=== PATIENT | female | born 1940 | race Caucasian/White ===

== ENCOUNTER 2022-12-16 08:28 | Outpatient (CLI) | payer MEDICARE, SELFPAY ==
--- NOTE | 2022-12-18 15:37 | P.PCNPFT_ITS ---
PFT Procedure Performed PFT Procedure Performed Spirometry with Pre/Post Bronchodilator PFT Interpretation DOS: 12/16/2022 REQUESTING: Gabbie Sahni MD REASON FOR TESTING: shortness of breath PULMONARY FUNCTION TESTS Results are reliable and reproducible for spirometry however the patient could n ot perform lung volumes or diffusion. Spirometry: Pre-bronchodilator FEV1 is 1.02 L, 62% predicted, moderately decreased. Pre-bronchodilator FVC is 1.34 L, 64%, moderately decreased. FEV1/FVC is 76%, normal. There is a non statistically significant change after bronchodilator. The FEV1 increases 5% and the FVC increases 1%. IMPRESSION: There is a moderate ventilatory impairment with decrease in the FEV1 and FVC with preserved FEV1/ FVC ratio. This suggests possible restriction, however the patient was not able to complete lung volumes or diffusion. No response to bronchodilator. No old tests for comparison. Marti May MD
== END 2022-12-16 08:29 | disposition home or self-care (01) ==
LOC: CHSCARD 08:30
PROVIDERS: PCP Family Medicine; Visit Provider Family Medicine
DX: R06.02 Shortness of breath (principal); R94.2 Abnormal results of pulmonary function studies
CPT/HCPCS: 94060

== ENCOUNTER 2023-05-27 10:32 | Outpatient (CLI) | payer MEDICARE, SELFPAY ==
--- NOTE | ~2023-05-27 | XR_ITS ---
XR chest 2V 05/27/2023 10:59 Indication: Acute bronchitis. COPD. Procedure: 2 view chest Comparison: 11/25/2014 Findings: There are coarse peripheral interstitial infiltrates, consistent with progression of chroni c interstitial fibrosis. There is atherosclerosis and ectasia of the aorta. There is a hiatal hernia. No significant effusion or pneumothorax. Impression: 1: Chronic interstitial lung disease which has progressed since prior studies. Reviewed, dictated and finalized at location A. Impression: 1: Chronic interstitial lung disease which has progressed since prior studies.
[2023-05-31 03:32] LABS: Adenovirus DNA Not Detected (Not Detected); Chlamydophila pneumoniae Not Detected (Not Detected); Coronavirus 229E Not Detected (Not Detected); Coronavirus HKU1 Not Detected (Not Detected); Coronavirus NL63 Not Detected (Not Detected); Coronavirus OC43 Not Detected (Not Detected); Human Metapneumovirus Not Detected (Not Detected); Human Parainfluenza Virus 1 Not Detected (Not Detected); Human Parainfluenza Virus 2 Not Detected (Not Detected); Human Parainfluenza Virus 3 Not Detected (Not Detected); Human Parainfluenza Virus 4 Not Detected (Not Detected); Human RSV B Not Detected (Not Detected); Influenza A Not Detected (Not Detected); Influenza B Not Detected (Not Detected); Mycoplasma pneumoniae Not Detected (Not Detected); Rhinovirus/Enterovirus Not Detected (Not Detected)
== END 2023-05-27 10:33 | disposition home or self-care (01) ==
LOC: CHSLAB 10:35
PROVIDERS: PCP Family Medicine; Visit Provider Family Medicine
DX: J44.0 Chronic obstructive pulmonary disease with (acute) lower respiratory infection (principal); R05.9 Cough, unspecified; J84.89 Other specified interstitial pulmonary diseases
CPT/HCPCS: 36415; 71046; 87633

== ENCOUNTER 2023-08-21 09:48 | Outpatient (CLI) | payer MEDICARE, SELFPAY ==
--- NOTE | ~2023-08-21 | CT_ITS ---
EXAMINATION: CT chest high resolution wo co DATE: 08/21/2023 10:05 INDICATION: Chronic cough, interstitial lung disease TECHNIQUE: Computed tomography (CT) of the chest was performed without intravenous contrast. The dose -length product (DLP) was 123.47 mGy-cm. 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 COMPARISON: None FINDINGS: There are subpleural reticular and groundglass opacities with a mid and upper lung zone pre dominance. There are areas of associated honeycombing. No pleural effusion or pneumothorax. There is left atrial enlargement of the heart. Calcified coronary artery atherosclerosis is noted. There are n o pathologically enlarged thoracic lymph nodes. There is a moderate-sized sliding hiatal hernia. Ther e is severe atrophy of the left kidney. Changes of cholecystectomy are noted. There is severe thoraci c spondylosis. IMPRESSION: 1. Chronic interstitial lung disease in a pattern of usual interstitial pneumonia (UIP). Reviewed, dictated and finalized at location B. OMIC DEVELOPER IMPRESSION: 1. Chronic interstitial lung disease in a pattern of usual interstitial pneumon ia (UIP).
== END 2023-08-21 09:49 | disposition home or self-care (01) ==
LOC: CHSIMG 09:50
PROVIDERS: PCP Family Medicine; Visit Provider Internal Medicine Pulmonary Disease
DX: J84.9 Interstitial pulmonary disease, unspecified (principal)
CPT/HCPCS: 71250

== ENCOUNTER 2023-08-28 14:22 | Outpatient (CLI) | payer MEDICARE, SELFPAY ==
--- NOTE | ~2023-08-28 | XR_ITS ---
XR_CERV2-3V_CR DATE: 08/28/2023 15:07 INDICATION: Fall one year ago. Left shoulder pain. TECHNIQUE: AP, open-mouth, lateral views COMPARISON: None FINDINGS: There is diffuse osteopenia. There is approximately 1 mm anterolisthesis at C2-3, 1.5 mm anterolisthesis at C4-5 and 2 mm anteroli sthesis at C7-T1. There is severe degenerative disc disease at C5-6 and C6-7. There is virtual obliteration of disc spa ce at each of these levels, with prominent anterior and lesser posterior spurring. C1 and C2 appear normally aligned and the odontoid process appears intact. No fracture or dislocation or locked facet or prevertebral soft tissue swelling is noted. There is degenerative change at the apophyseal joints. There is uncovertebral joint spurring, particu larly prominent at C5-6 and C6-7. IMPRESSION: Prominent cervical spondylosis Osteopenia Reviewed, dictated and finalized at Location A. Reviewed, dictated and finalized at location A. H SERVICES LIBRARIAN
--- NOTE | ~2023-08-28 | XR_ITS ---
XR shoulder LT min 2V DATE: 08/28/2023 15:07 INDICATION: Left shoulder pain TECHNIQUE: 4 views COMPARISON: None FINDINGS: There is diffuse osteopenia. There is mild degenerative spurring of the humeral head. No fracture or dislocation, periosteal reac tion or bone destruction is detected. There is dextroscoliosis and degenerative spurring of the thoracic spine. There is aortic calcification and unfolding. There are multiple old healed left rib fractures. IMPRESSION: Mild osteoarthritis of glenohumeral joint Osteopenia Reviewed, dictated and finalized at location A. ITAL WELLNESS COORDINATOR
== END 2023-08-28 14:23 | disposition home or self-care (01) ==
LOC: CHSIMG 14:23
PROVIDERS: PCP Family Medicine; Visit Provider Family Medicine
DX: M25.512 Pain in left shoulder (principal); M43.02 Spondylolysis, cervical region; M85.88 Other specified disorders of bone density and structure, other site; M19.012 Primary osteoarthritis, left shoulder
CPT/HCPCS: 72040; 73030

== ENCOUNTER 2024-07-29 12:04 | Emergency (ER) | payer MEDICARE, SELFPAY ==
[2024-07-29] VITALS (29 sets, daily range): BP systolic 92–147; BP diastolic 44–130; PULSE 88–133; RESP 15–33; TEMP 36.4; O2SAT 91–100
--- NOTE | ~2024-07-29 | XR_ITS ---
EXAMINATION: XR chest 2V DATE: 07/29/2024 12:44 INDICATION: Atrial fibrillation TECHNIQUE: PA and lateral views of the chest were obtained. COMPARISON: Chest radiograph dated 05/27/[address] dated 08/21/2023 FINDINGS: Cardiomegaly. No significant interval change in chronic coarse peripheral and lower lung predominant reticular opacities consistent with chronic interstitial lung disease. No pleural effusion or pneumot horax. Small hiatal hernia. 30 degree lumbar levorotoscoliosis with moderate to severe thoracic and l umbar spondylosis. Right rotator cuff arthropathy. IMPRESSION: 1. Chronic diffuse bilateral peripheral and lower lung predominant coarse reticular opacities consist ent with chronic interstitial lung disease with with usual interstitial pneumonia (UIP) pattern on pr ior CT. Difficult to exclude superimposed mild pulmonary edema or pneumonia. 2. Cardiomegaly. 3. Small hiatal hernia. Reviewed, dictated and finalized at location B. R CHECKER PACKER PROCESSER IMPRESSION: 1. Chronic diffuse bilateral peripheral and lower lung predominant coarse retic ular opacities consistent with chronic interstitial lung disease with with usua l interstitial pneumonia (UIP) pattern on prior CT. Difficult to exclude superi mposed mild pulmonary edema or pneumonia. 2. Cardiomegaly. 3. Small hiatal hernia.
--- NOTE | 2024-07-29 12:07 | ECG_ITS ---
Test Date: 2024-07-29 12:11:04 Measurements Intervals [place] Rate: 119 P: 0 [place]: 0 QRS: -19 QRSD: 94 T: 208 QT: 272 QTc: 383 Interpretive Statements ATRIAL FIBRILLATION WITH RAPID VENTRICULAR RESPONSE BORDERLINE R WAVE PROGRESSION, ANTERIOR LEADS ST-T WAVE ABNORMALITY IN HIGH LATERAL LEADS- CONSIDER ISCHEMIA BASELINE ARTIFACT- I, II, III, AVR, AVL, AVF, V1-V6 ABNORMAL ECG No previous ECG available for comparison Electronically Signed On 07-29-2024 18:58:59 COMMERCIAL COLLECTIONS DRIVER by Meliton Ellison D.O.
[2024-07-29 12:34] LABS: Basophils Absolute Auto 0.1 K/mm3 (0.0-0.1); Basophils Percent Auto 1.5 % (0.2-1.2); Eosinophils Absolute Auto 0.5 K/mm3 (0-0.3); Hematocrit 38.9 % (37.0-47.0); Hemoglobin 12.5 g/dL (12.0-15.0); Immature Granulocyte Absolute 0.02 K/mm3 (0.00-0.031); Immature Granulocyte Percent A 0.3 % (0-0.5); Lymphocytes Absolute Auto 1.61 K/mm3 (0.9-3.2); Lymphocytes Percent Auto 21.7 % (18.3-44.2); Mean Corpuscular HGB Conc 32.1 g/dl (32-36); Mean Corpuscular Hemoglobin 32.1 pg (26-34); Mean Corpuscular Volume 99.7 fl (80-100); Mean Platelet Volume 9.4 fl (7.4-10.4); Monocytes Absolute Auto 0.8 K/mm3 (0.1-0.6); Monocytes Percent Auto 10.5 % (2.6-8.5); Neutrophils Absolute Auto 4.4 K/mm3 (1.3-6.7); Platelet Count Result 292 k/mm3 (150-375); Red Cell Distribution Width 14.8 % (11.5-14.5); White Blood Count 7.4 K/mm3 (4.5-10.0)
[2024-07-29 12:45] LABS: INR 1.2; Prothrombin Time 15.5 Seconds (11.1-14.7)
[2024-07-29 13:04] LABS: Alanine Aminotransferase 21 U/L (6-35); Albumin Level 4.6 g/dL (3.5-5.1); Alkaline Phosphatase 96 U/L (38-126); Anion Gap 13 mmol/L (4-12); Aspartate Amino Transferase 30 U/L (14-36); Bilirubin,Total 1.1 mg/dL (0.2-1.3); Blood Urea Nitrogen 24 mg/dL (7-17); Calcium 9.7 mg/dL (8.4-10.2); Carbon Dioxide 19 mmol/L (22-30); Chloride 105 mmol/L (98-107); Estimated CRCL calculation 34 ml/min; Estimated Glomerular Filt Rate > 60; Glucose 101 mg/dL (65-110); Potassium 4.5 mmol/L (3.4-5.0); Sodium 137 mmol/L (137-145)
[2024-07-29 13:16] LABS: NT Pro B Type Natriuretic Pept 5130 pg/mL (19.9-100); Troponin I < 0.012 ng/mL (0.000-0.034)
--- NOTE | 2024-07-29 14:21 | ED.ARRPALP ---
HPI - Arrhythmia/Palpitations General Chief Complaint: Arrhythmia/Palpitations Stated Complaint: FAST HEART RATE Time Seen by Provider: 07/29/24 13:18 History of Present Illness HPI narrative: 83-year-old female with a history of AFib on Eliquis, CHF presenting with fast heart rate. Patient saw her PCP earlier today for a skin complaint. She was found to be tachycardic in the 120s so they were advised to come to the ER. Patient denies any complaints. States that she would not be here if it had not been for her PCP telling her to come here. Related Data Allergies Allergy/AdvReac Type Severity Reaction Status Date / Time No Known Allergies Allergy Verified 07/29/24 14:38 Review of Systems Review of Systems: All systems reviewed & are unremarkable except as noted in HPI and below Exam Narrative: GENERAL: Well-appearing, well-nourished, and in no acute distress. HEAD: Normocephalic, atraumatic. EYES: PERRLA and EOMI. ENT: Mucous membranes moist. NECK: Supple. CHEST: Clear to auscultation. No respiratory distress. HEART: Tachycardic, irregular rhythm ABDOMEN: Soft, nontender, nondistended EXTREMITIES: Normal range of motion. trace bilateral lower extremity edema SKIN: Warm, dry, no rash. NEURO: Alert and oriented x3. PSYCH: Normal mood and affect. Course Vital Signs Vital signs: Vital Signs Pulse Rate 133 H 07/29/24 12:15 Respiratory Rate 22 H 07/29/24 12:15 Pulse Oximetry 93 07/29/24 12:15 Temperature 97.6 F 07/29/24 12:16 Pulse Rate 110 H 07/29/24 18:34 Respiratory Rate 22 H 07/29/24 18:34 Blood Pressure 108/97 H 07/29/24 18:34 Pulse Oximetry 99 07/29/24 18:34 MDM - Arrhythmia/Palpitations MDM Narrative Medical decision making narrative: 83-year-old female presenting with fast heart rate. Patient is tachycardic in the 110s to 130s on arrival. Remainder of vitals are within normal limits. EKG per my interpretation shows atrial fibrillation with a ventricular rate of 119, no ST elevations or depressions. Patient would really rather go home. States that she and her live an hour and a half away and they were not planning on being at the hospital today. Will try some IV Lopressor for rate control, will consider cardioversion so she can be discharged. Blood work with elevated proBNP. Chest x-ray without pulmonary edema and patient does not appear volume overloaded chronically. Patient's heart rate has come down to the low 100s. She has been holding steady at this rate for couple of hours. Discussed possible cardioversion but she continues to be asymptomatic the remainder of her vitals are okay. She would really like to go home which I think is okay. Very strict return precautions were given and recommend very close PCP follow-up. Discharged in stable condition. Differential Diagnosis Differential diagnosis: Likely palpitations, anxiety, sinus tachycardia, artial fibrillation and artial flutter Medical Records Attestation: I reviewed the patient's medical records. Lab Data Attestation: I reviewed the patient's lab results. 07/29/24 12:26 07/29/24 12:26 Labs: Lab Results 07/29/24 Range/Units 12:26 WBC 7.4 (4.5-10.0) K/mm3 RBC 3.90 L (4.2-5.4) M/mm3 Hgb 12.5 (12.0-15.0) g/dL Hct 38.9 (37.0-47.0) % MCV 99.7 (80-100) fl MCH 32.1 (26-34) pg MCHC 32.1 (32-36) g/dl RDW 14.8 H (11.5-14.5) % Plt Count 292 (150-375) k/mm3 MPV 9.4 (7.4-10.4) fl Immature Gran % (Auto) 0.3 (0-0.5) % Neut % (Auto) 59.0 (45.5-73.1) % Lymph % (Auto) 21.7 (18.3-44.2) % [place] % (Auto) 10.5 H (2.6-8.5) % Eos % (Auto) 7.0 H (0-4.4) % Baso % (Auto) 1.5 H (0.2-1.2) % Lymph # (Auto) 1.61 (0.9-3.2) K/mm3 [place] # (Auto) 0.8 H (0.1-0.6) K/mm3 Eos # (Auto) 0.5 H (0-0.3) K/mm3 Baso # (Auto) 0.1 (0.0-0.1) K/mm3 Abs Immat Gran (auto) 0.02 (0.00-0.031) K/mm3 Absolute Neuts (auto) 4.4 (1.3-6.7) K/mm3 Absolute Nucleated RBC 0.000 (0.0-0.012) K/mm3 Nucleated RBC % 0.0 (0.0-0.2) % PT 15.5 H (11.1-14.7) Seconds INR 1.2 APTT 34.0 (22.3-36.8) Seconds Sodium 137 (137-145) mmol/L Potassium 4.5 (3.4-5.0) mmol/L Chloride 105 (98-107) mmol/L Carbon Dioxide 19 L (22-30) mmol/L Anion Gap 13 H (4-12) mmol/L BUN 24 H (7-17) mg/dL Creatinine 0.80 (0.7-1.0) mg/dL Estim Creat Clear Calc 34 ml/min Estimated GFR > 60 (59 - ) Glucose 101 (65-110) mg/dL Calcium 9.7 (8.4-10.2) mg/dL Total Bilirubin 1.1 (0.2-1.3) mg/dL AST 30 (14-36) U/L ALT 21 (6-35) U/L Alkaline Phosphatase 96 (38-126) U/L Troponin I < 0.012 (0.000-0.034) ng/mL NT-Pro-B Natriuret Pep 5130 H (19.9-100) pg/mL Total Protein 8.0 (6.3-8.2) g/dL Albumin 4.6 (3.5-5.1) g/dL Imaging Data Radiologist's impression: ITS Impressions Chest X-Ray 07/29/24 13:09 IMPRESSION: 1. Chronic diffuse bilateral peripheral and lower lung predominant coarse reticular opacities consistent with chronic interstitial lung disease with with usual interstitial pneumonia (UIP) pattern on prior CT. Difficult to exclude superimposed mild pulmonary edema or pneumonia. 2. Cardiomegaly. 3. Small hiatal hernia. Critical Care Time Critical Care Time Critical Care Time: No Discharge Plan Discharge Clinical Impression: Atrial fibrillation with rapid ventricular response Patient Disposition: Home, Self-Care Condition: Stable Instructions: Antibiotic Form, A-fib (Atrial Fibrillation) (ED) Additional Instructions: You were treated today for atrial fibrillation. You prefer to go home so we did not keep you in the hospital but it is very important that you follow-up closely with your primary care doctor. If you develop any concerning symptoms such as chest pain, shortness of breath, lightheadedness, leg swelling, or other concerning symptoms, please immediately return to the ER. Follow-up/Referrals: Nnamdi,MD Christ [Primary Care Provider] -
[2024-07-29] MEDS: METOPROLOL TARTRATE INJ 5 MG/5 ML VIAL IV PUSH ×2 (14:36→15:52)
[2024-07-29] MEDS: METOPROLOL TARTRATE 50 MG TAB 25 MG PO (16:00)
== END 2024-07-29 18:49 | disposition home or self-care (01) ==
PROVIDERS: Emergency Provider Emergency Medicine; PCP Family Medicine
DX: I48.91 Unspecified atrial fibrillation (principal); Z79.01 Long term (current) use of anticoagulants; I50.9 Heart failure, unspecified; K44.9 Diaphragmatic hernia without obstruction or gangrene; I51.7 Cardiomegaly; R91.8 Other nonspecific abnormal finding of lung field
CPT/HCPCS: 36415; 71046; 80053; 83880; 84484; 85025; 85610; 85730; 93005; 96374; 96376; 99284; A9270

== ENCOUNTER 2025-01-31 17:05 | Emergency (ER) | payer MEDICARE, SELFPAY ==
[2025-01-31 17:05] VITALS: BP 159/103; PULSE 88; RESP 20; TEMP 36.7; O2SAT 94
--- NOTE | 2025-01-31 17:36 | ED_ITS ---
HPI - General Adult General Chief complaint: Extremity Injury, Lower Stated complaint: left leg pain Time Seen by Provider: 01/31/25 17:35 Source: patient Mode of arrival: ambulatory Limitations: no limitations History of Present Illness HPI narrative: 84 YEARS OLD WHITE FEMALE CAME TO THE ED BY PRIVATE CAR FROM HOME COMPLAINING OF NUMBNESS OF THE LEFT FOOT AND CONSTRICTION LIKE FEELING AT THE BACK OF THE LEFT CALF MUSCLE STARTED 2 DAYS AGO AND GETTING WORSE. HISTORY OF HYPERTENSION, HYPERLIPIDEMIA AND ATRIAL FIBRILLATION. PATIENT QUIT TAKING THE ANTICOAGULANT MEDICATION FOR DAYS, DOES NOT WANT TO BE DEPENDENT ON IT. PATIENT DENIES ANY INJURY, FEVER, CHILLS, NAUSEA, VOMITING, CHEST PAIN SHORTNESS OF BREATH. Related Data Allergies Allergy/AdvReac Type Severity Reaction Status Date / Time No Known Allergies Allergy Verified 01/31/25 17:18 Review of Systems Review of Systems: All systems reviewed & are unremarkable except as noted in HPI and below Exam Narrative: GENERAL APPEARANCE: WELL-DEVELOPED, WELL-NOURISHED SKIN: NORMAL COLOR HEAD: NORMOCEPHALIC, NONTRAUMATIC EYES: CLEAR CONJUNCTIVA ENT: OROPHARYNX NORMAL, EARS NORMAL, NOSE NORMAL NECK: SUPPLE, NONTENDER CHEST AND RESPIRATORY: AIRWAY PATENT, NO RESPIRATORY DISTRESS, NO ACCESSORY MUSCLE USE HEART: REGULAR RATE/RHYTHM ABDOMEN: SOFT, NONTENDER, NO ORGANOMEGALY, QUIET BOWEL SOUNDS VASCULAR: LEFT LOWER LEG EXAM REVEALS NO PEDAL PULSE, NO TIBIALIS POSTERIOR PULSE, COLD FOOT, SLIGHTLY DUSKY IN COLOR MUSCULOSKELETAL: LEFT LOWER LEG IS WEAKER COMPARED TO THE RIGHT 1, 3/5 MOTOR STRENGTH, SENSATION 1/5 NEUROLOGIC: ALERT AND ORIENTED ?3, PATIENT OBSERVER IS NORMAL TESTED, NO GROSS MOTOR DEFICIT Course Vital Signs Vital signs: Vital Signs Temperature 36.7 C 01/31/25 17:05 Pulse Rate 88 01/31/25 17:05 Respiratory Rate 20 01/31/25 17:05 Blood Pressure 159/103 H 01/31/25 17:05 Pulse Oximetry 94 01/31/25 17:05 Oxygen Delivery Room Air 01/31/25 17:05 Temperature 36.7 C 01/31/25 17:05 Pulse Rate 88 01/31/25 17:05 Respiratory Rate 20 01/31/25 17:05 Blood Pressure 159/103 H 01/31/25 17:05 Pulse Oximetry 94 01/31/25 17:05 Oxygen Delivery Room Air 01/31/25 17:05 Medical Decision Making MDM Narrative Medical decision making narrative: PATIENT CAME WITH PAIN LEFT FOOT AND LEFT LOWER LEG, PHYSICAL EXAMINATION REVEALED NO PEDAL PULSE, NO POSTERIOR TIBIALIS PULSE, THE FOOT IS COLD AND SLIGHTLY DUSKY IN COLORATION. AFTER EXPLAINING THE NEED FOR BLOOD WORKUP AND TO START HEPARIN, PATIENT DECLINED ANY BLOOD WORKUP OR FURTHER EVALUATION AND DOES NOT WANT TO BE HOSPITALIZED AND WOULD LIKE TO TAKE HER CHANCES IN SPITE OF MY LENGTHY EXPLANATION THAT IF SHE LEAVE , THIS WILL LEAD TO LOSING HER LIMP AND PROBABLY CAN LEAD TO HER . PATIENT'S FRIEND AT THE BEDSIDE, OUR NURSE CHEKO WAS AT THE BEDSIDE DURING THIS CONVERSATION. I DECLARE THAT I HAVE PERSONALLY EXPLAINED TO THE PATIENT THE RISKS AND CONSEQUENCES INVOLVED IN LEAVING THIS FACILITY AT THIS TIME. THE BENEFITS OF CONTINUED TREATMENT AND/OR HOSPITALIZATION. AND THE ALTERNATIVES. IF ANY. TO CONTINUED TREATMENT AND/OR HOSPITALIZATION. IF APPLICABLE.I HAVE NOT IDENTIFIED ANY PSYCHOSIS, DRUGS, MENTAL ILLNESS, OR MEDICAL ILLNESS THAT ALTERS DECISION-MAKING CAPACITY (REASONING ABILITIES ). Vital Signs Vital Signs: Vital Signs Temperature 36.7 C 01/31/25 17:05 Pulse Rate 88 01/31/25 17:05 Respiratory Rate 20 01/31/25 17:05 Blood Pressure 159/103 H 01/31/25 17:05 Pulse Oximetry 94 01/31/25 17:05 Oxygen Delivery Room Air 01/31/25 17:05 Temperature 36.7 C 01/31/25 17:05 Pulse Rate 88 01/31/25 17:05 Respiratory Rate 20 01/31/25 17:05 Blood Pressure 159/103 H 01/31/25 17:05 Pulse Oximetry 94 01/31/25 17:05 Oxygen Delivery Room Air 01/31/25 17:05 Critical Care Time Critical Care Time Critical Care Time: No Discharge Plan Discharge Clinical Impression: Acute occlusion of artery of lower extremity Patient Disposition: Left Against Medical Advice Condition: Critical Patient Language: Cameroonian Follow-up/Referrals: Nnamdi,MD Christ [Primary Care Provider] -
== END 2025-01-31 17:40 | disposition left against medical advice (07) ==
PROVIDERS: Emergency Provider Emergency Medicine; PCP Family Medicine
DX: I70.90 Unspecified atherosclerosis (principal); I10 Essential (primary) hypertension; E78.5 Hyperlipidemia, unspecified; I48.91 Unspecified atrial fibrillation
CPT/HCPCS: 99282

== ENCOUNTER 2025-01-31 19:26 | Emergency (ER) | payer MEDICARE, SELFPAY ==
--- NOTE | ~2025-01-31 | XR_ITS ---
XR chest 1V portable Ordering provider: Nahum Oliva MD History: 84 years Female with . Chronic - Evening cough, LT chest pain, SOB . Comparison: July 29, 2024 FINDINGS: MEDIASTINUM: The cardiac silhouette is grossly enlarged. Congestive vincent. LUNGS: No effusions or pneumothorax. Bilateral interstitial thickening suggestive of pulmonary edema versus pneumonitis. Underlying fibrot ic changes are also noted. OTHER: No free air under the diaphragm. IMPRESSION: Cardiomegaly with cardiac decompensation and pulmonary edema. Pneumonitis is possible. Underlying fib rotic changes. Reviewed, dictated and finalized at location A. IMPRESSION: Cardiomegaly with cardiac decompensation and pulmonary edema. Pneumonitis is po ssible. Underlying fibrotic changes.
--- NOTE | ~2025-01-31 | CT_ITS ---
Procedure: CTA abd aorta runoff Ordering provider: Nahum Oliva MD History: . LT LE pain/numb/tightness X 2 days, unable to palpate pulse . Comparison: None. Technique: CT angiogram abdomen and pelvis was performed following timed intravenous injection of con trast. Thin slice axial images and reformatted coronal images were obtained. Three dimensional reform atted images were also obtained using a [employer] workstation. Radiation reduction technique utilized.The dose-length product was 577.73 mGy-cm. 100 mL Omnipaque 35 0 was given IV. FINDINGS: Visualized lower chest: Cardiomegaly. Underlying fibrotic changes. UPPER ABDOMINAL ORGANS: Liver: Fat infiltration. Gallbladder: Status post cholecystectomy. Spleen: Normal. Stomach: Sliding hiatus hernia. Pancreas: Atrophic. Adrenals: Normal. Kidneys: Atrophic left kidney. Cysts seen in the left kidney. PELVIC ORGANS: The bladder is normal. Right ovarian cystic mass is seen measuring 5 cm. Further evaluation advised. Left ovarian cystic mas s also seen measuring 4.2 cm. BOWEL AND MESENTERY: Colon: No evidence of diverticulitis. Appendix is not demonstrated. Small Bowel: Normal. No obstruction. Peritoneum/mesentery: No free air or free fluid. No mesenteric lymphadenopathy. RETROPERITONEUM: No retroperitoneal lymphadenopathy. ABDOMINAL AORTA: Atherosclerotic changes. Upper aorta measures 2.7 cm. Otherwise, Normal in caliber. No dissection. ILIAC ARTERIES AND BRANCHING VESSELS: Atherosclerotic changes. Otherwise, Normal in caliber. RENAL ARTERIES: The left is not demonstrated. Atherosclerotic changes seen at the origin of the right. Otherwise, Normal caliber. OTHER BRANCHING VESSELS OF THE ABDOMINAL AORTA AND THE MESENTERIC ARTERIES: Atherosclerotic changes a t the origin. Mild narrowing is seen. The superficial soft tissues of the abdomen and pelvis are normal. Age appropriate degenerative montilla es of the spine. LOWER EXTREMITIES: COMMON FEMORAL ARTERIES: Atherosclerotic changes. FEMORAL ARTERIES: Occlusion of the left in the mid left thigh most likely by thrombus. Reconstitution is seen in the distal left thigh. filling defects seen in the distal left SFA extending to the left popliteal artery. Filling defect seen in the right popliteal artery BILATERAL PROFUNDA FEMORA: bilaterally normal POPLITEAL ARTERIES: Occlusion bilaterally. The possibility of improper contrast phase cannot be exclu ded. TRIFURCATION AND THE POSTERIOR/ANTERIOR TIBIAL AND PERONEAL ARTERIES: Not visualized. Atherosclerotic changes are seen bilaterally FLOW TO THE FOOT: Not demonstrated BONES AND SOFT TISSUES: Unremarkable. 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 Visualization of both popliteal arteries which may be due to thrombosis versus improper contrast phas e. Clinical correlation and further evaluation with Conventional angiography is advised. Other appearances are described above. Dr. Oliva was notified with the result of the patient at 10:40 PM on January 31, 2025. Reviewed, dictated and finalized at location A. 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 Visualization of both popliteal arteries which may be due to thrombosis versus improper contrast phase. Clinical correlation and further evaluation with Conve ntional angiography is advised. Other appearances are described above. Dr. Oliva was notified with the result of the patient at 10:40 PM on January 31.
[2025-01-31 19:26] VITALS: BP 139/89; PULSE 96; RESP 19; TEMP 36.7; O2SAT 92
--- NOTE | 2025-01-31 19:35 | ECG_ITS ---
Test Date: 2025-01-31 20:04:12 Measurements Intervals [place] Rate: 87 P: 0 [place]: 0 QRS: -7 QRSD: 111 T: -28 QT: 382 QTc: 462 Interpretive Statements ATRIAL FIBRILLATION INCOMPLETE RIGHT BUNDLE BRANCH BLOCK [90+ ms QRS DURATION, TERMINAL R IN V1/V2, 40+ ms S IN I/aVL/V4/V5/V6] MODERATE ST DEPRESSION [0.05+ mV ST DEPRESSION] Compared to ECG 07/29/2024 12:11:04 Incomplete right bundle-branch block now present ST (T wave) deviation now present T-wave abnormality no longer present Possible ischemia no longer present Electronically Signed On 02-02-2025 14:58:31 CDT by Steven Dowling M.D.
--- NOTE | 2025-01-31 19:35 | ED_ITS ---
HPI - Extremity Problem General Chief complaint: Extremity Problem,Nontraumatic Stated complaint: Pain in L Leg Time Seen by Provider: 01/31/25 19:33 Source: patient Mode of arrival: ambulatory Limitations: no limitations History of Present Illness HPI Narrative: 84 YEARS OLD WHITE FEMALE CAME TO THE ED BY PRIVATE CAR COMPLAINING OF NUMBNESS OF THE LEFT FOOT, WEAKNESS OF THE LEFT LOWER LEG, PAIN AND COLD OF THE FOOT AND ANKLE, CONSTRICTION LIKE FEELING, CRAMPS LIKE FEELING AT THE BACK OF THE CALF MUSCLE OF THE LEFT LEG STARTED 2 DAYS AGO AND GRADUALLY GETTING WORSE. HISTORY OF HYPERTENSION, AFIB, NOT ON ANTICOAGULANT MEDICATION Related Data Allergies Allergy/AdvReac Type Severity Reaction Status Date / Time No Known Allergies Allergy Verified 01/31/25 20:55 Review of Systems 2 Review of Systems: All systems reviewed & are unremarkable except as noted in HPI and below Exam 2 Narrative: General appearance: Well-developed, well-nourished Skin: Normal color Head: Normocephalic, nontraumatic Eyes: Clear conjunctiva ENT: Oropharynx normal, ears normal, nose normal Neck: Supple, nontender Chest and respiratory: Airway patent, no respiratory distress, no accessory muscle use Heart: Regular rate/rhythm Abdomen: Soft, nontender, no organomegaly, quiet bowel sounds Vascular: Unable to detect dorsalis pedis or posterior tibialis pulse on the left side Musculoskeletal: weakness left lower extremity 3/5 motor, decreased sensation 2/5 left foot is colder and slightly darker than the right 1 Neurologic: Alert and oriented ?3, PIPE ORGAN MECHANIC APPRENTICE is normal as tested, no gross motor deficit Course Consultations Consultation #1: DR SAHU VASCULAR SURGEON AT [facility] WHO ACCEPTED PATIENT TRANSFERRED TO THE ED Date: 01/31/25 Vital Signs Vital signs: Vital Signs Temperature 36.7 C 01/31/25 19:26 Pulse Rate 96 01/31/25 19:26 Respiratory Rate 01/31/25 19:26 Blood Pressure 139/89 01/31/25 19:26 Pulse Oximetry 92 01/31/25 19:26 Oxygen Delivery Room Air 01/31/25 19:26 Temperature 36.7 C 01/31/25 19:26 Pulse Rate 96 01/31/25 19:26 Respiratory Rate 19 01/31/25 19:26 Blood Pressure 139/89 01/31/25 19:26 Pulse Oximetry 92 01/31/25 19:26 Oxygen Delivery Room Air 01/31/25 19:26 MDM - Extremity (Nontraumatic) MDM Narrative Medical decision making narrative: PATIENT CAME WITH WEAKNESS, NUMBNESS AND PAIN LEFT LOWER LEG VITAL SIGNS ARE STABLE PHYSICAL EXAMINATION CONSISTENT WITH ACUTE ARTERIAL INSUFFICIENCY TO LEFT LOWER LEG DIFFERENTIAL DIAGNOSIS ABOVE BLOOD WORKUP INCLUDES CBC, CMP AND COAGS SHOWED NO ACUTE ABNORMALITIES CTA HIRED A RUN OF SHOWED THROMBOSIS PROXIMAL LEFT SUPERFICIAL FEMORAL ARTERY HEPARIN BOLUS AND IV STARTED PRIOR TO THE IMAGING RESULTS, PATIENT WAS ACCEPTED FOR TRANSFERRED TO [facility]. Differential Diagnosis Differential diagnosis: Likely other ( ABOVE) Lab Data 01/31/25 19:48 01/31/25 19:48 Labs: Lab Results 01/31/25 Range/Units 19:48 WBC 10.0 (4.8-10.8) K/mm3 RBC 3.84 L (4.20-5.40) M/mm3 Hgb 12.3 (11.7-13.8) g/dL Hct 37.0 (35.0-42.0) % MCV 96.4 (78.0-102.0) fL MCH 32.0 H (27.0-31.0) pg MCHC 33.2 (32-36) g/dL RDW 14.1 (11.6-14.4) % Plt Count 273 (150-420) K/mm3 MPV 8.9 L (9.2-11.8) fl Immature Gran % (Auto) 0.7 H (0.0-0.0) % Neut % (Auto) 84.5 H (50.0-70.0) % Lymph % (Auto) 8.0 L (18.0-42.0) % [place] % (Auto) 6.4 (2.0-11.0) % Eos % (Auto) 0.3 L (1.0-6.0) % Baso % (Auto) 0.1 (0.0-1.0) % Lymph # (Auto) 0.80 L (1.10-4.50) K/mm3 [place] # (Auto) 0.64 (0.10-0.90) K/mm3 Eos # (Auto) 0.03 (0.02-0.50) K/mm3 Baso # (Auto) 0.01 (0.00-0.10) K/mm3 Abs Immat Gran (auto) 0.07 H (0.00-0.00) K/mm3 Absolute Neuts (auto) 8.43 H (1.70-7.20) K/mm3 Absolute Nucleated RBC 0.00 (0.00-0.00) K/mm3 Nucleated RBC % 0.0 (0-0.0) % PT 11.8 (9.50-12.1) Seconds INR 1.1 APTT 23.1 L (23.9-30.70) Sec Sodium 138 (137-145) mmol/L Potassium 4.3 (3.4-5.0) mmol/L Chloride 110 H (98-107) mmol/L Carbon Dioxide 22 (22-30) mmol/L Anion Gap 6 (4-12) mmol/L BUN 24 H (7-17) mg/dL Creatinine 0.75 (0.7-1.0) mg/dL Estim Creat Clear Calc 35 ml/min Estimated GFR > 60 (59 - ) Glucose 128 H (65-110) mg/dL Calculated Osmolality 292 (285-295) mOsm/kg Calcium 8.7 (8.4-10.2) mg/dL Total Bilirubin 0.8 (0.2-1.3) mg/dL AST 43 H (14-36) U/L ALT 54 H (6-35) U/L Alkaline Phosphatase 101 (38-126) U/L Total Protein 7.6 (6.3-8.2) g/dL Albumin 3.9 (3.5-5.1) g/dL Imaging Data Radiologist's impression: Impressions Chest X-Ray 01/31/25 20:14 IMPRESSION: Cardiomegaly with cardiac decompensation and pulmonary edema. Pneumonitis is possible. Underlying fibrotic changes. Aorta w/Runoff CTA 01/31/25 22:20 IMPRESSION: Thrombosis in the proximal left SFA with reconstitution distally is most likely due to thrombosis. Visualization of both popliteal arteries which may be due to thrombosis versus improper contrast phase. Clinical correlation and further evaluation with Conventional angiography is advised. Other appearances are described above. Dr. Oliva was notified with the result of the patient at 10:40 PM on January 31, 2025. Critical Care Time Critical Care Time Critical Care Time: No Discharge Plan Discharge Clinical Impression: Acute occlusion of artery Patient Disposition: Acute Care Hospital Condition: Stable Additional Instructions: transferred to [facility] Patient Language: South African Follow-up/Referrals: Nnamdi,MD Chirst [Primary Care Provider] -
[2025-01-31 19:51] LABS: Basophils Absolute Auto 0.01 K/mm3 (0.00-0.10); Basophils Percent Auto 0.1 % (0.0-1.0); Eosinophils Absolute Auto 0.03 K/mm3 (0.02-0.50); Eosinophils Percent Auto 0.3 % (1.0-6.0); Hemoglobin 12.3 g/dL (11.7-13.8); Immature Granulocyte Absolute 0.07 K/mm3 (0.00-0.00); Immature Granulocyte Percent A 0.7 % (0.0-0.0); Mean Corpuscular HGB Conc 33.2 g/dL (32-36); Mean Corpuscular Volume 96.4 fL (78.0-102.0); Mean Platelet Volume 8.9 fl (9.2-11.8); Monocytes Absolute Auto 0.64 K/mm3 (0.10-0.90); Monocytes Percent Auto 6.4 % (2.0-11.0); Neutrophils Absolute Auto 8.43 K/mm3 (1.70-7.20); Neutrophils Percent Auto 84.5 % (50.0-70.0); Platelet Count Result 273 K/mm3 (150-420); Red Blood Count 3.84 M/mm3 (4.20-5.40); Red Cell Distribution Width 14.1 % (11.6-14.4)
[2025-01-31 20:03] LABS: Alanine Aminotransferase 54 U/L (6-35); Albumin Level 3.9 g/dL (3.5-5.1); Alkaline Phosphatase 101 U/L (38-126); Anion Gap 6 mmol/L (4-12); Aspartate Amino Transferase 43 U/L (14-36); Bilirubin,Total 0.8 mg/dL (0.2-1.3); Blood Urea Nitrogen 24 mg/dL (7-17); Calcium 8.7 mg/dL (8.4-10.2); Carbon Dioxide 22 mmol/L (22-30); Chloride 110 mmol/L (98-107); Estimated CRCL calculation 35 ml/min; Estimated Glomerular Filt Rate > 60; Glucose 128 mg/dL (65-110); Osmolality Calculated 292 mOsm/kg (285-295); Potassium 4.3 mmol/L (3.4-5.0); Sodium 138 mmol/L (137-145); Total Protein 7.6 g/dL (6.3-8.2)
[2025-01-31 20:05] LABS: INR 1.1; Partial Thromboplastin Time 23.1 Sec (23.9-30.70); Prothrombin Time 11.8 Seconds (9.50-12.1)
[2025-01-31] MEDS: HEPARIN SODIUM 5,000 UNITS/ML VIAL 3000 UNITS IV PUSH (20:20)
[2025-01-31] MEDS: HEPARIN SOD/D5W 100 UNITS/ML 25,000 UNITS/250 ML BAG 6 UNITS IV CONT (20:23)
[2025-01-31 22:15] VITALS: PULSE 89; RESP 18; O2SAT 94
[2025-01-31 22:45] VITALS: PULSE 79; RESP 17; O2SAT 93
[2025-01-31 23:00] VITALS: PULSE 112; RESP 19
[2025-01-31 23:30] VITALS: PULSE 79; RESP 18; O2SAT 90
== END 2025-02-01 00:21 | disposition short-term general hospital (02) ==
PROVIDERS: Emergency Provider Emergency Medicine; PCP Family Medicine
DX: I70.90 Unspecified atherosclerosis (principal); I48.91 Unspecified atrial fibrillation; I10 Essential (primary) hypertension
CPT/HCPCS: 36415; 71045; 75635; 80053; 85025; 85610; 85730; 93005; 96365; 96366; 99285; J1644; Q9967

== ENCOUNTER 2025-03-14 14:35 | Observation (INO) | payer MEDICARE, SELFPAY ==
[2025-03-14] VITALS (33 sets, daily range): BP systolic 102–129; BP diastolic 63–96; PULSE 56–98; RESP 14–174; TEMP 36.4–36.6; O2SAT 81–100; BMI 22.6
--- NOTE | ~2025-03-14 | CT_ITS ---
CTA chest PE protocol Ordering provider: Jim Dalal MD History: 84 years Female with . shortness of breath . Comparison: August 19, 2023 Technique: CT angiogram chest was performed following timed intravenous injection of contrast. Thin s lice axial images and reformatted coronal images were obtained. Three dimensional reformatted images of the chest were also obtained using a [employer] workstation. . Automated exposure control and iterati ve reconstruction technique were employed. The dose-length product was 206.92 mGy-cm. 100 mL Omnipaqu e 350 was given IV. Findings: PULMONARY ARTERIES: No pulmonary embolus. VISUALIZED THORACIC INLET: Normal. MEDIASTINUM: Aorta/coronary arteries: Mild atheromatous disease. Heart/other: The heart is slightly enlarged. Right sided failure is noted with reflux of contrast in the inferior vena cava and in one of the vessels seen posterior to the septum between the left atriu m and left ventricle. Lymph nodes: No mediastinal or hilar adenopathy. LUNGS: No pulmonary nodules or masses. No infiltrates or effusions. No pneumothorax. VISUALIZED UPPER ABDOMEN: Atrophic left kidney. Atrophic pancreas. Otherwise, the visualized upper ab domen is normal. MUSCULOSKELETAL: Soft tissues: The superficial soft tissues are normal. Bones: Age appropriate degenerative changes of the spine. IMPRESSION: 1. No pulmonary embolism. 2. Interstitial changes of the lungs with thickening of the septa which is suggestive of superimpose d pulmonary edema. Clinical correlation and follow-up advised. 3. Cardiomegaly with right sided failure. 4. Atrophic left kidney. Reviewed, dictated and finalized at location A. IMPRESSION: 1. No pulmonary embolism. 2. Interstitial changes of the lungs with thickening of the septa which is sug gestive of superimposed pulmonary edema. Clinical correlation and follow-up adv ised. 3. Cardiomegaly with right sided failure. 4. Atrophic left kidney.
--- OUTSIDE RECORDS SUMMARY | 2025-03-14 14:39 | XMS_ITS | Encounter Summary ---
Author Organization [facility] [place] Address [address] [place] [address] Care Team Providers Care Telephone Surveyor Name Role Phone Christ Coto MD Primary Care Provider Yesy Alonso MD Unavailable Sudhakar Lu Unavailable [phone] Anthony Rojas MD Unavailable [phone] Peggy Celeste PA-C Unavailable [phone] Encounter Details Date Type Department Care Team (Late st Contact Info) Description 02/12/2019 Abstract SFL CONVERSION [address] [place] [address] , Generic ConversionMD Social History Tobacco Use Types Packs/Day Years Used Date Smoking Tobacco: Never Comments Unknown Sex and Gender Information Value Date Recorded Sex Assigned at Female 02/01/2025 5:16 AM CDT Legal Sex Female 8:38 PM CDT Gender Identity Not on file Sexual Orientation Not on file documented as of this encounter Plan of Treatment Upcoming Encounters Date Type Department Care Team (Late st Contact Info) Description 04/19/2025 2:45 PM CDT Office Visit [facility] [address] [place] [phone] Peggy Celeste PA-C [address] [place], [place] [phone] documented as of this encounter Visit Diagnoses Not on filedocumented in this encounter Additional Health Concerns Infection Onset Date Last Indicated Resolved Time COVID-19 Rule Out 04/27/2024 04/27/2024 04/27/2024 9:42 PM CDT documented as of this encounter Care Teams Telephone Surveyor Relationship Specialty Start Date End Date Christ Coto MD [address] [place] [phone] PCP - General FAMILY PRACTICE 03/12/19 Yesy Alonso MD [address] [place] [address] Consulting Physician CARDIOVASCULAR DISEASE 05/19/24 Sudhakar Lu PA [address] [place] [phone] Physician Engagement Liaison PHYSICIAN LITHOGRAPHIC ARTIST 05/19/24 Anthony Rojas MD [address] [place] [address] Consulting Physician CLINICAL CARDIAC ELECTROPHYSIOLOGY 01/16/25 Peggy Celeste PA-C [address] [place] [phone] Referring Physician PHYSICIAN LITHOGRAPHIC ARTIST 01/30/25 documented as of this encounter
--- OUTSIDE RECORDS SUMMARY | 2025-03-14 14:39 | XMS_ITS | Encounter Summary ---
Author Organization [facility] Address [address] [place] [address] Care Team Providers Care Coffee Machine Technician Name Role Phone Christ Coto MD Primary Care Provider [phone] Yesy Alonso MD Unavailable Sudhakar Lu Unavailable [phone] Anthony Rojas MD Unavailable [phone] Peggy Celeste PA-C Unavailable [phone] Encounter Details Date Type Department Care Team (Late st Contact Info) Description 02/14/2025 Hospital Follow-up Call [facility] [address] [place] [address] Alicia Salazar, RN Social History Tobacco Use Types Packs/Day Years Used Date Smoking Tobacco: Never Smokeless Tobacco: Never Alcohol Use Standard Drinks/Week Comments Yes 0 (1 standard drink = 0.6 oz pur e alcohol) 2 spiked 4% drinks/week/wine [facility] Utilities Answer Date Recorded In the past 12 months has e electric, gas, oil, or water [employer] threatened to shut off services in your home? No 02/01/2025 Humiliation, Afraid, Rape, and Kick questionnair e Answer Date Recorded Within the last year, have y ou been afraid of your partner or ex-partner? No 02/01/2025 Within the last year, have y ou been humiliated or emotionally abused in other ways by your partner or ex-partner? No Within the last year, have y ou been kicked, hit, slapped, or otherwise physically hurt by your partner or ex-partner? No 02/01/2025 Within the last year, have y ou been raped or forced to have any kind of sexual activity by your partner or ex-partner? No 02/01/2025 AUDIT-C Answer Date Recorded Frequency of Alcohol Consumption Never 03/12/2019 Average Number of Drinks Not on file 019 Frequency of Binge Drinking Not on file 02/2019 Overall Financial Resource Strain (CARDIA) Answe r Date Recorded How hard is it for you to pa y for the very basics like food, housing, medical care, and heating? Not very hard 02/01/2025 Hunger Vital Sign Answer Date Recorded Within the past 12 months, y ou worried that your food would run out before you got the money to buy more. Never true 02/02/20 25 Within the past 12 months, t he food you bought just didn't last and you didn't have money to get more. Never true 02/01/2025 PRAPARE - Transportation Answer Date Re corded In the past 12 months, has l ack of transportation kept you from medical appointments or from getting medications? No 01/06 In the past 12 months, has l ack of transportation kept you from meetings, work, or from getting things needed for daily living? No 02/01/2025 Housing Stability Vital Sign Answer Pepe e Recorded In the last 12 months, was t here a time when you were not able to pay the mortgage or rent on time? No 02/01/2025 In the past 12 months, how m any times have you moved where you were living? 0 02/01/2025 At any time in the past 12 m [facility], were you homeless or living in a snf (including now)? No 02/01/2025 Comments No Sex and Gender Information Value Date Recorded Sex Assigned at Female 02/01/2025 5:16 AM CDT Legal Sex Female 8:38 PM CDT Gender Identity Not on file Sexual Orientation Not on file documented as of this encounter Functional Status * Are you deaf or do you have serious difficulty hearing Answer Date of Assessment Author Status No 02/01/2025 5:09 AM CDJeri Ly RN Active * Are you blind or do you have serious difficulty seeing, even when wearing glasses? Answer Date of Assessment Author Status No 02/01/2025 5:09 AM Jeri Sheikh RN Active * Do you have serious difficulty walking or climbing stairs? Answer Date of Assessment Author Status No 02/01/2025 5:09 AM Jeri Sheikh RN Active * Do you have difficulty dressing or bathing? Answer Date of Assessment Author Status No 02/01/2025 5:09 AM Jeri Sheikh RN Active * Because of a physical, mental, or emotional condition, do you have difficulty doing errands alone such as visiting a doctor's office or shopping? Answer Date of Assessment Author Status No 02/01/2025 5:09 AM Jeri Sheikh RN Active documented as of this encounter Mental Status * Because of a physical, mental, or emotional condition, do you have serious difficulty concentrating, remembering, or making decisions? Answer Entry Date Author Status No 02/01/2025 5:09 AM Jeri Sheikh RN Active documented in this encounter Plan of Treatment Upcoming Encounters Date Type Department Care Team (Late st Contact Info) Description 04/19/2025 2:45 PM CDT Office Visit [facility] [place] [address] [place] [phone] Peggy Celeste PA-C [address], [place] [phone] documented as of this encounter Visit Diagnoses Not on filedocumented in this encounter Care Teams Coffee Machine Technician Relationship Specialty Start Date End Date Christ Coto MD [address] [place] [phone] PCP - General FAMILY PRACTICE 03/12/19 Yesy Alonso MD [facility] [place] [address] Consulting Physician CARDIOVASCULAR DISEASE 05/19/24 Sudhakar Lu PA [address] [place] [phone] Physician Assembler [employer] Buildings PHYSICIAN LAYOUT TECHNICIAN 05/19/24 Anthony Rojas MD [address] [place] [address] Consulting Physician CLINICAL CARDIAC ELECTROPHYSIOLOGY 01/16/25 Peggy Celeste PA-C [address] [place] [address] Referring Physician PHYSICIAN LAYOUT TECHNICIAN 01/30/25 documented as of this encounter
--- OUTSIDE RECORDS SUMMARY | 2025-03-14 14:39 | XMS_ITS | Clinical Summary ---
Author Organization [facility] Address [address] [place] [address] Care Team Providers Care Contact Center Analyst Name Role Phone Christ Coto MD Primary Care Provider Yesy Alonso MD Unavailable Sudhakar Lu Unavailable [phone] Anthony Rojas MD Unavailable + [phone] Peggy Celeste PA-C Unavailable [phone] Allergies No known active allergies Medications gabapentin (NEURONTIN) 100 MG capsule Take 1 capsule (100 mg total) by mouth 3 (three) times daily. Active omeprazole (PRILOSEC) 40 MG capsule Take 1 capsule (40 mg total) by mouth daily. Active metoprolol succinate ER (TOPROL-XL) 200 MG 24 hr tabletIndication s:afib Take 1 tablet (200 mg total) by mouth daily. Indications: afib 30 tablet 1 02/15/20 25 Active apixaban (ELIQUIS) 2.5 MG tabletIndication s:Atrial Fibrillation Take 1 tablet (2.5 mg total) by mouth 2 (two) times daily. Indications: Atrial Fibrillation 60 tablet 1 02/14/20 25 Active aspirin EC (ECOTRIN) 81 MG tabletIndication s:PVD Take 1 tablet (81 mg total) by mouth daily. Indications: PVD 30 tablet 1 02/15/20 25 Active midodrine (PROAMATINE) 5 MG tabletIndication s:hypotension Take 1 tablet (5 mg total) by mouth 3 (three) times daily for 30 days. Indications: hypotension 90 tablet 02/14/20 25 025 Active dilTIAZem CD (CARDIZEM CD) 120 MG 24 hr capsule Take 1 capsule (120 mg total) by mouth daily. 025 Discontin ued(Stop Taking at Discharge ) metoprolol succinate ER (TOPROL-XL) 25 MG 24 hr tablet Take 1.5 tablets (37.5 mg total) by mouth daily. 025 Discontin ued(Stop Taking at Discharge ) Active Problems Problem Noted Date Diagnosed Date Atrial thrombus 04/29/2024 Heart failure with reduced e jection fraction ([facility]) 04/28/2024 Assessment & Plan (05/03/2024 4:41 PM CDT): LV dysfunction not recorded at the time of admission: MPI shows a normal LVEF. She has moderate area of mild intensity ischemia suggesting she probably has underlying coronary artery disease at this point, recommend medical therapy with aspirin. If she develops angina, could consider cardiac cath but is not needed. I suspect initially recorded low ejection fraction was likely related to rapid ventricular response at the time of admission. Emphysema of lung ([facility]) 04/28/2024 Pulmonary fibrosis ([facility]) 04/28/2024 Assessment & Plan (04/29/2024 1:19 PM CDT): Patient with known diagnosis has been on oxygen supplemental therapy. Follows up with pulmonary. Atrial fibrillation ([facility]) 04/27/2024 Assessment & Plan (05/02/2024 9:57 PM CDT): Atrial fibrillation with rapid ventricular response likely contributing to her heart failure symptoms and drop in LV ejection fraction. Initiation of sinus rhythm could benefit her. Consulted EP service for consideration of therapy with Tikosyn. CTA showed MICHAEL thrombus therefore we abandoned rhythm control strategy for now. Continue anticoagulation. Her blood pressure runs low, not tolerating beta-leah. 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) 02/01/2025 02/13/2025 Encounters Date Type Department Care Team Description 02/15/2025 10:00 AM CDT Home [facility] Visit [facility] Home Care [facility] [address] [place] [address] Bethanie Mccann RN SN NON ADMIT SOC 02/14/2025 Hospital Follow-up Call [facility] [address] [place] [address] Alicia Salazar RN 02/14/2025 Telephone [facility] [address] [place] [address] Anthony Rojas MD Appointment Request 02/13/2025 9:45 AM CDT Home Care Visit [facility] Home Care [facility] [address] [place] [address] Rosie Chatterjee LPN LIAISON TELEPHONE CALL 02/03/2025 3:35 PM CDT Anesthesia Event [facility] [address] [place] [address] Jaguar Bejarano MD Stanton, George, MD 02/03/2025 2:00 PM CDT - 02/03/2025 5:14 PM CDT Surgery [facility] [address] [place] [address] Taryn Ruiz MD LOWER EXTREMITY THROMBECTOMY 02/02/2025 11:59 PM CDT Anesthesia Event [facility] [address] [place] [address] Toi Mohr MD Bracco, Kendra A, RN 02/01/2025 1:24 AM CDT - 02/13/2025 12:43 PM CDT Hospital Encounter [facility] [address] [place] [address] Linda Duvall MD Shackour, Salim, MD Jabeen, Sayeeda A, MD Sohail, Atif, MD Leg Pain Discharge Disposition: Home or Self Care (Routine Discharge) 02/01/2025 Travel 01/31/2025 Telephone [facility] [place] [address] Anthony Rojas MD Appointment Reminder 12/21/2024 Telephone [facility] [address] [place] [address] Anthony Rojas MD Appointment Request from Last 3 Months Family History Medical History Relation Comments Arthritis Brother Heart Disease Father No Known Problems Maternal Grandfather No Known Problems Maternal Grandmother Heart Disease Mother No Known Problems Paternal Grandfather No Known Problems Paternal Grandmother Heart Disease Sister Relation Status Comments Brother Alive Father Maternal Grandfather Maternal Grandmother Mother Paternal Grandfather Paternal Grandmother Sister Alive Social History Tobacco Use Types Packs/Day Years Used Date Smoking Tobacco: Never Smokeless Tobacco: Never Alcohol Use Standard Drinks/Week Comments Yes 0 (1 standard drink = 0.6 oz pur e alcohol) 2 spiked 4% drinks/week/wine [facility] [employer] Answer Date Recorded In the past 12 months has [employer], gas, oil, or water [employer] threatened to shut off services in your [...] any time in the past 12 m [facility], were you homeless or living in a jail (including now)? No 02/01/2025 Comments No Sex and Gender Information Value Date Recorded Sex Assigned at Female 02/01/2025 5:16 AM CDT Legal Sex Female 8:38 PM CDT Gender Identity Not on file Sexual Orientation Not on file Last Filed Vital Signs Vital Sign Reading Time Taken Comments Blood Pressure 97/66 02/13/2025 8:52 AM CDT Pulse 58 02/13/2025 8:56 AM CDT Temperature 36.7 C (98 F) 02/13/2025 4:00 AM CDT Respiratory Rate 18 02/13/2025 4:00 AM CDT Oxygen Saturation 96% 02/13/2025 9:00 AM CDT Inhaled Oxygen Concentration - - Weight 52.4 kg (115 lb 8.3 oz) 02/13/2025 5:00 A M CDT Height 152 cm (4' 11.84) 02/03/2025 12:00 PM CD T Body Mass Index 22.68 02/03/2025 12:00 PM CDT Plan of Treatment Upcoming Encounters Date Type Department Care Team (Late st Contact Info) Description 04/19/2025 2:45 PM CDT Office Visit [facility] [place] [address] Peggy Celeste PA-C [address] [place], [place] [id number] Health Maintenance Due Date Last Done Comments ASCVD Statin 1940 DTaP, Tdap and Td Vaccines ( 1 - Tdap) 1960 Pneumococcal Vaccine: 50+ Ye ars (1 of 2 - PCV) 1960 Zoster Vaccines (1 of 2) 12/10/1991 Annual Medicare Wellness Visit 2006 Dexa Scan (General) 2006 RSV Immunization or 60+ Years (1 - 1-dose 75+ series) 2016 COVID-19 Vaccine (2023-2 5 season) 2024 Meningococcal B Vaccine Aged Out No l onger eligible based on patient's age to complete this topic Meningococcal Vaccine Aged Out No nata rhys eligible based on patient's age to complete this topic RSV Immunizations Under 20 Months Aged Out No longer eligible based on patient's age to complete this topic Medical Devices Implanted Type Area Atmospheric Sciences Professor Device Identifier Shelf Expiration Date Model / Serial / Lot Agent Hemostatic Surgiflo 8 Ml Kit - [id number] Implanted:Qty: 1 on 02/03/2025 by Taryn Ruiz MD at [facility] [employer] [id number] 06/06/2026 [id number] / / [id number] Agent Hemostatic Surgiflo 8 Ml Kit - [id number] Implanted:Qty: 1 on 02/03/2025 by Jonnathan Galindo MD at [facility] [employer] [id number] 06/06/2026 [id number] / / [id number] Procedures Procedure Name Priority Date/Time Associated Diagnosis Comments POCT GLUCOSE - DOCKED DEVICE Routine 02/11/2025 4:44 PM CDT POCT GLUCOSE - DOCKED DEVICE Routine 02/11/2025 11:40 AM CDT BMP WITHOUT GLUCOSE Routine 02/11/2025 5 :30 AM CDT CBC, AUTO, NO DIFF Routine 02/11/2025 5: 30 AM CDT TROPONIN, QUANT STAT 02/11/2025 12:29 AM CDT LACTIC ACID STAT 02/11/2025 12:29 AM CDT TYPE & SCREEN STAT 02/11/2025 12:14 AM CDT ECG 12-LEAD STAT 02/10/2025 8:59 PM CDT BMP WITHOUT GLUCOSE Routine 02/10/2025 4 :34 AM CDT CBC, AUTO, NO DIFF Routine 02/10/2025 4: 34 AM CDT CBC, AUTO, NO DIFF Routine 02/09/2025 5: 35 AM CDT BMP WITHOUT GLUCOSE Routine 02/09/2025 5 :35 AM CDT GI PANEL PCR - STOOL Nurse Collected Priority 02/08/2025 10:13 AM CDT CBC, AUTO, NO DIFF Routine 02/08/2025 5: 58 AM CDT ECG 12-LEAD Routine 02/07/2025 2:[address] CHEST+ABD+PEL W CON Today 02/07/2025 11:29 AM CDT CBC, AUTO, NO DIFF Routine 02/07/2025 6: 01 AM CDT POCT GLUCOSE - DOCKED DEVICE Routine 02/06/2025 4:22 PM CDT XR CHEST PORTABLE Today 02/06/2025 12: 15 PM CDT POCT GLUCOSE - DOCKED DEVICE Routine 02/06/2025 11:02 AM CDT POCT GLUCOSE - DOCKED DEVICE Routine 02/06/2025 6:05 AM CDT BMP WITHOUT GLUCOSE Routine 02/06/2025 4 :52 AM CDT CBC W/DIFF AUTOMATED Routine 02/06/2025 4:52 AM CDT POCT GLUCOSE - DOCKED DEVICE Routine 02/05/2025 8:18 PM CDT POCT GLUCOSE - DOCKED DEVICE Routine 02/05/2025 4:20 PM CDT BMP WITHOUT GLUCOSE Routine 02/05/2025 2 :00 AM CDT PROTHROMBIN TIME, VENOUS Routine 02/05/2025 2:00 AM CDT CBC W/DIFF AUTOMATED Routine 02/05/2025 2:00 AM CDT XR CHEST PORTABLE Today 02/04/2025 2:1 0 PM CDT HEPARIN, ANTI XA, UFH TIMED 02/04/2025 2:02 PM CDT TROPONIN, QUANT TIMED 02/04/2025 10:07 AM CDT HEPARIN, ANTI XA, UFH TIMED 02/04/2025 5:07 AM CDT TROPONIN, QUANT TIMED 02/04/2025 5:07 AM CDT PHOSPHORUS, INORGANIC PHOSPHATE Routine 02/04/2025 5:07 AM CDT MAGNESIUM Routine 02/04/2025 5:07 AM CDT PARTIAL THROMBOPLASTIN TIME,PTT Routine 02/04/2025 5:07 AM CDT PROTHROMBIN TIME, VENOUS Routine 02/04/2025 5:07 AM CDT CBC W/DIFF AUTOMATED Routine 02/04/2025 5:07 AM CDT BASIC METABOLIC PANEL Routine 02/04/2025 5:07 AM CDT BLOOD GAS, ARTERIAL LAB STAT 02/04/2025 2:42 AM CDT CULTURE, BACTERIA, BLOOD Routine 02/03/2025 11:45 PM CDT HEPARIN, ANTI XA, UFH STAT 02/03/2025 10:28 PM CDT TROPONIN, QUANT TIMED 02/03/2025 10:28 PM CDT LACTIC ACID STAT 02/03/2025 10:28 PM CDT BLOOD GAS, VENOUS STAT 02/03/2025 10: 28 PM CDT PRO-BRAIN NATRIURETIC PEPTIDE STAT 02/03/2025 10:28 PM CDT MAGNESIUM STAT 02/03/2025 10:28 PM CDT COMPREHENSIVE METABOLIC PANEL STAT 02/03/2025 10:28 PM CDT CBC W/DIFF AUTOMATED STAT 02/03/2025 10:28 PM CDT POCT GLUCOSE - DOCKED DEVICE Routine 02/03/2025 10:23 PM CDT ECG 12-LEAD STAT 02/03/2025 9:56 PM CDT CBC W/DIFF AUTOMATED STAT 02/03/2025 9:47 PM CDT POCT ACTIVATED CLOTTING TIME - ISTAT DOCKED DEVICE Routine 02/03/2025 5:47 PM CDT POCT ACTIVATED CLOTTING TIME - ISTAT DOCKED DEVICE Routine 02/03/2025 5:35 PM CDT POCT ACTIVATED CLOTTING TIME - ISTAT DOCKED DEVICE Routine 02/03/2025 4:18 PM CDT ART LINE PLACEMENT Routine 02/03/2025 3: 52 PM CDT THROMBOLYSIS VENOUS INFUSION W/IMAGING INIT TX 02/03/2025 3:20 PM CDT CRITICAL LIMB ISCHEMIA Case Notes REQUEST 1400PATIENT IN ROOM [id number] NOTIFIED THEY MAY BE NEEDED TROPONIN, QUANT TIMED 02/03/2025 10:25 AM CDT TROPONIN, QUANT TIMED 02/03/2025 3:33 AM CDT BASIC METABOLIC PANEL Routine 02/03/2025 3:33 AM CDT PROTHROMBIN TIME, VENOUS Routine 02/03/2025 3:33 AM CDT CBC W/DIFF AUTOMATED Routine 02/03/2025 3:33 AM CDT PATHOLOGY Routine 02/03/2025 12:00 AM CDT TROPONIN, QUANT TIMED 02/02/2025 9:13 PM CDT HEPARIN, ANTI XA, UFH TIMED 02/02/2025 9:13 PM CDT ECG 12-LEAD STAT 02/02/2025 8:51 PM CDT HEPARIN, ANTI XA, UFH TIMED 02/02/2025 3:58 PM CDT POCT GLUCOSE - DOCKED DEVICE Routine 02/02/2025 11:07 AM CDT TYPE & SCREEN STAT 02/02/2025 7:24 AM CDT HEPARIN, ANTI XA, UFH TIMED 02/02/2025 7:24 AM CDT MAGNESIUM Routine 02/02/2025 7:24 AM CDT COMPREHENSIVE METABOLIC PANEL Routine 02/02/2025 7:24 AM CDT PROTHROMBIN TIME, VENOUS Routine 02/02/2025 7:24 AM CDT CBC W/DIFF AUTOMATED Routine 02/02/2025 7:24 AM CDT HEPARIN, ANTI XA, UFH TIMED 02/01/2025 11:02 PM CDT HEPARIN, ANTI XA, UFH TIMED 02/01/2025 3:16 PM CDT HEPARIN, ANTI XA, UFH TIMED 02/01/2025 11:51 AM CDT USV ART REST W EILEEN LOW EXT Today 02/01/2025 11:25 AM CDT ECG 12-LEAD Routine 02/01/2025 10:02 AM CDT LIPID PANEL TIMED 02/01/2025 7:58 AM CDT HEPARIN, ANTI XA, UFH STAT 02/01/2025 3:29 AM CDT PARTIAL THROMBOPLASTIN TIME,PTT STAT 02/01/2025 3:29 AM CDT BASIC METABOLIC PANEL STAT 02/01/2025 1:48 AM CDT PROTHROMBIN TIME, VENOUS STAT 02/01/2025 1:48 AM CDT HEPARIN, ANTI XA, UFH STAT 02/01/2025 1:48 AM CDT CBC W/DIFF AUTOMATED STAT 02/01/2025 1:48 AM CDT from Last 3 Months Results * POCT glucose (02/11/2025 4:44 PM CDT) Only the most recent of9 resultswithin the time period is included. GLUCOSE POC 101 70 - 109 02/11/2025 4:47 PM CDT [facility] 02/11/2025 4:44 PM CDT us Joesph Spaulding MD POCT ORDERABLES - DEVICE Final R esult [facility] [address] [place] [address], [place] [phone] [id number] * (ABNORMAL) BMP WITHOUT GLUCOSE (02/11/2025 5:30 AM CDT) Only the most recent of5 resultswithin the time period is included. SODIUM S/P/B 137 136 - 145 MMOL/L 02/11/2025 6:21 AM CDT [facility] POTASSIUM S/P/B 4.1 3.5 - 5.1 MMOL/L 02/11/2025 6:21 AM CDT [facility] CHLORIDE S/P/B 105 97 - 115 MMOL/L 02/11/2025 6:21 AM CDT [facility] CO2 28.8 21.0 - 32.0 MMOL/L 02/11/2025 6:21 AM CDT [facility] BUN 19(H) 7 - 18 MG/DL 02/11/2025 6:21 AM CDT [facility] CREATININE S/P/B 0.77 0.55 - 1.02 MG/DL 02/11/2025 6:21 AM CDT [facility] CALCIUM S/P/B 9.0 8.5 - 10.1 MG/DL 02/11/2025 6:21 AM CDT [facility] ANION GAP 3.2 2.0 - 10.0 MMOL/L 02/11/2025 6:21 AM CDT [facility] GFR ESTIMATE 76(L) >90 ML/MIN/1. 73 M2 02/11/2025 6:21 AM CDT [facility] GFR NOTES GFR REFERENCE S: 02/11/2025 6:21 AM CDT [facility] Comment: THE ESTIMATED GFR IS CALCULATED USING THE 2020 CKD-EPI EQUATION. THE FOLLOWING CATEGORIES FOR GRADING RENAL FUNCTION ARE RECOMMENDED BY THE INTERNATIONAL SOCIETY OF NEPHROLOGY (KDIGO 2012 CLINICAL PRACTICE GUIDELINE). G1,NORMAL OR HIGH: >89 ml/min/1.73 m2 G2,MILDLY DECREASED: 60-89 ml/min/1.73 m2 G3A,MILDLY TO MODERATELY DECREASED: 45-59 ml/min/1.73 m2 G3B,MODERATELY TO SEVERELY DECREASED: 30-44 ml/min/1.73 m2 G4,SEVERELY DECREASED: 15-29 ml/min/1.73 m2 G5,KIDNEY FAILURE: <15 ml/min/1.73 m2 02/11/2025 5:30 AM CDT Joesph Spaulding MD LABORATORY Final Result [facility] [address] [place] [address], [id number] * (ABNORMAL) CBC, AUTO, NO DIFF (02/11/2025 5:30 AM CDT) Only the most recent of5 resultswithin the time period is included. WBC 10.15 4.00 - 10.80 x10'3/uL 02/11/2025 5:54 AM CDT [facility] RBC 2.81(L) 4.10 - 5.40 x10'6/uL 02/11/2025 5:54 AM CDT [facility] HGB 9.1(L) 12.0 - 16.0 G/DL 02/11/2025 5:54 AM CDT [facility] HCT 27.5(L) 36.0 - 47.0 % 02/11/2025 5:54 AM CDT [facility] MCV 97.9 78.0 - 100.0 FL 02/11/2025 5:54 AM CDT [facility] MCH 32.4(H) 27.0 - 31.0 PG 02/11/2025 5:54 AM CDT [facility] MCHC 33.1 33.0 - 36.0 G/DL 02/11/2025 5:54 AM CDT [facility] RDW 13.7 11.5 - 14.5 % 02/11/2025 5:54 AM CDT [facility] PLT 335 150 - 350 x10'3/uL 02/11/2025 5:54 AM CDT [facility] MPV 9.1 7.4 - 10.4 FL 02/11/2025 5:54 AM CDT [facility] 02/11/2025 5:30 AM CDT us Joesph Spaulding MD LABORATORY Final Result Performing Organization Address [facility] de Phone Number [facility] [address] [place] [address], [id number] * LACTIC ACID (02/11/2025 12:29 AM CDT) Only the most recent of2 resultswithin the time period is included. LACTIC ACID VENOUS 1.3 0.4 - 2.0 MMOL/L 02/11/2025 1:04 AM CDT [facility] 02/11/2025 12:2 9 AM CDT Abiola Alonzo MD LABORATORY Final Res ult [facility] [address] [place] [address], [place] [phone] [id number] * TROPONIN, QUANT (02/11/2025 12:29 AM CDT) Only the most recent of7 resultswithin the time period is included. TROPONIN I HIGH SENSITIVITY 22 0 - 53 ng/L 02/11/2025 1:08 AM CDT [facility] 02/11/2025 12:2 9 AM CDT us Abiola Alonzo MD LABORATORY Final Res ult Performing Organization Address [facility] Co de Phone Number [facility] [address] [place] [address], [place] [phone] * TYPE & SCREEN (02/11/2025 12:14 AM CDT) Only the most recent of2 resultswithin the time period is included. ABO/RH A POSITIVE 02/11/2025 1:28 AM CDT [facility] ANTIBODY SCREEN NEGATIVE 02/11/2025 1:28 AM CDT [facility] SAMPLE EXPIRATION 02/14/2025,2 359 02/11/2025 12:44 AM CDT [facility] 02/11/2025 12:1 4 AM CDT us Abiola Alonzo MD BLOOD BANK TEST ORDERABLE S Final Result Performing Organization Address [facility] Co de Phone Number [facility] [address] [place] [address], [place] [phone] [id number] * ECG 12 lead (02/10/2025 8:59 PM CDT) Only the most recent of5 resultswithin the time period is included. 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1940 Requested By: ABIOLA ALONZO Order Number: [id number] Reading MD: Ignacio Cain Measurements Intervals [place] Rate: 112 P: 0 MT: 0 QRS: 5 QRSD: 97 T: 138 QT: 324 QTc: 444 Interpretive Statements ATRIAL FIBRILLATION WITH RAPID VENTRICULAR RESPONSE INCOMPLETE RIGHT BUNDLE BRANCH BLOCK ST DEVIATION AND MODERATE T-WAVE ABNORMALITY, CONSIDER LATERAL ISCHEMIA Procedure Note Ignacio Cain MD - 02/11/2025 [address] [place] [address] Test Date: 2025-02-10 Pat Name: KENA VELAZQUEZ Department: 1 Room: 616 Gender: Female 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: : 1940 Requested By: ABIOLA ALONZO Order Number: [id number] Reading MD: Ignacio Cain Measurements Intervals [place] Rate: 112 P: 0 MT: 0 QRS: 5 QRSD: 97 T: 138 QT: 324 QTc: 444 Interpretive Statements ATRIAL FIBRILLATION WITH RAPID VENTRICULAR RESPONSE INCOMPLETE RIGHT BUNDLE BRANCH BLOCK ST DEVIATION AND MODERATE T-WAVE ABNORMALITY, CONSIDER LATERAL ISCHEMIA us Abiola Alonzo MD ECG ORDERABLES Final Res ult [facility] * GI PANEL PCR - STOOL (02/08/2025 10:13 AM CDT) CAMPYLOBACTER PCR (STOOL) NOT DETECTED NOT DETECTED 02/09/2025 6:04 PM CDT [facility] PLESIOMONAS SHIGELLOIDES PCR (STOOL) NOT DETECTED NOT DETECTED 02/09/2025 6:04 PM CDT [facility] SALMONELLA PCR (STOOL) NOT DETECTED NOT DETECTED 02/09/2025 6:04 PM T [facility] VIBRIO PCR (STOOL) NOT DETECTED NOT DETECTED 02/09/2025 6:04 PM T [facility] VIBRIO CHOLERAE PCR (STOOL) NOT DETECTED NOT DETECTED 02/09/2025 6:04 PM T [facility] YERSINIA ENTEROCOLITICA PCR (STOOL) NOT DETECTED NOT DETECTED 02/09/2025 6:04 PM T [facility] ENTEROAGGREGATIVE ECOLI PCR (STOOL) NOT DETECTED NOT DETECTED 02/09/2025 6:04 PM T [facility] ENTEROPATHOGENIC ECOLI PCR (STOOL) NOT DETECTED NOT DETECTED 02/09/2025 6:04 PM CDT [facility] ENTEROTOXIGENIC ECOLI PCR (STOOL) NOT DETECTED NOT DETECTED 02/09/2025 6:04 PM CDT [facility] SHIGA LIKE TOXIN ECOLI PCR (STOOL) NOT DETECTED NOT DETECTED 02/09/2025 6:04 PM T [facility] SHIG/ENTEROINVASIVE ECOLI PCR (STOOL) NOT DETECTED NOT DETECTED 02/09/2025 6:04 PM T [facility] CRYPTOSPORIDIUM PCR (STOOL) NOT DETECTED NOT DETECTED 02/09/2025 6:04 PM T [facility] CYCLOSPORA CAYETANENSIS PCR (STOOL) NOT DETECTED NOT DETECTED 02/09/2025 6:04 PM CDT [facility] ENTAMOEBA HISTOLYTICA PCR (STOOL) NOT DETECTED NOT DETECTED 02/09/2025 6:04 PM T [facility] GIARDIA LAMBLIA PCR (STOOL) NOT DETECTED NOT DETECTED 02/09/2025 6:04 PM CDT [facility] ADENOVIRUS F40/41 PCR (STOOL) NOT DETECTED NOT DETECTED 02/09/2025 6:04 PM CDT [facility] ASTROVIRUS PCR (STOOL) NOT DETECTED NOT DETECTED 02/09/2025 6:04 PM CDT [facility] NOROVIRUS GI/GII PCR (STOOL) NOT DETECTED NOT DETECTED 02/09/2025 6:04 PM CDT [facility] ROTAVIRUS A PCR (STOOL) NOT DETECTED NOT DETECTED 02/09/2025 6:04 PM CDT [facility] SAPOVIRUS PCR (STOOL) NOT DETECTED NOT DETECTED 02/09/2025 6:04 PM CDT [facility] STOOL SPECIMEN / Unknown 02/08/2025 10:13 AM CDT us Joesph Spaulding MD MICROBIOLOGY - GENERAL ORDERABLE S Final Result [facility] [address] [place] [address], * CT CHEST+ABD+PEL W CON (02/07/2025 11:29 AM CDT) Anatomical Region Laterality Modality Chest, Abdomen, Pelvis Computed Tomography 02/08/2025 12:4 0 AM CDT Impressions 02/08/2025 12:57 AM CDT IMPRESSION: 1. Sigmoid colonic wall thickening likely represents colitis of infectious or inflammatory etiology. 2. Peripheral predominant fibrotic changes in bilateral lungs likely representing interstitial lung disease. 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 3. Cardiomegaly and coronary artery calcification. 4. Distended urinary bladder, otherwise within normal limits. 5. Cysts in the lower abdomen bilaterally as measured above, increased compared to 11/26/2017. Differential considerations include adnexal or mesenteric cysts. 6. Additional findings as above. Referred By: DENTON LYNNE Interpreted By: Marcelino Starr MD, 02/08/2025 12:40 AM Narrative 02/08/2025 12:57 AM CDT [facility] [address] [place], [place] [address] EXAMINATION: CT CHEST ABDOMEN PELVIS WITH CONTRAST EXAM DATE/TIME: 02/07/2025 11:24 AM REASON FOR EXAM: worsening leukocytosis COMPARISON: Chest x-ray 02/06/2025, CTA abdominal aorta runoff 01/31/2025, CTA chest 04/27/2024, CT chest abdomen pelvis 11/26/2017 TECHNIQUE: Axial CT images of the chest abdomen and pelvis are obtained after uneventful intravenous administration of 100 cc Isovue-[id number]. Subsequent coronal and sagittal reformatted sequences are created for evaluation. Automated exposure control was utilized for dose reduction. FINDINGS: Chest: Heart: Cardiomegaly. Coronary artery calcification. No pericardial effusion. Mediastinal/Lymph nodes: No mass or lymphadenopathy. Lungs/Pleura: No pulmonary mass or airspace consolidation. Peripheral predominant fibrotic changes are seen in bilateral lungs. No pleural effusion. No pneumothorax. Musculoskeletal: No acute osseous findings. Abdomen/pelvis: Liver/biliary: The liver is normal in size and smooth in surface contour. No focal liver lesions are seen. Gallbladder is surgically absent. No biliary dilatation is seen. Pancreas/adrenals/spleen: Unremarkable. Genitourinary: Small left kidney. No hydronephrosis is seen. Simple left renal cysts for which no further follow-up is recommended. No renal mass lesion is seen. Urinary bladder is distended and otherwise unremarkable. The uterus is not seen. Bowel: Sigmoid colonic wall thickening. No bowel obstruction. The appendix is not visualized without evidence of appendicitis. There is colonic diverticulosis. Peritoneum/mesentery: No free air or free fluid is seen. Cysts are seen in the lower abdomen bilaterally measuring 3.9 x 2.3 cm on the left and measuring 4.9 x 4.0 cm on the right, similar to 01/31/2025 and increased compared to 11/26/2017. Lymph nodes: No lymphadenopathy is seen. Musculoskeletal: No acute osseous findings. Procedure Note Marcelino Starr MD - 02/08/2025 [facility] [address], [place] [address] EXAMINATION: CT CHEST ABDOMEN PELVIS WITH CONTRAST EXAM DATE/TIME: 02/07/2025 11:24 AM REASON FOR EXAM: worsening leukocytosis COMPARISON: Chest x-ray 02/06/2025, CTA abdominal aorta runoff 01/31/2025,CTA chest 04/27/2024, CT chest abdomen pelvis 11/26/[address]: [address] images of the chest abdomen and pelvis are obtainedafter uneventful intravenous administration of 100 cc Isovue-370.Subsequent coronal and sagittal reformatted sequences are created forevaluation. Automated exposure control was utilized for dose reduction. FINDINGS: Chest: Heart: Cardiomegaly. Coronary artery calcification. No pericardialeffusion. Mediastinal/Lymph nodes: No mass or lymphadenopathy. Lungs/Pleura: No pulmonary mass or airspace consolidation. Peripheralpredominant fibrotic changes are seen in bilateral lungs. No pleuraleffusion. No pneumothorax. Musculoskeletal: No acute osseous findings. Abdomen/pelvis: Liver/biliary: The liver is normal in size and smooth in surface contour.No focal liver lesions are seen. Gallbladder is surgically absent. Nobiliary dilatation is seen. Pancreas/adrenals/spleen: Unremarkable. Genitourinary: Small left kidney. No hydronephrosis is seen. Simple leftrenal cysts for which no further follow-up is recommended. No renal masslesion is seen. Urinary bladder is distended and otherwise unremarkable.The uterus is not seen. Bowel: Sigmoid colonic wall thickening. No bowel obstruction. Theappendix is not visualized without evidence of appendicitis. There iscolonic diverticulosis. Peritoneum/mesentery: No free air or free fluid is seen. Cysts are seenin the lower abdomen bilaterally measuring 3.9 x 2.3 cm on the left andmeasuring 4.9 x 4.0 cm on the right, similar to 01/31/2025 and increasedcompared to 11/26/2017. Lymph nodes: No lymphadenopathy is seen. Musculoskeletal: No acute osseous findings. IMPRESSION: 1. Sigmoid colonic wall thickening likely represents colitis ofinfectious or inflammatory etiology. 2. Peripheral predominant fibrotic changes in bilateral lungs likelyrepresenting interstitial lung disease. 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 3. Cardiomegaly and coronary artery calcification. 4. Distended urinary bladder, otherwise within normal limits. 5. Cysts in the lower abdomen bilaterally as measured above, increasedcompared to 11/26/2017. Differential considerations include adnexal ormesenteric cysts. 6. Additional findings as above. Referred By: DENTON LYNNE Interpreted By: Marcelino Starr MD, 02/08/2025 12:40 AM us Joesph Spaulding MD CT Final Result * XR CHEST PORTABLE (02/06/2025 12:15 PM CDT) Only the most recent of2 resultswithin the time period is included. Anatomical Region Laterality Modality Chest Radiographic Dory ging 02/06/2025 2:41 PM CDT Impressions 02/06/2025 2:44 PM CDT IMPRESSION: 1. There are bilateral patchy airspace opacities. Continued attention on follow-up is recommended. 2. Bilateral bronchial wall thickening, which can be seen with small airway infection/inflammation, reactive airway disease or volume overload. 3. No pneumothorax. 4. Cardiomegaly. Ordered By: JOESPH SPAULDING Interpreted By: Taty Chavez MD, 02/06/2025 2:41 PM Narrative 02/06/2025 2:[address] PM [address] [address] PROCEDURE: XR CHEST PORTABLE. 02/06/2025 12:12 PM. TECHNIQUE: A single view of the chest (AP or PA) was performed. HISTORY: Cough COMPARISON: Chest radiograph, 02/04/2025. FINDINGS: Support Devices: None. Cardiac Silhouette/Mediastinum/Pari: The cardiac, mediastinal, and hilar contours are unchanged in appearance. Lungs/Pleural Spaces: There are bilateral patchy airspace opacities. No focal consolidation. Mild bilateral bronchial wall thickening. The pleural spaces are clear. Chest Wall/Diaphragm/Upper Abdomen: The thoracic musculoskeletal structures and the upper abdomen are unchanged in appearance. Procedure Note Taty Chavez MD - 02/06/[address] [address] PROCEDURE: XR CHEST PORTABLE. 02/06/2025 12:12 PM. TECHNIQUE: A single view of the chest (AP or PA) was performed. HISTORY: Cough COMPARISON: Chest radiograph, 02/04/2025. FINDINGS: Support Devices: None. Cardiac Silhouette/Mediastinum/Pari: The cardiac, mediastinal, and hilarcontours are unchanged in appearance. Lungs/Pleural Spaces: There are bilateral patchy airspace opacities. Nofocal consolidation. Mild bilateral bronchial wall thickening. The pleuralspaces are clear. Chest Wall/Diaphragm/Upper Abdomen: The thoracic musculoskeletalstructures and the upper abdomen are unchanged in appearance. IMPRESSION: 1. There are bilateral patchy airspace opacities. Continued attention onfollow- up is recommended. 2. Bilateral bronchial wall thickening, which can be seen with smallairway infection/inflammation, reactive airway disease or volumeoverload. 3. No pneumothorax. 4. Cardiomegaly. Ordered By: JOESPH SPAULDING Interpreted By: Taty Chavez MD, 02/06/2025 2:41 PM us Joesph Spaulding MD GENERAL IMAGING Final Result * (ABNORMAL) CBC W/DIFF AUTOMATED (02/06/2025 4:52 AM CDT) Only the most recent of8 resultswithin the time period is included. WBC 19.95(H) 4.00 - 10.80 x10'3/uL 02/06/2025 5:08 AM CDT [facility] RBC 2.86(L) 4.10 - 5.40 x10'6/uL 02/06/2025 5:08 AM CDT [facility] HGB 9.2(L) 12.0 - 16.0 G/DL 02/06/2025 5:08 AM CDT [facility] HCT 27.7(L) 36.0 - 47.0 % 02/06/2025 5:08 AM CDT [facility] MCV 96.9 78.0 - 100.0 FL 02/06/2025 5:08 AM CDT [facility] MCH 32.2(H) 27.0 - 31.0 PG 02/06/2025 5:08 AM CDT [facility] MCHC 33.2 33.0 - 36.0 G/DL 02/06/2025 5:08 AM CDT [facility] RDW 13.8 11.5 - 14.5 % 02/06/2025 5:08 AM CDT [facility] PLT 196 150 - 350 x10'3/uL 02/06/2025 5:08 AM CDT [facility] MPV 9.8 7.4 - 10.4 FL 02/06/2025 5:08 AM T [facility] DIFFERENTIAL TYPE AUTOMATED DIFFERENTIAL 02/06/2025 5:08 AM T [facility] SEG NEUTROPHILS 80.9 % 5:08 AM CDT [facility] LYMPHOCYTES 8.9 % 02/06/2025 5:08 AM CDT [facility] MONOCYTES 8.5 % 02/06/2025 5:08 AM CDT [facility] EOSINOPHILS 0.7 % 02/06/2025 5:08 AM CDT [facility] BASOPHILS 0.2 % 02/06/2025 5:08 AM CDT [facility] IMMATURE GRANS % 0.8 % 02/07/20 5:08 AM CDT [facility] ABS. NEUTROPHILS 16.15(H) 1.60 - 8.30 x10'3/uL 02/06/2025 5:08 AM CDT [facility] ABS. LYMPHOCYTES 1.78 0.80 - 4.70 x10'3/uL 02/06/2025 5:08 AM CDT [facility] ABS. MONOCYTES 1.69(H) 0.00 - 1.50 x10'3/uL 02/06/2025 5:08 AM CDT [facility] ABS. EOSINOPHILS 0.14 0.00 - 0.40 x10'3/uL 02/06/2025 5:08 AM CDT [facility] ABS. BASOPHILS 0.03 0.00 - 0.20 x10'3/uL 02/06/2025 5:08 AM CDT [facility] ABS. IMMATURE GRANULOCYTES 0.16(H) 0.00 - 0.03 x10'3/uL 02/06/2025 5:08 AM CDT [facility] ABS. NUCLEATED RBC'S 0.00 0.00 - 0.01 x10'3/uL 02/06/2025 5:08 AM CDT [facility] NRBC % 0.0 % 02/06/2025 5:08 AM CDT [facility] 02/06/2025 4:52 AM CDT us Jonnathan Galindo MD LABORATORY Final Result Performing Organization Address [facility] de Phone Number [facility] [address] [place] [address], [phone] * (ABNORMAL) PROTIME/INR, VENOUS (02/05/2025 2:00 AM CDT) Only the most recent of5 resultswithin the time period is included. PROTIME 14.0(H) 9.4 - 12.5 SEC 02/05/2025 3:14 AM CDT [facility] INR 1.2(H) 0.8 - 1.1 02/05/2025 3:14 AM CDT [facility] 02/05/2025 2:00 AM CDT us Jonnathan Galindo MD LABORATORY Final Result Performing Organization Address [facility] Co de Phone Number [facility] [address] [place] [address], [phone] * (ABNORMAL) HEPARIN, ANTI XA, UFH (02/04/2025 2:02 PM CDT) Only the most recent of11 resultswithin the time period is included. HEPARIN ANTI XA UFH 1.07(H) 0.30 - 0.70 IU/ML 02/04/2025 2:26 PM CDT [facility] Comment: UFH Therapeutic Anti Xa Ranges: Medical Therapeutic Range: 0.30 - 0.70 IU/mL Cardiac Therapeutic Range: 0.30 - 0.50 IU/mL Neuro Therapeutic Range: 0.20 - 0.40 IU/mL 02/04/2025 2:02 PM CDT Joesph Spaulding MD LABORATORY Final Result Performing Organization Address [facility] de Phone Number [facility] [address] [place] [address], [phone] * (ABNORMAL) THROMBOPLASTIN TIME PARTIAL,PTT (02/04/2025 5:07 AM CDT) Only the most recent of2 resultswithin the time period is included. PTT 109.5(H) 25.1 - 36.5 SEC 02/04/2025 5:40 AM CDT [facility] 02/04/2025 5:07 AM CDT Jonnathan Galindo MD LABORATORY Final Result Performing Organization Address [facility] Co de Phone Number [facility] [address] [place] [address], [phone] * (ABNORMAL) BASIC METABOLIC PANEL (02/04/2025 5:07 AM CDT) Only the most recent of3 resultswithin the time period is included. SODIUM S/P/B 138 136 - 145 MMOL/L 02/04/2025 6:01 AM CDT [facility] POTASSIUM S/P/B 4.4 3.5 - 5.1 MMOL/L 02/04/2025 6:[address] [facility] CHLORIDE S/P/B 110 97 - 115 MMOL/L 02/04/2025 6:[address] [facility] CO2 21.5 21.0 - 32.0 MMOL/L 02/04/2025 6:[address] [facility] GLUCOSE 135(H) 74 - 106 MG/DL 02/04/2025 6:[address] [facility] BUN 22(H) 7 - 18 MG/DL 02/04/2025 6:[address] [facility] CREATININE S/P/B 0.80 0.55 - 1.02 MG/DL 02/04/2025 6:[address] [facility] CALCIUM S/P/B 8.1(L) 8.5 - 10.1 MG/DL 02/04/2025 6:[address] [facility] ANION GAP 6.5 2.0 - 10.0 MMOL/L 02/04/2025 6:[address] [facility] OSMOLALITY (CALC) 291 MOSM/KG 025 6:[address] [facility] Comment:REFERENCE RANGE NOT ESTABLISHED GFR ESTIMATE 73(L) >90 ML/MIN/1. 73 M2 02/04/2025 6:[address] [facility] GFR NOTES GFR REFERENCE S: 02/04/2025 6:[address] [facility] Comment: THE ESTIMATED GFR IS CALCULATED USING THE 2020 CKD-EPI EQUATION. THE FOLLOWING CATEGORIES FOR GRADING RENAL FUNCTION ARE RECOMMENDED BY THE INTERNATIONAL SOCIETY OF NEPHROLOGY (KDIGO 2012 CLINICAL PRACTICE GUIDELINE). G1,NORMAL OR HIGH: >89 ml/min/1.73 m2 G2,MILDLY DECREASED: 60-89 ml/min/1.73 m2 G3A,MILDLY TO MODERATELY DECREASED: 45-59 ml/min/1.73 m2 G3B,MODERATELY TO SEVERELY DECREASED: 30-44 ml/min/1.73 m2 G4,SEVERELY DECREASED: 15-29 ml/min/1.73 m2 G5,KIDNEY FAILURE: <15 ml/min/1.73 m2 02/04/2025 5:07 AM CDT us Jenny Escobar MD LABORATORY Final Result Performing Organization Address [facility] Co de Phone Number [facility] [address] [place] [address], [phone] * PHOSPHORUS, INORGANIC PHOSPHATE (02/04/2025 5:07 AM CDT) PHOSPHORUS 3.9 2.5 - 4.9 MG/DL 02/04/2025 6:01 AM CDT [facility] 02/04/2025 5:07 AM CDT us Jonnathan Galindo MD LABORATORY Final Result Performing Organization Address [facility] de Phone Number [facility] [address] [place] [address], [place] [phone] * MAGNESIUM (02/04/2025 5:07 AM CDT) Only the most recent of3 resultswithin the time period is included. MAGNESIUM 1.9 1.6 - 2.6 MG/DL 02/04/2025 6:01 AM CDT [facility] 02/04/2025 5:07 AM CDT us Jonnathan Galindo MD LABORATORY Final Result Performing Organization Address [facility] de Phone Number [facility] [address] [place] [address], [phone] * (ABNORMAL) ARTERIAL BLOOD GAS (02/04/2025 2:42 AM CDT) PH ARTERIAL 7.30(L) 7.35 - 7.45 02/04/2025 2:48 AM CDT [facility] PCO2 40.9 35.0 - 45.0 MMHG 02/04/2025 2:48 AM CDT [facility] PO2 138.0(H) 83.0 - 108.0 MMHG 02/04/2025 2:48 AM CDT [facility] BICARB ARTERIAL 19.6(L) 22 - 26 MMOL/L 02/04/2025 2:48 AM CDT [facility] TOTAL CO2 ARTERIAL 20.8(L) 23 - 27 MMOL/L 02/04/2025 2:48 AM CDT [facility] BASE DEFICIT 5.9(H) 0.0 - 3.0 MMOL/L 02/04/2025 2:48 AM CDT [facility] O2 Saturation 98 95 - 98 % 02/04/2025 2:48 AM CDT [facility] ENA TEST N/A 02/04/2025 2:42 AM CDT [facility] Comment:pulled from art line by RN OXYGEN STATUS 2L NC 02/04/2025 2:42 AM CDT [facility] DRAW SITE ARTERIAL ARTERIAL LINE DRAW 02/04/2025 2:42 AM CDT [facility] 02/04/2025 2:42 AM CDT Jenny Escobar MD LABORATORY Final Result [facility] [address] [place] [address], [phone] * CULTURE, BACTERIA BLOOD (02/03/2025 11:45 PM CDT) SPEC DESCRIPTION BLOOD 02/03/2025 11:05 PM CDT [facility] SPECIAL REQUESTS NO SPECIAL REQUEST 02/03/2025 11:05 PM CDT [facility] CULTURE RESULT NO GROWTH 5 DAYS 02/09/2025 1:51 AM CDT [facility] BLOOD SPECIMEN OBTAINED FOR BLOOD CULTURE / Unknown 02/03/2025 11:45 PM CDT 02/03/2025 11:52 PM CDT us Bradley Forrest MD MICROBIOLOGY - GENERAL ORDERAB LES Final Result Performing Organization Address [facility] de Phone Number [facility] [address] [place] [address], [phone] * (ABNORMAL) PRO-BRAIN NATRIURETIC PEPTIDE (02/03/2025 10:28 PM CDT) PRO-B TYPE NATRIURETIC PEPTIDE 5,552(H) <450 PG/ML 02/03/2025 11:02 PM CDT [facility] Comment: AGE INDEPENDENT: <300 PG/ML HAS A 99% NEGATIVE PREDICTIVE VALUE FOR EXCLUDING ACUTE CHF <50 YEARS: >450 PG/ML IS CONSISTENT WITH ACUTE CHF 50-75 YEARS: >900 PG/ML IS CONSISTENT WITH ACUTE CHF >75 YEARS: >1800 PG/ML IS CONSISTENT WITH ACUTE CHF IN PATIENTS WITH RENAL INSUFFICIENCY (GFR <60), >1200 PG/ML YIELDS A DIAGNOSTIC SENSITIVITY AND SPECIFICITY OF 89% AND 72% FOR ACUTE CHF. 02/03/2025 10:2 8 PM CDT us Bradley Forrest MD LABORATORY Final Result Performing Organization Address [facility] de Phone Number [facility] [address] [place] [address], [phone] * Blood gas, venous (02/03/2025 10:28 PM CDT) PH VENOUS PER PHLEBOTOMY PATIENT WAS DRAWN FROM AN ARTERIAL LINE. REORDERED AND RESULTED ABGA 7.31 - 7.42 02/04/2025 2:51 AM CDT [facility] Comment:CORRECTED ON 02/04 A T 0251: Previously reported as 7.30 PCO2 VENOUS PER PHLEBOTOMY PATIENT WAS DRAWN FROM AN ARTERIAL LINE. REORDERED AND RESULTED ABGA 41 - 51 MMHG 02/04/2025 2:51 AM CDT [facility] Comment:CORRECTED ON 02/04 A T 0251: Previously reported as 40.9 PO2 VENOUS PER PHLEBOTOMY PATIENT WAS DRAWN FROM AN ARTERIAL LINE. REORDERED AND RESULTED ABGA 20 - 40 MM HG 02/04/2025 2:51 AM CDT [facility] Comment:CORRECTED ON 02/04 A T 0251: Previously reported as 138.0 BICARB VENOUS PER PHLEBOTOMY PATIENT WAS DRAWN FROM AN ARTERIAL LINE. REORDERED AND RESULTED ABGA 22 - 29 MMOL/L 02/04/2025 2:51 AM CDT [facility] Comment:CORRECTED ON 02/04 A T 0251: Previously reported as 19.6 TOTAL CO2 VENOUS PER PHLEBOTOMY PATIENT WAS DRAWN FROM AN ARTERIAL LINE. REORDERED AND RESULTED ABGA 25 - 29 MMOL/L 02/04/2025 2:51 AM CDT [facility] Comment:CORRECTED ON 02/04 A T 0251: Previously reported as 20.8 BASE EXCESS VENOUS PER PHLEBOTOMY PATIENT WAS DRAWN FROM AN ARTERIAL LINE. REORDERED AND RESULTED ABGA MMOL/L 02/04/2025 2:51 AM CDT [facility] BASE DEFICIT VENOUS PER PHLEBOTOMY PATIENT WAS DRAWN FROM AN ARTERIAL LINE. REORDERED AND RESULTED ABGA MMOL/L 02/04/2025 2:51 AM CDT [facility] Comment:CORRECTED ON 02/04 A T 0251: Previously reported as 5.9 O2 SAT VENOUS PER PHLEBOTOMY PATIENT WAS DRAWN FROM AN ARTERIAL LINE. REORDERED AND RESULTED ABGA 40.0 - 70.0 % 02/04/2025 2:51 AM CDT [facility] Comment:CORRECTED ON 02/04 A T 0251: Previously reported as 98 02/03/2025 10:2 8 PM CDT us Bradley Forrest MD LABORATORY Edited Result - Final [facility] [address] [place] [address], [phone] * (ABNORMAL) COMPREHENSIVE METABOLIC PANEL (02/03/2025 10:28 PM CDT) Only the most recent of2 resultswithin the time period is included. SODIUM S/P/B 139 136 - 145 MMOL/L 02/03/2025 11:02 PM CDT [facility] POTASSIUM S/P/B 4.5 3.5 - 5.1 MMOL/L 02/03/2025 11:02 PM CDT [facility] CHLORIDE S/P/B 110 97 - 115 MMOL/L 02/03/2025 11:02 PM T [facility] CO2 19.4(L) 21.0 - 32.0 MMOL/L 02/03/2025 11:02 PM CDT [facility] GLUCOSE 151(H) 74 - 106 MG/DL 02/03/2025 11:02 PM CDT [facility] BUN 20(H) 7 - 18 MG/DL 02/03/2025 11:02 PM CDT [facility] CREATININE S/P/B 0.84 0.55 - 1.02 MG/DL 02/03/2025 11:02 PM CDT [facility] CALCIUM S/P/B 8.5 8.5 - 10.1 MG/DL 02/03/2025 11:02 PM CDT [facility] BILIRUBIN TOTAL S/P/B 1.1(H) 0.2 - 1.0 MG/DL 02/03/2025 11:02 PM CDT [facility] ALKALINE PHOSPHATASE S/P/B 90 55 - 142 U/L 02/03/2025 11:02 PM CDT [facility] AST 28 15 - 37 U/L 02/03/2025 11:02 PM CDT [facility] ALT 38 13 - 56 U/L 02/03/2025 11:02 PM CDT [facility] TOTAL PROTEIN S/P/B 6.7 6.4 - 8.2 G/DL 02/03/2025 11:02 PM CDT [facility] ALBUMIN S/P/B 2.8(L) 3.4 - 5.0 G/DL 02/03/2025 11:02 PM CDT [facility] ANION GAP 9.6 2.0 - 10.0 MMOL/L 02/03/2025 11:02 PM CDT [facility] OSMOLALITY (CALC) 294 MOSM/KG 025 11:02 PM CDT [facility] Comment:REFERENCE RANGE NOT ESTABLISHED GFR ESTIMATE 69(L) >90 ML/MIN/1. 73 M2 02/03/2025 11:02 PM CDT [facility] GFR NOTES GFR REFERENCE S: 02/03/2025 11:02 PM CDT [facility] Comment: THE ESTIMATED GFR IS CALCULATED USING THE 2020 CKD-EPI EQUATION. THE FOLLOWING CATEGORIES FOR GRADING RENAL FUNCTION ARE RECOMMENDED BY THE INTERNATIONAL SOCIETY OF NEPHROLOGY (KDIGO 2012 CLINICAL PRACTICE GUIDELINE). G1,NORMAL OR HIGH: >89 ml/min/1.73 m2 G2,MILDLY DECREASED: 60-89 ml/min/1.73 m2 G3A,MILDLY TO MODERATELY DECREASED: 45-59 ml/min/1.73 m2 G3B,MODERATELY TO SEVERELY DECREASED: 30-44 ml/min/1.73 m2 G4,SEVERELY DECREASED: 15-29 ml/min/1.73 m2 G5,KIDNEY FAILURE: <15 ml/min/1.73 m2 02/03/2025 10:2 8 PM CDT us Bradley Forrest MD LABORATORY Final Result [facility] [address] [place] [address], [phone] * (ABNORMAL) POCT ACTIVATED CLOTTING TIME - ISTAT DOCKED DEVICE (02/03/2025 5:47 PM CDT) Only the most recent of3 resultswithin the time period is included. ACTIVATED CLOTTING TIME (ACT HMT OR LMT) 227(H) 74 - 137 SEC 02/03/2025 7:22 PM CDT [facility] 02/03/2025 5:47 PM CDT us Jenny Escobar MD POCT ORDERABLES - DEVICE Fin al Result [facility] [address] [place] [address], [place] [phone] * Art Line (02/03/2025 3:52 PM CDT) Narrative Sandra Ellsion CRNA - 02/03/2025 3:52 PM CDT Sandra Ellison CRNA 02/03/2025 4:06 PM Art Line Date/Time: 02/03/2025 3:52 PM Performed by: Sandra Ellison CRNA Authorized by: Oswald Hanna MD Patient Location: OR Size: 20 Orientation: Left Location: Radial Site Prep: Chlorhexadine Insertion Attempts: 2 Ultrasound-guided Placement: Yes Ultrasound was used to identify the vessel. It was assessed and patent. Ultrasound was used to visualized vascular needle entry into the vessel and The selected vessel appeared anatomically normal and there were no apparent abnormal findings Secure Method: Taped us Oswald Hanna MD MT ANESTHESIA Final Result * Pathology (02/03/2025 12:00 AM CDT) PATHOLOGY [facility] Department of Laboratory Medicine [address] [place] [address] , extension [phone] Pathology Report Surgical Pathology Report Name: KENA VELAZQUEZ Specimen #: [id number] Age: 4 1940 (Age: 84) Location: [facility] Sex: F Procedure Date: 02/03/2025 [facility] #: [id number] Date Received: 02/06/2025 Date Reported: 02/07/2025 Provider: JONNATHAN RUIZ MD Source: Thrombus,SFA Clinical History: Critical limb ischemia FINAL DIAGNOSIS: Thrombus, SFA, thrombectomy: - Blood clot, consistent with thrombus. Gross Description: Received in formalin, labeled with a patient's label and SFA thrombus, is a 6.1 x 1.4 x 0.7 cm aggregate of tubelike red-brown clot material. Sections reveal red-brown rubbery cut surfaces. There are no grossly identifiable masses or lesions. 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 Gross examination (when applicable) was performed at [facility], [address] [place] [address]. This case was interpreted and signed out at [facility], [address] [place] [address]. Electronically Signed Out Oren Huber M.D. [facility] 02/03/2025 02/06/2025 7:3 8 AM CDT Comment:Thrombus,SFA us Jonnathan Galindo MD PATHOLOGY/CYTOLOGY ORDERABLES Fi nal Result [facility] [address] [place] [address], [phone] * USV ART REST W EILEEN LOW EXT (02/01/2025 11:25 AM CDT) Anatomical Region Laterality Modality Extremity Ultrasound 02/01/2025 10:4 1 AM CDT Narrative 02/01/2025 1:44 PM CDT Vascular Report Pat.Name: KENA VELAZQUEZ Pat.ID: [id number] .Date: 02/01/2025 Refer.MD: JONNATHAN GALINDO Exam Time: 10:41:00 AM Study Type:PVI ART DOPPLER-EILEEN Height: 152 cm Age: 4 1940,84Y Sex: F Sonogrphr: Donovan Rader RVT Pat. Stat.:Inpatient Room: 644 ICD - 9: I73.9 PVD (peripheral arterial/vascular disease) CPT - 4: 40714 EILEEN/WBI Reason for Study:pvd Race: W ++++++++++++++++++++++++++++++++++++ FINDINGS: ++++++++++++++++++++++++++++++++++++ EILEEN Rt: The resting EILEEN is 1.24. The resting EILEEN is within normal range. Pulse volume tracings suggest no peripheral arterial occlusive disease. The toe pressure is 89 mmHg. The TBI is 0.58. TBI is within abnormal range. Unable to assess brachial pressure due to IV. EILEEN Lt: The resting EILEEN is 0.60. This suggests moderate disease. Pulse volume tracings suggest moderate/severe peripheral arterial occlusive disease. The toe pressure is 0 mmHg. The TBI is 0. TBI is within abnormal range. Segmental pressures suggests SFA/popliteal disease. ++++++++++++++++++++++++++++++++++++ MEASUREMENTS: ++++++++++++++++++++++++++++++++++++ PRESSURES Right Ankle DP AnkleDP P 170 mmHg Right Ankle PT AnklePT P 190 mmHg Right Great Toe GreatToe P 89 mmHg Right EILEEN PT EILEEN PT 1.24 Right EILEEN DP EILEEN DP 1.11 Right TBI TBI 0.582 Left Brachial Brach P 153 mmHg Left Low Thigh LowThigh P 138 mmHg Left Calf CalfP 140 mmHg Left Ankle DP AnkleDP P 92 mmHg Left Ankle PT AnklePT P 0 mmHg Left Great Toe GreatToe P 0 mmHg Left EILEEN PT EILEEN PT 0 Left EILEEN DP EILEEN DP 0.601 Left TBI TBI 0 <Electronic Signature> 02/01/2025 01:44 PM Igor Geiger M.D. Procedure Note Igor Geiger MD - 02/01/2025 Vascular Report Pat.Name: KENA VELAZQUEZ Pat.ID: [id number] .Date: 02/01/2025 Refer.MD: JONNATHAN GALINDO Exam Time: 10:41:00 AM Study Type:PVI ART DOPPLER-EILEEN Height: 152 cm Age: 4 1940,84Y Sex: F Sonogrphr: Donovan Rader RVT Pat. Stat.:Inpatient Room: 644 ICD - 9: I73.9 PVD (peripheral arterial/vascular disease) CPT - 4: 24511 EILEEN/WBI Reason for Study:pvd Race: W ++++++++++++++++++++++++++++++++++++ FINDINGS: ++++++++++++++++++++++++++++++++++++ EILEEN Rt: The resting EILEEN is 1.24. The resting EILEEN is within normal range. Pulse volume tracings suggest no peripheral arterial occlusive disease. The toe pressure is 89 mmHg. The TBI is 0.58. TBI is within abnormal range. Unable to assess brachial pressure due to IV. EILEEN Lt: The resting EILEEN is 0.60. This suggests moderate disease. Pulse volume tracings suggest moderate/severe peripheral arterial occlusive disease. The toe pressure is 0 mmHg. The TBI is 0. TBI is within abnormal range. Segmental pressures suggests SFA/popliteal disease. ++++++++++++++++++++++++++++++++++++ MEASUREMENTS: ++++++++++++++++++++++++++++++++++++ PRESSURES Right Ankle DP AnkleDP P 170 mmHg Right Ankle PT AnklePT P 190 mmHg Right Great Toe GreatToe P 89 mmHg Right EILEEN PT EILEEN PT 1.24 Right EILEEN DP EILEEN DP 1.11 Right TBI TBI 0.582 Left Brachial Brach P 153 mmHg Left Low Thigh LowThigh P 138 mmHg Left Calf CalfP 140 mmHg Left Ankle DP AnkleDP P 92 mmHg Left Ankle PT AnklePT P 0 mmHg Left Great Toe GreatToe P 0 mmHg Left EILEEN PT EILEEN PT 0 Left EILEEN DP EILEEN DP 0.601 Left TBI TBI 0 <Electronic Signature> 02/01/2025 01:44 PM Igor Geiger M.D. Jonnathan Galindo MD US VASC Final Result * LIPID PANEL (02/01/2025 7:58 AM CDT) CHOLESTEROL 195 MG/DL 02/01/2025 8:56 AM CDT [facility] Comment:DESIRABLE: <200 TRIGLYCERIDES 68 MG/DL 02/01/2025 8:56 AM CDT [facility] Comment:<150 NORMAL HDL 94 >49 MG/DL 02/01/2025 8:56 AM CDT [facility] LDL (CALCULATED) 87 MG/DL 02/02/20 8:56 AM CDT [facility] Comment:<100 OPTIMAL VLDL CALCULATION 14 MG/DL 02/02/20 8:56 AM CDT [facility] Comment:REFERENCE RANGE NOT ESTABLISHED CHOL/HDL RATIO 2.1 02/01/2025 8:56 AM CDT [facility] Comment:REFERENCE RANGE NOT ESTABLISHED LDL/HDL 0.9 02/01/2025 8:56 AM CDT [facility] Comment:REFERENCE RANGE NOT ESTABLISHED NON HDL CHOLESTEROL 101 MG/DL 02/01/2025 8:56 AM CDT [facility] Comment:REFERENCE RANGE NOT ESTABLISHED 02/01/2025 7:58 AM CDT Bradley Forrest MD LABORATORY Final Result [facility] [address] [place] [address], [id number] from Last [address] [facility] Advance Directives * Full Code (Latest Code Status on File) Date Activated Date Inactivated Comments 02/03/2025 7:03 PM 02/13/2025 2:53 PM * Full Code Date Activated Date Inactivated Comments 02/01/2025 5:34 AM 02/03/2025 7:03 PM * Full Code Date Activated Date Inactivated Comments 04/27/2024 6:44 PM 05/12/2024 3:20 PM Care Teams Contact Center Analyst Relationship Specialty Start Date End Date Christ Coto MD [address] [place] [phone] PCP - General FAMILY PRACTICE 03/12/19 Yesy Alonso MD [address] [place] [address] [place] [address] Consulting Physician CARDIOVASCULAR DISEASE 05/19/24 Sudhakar Lu PA [address] [place] [phone] Physician Shredder Tender Peat PHYSICIAN HEALTH INSURANCE ADJUSTER 05/19/24 Anthony Rojas MD [address] [place] [address] Consulting Physician CLINICAL CARDIAC ELECTROPHYSIOLOGY 01/16/25 Peggy Celeste PA-C [address] [place] [phone] Referring Physician PHYSICIAN HEALTH INSURANCE ADJUSTER 01/30/25
--- OUTSIDE RECORDS SUMMARY | 2025-03-14 14:39 | XMS_ITS | Encounter Summary ---
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 Role Phone Christ Coto MD Primary Care Provider Yesy Alonso MD Unavailable Sudhakar Lu Unavailable [phone] Anthony Rojas MD Unavailable [phone] Peggy Celeste PA-C Unavailable [phone] Encounter Details Date Type Department Care Team (Late st Contact Info) Description 05/16/2024 Hospital Follow-up Call [facility] [address] [place] [address] Alicia Salazar, RN Social History Tobacco Use Types Packs/Day Years Used Date Smoking Tobacco: Never Smokeless Tobacco: Never Alcohol Use Standard Drinks/Week Comments Yes 0 (1 standard drink = 0.6 oz pur e alcohol) 2 spiked 4% drinks/week/wine [facility] Utilities Answer Date Recorded In the past 12 months has e electric, gas, oil, or water company threatened to shut off services in your home? No 04/27/2024 Humiliation, Afraid, Rape, and Kick questionnair e Answer Date Recorded Within the last year, have y ou been afraid of your partner or ex-partner? No 04/27/2024 Within the last year, have y ou been humiliated or emotionally abused in other ways by your partner or ex-partner? No Within the last year, have y ou been kicked, hit, slapped, or otherwise physically hurt by your partner or ex-partner? No 04/27/2024 Within the last year, have y ou been raped or forced to have any kind of sexual activity by your partner or ex-partner? No 04/27/2024 AUDIT-C Answer Date Recorded Frequency of Alcohol Consumption Never 03/12/2019 Average Number of Drinks Not on file 019 Frequency of Binge Drinking Not on file 02/2019 Overall Financial Resource Strain (CARDIA) Answe r Date Recorded How hard is it for you to pa y for the very basics like food, housing, medical care, and heating? Not hard at all 04/27/2024 Hunger Vital Sign Answer Date Recorded Within the past 12 months, y ou worried that your food would run out before you got the money to buy more. Never true 04/27/20 24 Within the past 12 months, t he food you bought just didn't last and you didn't have money to get more. Never true 04/27/2024 PRAPARE - Transportation Answer Date Re corded In the past 12 months, has l ack of transportation kept you from medical appointments or from getting medications? No 04/08 In the past 12 months, has l ack of transportation kept you from meetings, work, or from getting things needed for daily living? No 04/27/2024 Housing Stability Vital Sign Answer Pepe e Recorded In the last 12 months, was t here a time when you were not able to pay the mortgage or rent on time? No 04/27/2024 In the past 12 months, how m any times have you moved where you were living? 0 04/27/2024 At any time in the past 12 m [facility], were you homeless or living in a detention (including now)? No 04/27/2024 Comments No Sex and Gender Information Value Date Recorded Sex Assigned at Female 02/01/2025 5:16 AM CDT Legal Sex Female 8:38 PM CDT Gender Identity Not on file Sexual Orientation Not on file documented as of this encounter Functional Status * Are you deaf or do you have serious difficulty hearing Answer Date of Assessment Author Status No 04/27/2024 6:13 PM CDT Dulce Valentin R N Active * Are you blind or do you have serious difficulty seeing, even when wearing glasses? Answer Date of Assessment Author Status No 04/27/2024 6:13 PM CDT Dulce Valentin R N Active * Do you have serious difficulty walking or climbing stairs? Answer Date of Assessment Author Status No 04/27/2024 6:13 PM CDT Dulce Valentin R N Active * Do you have difficulty dressing or bathing? Answer Date of Assessment Author Status No 04/27/2024 6:13 PM CDT Dulce Valentin R N Active * Because of a physical, mental, or emotional condition, do you have difficulty doing errands alone such as visiting a doctor's office or shopping? Answer Date of Assessment Author Status No 04/27/2024 6:13 PM CDT Dulce Valentin R N Active documented as of this encounter Mental Status * Because of a physical, mental, or emotional condition, do you have serious difficulty concentrating, remembering, or making decisions? 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 Relationship Specialty Start Date End Date Christ Coto MD [address] [place] [phone] PCP - General FAMILY PRACTICE 03/12/19 Yesy Alonso MD [address] [place] [address] Consulting Physician CARDIOVASCULAR DISEASE 05/19/24 Sudhakar Lu PA [address] [place] [phone] Physician Drum Straightener PHYSICIAN TRACK SUBWAY REPAIR SUPERVISOR 05/19/24 Anthony Rojas MD [address] [place] [address] Consulting Physician CLINICAL CARDIAC ELECTROPHYSIOLOGY 01/16/25 Peggy Celeste PA-C [address] [place] [address] Referring Physician PHYSICIAN TRACK SUBWAY REPAIR SUPERVISOR 01/30/25 documented as of this encounter
--- NOTE | 2025-03-14 14:48 | ED.GENADULT ---
HPI - General Adult General Chief complaint: Shortness of Breath/Dyspnea Stated complaint: shortness of breath Source: patient and EMS Mode of arrival: ambulatory Limitations: no limitations History of Present Illness HPI narrative: 84-year-old white female with history of AFib on Eliquispulmonary fibrosis COPD congestive heart failure status post thrombectomy of her right calf 2 weeks ago complains of shortness of breath while at her doctor's office her O2 sat on 3 L was 85% she had just increased her oxygen from 2-3 she was short of breath just walking in the [place]. EMS put her on 4 L brought her O2 set up at 99%. 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 She has been short of breath since. She has had a chronic nonproductive cough. Denies any pain anywhere other than her left leg which is actually getting better. Denies any chest pain. She says her shortness of breath is worse than normal. 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 Head normocephalic, atraumatic.? Eyes conjunctiva pink sclera nonicteric.? Extraocular movements are intact.? Ears externally normal.? TMs are normal. ?Oropharynx is clear with moist mucous membranes without exudates.? Neck is supple nontender no lymphadenopathy.? Back is nontender.? Lungs are clear.? Heart is irregularly irregular rhythm without murmurs gallops or rubs.? Chest wall nontender. Abdomen is soft and nontender no hepatosplenomegaly or masses no CVA tenderness no abdominal bruits.? Extremities no cyanosis clubbing or edema.? left calf well-healing surgical scar mildly tender. Positive Homans sign. DP and PT pulses are +2. Skin is warm and dry without rashes or lesions.? Neurological patient is alert and oriented x4.? Motor and sensory grossly intact.? Course Vital Signs Vital signs: Vital Signs Temperature 36.6 C 03/14/25 14:35 Pulse Rate 81 07/08/25 14:35 Respiratory Rate 24 H 03/14/25 14:35 Blood Pressure 111/76 03/14/25 14:35 Pulse Oximetry 100 03/14/25 14:35 Oxygen Delivery Nasal Cannula 03/14/25 14:35 Oxygen Flow Rate 3 03/14/25 14:35 Temperature 36.4 C L 03/14/25 16:16 Pulse Rate 88 03/14/25 17:48 Respiratory Rate 20 03/14/25 17:46 Blood Pressure 128/68 03/14/25 17:46 Pulse Oximetry 100 03/14/25 17:48 Oxygen Delivery Nasal Cannula 03/14/25 17:48 Oxygen Flow Rate 3 03/14/25 17:48 Medical Decision Making MDM Narrative Medical decision making narrative: Patient placed in room # 2 BY EMS history and physical was performed. CT PE STUDY: No PE interstitial changes of lungs thickening the septum suggestive of superimposed pulmonary edema cardiomegaly with right-sided failure atrophic left kidney. H&H 10 and 31.7 with normal WBCs and platelets PT 13.4 with other coags normal D-dimer age adjusted normal. COVID flu RSV was negative negative magnesium. BNP 43146 ABGs pH 7.4 with O2 149 bicarb 21.1, pCO2 32.3 will repeat a 2nd troponin if that is okay then will admit her here for COPD exacerbation /congestive heart failure. Second troponin was normal Independent historian: EMS External source review: Differential diagnosis includes but not limited to: Acute coronary syndrome COPD exacerbation pneumonia pericarditis congestive heart failure pulmonary fibrosis anemia electrolyte imbalance Medications were reviewed: HOME MEDS REVIEWED Independently interpreted by me: EKG atrial fib with PVC nonspecific ST T-wave abnormality. Impression abnormal EKG as independently interpreted by me. No changes from previous EKG. Meds, treatment, ED course: patient given albuterol nebulizer she said this helped a lot. She also was given Lasix 40 mg IV Social situation impacting patient's care: history of AFib on Eliquis congestive heart failure and pulmonary fibrosis COPD Shared decision making: evaluation was discussed all questions were asked and answered patient agreed with the plan. Discussed with Dr. HARDY DIAGNOSIS: dyspnea congestive heart failure pulmonary fibrosis COPD exacerbation DISPOSITION: admit observation CONDITION AT DISCHARGE: stable Vital Signs Vital Signs: Vital Signs Temperature 36.6 C 03/14/25 14:35 Pulse Rate 81 03/14/25 14:35 Respiratory Rate 24 H 03/14/25 14:35 Blood Pressure 111/76 03/14/25 14:35 Pulse Oximetry 100 03/14/25 14:35 Oxygen Delivery Nasal Cannula 03/14/25 14:35 Oxygen Flow Rate 3 03/14/25 14:35 Temperature 36.4 C L 03/14/25 16:16 Pulse Rate 88 03/14/25 17:48 Respiratory Rate 20 03/14/25 17:46 Blood Pressure 128/68 03/14/25 17:46 Pulse Oximetry 100 03/14/25 17:48 Oxygen Delivery Nasal Cannula 03/14/25 17:48 Oxygen Flow Rate 3 03/14/25 17:48 Lab Data 03/14/25 15:08 03/14/25 15:08 Labs: Lab Results 03/14/25 03/14/25 03/14/25 Range/Units 14:57 15:08 17:23 WBC 6.0 (4.8-10.8) K/mm3 RBC 3.04 L (4.20-5.40) M/mm3 Hgb 10.0 L (11.7-13.8) g/dL Hct 31.7 L (35.0-42.0) % MCV 104.3 H (78.0-102.0) fL MCH 32.9 H (27.0-31.0) pg MCHC 31.5 L (32-36) g/dL RDW 15.8 H (11.6-14.4) % Plt Count 308 (150-420) K/mm3 MPV 9.0 L (9.2-11.8) fl PT 13.4 H (9.50-12.1) Seconds INR 1.2 APTT 25.7 (23.9-30.70) Sec D-Dimer 0.62 H (0.19-0.50) mg/L Sodium 139 (137-145) mmol/L Potassium 4.6 (3.4-5.0) mmol/L Chloride 106 (98-107) mmol/L Carbon Dioxide 28 (22-30) mmol/L Anion Gap 5 (4-12) mmol/L BUN 19 H (7-17) mg/dL Creatinine 0.84 (0.7-1.0) mg/dL Estim Creat Clear Calc 52 ml/min Estimated GFR > 60 (59 - ) Glucose 115 H (65-110) mg/dL Calculated Osmolality 291 (285-295) mOsm/kg Lactic Acid 1.7 (0.4-2.0) mmol/L Calcium 8.9 (8.4-10.2) mg/dL Magnesium 2.0 (1.6-2.3) mg/dL Total Bilirubin 1.0 (0.2-1.3) mg/dL AST 35 (14-36) U/L ALT 30 (6-35) U/L Alkaline Phosphatase 86 (38-126) U/L Troponin I 0.017 0.017 (0.000-0.034) ng/mL NT-Pro-B Natriuret Pep 23208 H (19.9-100) pg/mL Total Protein 7.5 (6.3-8.2) g/dL Albumin 3.8 (3.5-5.1) g/dL Influenza A (RT-PCR) Negative (Negative) Influenza B (RT-PCR) Negative (Negative) RSV (RT-PCR) Negative (Negative) SARS-CoV-2 RNA (RT-PCR) Negative (Negative) ABG Data ABG results: 03/14/25 14:52 Puncture Site Right radial ABG pH 7.44 ABG pCO2 32.3 L ABG pO2 149.9 H ABG HCO3 21.5 L ABG O2 Saturation 98.5 H ABG Base Excess -1.9 L Oxyhemoglobin 98.2 O2 Delivery Device Nasal cannula O2 Liters/Min 3.0 Discharge Plan Discharge Clinical Impression: Congestive heart disease Patient Disposition: Still a Patient Condition: Stable
--- NOTE | 2025-03-14 14:51 | ECG_ITS ---
Test Date: 2025-03-14 15:18:44 Measurements Intervals [place] Rate: 79 P: 0 MO: 0 QRS: 0 QRSD: 116 T: 224 QT: 402 QTc: 461 Interpretive Statements ATRIAL FIBRILLATION WITH ABERRANT CONDUCTION OR VENTRICULAR PREMATURE COMPLEXES INCOMPLETE RIGHT BUNDLE-BRANCH BLOCK NONSPECIFIC T-WAVE ABNORMALITY ABNORMAL ECG Compared to ECG 01/31/2025 20:04:12 NO DIFFERENCE Electronically Signed On 03-15-2025 07:59:25 CDT by Carlos Mcbride M.D.
[2025-03-14] MEDS: ALBUTEROL SULFATE NEB 2.5 MG/3 ML INH INHALATION ×2 (15:06→21:19)
[2025-03-14 15:07] LABS: HCO3 ABG 21.5 mmol/L (23-29); Oxygen Saturation ABG 98.5 % (95-97); PCO2 ABG 32.3 mmHg (35-45); PO2 ABG 149.9 mmHg (75-85)
[2025-03-14 15:08] LABS: Liters per Minute 3.0 LPM; Modified Allen's Test Pass; Site Drawn RIGHT RADIAL
[2025-03-14 15:20] LABS: Hematocrit 31.7 % (35.0-42.0); Hemoglobin 10.0 g/dL (11.7-13.8); Mean Corpuscular HGB Conc 31.5 g/dL (32-36); Mean Corpuscular Hemoglobin 32.9 pg (27.0-31.0); Mean Corpuscular Volume 104.3 fL (78.0-102.0); Platelet Count Result 308 K/mm3 (150-420); Red Blood Count 3.04 M/mm3 (4.20-5.40); White Blood Count 6.0 K/mm3 (4.8-10.8)
--- OUTSIDE RECORDS SUMMARY | 2025-03-14 15:39 | XMS_ITS | Clinical Summary ---
Author Organization [facility] Address [address] [place] [address] Care Team Providers Care School Director Name Role Phone Christ Coto MD Primary Care Provider Yesy Alonso MD Unavailable Sudhakar Lu Unavailable [phone] Anthony Rojas MD Unavailable + [phone] [...] Heart failure with reduced e jection fraction ([facility]) 04/28/2024 Assessment & Plan (05/03/2024 4:41 PM [...] the time of admission. Emphysema of lung ([facility]) 04/28/2024 Pulmonary fibrosis ([facility]) 04/28/2024 Assessment & Plan (04/29/2024 1:19 PM CDT): Patient with known diagnosis has been on oxygen supplemental therapy. Follows up with pulmonary. Atrial fibrillation (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 Encounters Date Type Department Care Team Description 02/15/2025 10:00 AM CDT Home Care Visit [facility] Home Care [facility] [address] [place] [address] Bethanie Mccann RN SN NON ADMIT SOC 02/14/2025 Hospital Follow-up Call [facility] [address] [place] [address] Alicia Salazar RN 02/14/2025 Telephone [facility] [address] [place] [address] Anthony Rojas MD Appointment Request 02/13/2025 9:45 AM CDT Home Care Visit [facility] Home Care [facility] [address] [place] [address] Rosie Chatterjee LPN LIAISON TELEPHONE CALL 02/03/2025 3:35 PM CDT Anesthesia Event [facility] [address] [place] [address] Jaguar Bejarano MD Stanton, George, MD 02/03/2025 2:00 PM CDT - 02/03/2025 5:14 PM CDT Surgery [facility] [address] [place] [address] Taryn Ruiz MD LOWER EXTREMITY THROMBECTOMY 02/02/2025 11:59 PM CDT Anesthesia Event [facility] [address] [place] [address] Toi Mohr MD Bracco, Kendra A, RN 02/01/2025 1:24 AM CDT - 02/13/2025 12:43 PM CDT Hospital Encounter [facility] [address] [place] [address] Linda Duvall MD Shackour, Salim, MD Jabeen, Sayeeda A, MD Sohail, Atif, MD Leg Pain Discharge Disposition: Home or Self Care (Routine Discharge) 02/01/2025 Travel 01/31/2025 Telephone [facility] [place] [address] Anthony Rojas MD Appointment Reminder 12/21/2024 Telephone [facility] [address] [place] [address] Anthony Rojas MD Appointment Request [...] pur e alcohol) 2 spiked 4% drinks/week/wine [facility] Gamma 2 [employer] Answer Date Recorded In the past 12 months has [employer], gas, oil, or water [employer] threatened to shut off services in your [...] any time in the past [address] [facility], were you homeless or living in a long-term (including now)? No 02/01/2025 Comments No Sex [...] Description 04/19/2025 2:45 PM CDT Office Visit [facility] [place] [address] Peggy Celeste PA-C [address] [place], [place] [address] Health Maintenance Due Date Last Done Comments [...] this topic Medical Devices Implanted Type Area [employer] Machine Device Identifier Shelf Expiration Date Model / Serial / Lot Agent Hemostatic Surgiflo 8 Ml Kit - [id number] Implanted:Qty: 1 on 02/03/2025 by Taryn Ruiz MD at [facility] [employer] [id number] 06/06/2026 [id number] / / [id number] Agent Hemostatic Surgiflo 8 Ml Kit - [id number] Implanted:Qty: 1 on 02/03/2025 by Jonnathan Galindo MD at [facility] [employer] [id number] 06/06/2026 [id number] / / [id number] Procedures Procedure Name Priority Date/Time Associated Diagnosis [...] 70 - 109 02/11/2025 4:47 PM CDT [facility] 02/11/2025 4:44 PM CDT us Joesph Spaulding MD POCT ORDERABLES - DEVICE Final R esult [facility] [address] [place] [address], [place] [phone] * (ABNORMAL) BMP WITHOUT GLUCOSE (02/11/2025 5:30 AM CDT) Only the most recent of5 resultswithin the time period is included. SODIUM S/P/B 137 136 - 145 MMOL/L 02/11/2025 6:21 AM CDT [facility] POTASSIUM S/P/B 4.1 3.5 - 5.1 MMOL/L 02/11/2025 6:21 AM CDT [facility] CHLORIDE S/P/B 105 97 - 115 MMOL/L 02/11/2025 6:21 AM CDT [facility] CO2 28.8 21.0 - 32.0 MMOL/L 02/11/2025 6:21 AM CDT [facility] BUN 19(H) 7 - 18 MG/DL 02/11/2025 6:21 AM CDT [facility] CREATININE S/P/B 0.77 0.55 - 1.02 MG/DL 02/11/2025 6:21 AM CDT [facility] CALCIUM S/P/B 9.0 8.5 - 10.1 MG/DL 02/11/2025 6:21 AM CDT [facility] ANION GAP 3.2 2.0 - 10.0 MMOL/L 02/11/2025 6:21 AM CDT [facility] GFR ESTIMATE 76(L) >90 ML/MIN/1. 73 M2 02/11/2025 6:21 AM CDT [facility] GFR NOTES GFR REFERENCE S: 02/11/2025 6:21 AM CDT [facility] Comment: THE ESTIMATED GFR [...] CDT Joesph Spaulding MD LABORATORY Final Result [facility] [address] [place] [address], [id number] * (ABNORMAL) CBC, AUTO, NO DIFF (02/11/2025 5:30 AM CDT) Only the most recent of5 resultswithin the time period is included. WBC 10.15 4.00 - 10.80 x10'3/uL 02/11/2025 5:54 AM CDT [facility] RBC 2.81(L) 4.10 - 5.40 x10'6/uL 02/11/2025 5:54 AM CDT [facility] HGB 9.1(L) 12.0 - 16.0 G/DL 02/11/2025 5:54 AM CDT [facility] HCT 27.5(L) 36.0 - 47.0 % 02/11/2025 5:54 AM CDT [facility] MCV 97.9 78.0 - 100.0 FL 02/11/2025 5:54 AM CDT [facility] MCH 32.4(H) 27.0 - 31.0 PG 02/11/2025 5:54 AM CDT [facility] MCHC 33.1 33.0 - 36.0 G/DL 02/11/2025 5:54 AM CDT [facility] RDW 13.7 11.5 - 14.5 % 02/11/2025 5:54 AM CDT [facility] PLT 335 150 - 350 x10'3/uL 02/11/2025 5:54 AM CDT [facility] MPV 9.1 7.4 - 10.4 FL 02/11/2025 5:54 AM CDT [facility] 02/11/2025 5:30 AM CDT us Joesph Spaulding MD LABORATORY Final Result Performing Organization Address [facility] de Phone Number [facility] [address] [place] [address], [id number] * LACTIC ACID (02/11/2025 12:29 AM CDT) Only the most recent of2 resultswithin the time period is included. LACTIC ACID VENOUS 1.3 0.4 - 2.0 MMOL/L 02/11/2025 1:04 AM CDT [facility] 02/11/2025 12:2 9 AM CDT Abiola Alonzo MD LABORATORY Final Res ult [facility] [address] [place] [address], [place] [phone] * TROPONIN, QUANT (02/11/2025 12:29 AM CDT) Only the most recent of7 resultswithin the time period is included. TROPONIN I HIGH SENSITIVITY 22 0 - 53 ng/L 02/11/2025 1:08 AM CDT [facility] 02/11/2025 12:2 9 AM CDT us Abiola Alonzo MD LABORATORY Final Res ult Performing Organization Address [facility] Co de Phone Number [facility] [address] [place] [address], [place] [phone] * TYPE & SCREEN (02/11/2025 12:14 AM CDT) Only the most recent of2 resultswithin the time period is included. ABO/RH A POSITIVE 02/11/2025 1:28 AM CDT [facility] ANTIBODY SCREEN NEGATIVE 02/11/2025 1:28 AM CDT [facility] SAMPLE EXPIRATION 02/14/2025,2 359 02/11/2025 12:44 AM CDT [facility] 02/11/2025 12:1 4 AM CDT us Abiola Alonzo MD BLOOD BANK TEST ORDERABLE S Final Result Performing Organization Address [facility] Co de Phone Number [facility] [address] [place] [address], [place] [phone] * ECG 12 lead (02/10/2025 8:59 PM CDT) Only the most recent of5 resultswithin the time period is included. 02/10/2025 8:59 PM CDT Narrative [facility] - 02/11/2025 6:[address] [facility] [address] [id number] Test Date: 2025-02-10 Pat Name: KENA VELAZQUEZ Department: 1 Room: 616 Gender: Female Nursing Service Director: : 1940 Requested By: ABIOLA ALONZO Order Number: [id number] Reading MD: Ignacio Cain Measurements Intervals [place] Rate: 112 P: 0 NE: 0 QRS: 5 QRSD: 97 T: 138 QT: 324 QTc: 444 Interpretive Statements ATRIAL FIBRILLATION WITH RAPID VENTRICULAR RESPONSE INCOMPLETE RIGHT BUNDLE BRANCH BLOCK ST DEVIATION AND MODERATE T-WAVE ABNORMALITY, CONSIDER LATERAL ISCHEMIA Procedure Note Ignacio Cain MD - 02/11/2025 [address] [place] [address] Test Date: 2025-02-10 Pat Name: KENA VELAZQUEZ Department: 1 Room: 616 Gender: Female Nursing Service Director: : 1940 Requested By: ABIOLA ALONZO Order Number: [id number] Reading MD: Ignacio Cain Measurements Intervals [place] Rate: 112 P: 0 NE: 0 QRS: 5 QRSD: 97 T: 138 QT: 324 QTc: 444 Interpretive Statements ATRIAL FIBRILLATION WITH RAPID VENTRICULAR RESPONSE INCOMPLETE RIGHT BUNDLE BRANCH BLOCK ST DEVIATION AND MODERATE T-WAVE ABNORMALITY, CONSIDER LATERAL ISCHEMIA us Abiola Alonzo MD ECG ORDERABLES Final Res ult [facility] * GI PANEL PCR - STOOL (02/08/2025 10:13 AM CDT) CAMPYLOBACTER PCR (STOOL) NOT DETECTED NOT DETECTED 02/09/2025 6:04 PM CDT [facility] PLESIOMONAS SHIGELLOIDES PCR (STOOL) NOT DETECTED NOT DETECTED 02/09/2025 6:04 PM CDT [facility] SALMONELLA PCR (STOOL) NOT DETECTED NOT DETECTED 02/09/2025 6:04 PM T [facility] VIBRIO PCR (STOOL) NOT DETECTED NOT DETECTED 02/09/2025 6:04 PM T [facility] VIBRIO CHOLERAE PCR (STOOL) NOT DETECTED NOT DETECTED 02/09/2025 6:04 PM T [facility] YERSINIA ENTEROCOLITICA PCR (STOOL) NOT DETECTED NOT DETECTED 02/09/2025 6:04 PM T [facility] ENTEROAGGREGATIVE ECOLI PCR (STOOL) NOT DETECTED NOT DETECTED 02/09/2025 6:04 PM T [facility] ENTEROPATHOGENIC ECOLI PCR (STOOL) NOT DETECTED NOT DETECTED 02/09/2025 6:04 PM CDT [facility] ENTEROTOXIGENIC ECOLI PCR (STOOL) NOT DETECTED NOT DETECTED 02/09/2025 6:04 PM CDT [facility] SHIGA LIKE TOXIN ECOLI PCR (STOOL) NOT DETECTED NOT DETECTED 02/09/2025 6:04 PM T [facility] SHIG/ENTEROINVASIVE ECOLI PCR (STOOL) NOT DETECTED NOT DETECTED 02/09/2025 6:04 PM T [facility] CRYPTOSPORIDIUM PCR (STOOL) NOT DETECTED NOT DETECTED 02/09/2025 6:04 PM T [facility] CYCLOSPORA CAYETANENSIS PCR (STOOL) NOT DETECTED NOT DETECTED 02/09/2025 6:04 PM CDT [facility] ENTAMOEBA HISTOLYTICA PCR (STOOL) NOT DETECTED NOT DETECTED 02/09/2025 6:04 PM T [facility] GIARDIA LAMBLIA PCR (STOOL) NOT DETECTED NOT DETECTED 02/09/2025 6:04 PM CDT [facility] ADENOVIRUS F40/41 PCR (STOOL) NOT DETECTED NOT DETECTED 02/09/2025 6:04 PM CDT [facility] ASTROVIRUS PCR (STOOL) NOT DETECTED NOT DETECTED 02/09/2025 6:04 PM CDT [facility] NOROVIRUS GI/GII PCR (STOOL) NOT DETECTED NOT DETECTED 02/09/2025 6:04 PM CDT [facility] ROTAVIRUS A PCR (STOOL) NOT DETECTED NOT DETECTED 02/09/2025 6:04 PM CDT [facility] SAPOVIRUS PCR (STOOL) NOT DETECTED NOT DETECTED 02/09/2025 6:04 PM CDT [facility] STOOL SPECIMEN / Unknown 02/08/2025 10:13 AM CDT us Joesph Spaulding MD MICROBIOLOGY - GENERAL ORDERABLE S Final Result [facility] [address] [place] [address], * CT CHEST+ABD+PEL W CON (02/07/2025 11:29 [...] 12:40 AM Narrative 02/08/2025 12:57 AM CDT [facility] [address] [place], [place] [address] EXAMINATION: CT CHEST ABDOMEN PELVIS WITH CONTRAST [...] Procedure Note Marcelino Starr MD - 02/08/2025 [facility] [address] [place], [place] [address] EXAMINATION: CT CHEST ABDOMEN PELVIS WITH CONTRAST [...] 2:41 PM Narrative 02/06/2025 2:44 PM [address]T [address] [address] PROCEDURE: XR CHEST PORTABLE. 02/06/2025 12:12 PM. [...] are unchanged in appearance. Procedure Note Taty Chavze MD - 02/06/[address] [address] PROCEDURE: XR CHEST PORTABLE. 02/06/2025 12:12 PM. [...] - 10.80 x10'3/uL 02/06/2025 5:08 AM CDT [facility] RBC 2.86(L) 4.10 - 5.40 x10'6/uL 02/06/2025 5:08 AM CDT [facility] HGB 9.2(L) 12.0 - 16.0 G/DL 02/06/2025 5:08 AM CDT [facility] HCT 27.7(L) 36.0 - 47.0 % 02/06/2025 5:08 AM CDT [facility] MCV 96.9 78.0 - 100.0 FL 02/06/2025 5:08 AM CDT [facility] MCH 32.2(H) 27.0 - 31.0 PG 02/06/2025 5:08 AM CDT [facility] MCHC 33.2 33.0 - 36.0 G/DL 02/06/2025 5:08 AM CDT [facility] RDW 13.8 11.5 - 14.5 % 02/06/2025 5:08 AM CDT [facility] PLT 196 150 - 350 x10'3/uL 02/06/2025 5:08 AM CDT [facility] MPV 9.8 7.4 - 10.4 FL 02/06/2025 5:08 AM T [facility] DIFFERENTIAL TYPE AUTOMATED DIFFERENTIAL 02/06/2025 5:08 AM T [facility] SEG NEUTROPHILS 80.9 % 5:08 AM CDT [facility] LYMPHOCYTES 8.9 % 02/06/2025 5:08 AM CDT [facility] MONOCYTES 8.5 % 02/06/2025 5:08 AM CDT [facility] EOSINOPHILS 0.7 % 02/06/2025 5:08 AM CDT [facility] BASOPHILS 0.2 % 02/06/2025 5:08 AM CDT [facility] IMMATURE GRANS % 0.8 % 02/07/20 5:08 AM CDT [facility] ABS. NEUTROPHILS 16.15(H) 1.60 - 8.30 x10'3/uL 02/06/2025 5:08 AM CDT [facility] ABS. LYMPHOCYTES 1.78 0.80 - 4.70 x10'3/uL 02/06/2025 5:08 AM CDT [facility] ABS. MONOCYTES 1.69(H) 0.00 - 1.50 x10'3/uL 02/06/2025 5:08 AM CDT [facility] ABS. EOSINOPHILS 0.14 0.00 - 0.40 x10'3/uL 02/06/2025 5:08 AM CDT [facility] ABS. BASOPHILS 0.03 0.00 - 0.20 x10'3/uL 02/06/2025 5:08 AM CDT [facility] ABS. IMMATURE GRANULOCYTES 0.16(H) 0.00 - 0.03 x10'3/uL 02/06/2025 5:08 AM CDT [facility] ABS. NUCLEATED RBC'S 0.00 0.00 - 0.01 x10'3/uL 02/06/2025 5:08 AM CDT [facility] NRBC % 0.0 % 02/06/2025 5:08 AM CDT [facility] 02/06/2025 4:52 AM CDT us Jonnathan Galindo MD LABORATORY Final Result Performing Organization Address [facility] de Phone Number [facility] [address] [place] [address], [phone] * (ABNORMAL) PROTIME/INR, VENOUS (02/05/2025 2:00 AM CDT) Only the most recent of5 resultswithin the time period is included. PROTIME 14.0(H) 9.4 - 12.5 SEC 02/05/2025 3:14 AM CDT [facility] INR 1.2(H) 0.8 - 1.1 02/05/2025 3:14 AM CDT [facility] 02/05/2025 2:00 AM CDT us Jonnathan Galindo MD LABORATORY Final Result Performing Organization Address [facility] Co de Phone Number [facility] [address] [place] [address], [id number] * (ABNORMAL) HEPARIN, ANTI XA, UFH (02/04/2025 2:02 PM CDT) Only the most recent of11 resultswithin the time period is included. HEPARIN ANTI XA UFH 1.07(H) 0.30 - 0.70 IU/ML 02/04/2025 2:26 PM CDT [facility] Comment: UFH Therapeutic Anti Xa Ranges: Medical Therapeutic Range: 0.30 - 0.70 IU/mL Cardiac Therapeutic Range: 0.30 - 0.50 IU/mL Neuro Therapeutic Range: 0.20 - 0.40 IU/mL 02/04/2025 2:02 PM CDT Joesph Spaulding MD LABORATORY Final Result Performing Organization Address [facility] de Phone Number [facility] [address] [place] [address], [id number] * (ABNORMAL) THROMBOPLASTIN TIME PARTIAL,PTT (02/04/2025 5:07 AM CDT) Only the most recent of2 resultswithin the time period is included. PTT 109.5(H) 25.1 - 36.5 SEC 02/04/2025 5:40 AM CDT [facility] 02/04/2025 5:07 AM CDT Jonnathan Galindo MD LABORATORY Final Result Performing Organization Address [facility] Co de Phone Number [facility] [address] [place] [address], [phone] * (ABNORMAL) BASIC METABOLIC PANEL (02/04/2025 5:07 AM CDT) Only the most recent of3 resultswithin the time period is included. SODIUM S/P/B 138 136 - 145 MMOL/L 02/04/2025 6:01 AM CDT [facility] POTASSIUM S/P/B 4.4 3.5 - 5.1 MMOL/L 02/04/2025 6:01 AM [facility] CHLORIDE S/P/B 110 97 - 115 MMOL/L 02/04/2025 6:01 AM [facility] CO2 21.5 21.0 - 32.0 MMOL/L 02/04/2025 6:01 AM [facility] GLUCOSE 135(H) 74 - 106 MG/DL 02/04/2025 6:01 AM [facility] BUN 22(H) 7 - 18 MG/DL 02/04/2025 6:01 AM [facility] CREATININE S/P/B 0.80 0.55 - 1.02 MG/DL 02/04/2025 6:01 AM [facility] CALCIUM S/P/B 8.1(L) 8.5 - 10.1 MG/DL 02/04/2025 6:01 AM [facility] ANION GAP 6.5 2.0 - 10.0 MMOL/L 02/04/2025 6:01 AM [facility] OSMOLALITY (CALC) 291 MOSM/KG 025 6:01 AM [facility] Comment:REFERENCE RANGE NOT ESTABLISHED GFR ESTIMATE 73(L) >90 ML/MIN/1. 73 M2 02/04/2025 6:01 AM [facility] GFR NOTES GFR REFERENCE S: 02/04/2025 6:01 AM [facility] Comment: THE ESTIMATED GFR IS CALCULATED [...] MD LABORATORY Final Result Performing Organization Address [facility] Co de Phone Number [facility] [address] [place] [address], [id number] * PHOSPHORUS, INORGANIC PHOSPHATE (02/04/2025 5:07 AM CDT) PHOSPHORUS 3.9 2.5 - 4.9 MG/DL 02/04/2025 6:01 AM CDT [facility] 02/04/2025 5:07 AM CDT us Jonnathan Galindo MD LABORATORY Final Result Performing Organization Address [facility] de Phone Number [facility] [address] [place] [address], [place] [phone] * MAGNESIUM (02/04/2025 5:07 AM CDT) Only the most recent of3 resultswithin the time period is included. MAGNESIUM 1.9 1.6 - 2.6 MG/DL 02/04/2025 6:01 AM CDT [facility] 02/04/2025 5:07 AM CDT us Jonnathan Galindo MD LABORATORY Final Result Performing Organization Address [facility] de Phone Number [facility] [address] [place] [address], [id number] * (ABNORMAL) ARTERIAL BLOOD GAS (02/04/2025 2:42 AM CDT) PH ARTERIAL 7.30(L) 7.35 - 7.45 02/04/2025 2:48 AM CDT [facility] PCO2 40.9 35.0 - 45.0 MMHG 02/04/2025 2:48 AM CDT [facility] PO2 138.0(H) 83.0 - 108.0 MMHG 02/04/2025 2:48 AM CDT [facility] BICARB ARTERIAL 19.6(L) 22 - 26 MMOL/L 02/04/2025 2:48 AM CDT [facility] TOTAL CO2 ARTERIAL 20.8(L) 23 - 27 MMOL/L 02/04/2025 2:48 AM CDT [facility] BASE DEFICIT 5.9(H) 0.0 - 3.0 MMOL/L 02/04/2025 2:48 AM CDT [facility] O2 Saturation 98 95 - 98 % 02/04/2025 2:48 AM CDT [facility] ENA TEST N/A 02/04/2025 2:42 AM CDT [facility] Comment:pulled from art line by RN OXYGEN STATUS 2L NC 02/04/2025 2:42 AM CDT [facility] DRAW SITE ARTERIAL ARTERIAL LINE DRAW 02/04/2025 2:42 AM CDT [facility] 02/04/2025 2:42 AM CDT Jenny Escobar MD LABORATORY Final Result [facility] [address] [place] [address], [id number] * CULTURE, BACTERIA BLOOD (02/03/2025 11:45 PM CDT) SPEC DESCRIPTION BLOOD 02/03/2025 11:05 PM CDT [facility] SPECIAL REQUESTS NO SPECIAL REQUEST 02/03/2025 11:05 PM CDT [facility] CULTURE RESULT NO GROWTH 5 DAYS 02/09/2025 1:51 AM CDT [facility] BLOOD SPECIMEN OBTAINED FOR BLOOD CULTURE / Unknown 02/03/2025 11:45 PM CDT 02/03/2025 11:52 PM CDT us Bradley Forrest MD MICROBIOLOGY - GENERAL ORDERAB LES Final Result Performing Organization Address [facility] de Phone Number [facility] [address] [place] [address], [phone] * (ABNORMAL) PRO-BRAIN NATRIURETIC PEPTIDE (02/03/2025 10:28 PM CDT) PRO-B TYPE NATRIURETIC PEPTIDE 5,552(H) <450 PG/ML 02/03/2025 11:02 PM CDT [facility] Comment: AGE INDEPENDENT: <300 PG/ML HAS [...] MD LABORATORY Final Result Performing Organization Address [facility] de Phone Number [facility] [address] [place] [address], [phone] * Blood gas, venous (02/03/2025 10:28 PM CDT) PH VENOUS PER PHLEBOTOMY PATIENT WAS DRAWN FROM AN ARTERIAL LINE. REORDERED AND RESULTED ABGA 7.31 - 7.42 02/04/2025 2:51 AM CDT [facility] Comment:CORRECTED ON 02/04 A T 0251: Previously reported as 7.30 PCO2 VENOUS PER PHLEBOTOMY PATIENT WAS DRAWN FROM AN ARTERIAL LINE. REORDERED AND RESULTED ABGA 41 - 51 MMHG 02/04/2025 2:51 AM CDT [facility] Comment:CORRECTED ON 02/04 A T 0251: Previously reported as 40.9 PO2 VENOUS PER PHLEBOTOMY PATIENT WAS DRAWN FROM AN ARTERIAL LINE. REORDERED AND RESULTED ABGA 20 - 40 MM HG 02/04/2025 2:51 AM CDT [facility] Comment:CORRECTED ON 02/04 A T 0251: Previously reported as 138.0 BICARB VENOUS PER PHLEBOTOMY PATIENT WAS DRAWN FROM AN ARTERIAL LINE. REORDERED AND RESULTED ABGA 22 - 29 MMOL/L 02/04/2025 2:51 AM CDT [facility] Comment:CORRECTED ON 02/04 A T 0251: Previously reported as 19.6 TOTAL CO2 VENOUS PER PHLEBOTOMY PATIENT WAS DRAWN FROM AN ARTERIAL LINE. REORDERED AND RESULTED ABGA 25 - 29 MMOL/L 02/04/2025 2:51 AM CDT [facility] Comment:CORRECTED ON 02/04 A T 0251: Previously reported as 20.8 BASE EXCESS VENOUS PER PHLEBOTOMY PATIENT WAS DRAWN FROM AN ARTERIAL LINE. REORDERED AND RESULTED ABGA MMOL/L 02/04/2025 2:51 AM CDT [facility] BASE DEFICIT VENOUS PER PHLEBOTOMY PATIENT WAS DRAWN FROM AN ARTERIAL LINE. REORDERED AND RESULTED ABGA MMOL/L 02/04/2025 2:51 AM CDT [facility] Comment:CORRECTED ON 02/04 A T 0251: Previously reported as 5.9 O2 SAT VENOUS PER PHLEBOTOMY PATIENT WAS DRAWN FROM AN ARTERIAL LINE. REORDERED AND RESULTED ABGA 40.0 - 70.0 % 02/04/2025 2:51 AM CDT [facility] Comment:CORRECTED ON 02/04 A T 0251: Previously reported as 98 02/03/2025 10:2 8 PM CDT us Bradley Forrest MD LABORATORY Edited Result - Final [facility] [address] [place] [address], [id number] * (ABNORMAL) COMPREHENSIVE METABOLIC PANEL (02/03/2025 10:28 PM CDT) Only the most recent of2 resultswithin the time period is included. SODIUM S/P/B 139 136 - 145 MMOL/L 02/03/2025 11:02 PM CDT [facility] POTASSIUM S/P/B 4.5 3.5 - 5.1 MMOL/L 02/03/2025 11:02 PM CDT [facility] CHLORIDE S/P/B 110 97 - 115 MMOL/L 02/03/2025 11:02 PM T [facility] CO2 19.4(L) 21.0 - 32.0 MMOL/L 02/03/2025 11:02 PM CDT [facility] GLUCOSE 151(H) 74 - 106 MG/DL 02/03/2025 11:02 PM CDT [facility] BUN 20(H) 7 - 18 MG/DL 02/03/2025 11:02 PM CDT [facility] CREATININE S/P/B 0.84 0.55 - 1.02 MG/DL 02/03/2025 11:02 PM CDT [facility] CALCIUM S/P/B 8.5 8.5 - 10.1 MG/DL 02/03/2025 11:02 PM CDT [facility] BILIRUBIN TOTAL S/P/B 1.1(H) 0.2 - 1.0 MG/DL 02/03/2025 11:02 PM CDT [facility] ALKALINE PHOSPHATASE S/P/B 90 55 - 142 U/L 02/03/2025 11:02 PM CDT [facility] AST 28 15 - 37 U/L 02/03/2025 11:02 PM CDT [facility] ALT 38 13 - 56 U/L 02/03/2025 11:02 PM CDT [facility] TOTAL PROTEIN S/P/B 6.7 6.4 - 8.2 G/DL 02/03/2025 11:02 PM CDT [facility] ALBUMIN S/P/B 2.8(L) 3.4 - 5.0 G/DL 02/03/2025 11:02 PM CDT [facility] ANION GAP 9.6 2.0 - 10.0 MMOL/L 02/03/2025 11:02 PM CDT [facility] OSMOLALITY (CALC) 294 MOSM/KG 025 11:02 PM CDT [facility] Comment:REFERENCE RANGE NOT ESTABLISHED GFR ESTIMATE 69(L) >90 ML/MIN/1. 73 M2 02/03/2025 11:02 PM CDT [facility] GFR NOTES GFR REFERENCE S: 02/03/2025 11:02 PM CDT [facility] Comment: THE ESTIMATED GFR [...] us Bradley Forrest MD LABORATORY Final Result [facility] [address] [place] [address], [id number] * (ABNORMAL) POCT ACTIVATED CLOTTING TIME - ISTAT DOCKED DEVICE (02/03/2025 5:47 PM CDT) Only the most recent of3 resultswithin the time period is included. ACTIVATED CLOTTING TIME (ACT HMT OR LMT) 227(H) 74 - 137 SEC 02/03/2025 7:22 PM CDT [facility] 02/03/2025 5:47 PM CDT us Jenny Escobar MD POCT ORDERABLES - DEVICE Fin al Result [facility] [address] [place] [address], [place] [phone] [id number] * Art Line (02/03/2025 3:52 PM CDT) Narrative Sandra Ellison CRNA - 02/03/2025 3:52 PM CDT Sandra [...] Secure Method: Taped us Oswald Hanna MD NE ANESTHESIA Final Result * Pathology (02/03/2025 12:00 AM CDT) PATHOLOGY [facility] Department of Laboratory Medicine [address] [place] [address] , extension [phone] Pathology Report Surgical Pathology Report Name: KENA VELAZQUEZ Specimen #: [id number] Age: 4 1940 (Age: 84) Location: [facility] Sex: F Procedure Date: 02/03/2025 [facility] #: [id number] Date Received: 02/06/2025 Date Reported: 02/07/2025 Provider: [...] are no grossly identifiable masses or lesions. Publishing Systems Analyst sections are submitted in cassette 1. Gross examination (when applicable) was performed at [facility], [address] [place] [address]. This case was interpreted and signed out at [facility], [address] [place] [address]. Electronically Signed Out Oren Huber M.D. [facility] 02/03/2025 02/06/2025 7:3 8 AM CDT Comment:Thrombus,SFA us Jonnathan Galindo MD PATHOLOGY/CYTOLOGY ORDERABLES Fi nal Result [facility] [address] [place] [address], [id number] * USV ART REST W EILEEN LOW EXT (02/01/2025 11:25 AM CDT) Anatomical Region Laterality Modality Extremity Ultrasound 02/01/2025 10:4 1 AM CDT Narrative 02/01/2025 1:44 PM CDT Vascular Report Pat.Name: KENA VELAZQUEZ Pat.ID: [id number] .Date: 02/01/2025 Refer.MD: JONNATHAN GALINDO Exam Time: 10:41:00 AM Study Type:PVI ART DOPPLER-EILEEN Height: 152 cm Age: 4 1940,84Y Sex: F Sonogrphr: Donovan Rader RVT Pat. Stat.:Inpatient Room: 644 ICD - 9: I73.9 PVD (peripheral arterial/vascular disease) CPT - 4: 67604 EILEEN/WBI Reason for Study:pvd Race: W ++++++++++++++++++++++++++++++++++++ [...] 02/01/2025 Vascular Report Pat.Name: KENA VELAZQUEZ Pat.ID: [id number] .Date: 02/01/2025 Refer.MD: JONNATHAN GALINDO Exam Time: 10:41:00 AM Study Type:PVI ART DOPPLER-EILEEN Height: 152 cm Age: 4 1940,84Y Sex: F Sonogrphr: Donovan Rader RVT Pat. Stat.:Inpatient Room: 644 ICD - 9: I73.9 PVD (peripheral arterial/vascular disease) CPT - 4: 78022 EILEEN/WBI Reason for Study:pvd Race: W ++++++++++++++++++++++++++++++++++++ [...] CHOLESTEROL 195 MG/DL 02/01/2025 8:56 AM CDT [facility] Comment:DESIRABLE: <200 TRIGLYCERIDES 68 MG/DL 02/01/2025 8:56 AM CDT [facility] Comment:<150 NORMAL HDL 94 >49 MG/DL 02/01/2025 8:56 AM CDT [facility] LDL (CALCULATED) 87 MG/DL 02/02/20 8:56 AM CDT [facility] Comment:<100 OPTIMAL VLDL CALCULATION 14 MG/DL 02/02/20 8:56 AM CDT [facility] Comment:REFERENCE RANGE NOT ESTABLISHED CHOL/HDL RATIO 2.1 02/01/2025 8:56 AM CDT [facility] Comment:REFERENCE RANGE NOT ESTABLISHED LDL/HDL 0.9 02/01/2025 8:56 AM CDT [facility] Comment:REFERENCE RANGE NOT ESTABLISHED NON HDL CHOLESTEROL 101 MG/DL 02/01/2025 8:56 AM CDT [facility] Comment:REFERENCE RANGE NOT ESTABLISHED 02/01/2025 7:58 AM CDT Bradley Forrest MD LABORATORY Final Result [facility] [address] [place] [address], [id number] from Last 3 Months Insurance [facility] Advance Directives * Full Code (Latest Code Status on File) Date Activated Date Inactivated Comments 02/03/2025 7:03 PM 02/13/2025 2:53 PM * Full Code Date Activated Date Inactivated Comments 02/01/2025 5:34 AM 02/03/2025 7:03 PM * Full Code Date Activated Date Inactivated Comments 04/27/2024 6:44 PM 05/12/2024 3:20 PM Care Teams School Director Relationship Specialty Start Date End Date Christ Coto MD [address] [place] [phone] PCP - General FAMILY PRACTICE 03/12/19 Yesy Alonso MD [address] [place] [address] [place] [address] Consulting Physician CARDIOVASCULAR DISEASE 05/19/24 Sudhakar Lu PA [address] [place] [phone] Physician Slunk Skinner PHYSICIAN SCIENTIFIC TECHNICAL WRITER 05/19/24 Anthony Rojas MD [address] [place] [address] Consulting Physician CLINICAL CARDIAC ELECTROPHYSIOLOGY 01/16/25 Peggy Celeste PA-C [address] [place] [phone] Referring Physician PHYSICIAN SCIENTIFIC TECHNICAL WRITER 01/30/25
--- OUTSIDE RECORDS SUMMARY | 2025-03-14 15:39 | XMS_ITS | Encounter Summary ---
Author Organization [facility] Address [address] [place] [address] Care Team Providers Care Sharemilker Name Role Phone Christ Coto MD Primary Care Provider Yesy Alonso MD Unavailable Sudhakar Lu Unavailable [phone] Anthony Rojas MD Unavailable [phone] Peggy Celeste PA-C Unavailable [phone] Encounter Details Date Type Department Care Team (Late st Contact Info) Description 05/16/2024 Hospital Follow-up Call [facility] Cardiovascular Care Unit [address] [place] [address] Alicia Salazar, RN Social History Tobacco Use Types Packs/Day Years Used Date Smoking Tobacco: Never Smokeless Tobacco: Never Alcohol Use Standard Drinks/Week Comments Yes 0 (1 standard drink = 0.6 oz pur e alcohol) 2 spiked 4% drinks/week/wine [facility] Utilities Answer Date Recorded In the [...] any time in the past 12 m [facility], were you homeless or living in a nursing home (including now)? No 04/27/2024 Comments No Sex [...] Description 04/19/2025 2:45 PM CDT [facility] [address] [place] [phone] Peggy Celeste PA-C [address] [place], [place] [phone] documented as of this encounter Visit Diagnoses Not on filedocumented in this encounter Care Teams Sharemilker Relationship Specialty Start Date End Date Christ Coto MD [address] [place] [phone] PCP - General FAMILY PRACTICE 03/12/19 Yesy Alonso MD [address] [place] [address] Consulting Physician CARDIOVASCULAR DISEASE 05/19/24 Sudhakar Lu PA [address] [place] [phone] Physician Talent Program Manager PHYSICIAN CORRECTIONS CADET 05/19/24 Anthony Rojas MD [address] [place] [address] Consulting Physician CLINICAL CARDIAC ELECTROPHYSIOLOGY 01/16/25 Peggy Celeste PA-C [address] [place] [address] Referring Physician PHYSICIAN CORRECTIONS CADET 01/30/25 documented as of this encounter
--- OUTSIDE RECORDS SUMMARY | 2025-03-14 15:39 | XMS_ITS | Encounter Summary ---
Author Organization [facility] Address [address] [place] [address] Care Team Providers Care Nylon Operator Name Role Phone Christ Coto MD Primary Care Provider Yesy Alonso MD Unavailable Sudhakar Lu Unavailable [phone] Anthony Rojas MD Unavailable [phone] Peggy Celeste PA-C Unavailable [phone] Encounter Details Date Type Department Care Team (Late st Contact Info) Description 02/12/2019 Abstract [facility] CONVERSION [address] [place] [address] , Generic ConversionMD Social History Tobacco Use [...] Description 04/19/2025 2:45 PM CDT Office Visit [facility] [address] [place] [phone] Peggy Celeste PA-C [address] [place], [place] [phone] documented as of this encounter Visit Diagnoses Not on filedocumented in this encounter Additional Health Concerns Infection Onset Date Last Indicated Resolved Time COVID-19 Rule Out 04/27/2024 04/27/2024 04/27/2024 9:42 PM CDT documented as of this encounter Care Teams Nylon Operator Relationship Specialty Start Date End Date Christ Coto MD [address] [place] [phone] PCP - General FAMILY PRACTICE 03/12/19 Yesy Alonso MD [address] [facility] [place] [address] Consulting Physician CARDIOVASCULAR DISEASE 05/19/24 Sudhakar Lu PA [address] [place] [phone] Physician Building Maintenance Worker PHYSICIAN SIGNALS COLLECTOR/ANALYST 05/19/24 Anthony Rojas MD [address] [place] [address] Consulting Physician CLINICAL CARDIAC ELECTROPHYSIOLOGY 01/16/25 Peggy Celeste PA-C [address] [place] [phone] Referring Physician PHYSICIAN SIGNALS COLLECTOR/ANALYST 01/30/25 documented as of this encounter
--- OUTSIDE RECORDS SUMMARY | 2025-03-14 15:39 | XMS_ITS | Encounter Summary ---
Author Organization [facility] Address [address] [place] [address] Care Team Providers Care Cloth Laminating Supervisor Name Role Phone Christ Coto MD Primary Care Provider [phone] Yesy Alonso MD Unavailable Sudhakar Lu Unavailable [phone] Anthony Rojas MD Unavailable [phone] Peggy Celeste PA-C Unavailable [phone] Encounter Details Date Type Department Care Team (Late st Contact Info) Description 02/14/2025 Hospital Follow-up Call [facility] Cardiovascular Care Unit [address] [place] [address] Alicia Salazar, RN Social History Tobacco Use Types Packs/Day Years Used Date Smoking Tobacco: Never Smokeless Tobacco: Never Alcohol Use Standard Drinks/Week Comments Yes 0 (1 standard drink = 0.6 oz pur e alcohol) 2 spiked 4% drinks/week/wine [facility] Utilities Answer Date Recorded In the past 12 months has e electric, gas, oil, or water [employer] threatened to shut off services in your [...] any time in the past 12 m [facility], were you homeless or living in a longterm (including now)? No 02/01/2025 Comments No Sex [...] Description 04/19/2025 2:45 PM CDT Office Visit [facility] [place] [address] [place] [phone] Peggy Celeste PA-C [address] [place], [place] [phone] documented as of this encounter Visit Diagnoses Not on filedocumented in this encounter Care Teams Cloth Laminating Supervisor Relationship Specialty Start Date End Date Christ Coto MD [address] [place] [phone] PCP - General FAMILY PRACTICE 03/12/19 Yesy Alonso MD [facility] [place] [address] Consulting Physician CARDIOVASCULAR DISEASE 05/19/24 Sudhakar Lu PA [address] [place] [phone] Physician Residential Housekeeper PHYSICIAN HAND STRIPER 05/19/24 Anthony Rojas MD [address] [place] [address] Consulting Physician CLINICAL CARDIAC ELECTROPHYSIOLOGY 01/16/25 Peggy Celeste PA-C [address] [place] [address] Referring Physician PHYSICIAN HAND STRIPER 01/30/25 documented as of this encounter
[2025-03-14 15:40] LABS: INR 1.2; Partial Thromboplastin Time 25.7 Sec (23.9-30.70); Prothrombin Time 13.4 Seconds (9.50-12.1)
[2025-03-14 15:52] LABS: Alanine Aminotransferase 30 U/L (6-35); Albumin Level 3.8 g/dL (3.5-5.1); Alkaline Phosphatase 86 U/L (38-126); Anion Gap 5 mmol/L (4-12); Aspartate Amino Transferase 35 U/L (14-36); Bilirubin,Total 1.0 mg/dL (0.2-1.3); Blood Urea Nitrogen 19 mg/dL (7-17); Calcium 8.9 mg/dL (8.4-10.2); Carbon Dioxide 28 mmol/L (22-30); Chloride 106 mmol/L (98-107); Estimated CRCL calculation 52 ml/min; Estimated Glomerular Filt Rate > 60; Glucose 115 mg/dL (65-110); Magnesium 2.0 mg/dL (1.6-2.3); Osmolality Calculated 291 mOsm/kg (285-295); Potassium 4.6 mmol/L (3.4-5.0); Sodium 139 mmol/L (137-145); Total Protein 7.5 g/dL (6.3-8.2)
[2025-03-14 16:03] LABS: Influenza A QL RT-PCR Negative (Negative); Influenza B QL RT-PCR Negative (Negative); RSV RNA, RT-PCR Negative (Negative); SARS-CoV-2 RNA PCR Negative (Negative)
[2025-03-14 16:04] LABS: Troponin I 0.017 ng/mL (0.000-0.034)
[2025-03-14 16:08] LABS: NT Pro B Type Natriuretic Pept 10900 pg/mL (19.9-100)
[2025-03-14] MEDS: FUROSEMIDE INJ 40 MG/4 ML VIAL IV PUSH (17:36)
[2025-03-14] MEDS: cefTRIAXone 1 GM in SODIUM CHLORIDE 0.9% IV 50 ML 100 ML IVPB (17:36)
[2025-03-14 17:51] LABS: Troponin I 0.017 ng/mL (0.000-0.034)
--- NOTE | 2025-03-14 19:42 | ADMGEN ---
This patient, Bernadette Velazquez, was admitted to 2nd Floor Room 226-1. Patient oriented to hospital policies and general routines including ID bracelet, bed and alarms, visiting hours, pain management, procedures, bathroom and other care routines, personal items, smoking policy, room service/diet, and visiting hours. Information on how to activate the Rapid Response Team has been discussed. Patient are encouraged to report perceived risks to care and to ask questions if they do not understand what they are told or what they should do.
[2025-03-14] MEDS: APIXABAN 2.5 MG TABLET PO (21:18)
[2025-03-14] MEDS: GABAPENTIN 100 MG CAPSULE PO (21:18)
[2025-03-14] MEDS: METOPROLOL SUCCINATE EXT REL 25 MG TABCR PO (21:18)
[2025-03-15] VITALS (13 sets, daily range): BP systolic 111–137; BP diastolic 56–95; PULSE 66–113; RESP 14–20; TEMP 36.6–37.8; O2SAT 95–100
--- NOTE | 2025-03-15 00:10 | PC.NURSE ---
RN educated pt on importance of nebulizing tx and why the Doctor had prescribed them. Pt stated I have the same thing at home I'd use it if it worked, no thank you! RN verbalized understanding and respected the pt's right to refuse.
--- OUTSIDE RECORDS SUMMARY | 2025-03-15 08:58 | XMS_ITS | Encounter Summary ---
Author Organization [facility] Address [address] [place] [address] Care Team Providers Care Imaging Clerk Name Role Phone Christ Coto MD Primary Care Provider [phone] Yesy Alonso MD Unavailable Sudhakar Lu Unavailable [phone] Anthony Rojas MD Unavailable [phone] Peggy Celeste PA-C Unavailable [phone] Encounter Details Date Type Department Care Team (Late st Contact Info) Description 02/14/2025 Hospital Follow-up Call [facility] Cardiovascular Care Unit [address] [place] [address] Alicia Salazar, RN Social History Tobacco Use Types Packs/Day Years Used Date Smoking Tobacco: Never Smokeless Tobacco: Never Alcohol Use Standard Drinks/Week Comments Yes 0 (1 standard drink = 0.6 oz pur e alcohol) 2 spiked 4% drinks/week/wine [facility] Utilities Answer Date Recorded In the past 12 months has e electric, gas, oil, or water [employer] threatened to shut off services in your [...] any time in the past 12 m [facility], were you homeless or living in a group home (including now)? No 02/01/2025 Comments No Sex [...] Description 04/19/2025 2:45 PM CDT Office Visit [facility] [place] [address] [place] [address] Peggy Celeste PA-C [address] [place], [place] [address] documented as of this encounter Visit Diagnoses Not on filedocumented in this encounter Care Teams Imaging Clerk Relationship Specialty Start Date End Date Christ Coto MD [address] [place] [phone] PCP - General FAMILY PRACTICE 03/12/19 Yesy Alonso MD [address] [place] [address] Consulting Physician CARDIOVASCULAR DISEASE 05/19/24 Sudhakar Lu PA [address] [place] [phone] Physician Medical Supervisor PHYSICIAN OUTBOUND CALL CENTER REPRESENTATIVE 05/19/24 Anthony Rojas MD [address] [place] [address] Consulting Physician CLINICAL CARDIAC ELECTROPHYSIOLOGY 01/16/25 Peggy Celeste PA-C [address] [place] [address] Referring Physician PHYSICIAN OUTBOUND CALL CENTER REPRESENTATIVE 01/30/25 documented as of this encounter
--- OUTSIDE RECORDS SUMMARY | 2025-03-15 08:58 | XMS_ITS | Encounter Summary ---
Author Organization [facility] Address [address] [place] [address] Care Team Providers Care Molder Machine Tender Name Role Phone Christ Coto MD Primary Care Provider Yesy Alonso MD Unavailable Sudhakar Lu Unavailable [phone] Anthony Rojas MD Unavailable [phone] Peggy Celeste PA-C Unavailable [phone] Encounter Details Date Type Department Care Team (Late st Contact Info) Description 05/16/2024 Hospital Follow-up Call [facility] Cardiovascular Care Unit [address] [place] [address] Alicia Salazar, RN Social History Tobacco Use Types Packs/Day Years Used Date Smoking Tobacco: Never Smokeless Tobacco: Never Alcohol Use Standard Drinks/Week Comments Yes 0 (1 standard drink = 0.6 oz pur e alcohol) 2 spiked 4% drinks/week/wine [facility] Utilities Answer Date Recorded In the past [...] any time in the past 12 m [facility], were you homeless or living in a fci (including now)? No 04/27/2024 Comments No Sex [...] Status No 04/27/2024 6:13 PM CDT Dulce Valetnin R N Active documented in this encounter Plan of Treatment Upcoming Encounters Date Type Department Care Team (Late st Contact Info) Description 04/19/2025 2:45 PM CDT [facility] [address] [place] [phone] Peggy Celeste PA-C [address] [place], [place] [address] documented as of this encounter Visit Diagnoses Not on filedocumented in this encounter Care Teams Molder Machine Tender Relationship Specialty Start Date End Date Christ Coto MD [address] [place] [phone] PCP - General FAMILY PRACTICE 03/12/19 Yesy Alonso MD [address] [place] [address] Consulting Physician CARDIOVASCULAR DISEASE 05/19/24 Sudhakar Lu PA [address] [place] [phone] Physician Stonemason Helper PHYSICIAN [employer]SP[employer] OFFICER 05/19/24 Anthony Rojas MD [address] [place] [address] Consulting Physician CLINICAL CARDIAC ELECTROPHYSIOLOGY 01/16/25 Peggy Celeste PA-C [address] [place], [place] [phone] Referring Physician PHYSICIAN NAV[employer] AIRSP[employer] OFFICER 01/30/25 documented as of this encounter
--- OUTSIDE RECORDS SUMMARY | 2025-03-15 08:59 | XMS_ITS ---
procedure are in theresults section. CBC W/DIFF AUTOMATED Routine 02/05/2025 2:00 AM [...] of9 resultswithin the time period is included. [facility] GLUCOSE POC 101 70 - 109 02/11/2025 4:47 PM CDT [facility] 02/11/2025 4:44 PM CDT us Joesph Spaulding MD POCT ORDERABLES - DEVICE Final R esult [facility] [address] [place] [address], [id number] * (ABNORMAL) BMP WITHOUT GLUCOSE (02/11/2025 5:30 AM CDT) Only the most recent of5 resultswithin the time period is included. [facility] SODIUM S/P/B 137 136 - 145 MMOL/L 02/11/2025 6:21 AM T [facility] POTASSIUM S/P/B 4.1 3.5 - 5.1 MMOL/L 02/11/2025 6:21 AM T [facility] CHLORIDE S/P/B 105 97 - 115 MMOL/L 02/11/2025 6:21 AM CDT [facility] CO2 28.8 21.0 - 32.0 MMOL/L 02/11/2025 6:21 AM T [facility] BUN 19(H) 7 - 18 MG/DL 02/11/2025 6:21 AM T [facility] CREATININE S/P/B 0.77 0.55 - 1.02 MG/DL 02/11/2025 6:21 AM T [facility] CALCIUM S/P/B 9.0 8.5 - 10.1 MG/DL 02/11/2025 6:21 AM T [facility] ANION GAP 3.2 2.0 - 10.0 MMOL/L 02/11/2025 6:21 AM T [facility] GFR ESTIMATE 76(L) >90 ML/MIN/1. 73 M2 02/11/2025 6:21 AM T [facility] GFR NOTES GFR REFERENCE S: 02/11/2025 6:21 AM [facility] Comment: THE ESTIMATED GFR IS [...] <15 ml/min/1.73 m2 02/11/2025 5:30 AM CDT us Joesph Spaulding MD LABORATORY Final Result [facility] [address] [place] [address], [place] [phone] * (ABNORMAL) CBC, AUTO, NO DIFF (02/11/2025 5:30 AM CDT) Only the most recent of5 resultswithin the time period is included. WBC 10.15 4.00 - 10.80 x10'3/uL 02/11/2025 5:54 AM CDT [facility] RBC 2.81(L) 4.10 - 5.40 x10'6/uL 02/11/2025 5:54 AM CDT [facility] HGB 9.1(L) 12.0 - 16.0 G/DL 02/11/2025 5:54 AM CDT [facility] HCT 27.5(L) 36.0 - 47.0 % 02/11/2025 5:54 AM CDT [facility] MCV 97.9 78.0 - 100.0 FL 02/11/2025 5:54 AM CDT [facility] MCH 32.4(H) 27.0 - 31.0 PG 02/11/2025 5:54 AM CDT [facility] MCHC 33.1 33.0 - 36.0 G/DL 02/11/2025 5:54 AM CDT [facility] RDW 13.7 11.5 - 14.5 % 02/11/2025 5:54 AM CDT [facility] PLT 335 150 - 350 x10'3/uL 02/11/2025 5:54 AM CDT [facility] MPV 9.1 7.4 - 10.4 FL 02/11/2025 5:54 AM CDT [facility] 02/11/2025 5:30 AM CDT us Joesph Spaulding MD LABORATORY Final Result Performing Organization Address [facility] Co de Phone Number [facility] [address] [place] [address], [place] [phone] * LACTIC ACID (02/11/2025 12:29 AM CDT) Only the most recent of2 resultswithin the time period is included. LACTIC ACID VENOUS 1.3 0.4 - 2.0 MMOL/L 02/11/2025 1:04 AM CDT [facility] 02/11/2025 12:2 9 AM CDT us Abiola Alonzo MD LABORATORY Final Res ult Performing Organization Address [facility] Co de Phone Number [facility] [address] [place] [address], [place] [phone] * TROPONIN, QUANT (02/11/2025 12:29 AM CDT) Only the most recent of7 resultswithin the time period is included. TROPONIN I HIGH SENSITIVITY 22 0 - 53 ng/L 02/11/2025 1:08 AM CDT [facility] 02/11/2025 12:2 9 AM CDT us Abiola Alonzo MD LABORATORY Final Res ult Performing Organization Address [facility] Co de Phone Number [facility] [address] [place] [address], [place] [phone] * TYPE & SCREEN (02/11/2025 12:14 AM CDT) Only the most recent of2 resultswithin the time period is included. ABO/RH A POSITIVE 02/11/2025 1:28 AM CDT [facility] ANTIBODY SCREEN NEGATIVE 02/11/2025 1:28 AM CDT [facility] SAMPLE EXPIRATION 02/14/2025,2 359 02/11/2025 12:44 AM CDT [facility] 02/11/2025 12:1 4 AM CDT Abiola Alonzo MD BLOOD BANK TEST ORDERABLE S Final Result [facility] [address] [place] [address], [id number] * ECG 12 lead (02/10/2025 8:59 PM CDT) Only the most recent of5 resultswithin the time period is included. 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: Alphonso : 1940 Requested By: ABIOLA ALONZO Order Number: [id number] Reading MD: Ignacio Cain Measurements Intervals [place] Rate: 112 P: 0 NE: 0 QRS: 5 QRSD: 97 T: 138 QT: 324 QTc: 444 Interpretive Statements ATRIAL FIBRILLATION WITH RAPID VENTRICULAR RESPONSE INCOMPLETE RIGHT BUNDLE BRANCH BLOCK ST DEVIATION AND MODERATE T-WAVE ABNORMALITY, CONSIDER LATERAL ISCHEMIA Procedure Note Ignacio Cain MD - 02/11/2025 [facility] [address] [place] [address] Test Date: 2025-02-10 Pat Name: BERNADETTE VELAZQUEZ Department: 1 Room: 616 Gender: Female Mainframe Software Developer: Alphonso : 1940 Requested By: ABIOLA ALONZO Order Number: [id number] Reading MD: Ignacio Cain Measurements Intervals [place] Rate: 112 P: 0 NE: 0 QRS: 5 QRSD: 97 T: 138 QT: 324 QTc: 444 Interpretive Statements ATRIAL FIBRILLATION WITH RAPID VENTRICULAR RESPONSE INCOMPLETE RIGHT BUNDLE BRANCH BLOCK ST DEVIATION AND MODERATE T-WAVE ABNORMALITY, CONSIDER LATERAL ISCHEMIA us Abiola Alonzo MD ECG ORDERABLES Final Res ult [facility] * GI PANEL PCR - STOOL (02/08/2025 10:13 AM CDT) CAMPYLOBACTER PCR (STOOL) NOT DETECTED NOT DETECTED 02/09/2025 6:04 PM CDT [facility] PLESIOMONAS SHIGELLOIDES PCR (STOOL) NOT DETECTED NOT DETECTED 02/09/2025 6:04 PM CDT [facility] SALMONELLA PCR (STOOL) NOT DETECTED NOT DETECTED 02/09/2025 6:04 PM CDT [facility] VIBRIO PCR (STOOL) NOT DETECTED NOT DETECTED 02/09/2025 6:04 PM CDT [facility] VIBRIO CHOLERAE PCR (STOOL) NOT DETECTED NOT DETECTED 02/09/2025 6:04 PM CDT [facility] YERSINIA ENTEROCOLITICA PCR (STOOL) NOT DETECTED NOT DETECTED 02/09/2025 6:04 PM CDT [facility] ENTEROAGGREGATIVE ECOLI PCR (STOOL) NOT DETECTED NOT DETECTED 02/09/2025 6:04 PM CDT [facility] ENTEROPATHOGENIC ECOLI PCR (STOOL) NOT DETECTED NOT DETECTED 02/09/2025 6:04 PM CDT [facility] ENTEROTOXIGENIC ECOLI PCR (STOOL) NOT DETECTED NOT DETECTED 02/09/2025 6:04 PM CDT [facility] SHIGA LIKE TOXIN ECOLI PCR (STOOL) NOT DETECTED NOT DETECTED 02/09/2025 6:04 PM CDT [facility] SHIG/ENTEROINVASIVE ECOLI PCR (STOOL) NOT DETECTED NOT DETECTED 02/09/2025 6:04 PM CDT [facility] CRYPTOSPORIDIUM PCR (STOOL) NOT DETECTED NOT DETECTED 02/09/2025 6:04 PM CDT [facility] CYCLOSPORA CAYETANENSIS PCR (STOOL) NOT DETECTED NOT DETECTED 02/09/2025 6:04 PM CDT [facility] ENTAMOEBA HISTOLYTICA PCR (STOOL) NOT DETECTED NOT DETECTED 02/09/2025 6:04 PM CDT [facility] GIARDIA LAMBLIA PCR (STOOL) NOT DETECTED NOT DETECTED 02/09/2025 6:04 PM CDT [facility] ADENOVIRUS F40/41 PCR (STOOL) NOT DETECTED NOT DETECTED 02/09/2025 6:04 PM CDT [facility] ASTROVIRUS PCR (STOOL) NOT DETECTED NOT DETECTED 02/09/2025 6:04 PM CDT [facility] NOROVIRUS GI/GII PCR (STOOL) NOT DETECTED NOT DETECTED 02/09/2025 6:04 PM CDT [facility] ROTAVIRUS A PCR (STOOL) NOT DETECTED NOT DETECTED 02/09/2025 6:04 PM CDT [facility] SAPOVIRUS PCR (STOOL) NOT DETECTED NOT DETECTED 02/09/2025 6:04 PM CDT [facility] STOOL SPECIMEN / Unknown 02/08/2025 10:13 AM CDT us Joesph Spaulding MD MICROBIOLOGY - GENERAL ORDERABLE S Final Result [facility] [address] [place] [address], [place] [phone] * CT CHEST+ABD+PEL W CON (02/07/2025 11:29 [...] 12:40 AM Narrative 02/08/2025 12:57 AM CDT [place] [id number] EXAMINATION: CT CHEST ABDOMEN PELVIS WITH CONTRAST [...] Procedure Note Marcelino Starr MD - 02/08/[address] [address] EXAMINATION: CT CHEST ABDOMEN PELVIS WITH CONTRAST [...] By: Marcelino Starr MD, 02/08/2025 12:40 AM Joesph Spaulding MD CT Final Result * [...] 2:41 PM Narrative 02/06/2025 2:44 PM CDT [facility] [address] [place], [place] [address] PROCEDURE: XR CHEST PORTABLE. 02/06/2025 12:12 PM. [...] Procedure Note Taty Chavez MD - 02/06/2025 [facility] [address] [place], [place] [address] PROCEDURE: XR CHEST PORTABLE. 02/06/2025 12:12 PM. [...] - 10.80 x10'3/uL 02/06/2025 5:08 AM CDT [facility] RBC 2.86(L) 4.10 - 5.40 x10'6/uL 02/06/2025 5:08 AM CDT [facility] HGB 9.2(L) 12.0 - 16.0 G/DL 02/06/2025 5:08 AM CDT [facility] HCT 27.7(L) 36.0 - 47.0 % 02/06/2025 5:08 AM CDT [facility] MCV 96.9 78.0 - 100.0 FL 02/06/2025 5:08 AM CDT [facility] MCH 32.2(H) 27.0 - 31.0 PG 02/06/2025 5:08 AM CDT [facility] MCHC 33.2 33.0 - 36.0 G/DL 02/06/2025 5:08 AM CDT [facility] RDW 13.8 11.5 - 14.5 % 02/06/2025 5:08 AM CDT [facility] PLT 196 150 - 350 x10'3/uL 02/06/2025 5:08 AM CDT [facility] MPV 9.8 7.4 - 10.4 FL 02/06/2025 5:08 AM CDT [facility] DIFFERENTIAL TYPE AUTOMATED DIFFERENTIAL 02/06/2025 5:08 AM CDT [facility] SEG NEUTROPHILS 80.9 % 5:08 AM CDT [facility] LYMPHOCYTES 8.9 % 02/06/2025 5:08 AM CDT [facility] MONOCYTES 8.5 % 02/06/2025 5:08 AM CDT [facility] EOSINOPHILS 0.7 % 02/06/2025 5:08 AM CDT [facility] BASOPHILS 0.2 % 02/06/2025 5:08 AM CDT [facility] IMMATURE GRANS % 0.8 % 02/07/20 25 5:08 AM CDT [facility] ABS. NEUTROPHILS 16.15(H) 1.60 - 8.30 x10'3/uL 02/06/2025 5:08 AM CDT [facility] ABS. LYMPHOCYTES 1.78 0.80 - 4.70 x10'3/uL 02/06/2025 5:08 AM CDT [facility] ABS. MONOCYTES 1.69(H) 0.00 - 1.50 x10'3/uL 02/06/2025 5:08 AM CDT [facility] ABS. EOSINOPHILS 0.14 0.00 - 0.40 x10'3/uL 02/06/2025 5:08 AM CDT [facility] ABS. BASOPHILS 0.03 0.00 - 0.20 x10'3/uL 02/06/2025 5:08 AM CDT [facility] ABS. IMMATURE GRANULOCYTES 0.16(H) 0.00 - 0.03 x10'3/uL 02/06/2025 5:08 AM CDT [facility] ABS. NUCLEATED RBC'S 0.00 0.00 - 0.01 x10'3/uL 02/06/2025 5:08 AM CDT [facility] NRBC % 0.0 % 02/06/2025 5:08 AM CDT [facility] 02/06/2025 4:52 AM CDT us Jonnathan Galindo MD LABORATORY Final Result [facility] [address] [place] [address], [place] [phone] * (ABNORMAL) PROTIME/INR, VENOUS (02/05/2025 2:00 AM CDT) Only the most recent of5 resultswithin the time period is included. PROTIME 14.0(H) 9.4 - 12.5 SEC 02/05/2025 3:14 AM CDT [facility] INR 1.2(H) 0.8 - 1.1 02/05/2025 3:14 AM CDT [facility] 02/05/2025 2:00 AM CDT Jonnathan Galindo MD LABORATORY Final Result Performing Organization Address [facility] de Phone Number [facility] [address] [place] [address], [id number] * (ABNORMAL) HEPARIN, ANTI XA, UFH (02/04/2025 2:02 PM CDT) Only the most recent of11 resultswithin the time period is included. HEPARIN ANTI XA UFH 1.07(H) 0.30 - 0.70 IU/ML 02/04/2025 2:26 PM CDT [facility] Comment: UFH Therapeutic Anti Xa Ranges: Medical Therapeutic Range: 0.30 - 0.70 IU/mL Cardiac Therapeutic Range: 0.30 - 0.50 IU/mL Neuro Therapeutic Range: 0.20 - 0.40 IU/mL 02/04/2025 2:02 PM CDT us Joesph Spaulding MD LABORATORY Final Result Performing Organization Address [facility] Co de Phone Number [facility] [address] [place] [address], [id number] * (ABNORMAL) THROMBOPLASTIN TIME PARTIAL,PTT (02/04/2025 5:07 AM CDT) Only the most recent of2 resultswithin the time period is included. PTT 109.5(H) 25.1 - 36.5 SEC 02/04/2025 5:40 AM T [facility] 02/04/2025 5:07 AM CDT Jonnathan Galindo MD LABORATORY Final Result [facility] [address] [place] [address], [phone] * (ABNORMAL) BASIC METABOLIC PANEL (02/04/2025 5:07 AM CDT) Only the most recent of3 resultswithin the time period is included. SODIUM S/P/B 138 136 - 145 MMOL/L 02/04/2025 6:01 AM T [facility] POTASSIUM S/P/B 4.4 3.5 - 5.1 MMOL/L 02/04/2025 6:01 AM T [facility] CHLORIDE S/P/B 110 97 - 115 MMOL/L 02/04/2025 6:01 AM T [facility] CO2 21.5 21.0 - 32.0 MMOL/L 02/04/2025 6:01 AM T [facility] GLUCOSE 135(H) 74 - 106 MG/DL 02/04/2025 6:01 AM T [facility] BUN 22(H) 7 - 18 MG/DL 02/04/2025 6:01 AM T [facility] CREATININE S/P/B 0.80 0.55 - 1.02 MG/DL 02/04/2025 6:01 AM T [facility] CALCIUM S/P/B 8.1(L) 8.5 - 10.1 MG/DL 02/04/2025 6:01 AM T [facility] ANION GAP 6.5 2.0 - 10.0 MMOL/L 02/04/2025 6:01 AM CDT [facility] OSMOLALITY (CALC) 291 MOSM/KG 025 6:01 AM CDT [facility] Comment:REFERENCE RANGE NOT ESTABLISHED GFR ESTIMATE 73(L) >90 ML/MIN/1. 73 M2 02/04/2025 6:01 AM CDT [facility] GFR NOTES GFR REFERENCE S: 02/04/2025 6:01 AM CDT [facility] Comment: THE ESTIMATED GFR IS [...] MD LABORATORY Final Result Performing Organization Address City/[facility]/ZIP Co de Phone Number [facility] [address] [place] [address], [id number] * PHOSPHORUS, INORGANIC PHOSPHATE (02/04/2025 5:07 AM CDT) PHOSPHORUS 3.9 2.5 - 4.9 MG/DL 02/04/2025 6:01 AM CDT [facility] 02/04/2025 5:07 AM CDT Jonnathan Galindo MD LABORATORY Final Result Performing Organization Address City/[facility]/ZIP Co de Phone Number [facility] [address] [place] [address], [id number] * MAGNESIUM (02/04/2025 5:07 AM CDT) Only the most recent of3 resultswithin the time period is included. MAGNESIUM 1.9 1.6 - 2.6 MG/DL 02/04/2025 6:01 AM CDT [facility] 02/04/2025 5:07 AM CDT Jonnathan Galindo MD LABORATORY Final Result [facility] [address] [place] [address], [phone] * (ABNORMAL) ARTERIAL BLOOD GAS (02/04/2025 2:42 AM CDT) PH ARTERIAL 7.30(L) 7.35 - 7.45 02/04/2025 2:48 AM CDT [facility] PCO2 40.9 35.0 - 45.0 MMHG 02/04/2025 2:48 AM CDT [facility] PO2 138.0(H) 83.0 - 108.0 MMHG 02/04/2025 2:48 AM CDT [facility] BICARB ARTERIAL 19.6(L) 22 - 26 MMOL/L 02/04/2025 2:48 AM CDT [facility] TOTAL CO2 ARTERIAL 20.8(L) 23 - 27 MMOL/L 02/04/2025 2:48 AM CDT [facility] BASE DEFICIT 5.9(H) 0.0 - 3.0 MMOL/L 02/04/2025 2:48 AM CDT [facility] O2 Saturation 98 95 - 98 % 02/04/2025 2:48 AM CDT [facility] ENA TEST N/A 02/04/2025 2:42 AM CDT [facility] Comment:pulled from art line by RN OXYGEN STATUS 2L NC 02/04/2025 2:42 AM CDT [facility] DRAW SITE ARTERIAL ARTERIAL LINE DRAW 02/04/2025 2:42 AM CDT [facility] 02/04/2025 2:42 AM CDT us Jenny Escobar MD LABORATORY Final Result Performing Organization Address [facility] de Phone Number [facility] [address] [place] [address], [id number] * CULTURE, BACTERIA BLOOD (02/03/2025 11:45 PM CDT) SPEC DESCRIPTION BLOOD 02/03/2025 11:05 PM CDT [facility] SPECIAL REQUESTS NO SPECIAL REQUEST 02/03/2025 11:05 PM CDT [facility] CULTURE RESULT NO GROWTH 5 DAYS 02/09/2025 1:51 AM CDT [facility] BLOOD SPECIMEN OBTAINED FOR BLOOD CULTURE / Unknown 02/03/2025 11:45 PM CDT 02/03/2025 11:52 PM CDT us Bradley Forrest MD MICROBIOLOGY - GENERAL ORDERAB LES Final Result Performing Organization Address [facility] de Phone Number [facility] [address] [place] [address], [phone] * (ABNORMAL) PRO-BRAIN NATRIURETIC PEPTIDE (02/03/2025 10:28 PM CDT) PRO-B TYPE NATRIURETIC PEPTIDE 5,552(H) <450 PG/ML 02/03/2025 11:02 PM CDT [facility] Comment: AGE INDEPENDENT: <300 PG/ML HAS [...] ACUTE CHF. 02/03/2025 10:2 8 PM CDT Bradley Forrest MD LABORATORY Final Result [facility] [address] [place] [address], [id number] * Blood gas, venous (02/03/2025 10:28 PM CDT) PH VENOUS PER PHLEBOTOMY PATIENT WAS DRAWN FROM AN ARTERIAL LINE. REORDERED AND RESULTED ABGA 7.31 - 7.42 02/04/2025 2:51 AM CDT [facility] Comment:CORRECTED ON 02/04 A T 0251: Previously reported as 7.30 PCO2 VENOUS PER PHLEBOTOMY PATIENT WAS DRAWN FROM AN ARTERIAL LINE. REORDERED AND RESULTED ABGA 41 - 51 MMHG 02/04/2025 2:51 AM CDT [facility] Comment:CORRECTED ON 02/04 A T 0251: Previously reported as 40.9 PO2 VENOUS PER PHLEBOTOMY PATIENT WAS DRAWN FROM AN ARTERIAL LINE. REORDERED AND RESULTED ABGA 20 - 40 MM HG 02/04/2025 2:51 AM CDT [facility] Comment:CORRECTED ON 02/04 A T 0251: Previously reported as 138.0 BICARB VENOUS PER PHLEBOTOMY PATIENT WAS DRAWN FROM AN ARTERIAL LINE. REORDERED AND RESULTED ABGA 22 - 29 MMOL/L 02/04/2025 2:51 AM CDT [facility] Comment:CORRECTED ON 02/04 A T 0251: Previously reported as 19.6 TOTAL CO2 VENOUS PER PHLEBOTOMY PATIENT WAS DRAWN FROM AN ARTERIAL LINE. REORDERED AND RESULTED ABGA 25 - 29 MMOL/L 02/04/2025 2:51 AM CDT [facility] Comment:CORRECTED ON 02/04 A T 0251: Previously reported as 20.8 BASE EXCESS VENOUS PER PHLEBOTOMY PATIENT WAS DRAWN FROM AN ARTERIAL LINE. REORDERED AND RESULTED ABGA MMOL/L 02/04/2025 2:51 AM CDT [facility] BASE DEFICIT VENOUS PER PHLEBOTOMY PATIENT WAS DRAWN FROM AN ARTERIAL LINE. REORDERED AND RESULTED ABGA MMOL/L 02/04/2025 2:51 AM CDT [facility] Comment:CORRECTED ON 02/04 A T 0251: Previously reported as 5.9 O2 SAT VENOUS PER PHLEBOTOMY PATIENT WAS DRAWN FROM AN ARTERIAL LINE. REORDERED AND RESULTED ABGA 40.0 - 70.0 % 02/04/2025 2:51 AM CDT [facility] Comment:CORRECTED ON 02/04 A T 0251: Previously reported as 98 02/03/2025 10:2 8 PM CDT us Bradley Forrest MD LABORATORY Edited Result - Final [facility] [address] [place] [id number], [id number] * (ABNORMAL) COMPREHENSIVE METABOLIC PANEL (02/03/2025 10:28 PM CDT) Only the most recent of2 resultswithin the time period is included. SODIUM S/P/B 139 136 - 145 MMOL/L 02/03/2025 11:02 PM CDT [facility] POTASSIUM S/P/B 4.5 3.5 - 5.1 MMOL/L 02/03/2025 11:02 PM CDT [facility] CHLORIDE S/P/B 110 97 - 115 MMOL/L 02/03/2025 11:02 PM CDT [facility] CO2 19.4(L) 21.0 - 32.0 MMOL/L 02/03/2025 11:02 PM CDT [facility] GLUCOSE 151(H) 74 - 106 MG/DL 02/03/2025 11:02 PM CDT [facility] BUN 20(H) 7 - 18 MG/DL 02/03/2025 11:02 PM [facility] CREATININE S/P/B 0.84 0.55 - 1.02 MG/DL 02/03/2025 11:02 PM [facility] CALCIUM S/P/B 8.5 8.5 - 10.1 MG/DL 02/03/2025 11:02 PM [facility] BILIRUBIN TOTAL S/P/B 1.1(H) 0.2 - 1.0 MG/DL 02/03/2025 11:02 PM [facility] ALKALINE PHOSPHATASE S/P/B 90 55 - 142 U/L 02/03/2025 11:02 PM [facility] AST 28 15 - 37 U/L 02/03/2025 11:02 PM [facility] ALT 38 13 - 56 U/L 02/03/2025 11:02 PM [facility] TOTAL PROTEIN S/P/B 6.7 6.4 - 8.2 G/DL 02/03/2025 11:02 PM [facility] ALBUMIN S/P/B 2.8(L) 3.4 - 5.0 G/DL 02/03/2025 11:02 PM [facility] ANION GAP 9.6 2.0 - 10.0 MMOL/L 02/03/2025 11:02 PM [facility] OSMOLALITY (CALC) 294 MOSM/KG 025 11:02 PM [facility] Comment:REFERENCE RANGE NOT ESTABLISHED GFR ESTIMATE 69(L) >90 ML/MIN/1. 73 M2 02/03/2025 11:02 PM [facility] GFR NOTES GFR REFERENCE S: 02/03/2025 11:02 PM [facility] Comment: THE ESTIMATED GFR IS [...] MD LABORATORY Final Result Performing Organization Address [facility] de Phone Number [facility] [address] [place] [address], [place] [phone] * (ABNORMAL) POCT ACTIVATED CLOTTING TIME - ISTAT DOCKED DEVICE (02/03/2025 5:47 PM CDT) Only the most recent of3 resultswithin the time period is included. ACTIVATED CLOTTING TIME (ACT HMT OR LMT) 227(H) 74 - 137 SEC 02/03/2025 7:22 PM CDT [facility] 02/03/2025 5:47 PM CDT us Jenny Escobar MD POCT ORDERABLES - DEVICE Fin al Result Performing Organization Address [facility] de Phone Number [facility] [address] [place] [address], [place] [phone] * Art Line (02/03/2025 3:52 PM CDT) [...] * Pathology (02/03/2025 12:00 AM CDT) PATHOLOGY [facility] Department of Laboratory Medicine [address] [place] [address] , extension [phone] Pathology Report Surgical Pathology Report Name: BERNADETTE VELAZQUEZ Specimen #: [id number] Age: 4 1940 (Age: 84) Location: [facility] Sex: F Procedure Date: 02/03/2025 Hospital #: [id number] Date Received: 02/06/2025 Date Reported: 02/07/2025 Provider: JONNATHAN SAHU MD Source: Thrombus,SFA Clinical History: Critical limb ischemia FINAL DIAGNOSIS: Thrombus, SFA, thrombectomy: - Blood clot, consistent with thrombus. Gross Description: Received in formalin, labeled with a patient's label and SFA thrombus, is a 6.1 x 1.4 x 0.7 cm aggregate of tubelike red-brown clot material. Sections reveal red-brown rubbery cut surfaces. There are no grossly identifiable masses or lesions. Adolescent Specialist sections are submitted in cassette 1. Gross examination (when applicable) was performed at [facility], [address] [place] [address]. This case was interpreted and signed out at [facility], [address] [place] [address]. Electronically Signed Out Oren Huber M.D. [facility] 02/03/2025 02/06/2025 7:3 8 AM CDT Comment:Thrombus,SFA us Jonnathan Galindo MD PATHOLOGY/CYTOLOGY ORDERABLES Fi nal Result [facility] [address] [place] [address], [id number] * USV ART REST W EILEEN LOW EXT (02/01/2025 11:25 AM CDT) Anatomical Region Laterality Modality Extremity Ultrasound 02/01/2025 10:4 1 AM CDT Narrative 02/01/2025 1:44 PM CDT Vascular Report Pat.Name: BERNADETTE VELAZQUEZ Pat.ID: [id number] .Date: 02/01/2025 Refer.MD: JONNATHAN GALINDO Exam Time: 10:41:00 AM Study Type:PVI ART DOPPLER-EILEEN Height: 152 cm Age: 4 1940,84Y Sex: F Sonogrphr: Donovan Rader RVT Pat. Stat.:Inpatient Room: 644 ICD - 9: I73.9 PVD (peripheral arterial/vascular disease) CPT - 4: 27847 EILEEN/WBI Reason for Study:pvd Race: W ++++++++++++++++++++++++++++++++++++ [...] Geiger MD - 02/01/2025 Vascular Report Pat.Name: BERNADETTE VELAZQUEZ Pat.ID: [id number] St.Date: 02/01/2025 Refer.MD: JONNATHAN GALINDO Exam Time: 10:41:00 AM Study Type:PVI ART DOPPLER-EILEEN Height: 152 cm Age: 4 1940,84Y Sex: F Sonogrphr: Donovan Rader RVT Pat. Stat.:Inpatient Room: 644 ICD - 9: I73.9 PVD (peripheral arterial/vascular disease) CPT - 4: 83162 EILEEN/WBI Reason for Study:pvd Race: W ++++++++++++++++++++++++++++++++++++ [...] Signature> 02/01/2025 01:44 PM Igor Geiger M.D. [facility] Jo[facility] Galindo MD [facility] Final Result * LIPID PANEL (02/01/2025 7:58 AM CDT) CHOLESTEROL 195 MG/DL 02/01/2025 8:56 AM CDT [facility] Comment:DESIRABLE: <200 TRIGLYCERIDES 68 MG/DL 02/01/2025 8:56 AM CDT [facility] Comment:<150 NORMAL HDL 94 >49 MG/DL 02/01/2025 8:56 AM CDT [facility] LDL (CALCULATED) 87 MG/DL 02/02/20 8:56 AM CDT [facility] Comment:<100 OPTIMAL VLDL CALCULATION 14 MG/DL 02/02/20 8:56 AM CDT [facility] Comment:REFERENCE RANGE NOT ESTABLISHED CHOL/HDL RATIO 2.1 02/01/2025 8:56 AM CDT [facility] Comment:REFERENCE RANGE NOT ESTABLISHED LDL/HDL 0.9 02/01/2025 8:56 AM CDT [facility] Comment:REFERENCE RANGE NOT ESTABLISHED NON HDL CHOLESTEROL 101 MG/DL 02/01/2025 8:56 AM CDT [facility] Comment:REFERENCE RANGE NOT ESTABLISHED 02/01/2025 7:58 AM CDT Bradley Forrest MD LABORATORY Final Result [facility] [address] [place] [address], [id number] from Last [address] [facility] Advance Directives * Full Code (Latest Code Status on File) Date Activated Date Inactivated Comments 02/03/2025 7:03 PM 02/13/2025 2:53 PM * Full Code Date Activated Date Inactivated Comments 02/01/2025 5:34 AM 02/03/2025 7:03 PM * Full Code Date Activated Date Inactivated Comments 04/27/2024 6:44 PM 05/12/2024 3:20 PM Care Teams Grocery Store Clerk Relationship Specialty Start Date End Date Christ Coto MD [address] [place] [phone] PCP - General FAMILY PRACTICE 03/12/19 Yesy Alonso MD [address] [place] [address] [place] [address] Consulting Physician CARDIOVASCULAR DISEASE 05/19/24 Sudhakar Lu PA [address] [place] [phone] Physician It Architecture Analyst PHYSICIAN DRY CLEANER PRESSER 05/19/24 Anthony Rojas MD [address] [place] [phone] Consulting Physician CLINICAL CARDIAC ELECTROPHYSIOLOGY 01/16/25 Peggy Celeste PA-C [address] [place] [phone] Referring Physician PHYSICIAN DRY CLEANER PRESSER 01/30/25
--- OUTSIDE RECORDS SUMMARY | 2025-03-15 08:59 | XMS_ITS | Encounter Summary ---
Author Organization [facility] Address [address] [place] [address] Care Team Providers Care Deportation Examiner Name Role Phone Christ Coto MD Primary Care Provider [phone] Yesy Alonso MD Unavailable Sudhakar Lu Unavailable [phone] Anthony Rojas MD Unavailable [phone] Peggy Celeste PA-C Unavailable [phone] Encounter Details Date Type Department Care Team (Late st Contact Info) Description 02/12/2019 Abstract SFL CONVERSION [address] [place] [address] , Generic ConversionMD Social History Tobacco Use [...] Description 04/19/2025 2:45 PM CDT Office Visit [facility] [address] [place] [phone] Peggy Celeste PA-C [address] [place], [place] [phone] documented as of this encounter Visit Diagnoses Not on filedocumented in this encounter Additional Health Concerns Infection Onset Date Last Indicated Resolved Time COVID-19 Rule Out 04/27/2024 04/27/2024 04/27/2024 9:42 PM CDT documented as of this encounter Care Teams Deportation Examiner Relationship Specialty Start Date End Date Christ Coto MD [address] [place] [phone] PCP - General FAMILY PRACTICE 03/12/19 Yesy Alonso MD [address] [place] [address] Consulting Physician CARDIOVASCULAR DISEASE 05/19/24 Sudhakar Lu PA [address] [place] [phone] Physician Marketing Account Manager PHYSICIAN CONCRETE BLOCK MAKER 05/19/24 Anthony Rojas MD [address] [place] [address] Consulting Physician CLINICAL CARDIAC ELECTROPHYSIOLOGY 01/16/25 Peggy Celeste PA-C [address] [place] [id number] Referring Physician PHYSICIAN CONCRETE BLOCK MAKER 01/30/25 documented as of this encounter
[2025-03-15 09:41] LABS: Hematocrit 30.3 % (35.0-42.0); Hemoglobin 9.8 g/dL (11.7-13.8); Immature Granulocyte Percent A 0.5 % (0.0-0.0); Lymphocytes Absolute Auto 0.38 K/mm3 (1.10-4.50); Mean Corpuscular HGB Conc 32.3 g/dL (32-36); Mean Corpuscular Hemoglobin 32.8 pg (27.0-31.0); Mean Corpuscular Volume 101.3 fL (78.0-102.0); Nucleated Red Blood Cells Absolute Auto 0.00 K/mm3 (0.00-0.00); Nucleated Red Blood Cells Perc 0.0 % (0-0.0); Platelet Count Result 292 K/mm3 (150-420); Red Blood Count 2.99 M/mm3 (4.20-5.40); White Blood Count 5.5 K/mm3 (4.8-10.8)
--- NOTE | 2025-03-15 09:43 | PC.NURSE ---
Athorization for disclosure of protected health information signed by patient. Sent to [facility] in [place] per nurse communication request today. Await records.
[2025-03-15] MEDS: APIXABAN 2.5 MG TABLET 5 MG PO ×2 (09:54→20:17)
[2025-03-15] MEDS: METOPROLOL SUCCINATE EXT REL 25 MG TABCR PO ×2 (09:54→20:17)
--- NOTE | 2025-03-15 09:58 | P.HP_ITS ---
H&P: HPI History of Present Illness Date/Time: 03/15/25 09:58 Chief Complaint: SOB Narrative: Patient is an 84-year-old female who presented to the emergency department due to complaints of worsening shortness of breath reports she was recently hospitalized at [facility] 2 weeks prior at which time she underwent a thrombectomy of the left superficial femoral artery and discharge to home with home health. patient reports ever since discharge she has had a progressively worsening nonproductive cough and worsening shortness a breath with exertion. Patient also reported she had been previously diagnosed atrial fibrillation but was unsure if she was ever diagnosed with congestive heart failure. 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 Patient denied any chest pain, nausea, vomiting, abdominal pain, dizziness at time of assessment. patient reports she does follow with a infant caregiver and was following with a lead generation representative outpatient but has not followed up recently she had stopped using any of her nebulizers at home reported they did not help work as well as her inhalers previously prescribed. patient reports she was at a follow-up appointment which time she was reported to have dyspnea and low oxygen saturation even on her 3 L of supplemental oxygen she chronically wears was sent to the emergency department for further evaluation. patient is not the best historian over past medical history will attempt to get records from [facility] for further evaluation on CHF. In the ED: findings in the emergency room included a CTA with no PE however did show superimposed pulmonary edema and cardiomegaly with right-sided failure, BNP 10,900, troponins x2 negative EKG showing atrial fibrillation, afebrile with normal WBC, COVID/Influeza/RSV negative, and ABG's in desired range. patient received a Duo nebulizer in the emergency department as well as IV Lasix 40 mg IV push was then admitted to the medical unit for further evaluation and treatment. Review of Systems Review of Systems: All systems reviewed & are unremarkable except as noted in HPI and below PMFSH Past Medical History Medical History (Updated 03/15/25 @ 10:17 by Cheryle Melendez APRN) Acute and chronic respiratory failure with hypoxia Hypertension Dvt femoral (deep venous thrombosis) Atrial fibrillation Surgical History Surgical History History of thrombectomy Family History Family History Father Congestive heart failure Social History Social History Years smoked: 0.5 Smoking status: Light tobacco smoker Tobacco type: cigarettes Smoking end date: 03/01/1963 Alcohol intake: former Substance use: never Do You Feel Safe in your Home?: Yes Lack of Transportation: No Lack of Food: Never True Current Housing: I Have Housing Concerned About Future Housing: No Difficulty Paying Gas/Electric Bills: No Difficulty Paying for Meds: No Currently Unemployed: No Education: Associate Degree Difficulty w/ Childcare or Family Care: No Spiritual care concerns: No Meds Home Medications and Allergies Home Medications ?Medication ?Instructions ?Recorded ?Confirmed ?Type apixaban 2.5 mg tablet (Eliquis) 2.5 mg PO Q12H 03/14/25 03/14/25 History gabapentin 100 mg capsule 100 mg PO HS 03/14/25 03/14/25 History metoprolol succinate 25 mg 25 mg PO Q12H 03/14/25 03/14/25 History tablet,extended release 24 hr Allergies Allergy/AdvReac Type Severity Reaction Status Date / Time No Known Allergies Allergy Verified 01/31/25 20:55 Vital Signs Vital Signs - 24 hr 03/14/25 14:35 03/14/25 14:35 03/14/25 14:45 Temperature 98 F Pulse Rate 81 72 Respiratory Rate 24 H Blood Pressure 111/76 Pulse Oximetry 100 98 Oxygen Delivery Nasal Cannula Nasal Cannula Oxygen Flow Rate 3 3 03/14/25 14:50 03/14/25 15:00 03/14/25 15:08 Temperature Pulse Rate 88 81 56 L Respiratory Rate 24 H 22 H 174 H Blood Pressure Pulse Oximetry 96 100 98 Oxygen Delivery Oxygen Flow Rate 3 03/14/25 15:15 03/14/25 15:16 03/14/25 15:20 Temperature Pulse Rate 90 68 Respiratory Rate 18 14 Blood Pressure 106/96 H Pulse Oximetry 100 100 97 Oxygen Delivery Oxygen Flow Rate 3 03/14/25 15:31 03/14/25 15:32 03/14/25 15:46 Temperature Pulse Rate 82 Respiratory Rate 18 Blood Pressure 102/69 103/78 Pulse Oximetry 93 99 98 Oxygen Delivery Oxygen Flow Rate 03/14/25 16:13 03/14/25 16:15 03/14/25 16:16 Temperature 97.5 F L Pulse Rate 88 77 75 Respiratory Rate 18 Blood Pressure 114/70 Pulse Oximetry 91 99 Oxygen Delivery Oxygen Flow Rate 03/14/25 16:18 03/14/25 16:35 03/14/25 16:50 Temperature Pulse Rate 77 Respiratory Rate 16 Blood Pressure 107/63 118/70 Pulse Oximetry 100 99 100 Oxygen Delivery Oxygen Flow Rate 03/14/25 17:01 03/14/25 17:15 03/14/25 17:27 Temperature Pulse Rate 69 Respiratory Rate 18 Blood Pressure 125/81 Pulse Oximetry 100 98 97 Oxygen Delivery Oxygen Flow Rate 03/14/25 17:31 03/14/25 17:33 03/14/25 17:46 Temperature Pulse Rate 80 Respiratory Rate 20 Blood Pressure 123/72 128/68 Pulse Oximetry 100 100 Oxygen Delivery Oxygen Flow Rate 03/14/25 17:48 03/14/25 17:48 03/14/25 18:03 Temperature Pulse Rate 88 Respiratory Rate Blood Pressure Pulse Oximetry 100 88 L Oxygen Delivery Nasal Cannula Oxygen Flow Rate 3 03/14/25 18:04 03/14/25 18:42 03/14/25 18:47 Temperature 97.9 F Pulse Rate 88 75 89 Respiratory Rate 20 18 Blood Pressure 121/85 129/70 Pulse Oximetry 81 L 96 Oxygen Delivery Nasal Cannula Oxygen Flow Rate 3 03/14/25 19:30 03/14/25 20:00 03/14/25 21:18 Temperature Pulse Rate 98 Respiratory Rate Blood Pressure Pulse Oximetry 100 100 Oxygen Delivery Nasal Cannula Oxygen Flow Rate 3 3 03/14/25 22:26 03/14/25 22:56 03/15/25 00:00 Temperature 97.8 F Pulse Rate 98 Respiratory Rate 19 Blood Pressure 125/95 H Pulse Oximetry 100 100 100 Oxygen Delivery Nasal Cannula Nasal Cannula Nasal Cannula Oxygen Flow Rate 3 2 2 03/15/25 04:00 03/15/25 08:00 03/15/25 08:00 Temperature 97.9 F Pulse Rate 94 113 H 113 H Respiratory Rate 20 Blood Pressure 137/84 Pulse Oximetry 98 Oxygen Delivery Nasal Cannula Oxygen Flow Rate 2 03/15/25 09:54 Temperature Pulse Rate 113 H Respiratory Rate Blood Pressure Pulse Oximetry Oxygen Delivery Oxygen Flow Rate Exam Const: General: comfortable, no acute distress and uncomfortable Other: Female looks stated age HENMT: Face/Nose/Sinus: Normal nares present Mouth: Yes moist mucous membranes Eyes: General: appearance normal, both eyes and all related structures Sclera: sclerae normal Pupils: Equal, round and reactive pupils present Neck: Neck: supple and no JVD Resp: Effort & Inspection: abnormal respiratory pattern, audible wheezes, Actively coughing productive, uses accessory muscles and symmetric chest movement Auscultation: crackles, rhonchi and wheezes Cardio: Rhythm: abnormal rhythm (AFIB rate 113 on monitor) irregularly irregular Other: irregular irregular GI: GI Palp: Yes Soft to palpation and Yes Tenderness to palpation present (GI) (Due to constipation) Auscultation: normal bowel sounds Skin: General skin exam: normal color Wounds: no wounds Neuro: General: gait normal Speech: normal speech Motor exam (neuro): 5/5 motor strength present throughout Sensory Exam: normal sensation Extrem: General: normal to inspection Psych: Mental Status: mental status grossly normal Affect: Anxious affect present H&P: Results Labs Labs: Short CBC 03/14/25 03/15/25 Range/Units 15:08 09:35 WBC 6.0 5.5 (4.8-10.8) K/mm3 Hgb 10.0 L 9.8 L (11.7-13.8) g/dL Hct 31.7 L 30.3 L (35.0-42.0) % Plt Count 308 292 (150-420) K/mm3 BMP 03/14/25 15:08 Sodium 139 Potassium 4.6 Chloride 106 Carbon Dioxide 28 BUN 19 H Creatinine 0.84 Glucose 115 H Calcium 8.9 Cardiac Enzymes 03/14/25 03/14/25 Range/Units 15:08 17:23 Troponin I 0.017 0.017 (0.000-0.034) ng/mL Liver Function 03/14/25 Range/Units 15:08 Total Bilirubin 1.0 (0.2-1.3) mg/dL AST 35 (14-36) U/L ALT 30 (6-35) U/L Alkaline Phosphatase 86 (38-126) U/L Albumin 3.8 (3.5-5.1) g/dL Imaging CT scan - chest: Radiologist's impression: CTA chest PE protocol Ordering provider: Jim Dalal MD History: 84 years Female with . shortness of breath . Comparison: August 19, 2023 Technique: CT angiogram chest was performed following timed intravenous injection of contrast. Thin slice axial images and reformatted coronal images were obtained. Three dimensional reformatted images of the chest were also obtained using a [employer] workstation. . Automated exposure control and iterative reconstruction technique were employed. The dose-length product was 206.92 mGy- cm. 100 mL Omnipaque 350 was given IV. Findings: PULMONARY ARTERIES: No pulmonary embolus. VISUALIZED THORACIC INLET: Normal. MEDIASTINUM: Aorta/coronary arteries: Mild atheromatous disease. Heart/other: The heart is slightly enlarged. Right sided failure is noted with reflux of contrast in the inferior vena cava and in one of the vessels seen posterior to the septum between the left atrium and left ventricle. Lymph nodes: No mediastinal or hilar adenopathy. LUNGS: No pulmonary nodules or masses. No infiltrates or effusions. No pneumothorax. VISUALIZED UPPER ABDOMEN: Atrophic left kidney. Atrophic pancreas. Otherwise, the visualized upper abdomen is normal. MUSCULOSKELETAL: Soft tissues: The superficial soft tissues are normal. Bones: Age appropriate degenerative changes of the spine. IMPRESSION: 1. No pulmonary embolism. 2. Interstitial changes of the lungs with thickening of the septa which is suggestive of superimposed pulmonary edema. Clinical correlation and follow-up advised. 3. Cardiomegaly with right sided failure. 4. Atrophic left kidney. Assessment and Plan Assessment and plan (1) Congestive heart disease: Qualifiers: Heart failure chronicity: chronic Heart failure type: unspecified Qualified Code(s): I50.9 - Heart failure, unspecified Code(s): I50.9 - Heart failure, unspecified Status: Acute Assessment and Plan: patient states she is unsure whether she has a history of CHF recently treated at [facility] attempting to get records for further evaluation may be new onset CHF BNP 10,900, CXR showing superimposed pulmonary edema with cardiomegaly and right-sided heart failure as wells as HX of AFIB * IV Lasix b.i.d. 40mg BID * monitor renal function during diuresis * previous echocardiogram results attempting to retrieve from [facility] * echocardiogram ordered here but unsure if they will have an dental tech to do so will need referral for follow-up with cardiology outpatient * continue metoprolol * Daily weight. * continuous cardiac monitoring * TSH, LIPID, and A1c ordered (2) COPD with acute exacerbation: Code(s): J44.1 - Chronic obstructive pulmonary disease with (acute) exacerbation Status: Acute Assessment and Plan: patient previously seen by infant caregiver outpatient per medical chart history of pulmonary fibrosis patient denies having COPD even though she has chronic respiratory failure with hypoxia patient reports she had a nebulizer at home and inhalers but refuses to use on states they do not work * Levalbuterol due to AFIB and elevated rate * incentive spirometry while awake. * steroids 60mg IVP can likely transitioned to 40 mg orally daily tomorrow * azithromycin 500mg daily * mucolytics * Pulmicort * supplemental oxygen therapy to maintain oxygen 92%/Wears 2L chronically at home * Pneumonia and flu vaccination advised. (3) Acute and chronic respiratory failure with hypoxia: Code(s): J96.21 - Acute and chronic respiratory failure with hypoxia Status: Acute Assessment and Plan: patient chronically wears 2 L supplemental oxygen at home used to follow with infant caregiver but has not been back recently care for acute on chronic PCP stated oxygen saturations low at her appointment likely multifocal due to COPD exacerbation and CHF exacerbation which would be new onset. * continue with supplemental oxygen wean as tolerated to home use * will need referral to infant caregiver outpatient * patient will need further PFT testing outpatient (4) Hypertension: Code(s): I10 - Essential (primary) hypertension Status: Acute Assessment and Plan: * BP stable * resume patient's metoprolol * monitor per unit protocol (5) Atrial fibrillation: Code(s): I48.91 - Unspecified atrial fibrillation Status: Acute Assessment and Plan: patient reports history of atrial fibrillation EKG showing atrial fibrillation and previous clot in heart per patient * continue patient's metoprolol for rate control * initial Eliquis from home was 2.5 mg b.i.d. I increased to 5 mg b.i.d. due to recent DVT and current atrial fibrillation * cardiac monitoring * TSH pending * can hopefully get records from [facility] or get her own echocardiogram for further evaluation Plan Code status: Full code per patient DVT prophylaxis: Eliquis Stress ulcer prophylaxis: NA PT/OT notes: PT/OT evaluation pending Disposition: patient admitted to the medical unit for further evaluation and treatment of acute on chronic respiratory failure with hypoxia secondary to COPD exacerbation and new onset CHF exacerbation will continue with current treatment plan and evaluate oxygen needs currently wears 2 L chronically at home. PT/OT has been ordered for evaluation patient will need referral to infant caregiver and Cardiology outpatient. Quality VTE Prophylaxis VTE prophylaxis: pharmacologic ordered -Patient's previous records reviewed on admission -ER notes reviewed in detail on admission -discussed all findings and current treatment plan with patient/Family/POA -Consultations reviewed for recommendations -Patient's disposition for safe discharge discussed with heel caser Dictation performed by [facility] Fluency direct speech recognition software, therefore inventory transcriber variants and typographical errors may occur. Hospitalist MIPS Advance Care Plan I have confirmed that the patient's Advanced Care Plan is present, code status is documented, or surrogate decision maker is listed in patient medical record.: Yes Medication Reconciliation I have utilized all available resources to obtain, update and review the patients current medications (includes all prescriptions, OTC, herbals, cannabis, and nutritional supplements).: Yes The patient is not eligible for med reconciliation; the patient is in a emergent medical situation where delaying treatment would jeopardize the patients health.: No
[2025-03-15 09:59] LABS: Magnesium 1.8 mg/dL (1.6-2.3)
[2025-03-15] MEDS: guaiFENesin 12 HR 600 MG TABCR 1200 MG PO ×2 (10:02→20:17)
[2025-03-15 10:28] LABS: Cholesterol 186 mg/dL (0-200); HDL Direct 51 mg/dL; Triglycerides 55 mg/dL (<150)
[2025-03-15 10:34] LABS: Hemoglobin A1C 5.2 % (<5.7)
[2025-03-15] MEDS: AZITHROMYCIN 250 MG TABLET 500 MG PO (10:41)
[2025-03-15 10:58] LABS: Thyroid Stimulating Hormone 1.360 uIU/mL (0.465-4.680)
[2025-03-15] MEDS: NAPROXEN 250 MG TABLET PO (15:50)
--- NOTE | 2025-03-15 16:00 | ECHO_ITS ---
Patient Info Name: Bernadette Velazquez Age: 84 years : 1940 Gender: Female Ht: 60 in Wt: 115 lbs BSA: 1.49 m2 HR: 68 bpm BP: 137 / 84 mmHg Heart Rhythm: Atrial Fibrillation Technical Quality: Good Exam Date: 03/15/2025 3:33 PM Patient Status: I Admit Date: 03/14/2025 Exam Type: CA echo doppler color flow Complete two-dimensional, color flow and Doppler transthoracic echocardiogram is performed. Staff Referring Physician: Jim Dalal Assembler Utility Buildings: Tammie Hoover Attending Provider: Melissa Ren Summary 1. Complete two-dimensional, color flow and Doppler transthoracic echocardiogram is performed. 2. Left ventricular chamber dimension is normal. 3. Left ventricular systolic function is normal, estimated at 55-60. 4. There is mild concentric increased left ventricular wall thickness. 5. The left ventricular diastolic function is indeterminate. 6. Atrial fibrillation. 7. Left atrial chamber dimension is moderately enlarged. 8. Right atrial chamber dimension is moderately enlarged. 9. The mitral valve has a mildly calcified annulus. 10. There is moderate mitral valve regurgitation. 11. There is moderate tricuspid valve regurgitation. 12. Severe pulmonary hypertension, estimated pulmonary arterial systolic pressure is 78 mmHg. 13. The aortic valve is not well visualized. Cannot determine number of aortic valve leaflets. 14. There is trace pulmonic regurgitation. 15. Dilated inferior vena cava with >50% collapse upon inspiration consistent with elevated right atrial pressure, 10 mmHg. 16. There is trivial pericardial effusion. Left Ventricle Atrial fibrillation. Left ventricular chamber dimension is normal. Left ventricular systolic function is normal, estimated at 55-60. There is mild concentric increased left ventricular wall thickness. The left ventricular diastolic function is indeterminate. Tissue doppler E/e' not performed. Right Ventricle Right ventricular chamber dimension is normal. Right ventricular systolic function is normal. Left Atria Left atrial chamber dimension is moderately enlarged. Right Atria Right atrial chamber dimension is moderately enlarged. Aortic Valve The aortic valve is not well visualized. Cannot determine number of aortic valve leaflets. There is no aortic valve stenosis. There is no aortic valve regurgitation. Pulmonic Valve There is trace pulmonic regurgitation. Mitral Valve The mitral valve has a mildly calcified annulus. There is no mitral valve stenosis. There is moderate mitral valve regurgitation. Tricuspid Valve There is moderate tricuspid valve regurgitation. Severe pulmonary hypertension, estimated pulmonary arterial systolic pressure is 78 mmHg. Pericardium/Pleural There is trivial pericardial effusion. Inferior Vena Cava Dilated inferior vena cava with >50% collapse upon inspiration consistent with elevated right atrial pressure, 10 mmHg. Aorta The aortic root size at the sinus of Valsalva is normal. Left Ventricular Outflow Tract Name Value Normal LVOT 2D LVOT Diameter 2.1 cm LVOT Doppler LVOT Peak Velocity 91 cm/s LVOT Peak Gradient 2 mmHg LVOT Mean Gradient 1 mmHg LVOT VTI 18 cm LVOT VTI/AV VTI Ratio 0.7 LVOT Stroke Volume 53 ml LVOT CO 3.6 l/min LVOT CI 2.5 l/min/m2 Pulmonic Valve Name Value Normal PV Doppler PV Peak Velocity 67 cm/s PV Peak Gradient 2 mmHg Mitral Valve Name Value Normal MV Doppler MV Peak Gradient 6 mmHg MV Mean Gradient 2 mmHg MV Area (Cont Eq VTI) 2.4 cm2 MV Regurgitation Doppler MR Peak Gradient 102 mmHg Tricuspid Valve Name Value Normal TV Regurgitation Doppler TR Peak Velocity 412 cm/s TR Peak Gradient 63 mmHg Estimated PAP/RSVP RA Pressure 10 mmHg <=5 PA Systolic Pressure 78 mmHg <36 RV Systolic Pressure 73 mmHg <36 TV Annular TDI TV Lateral Barb s' Velocity 3.7 cm/s >=9.5 Aortic Valve Name Value Normal AV Doppler AV Peak Velocity 167 cm/s AV Peak Gradient 3 mmHg AV Mean Gradient 1 mmHg AV VTI 25 cm AV Area (Cont Eq VTI) 3.9 cm2 >=3.0 AV Area (Cont Eq Martínez) 3.0 cm2 AV DI (Martínez) 0.55 AV Regurgitation 2D LVOT Area 3.4 cm2 Ventricles Name Value Normal LV Dimensions 2D/MM IVS Diastolic Thickness (2D) 1.1 cm 0.6-1.0 LVID Diastole (2D) 4.4 cm 3.8-5.2 LVIW Diastolic Thickness (2D) 1.4 cm 0.6-0.9 LVID Systole (2D) 3.9 cm 2.2-3.5 LVOT Diameter 2.1 cm LV Mass (2D Cubed) 208.88 g 67.00-162.00 LV Mass Index (2D Cubed) 140 g/m2 43-95 Relative Wall Thickness (2D) 0.66 <=0.42 LV Fractional Shortening/Ejection Fraction 2D/MM LV Fractional Shortening (2D) 10 % 27-45 LV EF (2D Teichholz) 22 % LV Diastolic Volume (4C MOD) 49 ml LV EF (4C MOD) 57 % LV Diastolic Volume (2C MOD) 46 ml LV EF (2C MOD) 60 % LV Diastolic Volume (BP MOD) 48 ml 46-106 LV Diastolic Volume Index (BP MOD) 32 ml/m2 29-61 LV Systolic Volume (BP MOD) 20 ml 14-42 LV Systolic Volume Index (BP MOD) 14 ml/m2 8-24 LV EF (BP MOD) 57 % 54-74 LV Diastolic Length (4C) 6.2 cm LV Systolic Length (4C) 5.2 cm LV Stroke Volume (4C MOD) 28 ml Atria Name Value Normal LA Dimensions LA Volume (4C A-L) 82 ml LA Volume (BP A-L) 92 ml RA Dimensions RA Systolic Major [place] Length (4C) 6.4 cm 2.2-2.8 RA Area (4C) 23.8 cm2 <=18.0 Report Signatures
[2025-03-15] MEDS: FUROSEMIDE INJ 20 MG/2 ML VIAL 40 MG IV PUSH (16:17)
[2025-03-15] MEDS: BUDESONIDE RESPULE NEB 0.5 MG/2 ML AMP INHALATION (16:54)
--- NOTE | 2025-03-15 21:50 | PC.NURSE ---
PT REQUESTING OMEPRAZOLE FOR ACID REFLUX , NO CURRENT ORDER. CHARGE NURSE HANK, CONTACTED HOSPITALIST. AWAITING RESPONSE. PT INFORMED
[2025-03-15] MEDS: PANTOPRAZOLE 40 MG TABLET PO (22:13)
--- NOTE | 2025-03-15 23:35 | PC.NURSE ---
Pt up to the commode with assist of one. Pt voided 200 ml of clear, yellow urine and returned to bed with assist of one.
[2025-03-16] VITALS (8 sets, daily range): BP systolic 102–134; BP diastolic 74–78; PULSE 64–98; RESP 14–20; TEMP 36.2–36.7; O2SAT 94–100
--- NOTE | 2025-03-16 00:35 | PC.NURSE ---
Pt refused Xopenex nebulizer treatment at this time.
--- NOTE | 2025-03-16 01:05 | PC.NURSE ---
Pt requested a carton of milk which she was given.
--- NOTE | 2025-03-16 02:16 | PC.NURSE ---
Pt asleep and no signs of discomfort noted.
--- NOTE | 2025-03-16 04:15 | PC.NURSE ---
Pt up to the commode with assist of one. Pt voided 100 ml of clear, yellow urine and returned to bed. VS: 97.8, 20, 98, 100% and 124/82.
[2025-03-16 05:26] LABS: Hematocrit 28.2 % (35.0-42.0); Hemoglobin 9.1 g/dL (11.7-13.8); Immature Granulocyte Percent A 0.9 % (0.0-0.0); Lymphocytes Absolute Auto 0.47 K/mm3 (1.10-4.50); Mean Corpuscular HGB Conc 32.3 g/dL (32-36); Mean Corpuscular Hemoglobin 32.4 pg (27.0-31.0); Mean Corpuscular Volume 100.4 fL (78.0-102.0); Nucleated Red Blood Cells Absolute Auto 0.00 K/mm3 (0.00-0.00); Nucleated Red Blood Cells Perc 0.0 % (0-0.0); Platelet Count Result 302 K/mm3 (150-420); Red Blood Count 2.81 M/mm3 (4.20-5.40); White Blood Count 11.2 K/mm3 (4.8-10.8)
[2025-03-16 05:37] LABS: Magnesium 1.9 mg/dL (1.6-2.3)
--- NOTE | 2025-03-16 06:31 | PC.NURSE ---
Pt given 60 mg of solumedrol IVP as ordered. Pt up to the commode to void
[2025-03-16] MEDS: guaiFENesin 12 HR 600 MG TABCR 1200 MG PO ×2 (09:17→20:44)
[2025-03-16] MEDS: FUROSEMIDE INJ 20 MG/2 ML VIAL 40 MG IV PUSH ×2 (09:17→16:08)
[2025-03-16] MEDS: AZITHROMYCIN 250 MG TABLET 500 MG PO (09:19)
[2025-03-16] MEDS: METOPROLOL SUCCINATE EXT REL 25 MG TABCR PO ×2 (09:19→20:44)
[2025-03-16] MEDS: APIXABAN 2.5 MG TABLET 5 MG PO ×2 (09:20→20:44)
--- NOTE | 2025-03-16 09:43 | P.PNIM_ITS ---
Progress Note: A&P Assessment and Plan (1) Congestive heart disease: Qualifiers: Heart failure chronicity: chronic Heart failure type: unspecified Qualified Code(s): I50.9 - Heart failure, unspecified Code(s): I50.9 - Heart failure, unspecified Status: Acute Assessment and Plan: patient states she is unsure whether she has a history of CHF recently treated at [facility] attempting to get records for further evaluation may be new onset CHF BNP 10,900, CXR showing superimposed pulmonary edema with cardiomegaly and right-sided heart failure as wells as HX of AFIB * IV Lasix b.i.d. 40mg BID * monitor renal function during diuresis * previous echocardiogram results attempting to retrieve from [facility] * echocardiogram ordered here but unsure if they will have an cert pharmacy tech to do so will need referral for follow-up with cardiology outpatient * continue metoprolol * Daily weight. * continuous cardiac monitoring * TSH, LIPID, and A1c ordered 03/16/25: * continue Lasix b.i.d. for diuresis * echocardiogram performed showing a normal left ventricular systolic function at 55-60%, unable to determine diastolic due to AFib, severe pulmonary hypertension in a dilated inferior vena cava consistent with right-sided heart failure exacerbation. * A1c ordered and is 5.2. * Lipids within normal range * normal TSH (2) COPD with acute exacerbation: Code(s): J44.1 - Chronic obstructive pulmonary disease with (acute) exacerbation Status: Acute Assessment and Plan: patient previously seen by exhibits curator outpatient per medical chart history of pulmonary fibrosis patient denies having COPD even though she has chronic respiratory failure with hypoxia patient reports she had a nebulizer at home and inhalers but refuses to use on states they do not work * Levalbuterol due to AFIB and elevated rate * incentive spirometry while awake. * steroids 60mg IVP can likely transitioned to 40 mg orally daily tomorrow * azithromycin 500mg daily * mucolytics * Pulmicort * supplemental oxygen therapy to maintain oxygen 92%/Wears 2L chronically at home * Pneumonia and flu vaccination advised. 03/16/25: * overall improvement. * At baseline supplemental oxygen * patient reports feeling improved slightly * continue above-mentioned treatment (3) Acute and chronic respiratory failure with hypoxia: Code(s): J96.21 - Acute and chronic respiratory failure with hypoxia Status: Acute Assessment and Plan: patient chronically wears 2 L supplemental oxygen at home used to follow with exhibits curator but has not been back recently care for acute on chronic PCP stated oxygen saturations low at her appointment likely multifocal due to COPD exacerbation and CHF exacerbation which would be new onset. * continue with supplemental oxygen wean as tolerated to home use * will need referral to exhibits curator outpatient * patient will need further PFT testing outpatient 03/16/25: * see numbers 1 and 2 (4) Hypertension: Code(s): I10 - Essential (primary) hypertension Status: Acute Assessment and Plan: * BP stable * resume patient's metoprolol * monitor per unit protocol (5) Atrial fibrillation: Code(s): I48.91 - Unspecified atrial fibrillation Status: Acute Assessment and Plan: patient reports history of atrial fibrillation EKG showing atrial fibrillation and previous clot in heart per patient * continue patient's metoprolol for rate control * initial Eliquis from home was 2.5 mg b.i.d. I increased to 5 mg b.i.d. due to recent DVT and current atrial fibrillation * cardiac monitoring * TSH pending * can hopefully get records from [facility] or get her own echocardiogram for further evaluation 03/16/25: * continue Eliquis 5 mg b.i.d. * again new echo dated 03/15/2025 showing normal left ventricular systolic function with EF of 55-60%, severe pulmonary hypertension, unable to determine diastolic dysfunction due to AFib and a dilated inferior vena cava Consistent with right-sided heart failure. * need referral to Cardiology at discharge, patient requested a older Dr. Plan Code status: Full code per patient DVT prophylaxis: Eliquis Stress ulcer prophylaxis: NA PT/OT notes: PT/OT evaluation pending Disposition: patient admitted to the medical unit for further evaluation and treatment of acute on chronic respiratory failure with hypoxia secondary to COPD exacerbation and new onset CHF exacerbation will continue with current treatment plan and evaluate oxygen needs currently wears 2 L chronically at home. PT/OT has been ordered for evaluation patient will need referral to exhibits curator and Cardiology outpatient. Pt states she has seen Dr. Vines for Pulmonology in [place]. Time Spent With Patient Time with patient: 15 - 25 minutes Subjective Date/time seen: 03/16/25 09:43 Interval history: This 84-year-old female patient was examined today in interval assessment since being admitted to the hospital for heart failure exacerbation/COPD exacerbation and respiratory failure. Patient is currently at her home dose of supplemental oxygen at 3 L. patient had echocardiogram performed yesterday that shows a normal left ventricular systolic function with EF of 55-60. Diastolic dysfunction not able to be determined due to atrial fibrillation. she is noted to have severe pulmonary hypertension and dilated inferior vena cava which correlates to patient's need for diuresis And admission. She does not currently have a online user experience strategist but requests to be referred to a a Associate Manager that is an older doctor. She sites an older female Associate Manager at [facility]. she sees Dr. Vines at [place] for Pulmonology care. Patient states she became very nauseated last evening after receiving Protonix and it lasted for several hours. Patient states she normally takes omeprazole at home but we did not have that on formulary. She denies any chest pain. She states her breathing is a little better today. She denies any other acute complaints or new symptoms to report. I have discontinued her Protonix to avoid any further symptoms Review of Systems Review of Systems: All systems reviewed & are unremarkable except as noted in HPI and below Exam Const: General: comfortable and no acute distress HENMT: Face/Nose/Sinus: Normal nares present Mouth: Yes moist mucous membranes Eyes: General: appearance normal, both eyes and all related structures Neck: Neck: supple and no JVD Lymphatic: lymphadenopathy not noted Resp: Effort & Inspection: normal respiratory effort Auscultation: crackles bilateral ( Fine crackles on bilateral bases) Cardio: Rate: regular rate Rhythm: abnormal rhythm Heart sounds: no gallops, no murmurs and no rubs GI: GI Palp: Yes Soft to palpation and No Tenderness to palpation present (GI) Auscultation: normal bowel sounds Skin: General skin exam: normal color, no rashes or lesions noted and no erythema Wounds: no wounds Neuro: Speech: normal speech Motor exam (neuro): 5/5 motor strength present throughout and Normal motor muscle tone present throughout Sensory Exam: normal sensation Extrem: General: normal to inspection, no edema and no pedal edema Other: 2+ bilateral lower extremity pedal pulses Psych: Mental Status: mental status grossly normal Affect: normal affect Objective Data Vital Signs Vital Signs: Vital Signs - 24 hr 03/15/25 09:54 03/15/25 11:07 03/15/25 11:18 Temperature Pulse Rate 113 H 66 68 Respiratory Rate 14 14 Blood Pressure Pulse Oximetry 99 99 Oxygen Delivery Oxygen Flow Rate 2 2 03/15/25 12:00 03/15/25 16:00 03/15/25 16:54 Temperature 98.9 F Pulse Rate 98 98 90 Respiratory Rate 20 14 Blood Pressure 116/56 L Pulse Oximetry 95 99 Oxygen Delivery Nasal Cannula Oxygen Flow Rate 2 2 03/15/25 17:12 03/15/25 20:00 03/15/25 20:00 Temperature 100.0 F H Pulse Rate 88 80 80 Respiratory Rate 14 18 20 Blood Pressure 111/68 Pulse Oximetry 100 98 98 Oxygen Delivery Nasal Cannula Nasal Cannula Oxygen Flow Rate 2 3 3 03/15/25 20:17 03/16/25 00:00 03/16/25 00:00 Temperature 98.1 F Pulse Rate 80 98 86 Respiratory Rate 20 Blood Pressure Pulse Oximetry 95 Oxygen Delivery Nasal Cannula Oxygen Flow Rate 3 03/16/25 04:00 03/16/25 09:19 Temperature Pulse Rate 98 88 Respiratory Rate Blood Pressure Pulse Oximetry Oxygen Delivery Oxygen Flow Rate Intake/Output Intake/Output: Intake & Output 03/13/25 03/14/25 03/15/25 03/16/25 23:59 23:59 23:59 23:59 Intake Total 50 1140 100 Output Total 2050 300 Balance 50 -910 -200 Meds/Results Medications: Active Medications Generic Name Dose Route Start Last Admin Trade Name Freq PRN Reason Stop Dose Admin Acetaminophen 650 mg 03/15/25 09:08 Acetaminophen 325 Mg Tablet PO Q4H PRN Mild Pain (1-3) or Fever Apixaban 5 mg 03/15/25 09:00 03/16/25 09:20 Apixaban 2.5 Mg Tablet PO 5 mg Q12HR KAYLA Administration Azithromycin 500 mg 03/15/25 10:20 03/16/25 09:19 Azithromycin 250 Mg Tablet PO 500 mg DAILY KAYLA Administration Budesonide 0.5 mg 03/15/25 18:30 03/16/25 05:35 Budesonide Respule Neb 0.5 Mg/2 Ml Amp INHALATION Not Given Q12HRT KAYLA Cefuroxime Axetil 500 mg 03/14/25 21:00 03/16/25 09:18 Cefuroxime Axetil 250 Mg Tablet PO 500 mg Q12HR KAYLA Administration Furosemide 40 mg 03/15/25 17:00 03/16/25 09:17 Furosemide Inj 20 Mg/2 Ml Vial IV PUSH 40 mg BID KAYLA Administration Gabapentin 100 mg 03/14/25 21:00 03/15/25 21:47 Gabapentin 100 Mg Capsule PO Not Given HS KAYLA Guaifenesin 1,200 mg 03/15/25 09:00 03/16/25 09:17 Guaifenesin 12 Hr 600 Mg Tabcr PO 1,200 mg Q12HR KAYLA Administration Levalbuterol HCl 0.63 mg 03/15/25 12:30 03/16/25 05:35 Levalbuterol Neb 0.63 Mg/3 Ml INHALATION Not Given Q6HRT [facility] Methylprednisolone Sodium Succinate 60 mg 03/15/25 14:00 03/16/25 06:21 Methylprednisolone Sod Succ 125 Mg Vial IV PUSH 60 mg Q8HR KAYLA Administration Metoprolol Succinate 25 mg 03/14/25 20:00 03/16/25 09:19 Metoprolol Succinate Ext Rel 25 Mg Tabcr PO 25 mg Q12H KAYLA Administration Naproxen 250 mg 03/15/25 15:26 03/15/25 15:50 Naproxen 250 Mg Tablet PO 250 mg BIDWM PRN Administration Mild Pain (1-3) or Headache Ondansetron HCl 4 mg 03/15/25 09:08 Ondansetron Inj 4 Mg/2 Ml Vial IV PUSH Q6H PRN Nausea And Vomiting Perflutren Lipid Microsphere 0 ml 03/15/25 09:08 Perflutren Lipid Microspheres 1.5 Ml Vial Diluted To 10 Ml Total Volume IV PUSH 03/18/25 09:11 ONCE PRN adequate visualization Protocol Radiology Results: ITS Impressions Chest CTA 03/14/25 16:40 IMPRESSION: 1. No pulmonary embolism. 2. Interstitial changes of the lungs with thickening of the septa which is suggestive of superimposed pulmonary edema. Clinical correlation and follow-up advised. 3. Cardiomegaly with right sided failure. 4. Atrophic left kidney. Labs Labs: Laboratory Results - last 24 hr 03/15/25 03/16/25 09:35 05:09 WBC 11.2 H RBC 2.81 L Hgb 9.1 L Hct 28.2 L MCV 100.4 MCH 32.4 H MCHC 32.3 RDW 15.8 H Plt Count 302 MPV 9.0 L Immature Gran % (Auto) 0.9 H Neut % (Auto) 91.3 H Lymph % (Auto) 4.2 L [place] % (Auto) 3.5 Eos % (Auto) 0.0 L Baso % (Auto) 0.1 Lymph # (Auto) 0.47 L [place] # (Auto) 0.39 Eos # (Auto) 0.00 L Baso # (Auto) 0.01 Abs Immat Gran (auto) 0.10 H Absolute Neuts (auto) 10.24 H Absolute Nucleated RBC 0.00 Nucleated RBC % 0.0 Hemoglobin A1c 5.2 Magnesium 1.8 1.9 Triglycerides 55 Cholesterol 186 LDL Cholesterol, Calc 124 HDL Direct 51 TSH 1.360 Quality VTE Prophylaxis VTE prophylaxis: pharmacologic ordered Hospitalist MIPS Advance Care Plan I have confirmed that the patient's Advanced Care Plan is present, code status is documented, or surrogate decision maker is listed in patient medical record.: Yes Medication Reconciliation I have utilized all available resources to obtain, update and review the patients current medications (includes all prescriptions, OTC, herbals, cannabis, and nutritional supplements).: Yes
[2025-03-16] MEDS: NAPROXEN 250 MG TABLET PO (11:38)
[2025-03-16] MEDS: BUDESONIDE RESPULE NEB 0.5 MG/2 ML AMP INHALATION (16:59)
[2025-03-16] MEDS: ONDANSETRON INJ 4 MG/2 ML VIAL IV PUSH (20:44)
[2025-03-16] MEDS: GABAPENTIN 100 MG CAPSULE PO (20:44)
[2025-03-17] VITALS (9 sets, daily range): BP systolic 104–134; BP diastolic 70–91; PULSE 80–102; RESP 18–24; TEMP 36.8–37.1; O2SAT 94–99
[2025-03-17] MEDS: METOPROLOL SUCCINATE EXT REL 25 MG TABCR PO (07:47)
[2025-03-17 08:16] LABS: Hematocrit 31.1 % (35.0-42.0); Hemoglobin 10.2 g/dL (11.7-13.8); Immature Granulocyte Percent A 0.6 % (0.0-0.0); Lymphocytes Absolute Auto 0.36 K/mm3 (1.10-4.50); Mean Corpuscular HGB Conc 32.8 g/dL (32-36); Mean Corpuscular Hemoglobin 32.7 pg (27.0-31.0); Mean Corpuscular Volume 99.7 fL (78.0-102.0); Nucleated Red Blood Cells Absolute Auto 0.00 K/mm3 (0.00-0.00); Nucleated Red Blood Cells Perc 0.0 % (0-0.0); Platelet Count Result 342 K/mm3 (150-420); Red Blood Count 3.12 M/mm3 (4.20-5.40); White Blood Count 11.9 K/mm3 (4.8-10.8)
[2025-03-17 08:33] LABS: Alanine Aminotransferase 27 U/L (6-35); Albumin Level 3.6 g/dL (3.5-5.1); Alkaline Phosphatase 76 U/L (38-126); Anion Gap 5 mmol/L (4-12); Aspartate Amino Transferase 29 U/L (14-36); Bilirubin,Total 0.7 mg/dL (0.2-1.3); Blood Urea Nitrogen 32 mg/dL (7-17); Calcium 8.4 mg/dL (8.4-10.2); Carbon Dioxide 34 mmol/L (22-30); Chloride 99 mmol/L (98-107); Estimated CRCL calculation 28 ml/min; Estimated Glomerular Filt Rate 56; Glucose 129 mg/dL (65-110); Magnesium 2.0 mg/dL (1.6-2.3); Osmolality Calculated 294 mOsm/kg (285-295); Potassium 4.2 mmol/L (3.4-5.0); Sodium 138 mmol/L (137-145); Total Protein 7.1 g/dL (6.3-8.2)
[2025-03-17] MEDS: FUROSEMIDE INJ 20 MG/2 ML VIAL 40 MG IV PUSH (08:34)
[2025-03-17] MEDS: guaiFENesin 12 HR 600 MG TABCR 1200 MG PO (08:39)
[2025-03-17] MEDS: AZITHROMYCIN 250 MG TABLET 500 MG PO (08:40)
[2025-03-17] MEDS: APIXABAN 2.5 MG TABLET 5 MG PO (08:40)
--- NOTE | 2025-03-17 09:47 | P.DS_ITS ---
DS: Admitting Diagnosis Discharge Date 03/17/2025 Admitting Diagnosis COPD exacerbation/You onset congestive heart failure/ severe pulmonary hypertension/ atrial fibrillation DS: Discharge Diagnosis Discharge Diagnosis (1) Congestive heart disease: Qualifiers: Heart failure chronicity: chronic Heart failure type: unspecified Qualified Code(s): I50.9 - Heart failure, unspecified Code(s): I50.9 - Heart failure, unspecified Status: Acute (2) COPD with acute exacerbation: Code(s): J44.1 - Chronic obstructive pulmonary disease with (acute) exacerbation Status: Acute (3) Acute and chronic respiratory failure with hypoxia: Code(s): J96.21 - Acute and chronic respiratory failure with hypoxia Status: Acute (4) Hypertension: Code(s): I10 - Essential (primary) hypertension Status: Acute (5) Atrial fibrillation: Code(s): I48.91 - Unspecified atrial fibrillation Status: Acute DS: Summary Hospital Course Reason for hospitalization: COPD exacerbation/You onset congestive heart failure/ severe pulmonary hypertension/ atrial fibrillation Hospital Course: Admission Patient is an 84-year-old female who presented to the emergency department due to complaints of worsening shortness of breath reports she was recently hospitalized at [facility] 2 weeks prior at which time she underwent a thromb ectomy of the left superficial femoral artery and discharge to home with home health. patient reports ever since discharge she has had a progressively worsening nonproductive cough and worsening shortness a breath with exertion. Patient also reported she had been previously diagnosed atrial fibrillation but was unsure if she was ever diagnosed with congestive heart failure. 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 Patient denied any chest pain, nausea, vomiting, abdominal pain, dizziness at time of assessment. patient reports she does follow with a post hole digging machine operator and was following with a hat model outpatient but has not followed up recently she had stopped using any of her nebulizers at home reported they did not help work as well as her inhalers previously prescribed. patient reports she was at a follow-up appointment which time she was reported to have dyspnea and low oxygen saturation even on her 3 L of supplemental oxygen she chronically wears was sent to the emergency department for further evaluation. patient is not the best historian over past medical history will attempt to get records from [facility] for further evaluation on CHF. In the ED: findings in the emergency room included a CTA with no PE however did show superimposed pulmonary edema and cardiomegaly with right-sided failure, BNP 10,900, troponins x2 negative EKG showing atrial fibrillation, afebrile with normal WBC, COVID/Influeza/RSV negative, and ABG's in desired range. patient received a Duo nebulizer in the emergency department as well as IV Lasix 40 mg IV push was then admitted to the medical unit for further evaluation and treatment. Hospital course: patient admitted to the medical unit for further treatment of acute on chronic congestive heart failure initiated patient on diuresis with Lasix 40 mg IV push b.i.d.. echocardiogram performed showing a normal left ventricular systolic function at 55-60%, unable to determine diastolic due to AFib, severe pulmonary hypertension in a dilated inferior vena cava consistent with right-sided heart failure exacerbation. patient was also treated for underlying COPD exacerbation continued with levalbuterol, initially on steroids 60 mg t.i.d. transitioned to 40 mg daily, mucolytics, and Pulmicort. patient chronically wears 2 L of supplemental oxygen and remained on 2 L during her hospitalization. patient chronically wears 2 L supplemental oxygen at home used to follow with post hole digging machine operator but has not been back recently care for acute on chronic PCP stated oxygen saturations low at her appointment likely multifocal due to COPD exacerbation and CHF exacerbation which would be new onset. patient with overall improvement reported shortness a breath had improved with treatment. Patient advised to follow-up her post hole digging machine operator for re-evaluation with PFT testing as well as a need to follow-up with a hat model for continued monitoring and evaluation of her congestive heart failure. Patient was ambulatory on own at time of discharge she was in no acute distress back to her baseline. patient was discharged home initiated Lasix 40 mg daily and continued her metoprolol as prescribed. patient also reported cough with her COPD exacerbation continued with azithromycin, Tessalon Perles and prednisone 40 at discharge patient advised to also follow-up with her primary care physician. I recommended she avoid seen out in the heat for long periods of time which can exacerbate her underlying COPD. Status at Discharge Functional status at discharge: independent ambulation Overall status at discharge: patient is back to baseline Time Spent with Patient Time attestation: Total time spent providing and/or coordinating discharge services: Time spent: Greater than 30 minutes Exam Const: General: comfortable, no acute distress and uncomfortable Other: Female looks stated age HENMT: Face/Nose/Sinus: Normal nares present Mouth: Yes moist mucous membranes Eyes: General: appearance normal, both eyes and all related structures Sclera: sclerae normal Pupils: Equal, round and reactive pupils present Neck: Neck: supple and no JVD Lymphatic: lymphadenopathy not noted Resp: Effort & Inspection: normal respiratory effort, abnormal respiratory pattern, audible wheezes, Actively coughing productive, uses accessory muscles and symmetric chest movement Auscultation: crackles (scant) bilateral ( Fine crackles on bilateral bases) and wheezes Cardio: Rate: regular rate Rhythm: abnormal rhythm irregularly irregular Heart sounds: no gallops, no murmurs and no rubs Other: irregular irregular GI: Auscultation: normal bowel sounds Skin: General skin exam: normal color, no rashes or lesions noted and no erythema Wounds: no wounds Neuro: General: gait normal Cranial nerves: Yes Equal, round and reactive pupils present Speech: normal speech Motor exam (neuro): 5/5 motor strength present throughout and Normal motor muscle tone present throughout S ensory Exam: normal sensation Extrem: General: normal to inspection, no edema and no pedal edema Other: 2+ bilateral lower extremity pedal pulses Psych: Mental Status: mental status grossly normal Affect: normal affect and Anxious affect present DS: Data Data Completed and Pending Labs on day of discharge: Labs from last 24 hours 03/17/25 08:10 WBC 11.9 H RBC 3.12 L Hgb 10.2 L Hct 31.1 L MCV 99.7 MCH 32.7 H MCHC 32.8 RDW 15.8 H Plt Count 342 MPV 9.0 L Immature Gran % (Auto) 0.6 H Neut % (Auto) 93.0 H Lymph % (Auto) 3.0 L Power % (Auto) 3.3 Eos % (Auto) 0.0 L Baso % (Auto) 0.1 Lymph # (Auto) 0.36 L Power # (Auto) 0.39 Eos # (Auto) 0.00 L Baso # (Auto) 0.01 Abs Immat Gran (auto) 0.07 H Absolute Neuts (auto) 11.11 H Absolute Nucleated RBC 0.00 Nucleated RBC % 0.0 Sodium 138 Potassium 4.2 Chloride 99 Carbon Dioxide 34 H Anion Gap 5 BUN 32 H D Creatinine 0.95 Estim Creat Clear Calc 28 Estimated GFR 56 L Glucose 129 H Calculated Osmolality 294 Calcium 8.4 Magnesium 2.0 Total Bilirubin 0.7 AST 29 ALT 27 Alkaline Phosphatase 76 Total Protein 7.1 Albumin 3.6 Discharge Plan Discharge Attending physician on discharge: Jose G Nance Consulting providers: Carlos Mcbride; Meliton Ellison; Reta Musa; Bipin Lozano Discharging Clinician: Cheryle Melendez Anticipated Discharge Date/Time: 03/17/25 09:30 Patient Disposition: Home Activity: may shower and as tolerated Diet: heart healthy and low sodium Discharge Instructions: 1). Heart failure with severe pulmonary hypertension * I have prescribed Lasix 40mg daily * You will need to schedule a follow-up with your Waiter/Waitress Cabin Class at [facility] for close monitoring * continue to take your Metoprolol as prescribed * I recommend a heart healthy low-sodium diet * I have attached information regarding heart failure 2). COPD/ chronic respiratory failure with hypoxia * I have prescribed prednisone 40 mg daily please take as indicated even if feeling better * I have also prescribed azithromycin to prevent any pneumonia please take as indicated * continue to use your incentive spirometer at home * continue with your supplemental oxygen as prescribed * we will need to call and schedule a follow-up appointment with your post hole digging machine operator at [facility] 2). Atrial fibrillation * I have increased your Eliquis to 5 mg b.i.d. * this will also need to be followed up with your hat model [facility] How can you care for yourself at home? ? Keep track of any new symptoms or changes in your symptoms. ? Rest until you feel better. ? Be safe with medicines. Take your medicines exactly as prescribed. Call your doctor if you think you are having a problem with your medicine. ? Do not drive after taking a prescription pain medicine. ? Ensure to follow-up with primary care physician as indicated and provide updated medication list provided to you at discharge. When should you call for help? Call 911 anytime you think you may need emergency care. For example, call if: ? You passed out (lost consciousness). Call your doctor now or seek immediate medical care if: ? You have new symptoms like fever, difficulty breathing, Chest pain, vomiting, or rash. ? You have new or different pain. ? You are confused and are having trouble thinking clearly. ? Your symptoms are getting worse. Watch closely for changes in your health, and be sure to contact your doctor if: ? You do not get better as expected. Patient Instructions: Antibiotic Form, Azithromycin (By mouth), Heart Failure (DC), A-fib (Atrial Fibrillation) (DC), Pulmonary Edema (DC), Fall Prevention for Older Adults (DC), Using Oxygen at Home (DC), COPD (Chronic Obstructive Pulmonary Disease) (DC), Pulmonary Arterial Hypertension (DC), Low-Sodium Diet (DC) Patient Language: Marshallese Follow-up/Referrals: Aly,AMADOU De La Fuente [Primary Care Provider] - 2 weeks () Discharge Medications: New azithromycin [Zithromax] 250 mg Tablet 500 mg PO DAILY Qty: 4 0RF benzonatate 100 mg Capsule 200 mg PO TID Qty: 30 0RF guaifenesin [Mucus Relief ER] 600 mg Tablet Extended Release 12hr 1,200 mg PO Q12HR Qty: 10 0RF furosemide [Lasix] 40 mg tablet 40 mg PO DAILY Qty: 30 0RF prednisone 20 mg tablet 40 mg PO DAILY Qty: 60 0RF Eliquis 5 mg tablet 5 mg PO BID Qty: 60 0RF ondansetron 4 mg tablet,disintegrating 4 mg PO Q8H PRN (Reason: nausea and vomiting) Qty: 30 0RF Continued gabapentin 100 mg capsule 100 mg PO HS metoprolol succinate 25 mg tablet extended release 24 hr 25 mg PO Q12H Discontinued Eliquis 2.5 mg tablet 2.5 mg PO Q12H Date of admission: 03/14/25 18:39 Primary Care Provider: EstellaSudhakar Admitting Provider: Jose G Nance Attending physician on admission: Chreyle Melendez Condition: Stable Quality VTE Prophylaxis VTE prophylaxis: pharmacologic ordered -Patient's previous records reviewed on admission -ER notes reviewed in detail on admission -discussed all findings and current treatment plan with patient/Family/POA -Consultations reviewed for recommendations -Patient's disposition for safe discharge discussed with returned case inspector Dictation performed by [employer] direct speech recognition software, therefore vmware architect variants and typographical errors may occur. Hospitalist MIPS Heart Failure (Exclusion) Patient has history of Heart Transplant or Left Ventricular Assistive Device?: No IF YES, STOP HERE Heart Failure (Qualifier) Patient has current or prior documentation of LVEF less than or equal to 40%, or mod/servere depressed LVSF?: No IF NO, STOP HERE
[2025-03-17] MEDS: BENZONATATE 100 MG CAPSULE 200 MG PO (10:07)
[2025-03-17] MEDS: ONDANSETRON INJ 4 MG/2 ML VIAL IV PUSH (10:24)
--- NOTE | 2025-03-17 10:25 | PC.NURSE ---
Pt sitting up in chair and report feeling nauseated after walking in hallway. She reports this feeling has been happening for some time and is nothing new. Pt given Zofran as per order for nausea and POC is to d/c home per CAN SORTER Cheryle. Explained to pt that she will be d/c home w/ instructions on new meds given to take over the weekend.
--- NOTE | 2025-03-17 12:00 | PC.NURSE ---
Pt d/c home at 12 noon via w/c to car w/ spouse, VSS all instructions given on need for f/u w/in 2 weeks w PCP and new meds prescribed. Pt stated understanding. Pt d/c to car and left w/ spouse.
--- NOTE | 2025-03-20 17:14 | PC.NURSE ---
Discharge call back made, spoke with Bernadette. She informs that she is doing terrible with her surgical leg but her breathing is much better. She states the breathing thing is doing wonders. Sheet Rock Layer askes, is it the IS we gave you to use to stregthen you lungs? Bernadette states, Oh yes, it wonderful. She informs she understood all discharge instruction and education but still worried about her leg. She informs she has the surgery at [facility] and did not have a ride to get there at this time. She indicates that it is burning and cold and but does not have pain when she walks. This keno writer/runner informs that she needs to be seen by her PCP and Bernadette informs she cannot get in until Thursday. This keno writer/runner informs she needs to go to ED to be evaluated for the surgical wound, she indicates she would if it gets worse.
== END 2025-03-17 12:00 | disposition home or self-care (01) ==
LOC: CHSED 18:31 → CHS2ND 18:47
PROVIDERS: Admitting Provider Internal Medicine; Emergency Provider Emergency Medicine; PCP Physician Assistant; Visit Provider Nurse Practitioner Family
DX: I11.0 Hypertensive heart disease with heart failure (principal); I50.9 Heart failure, unspecified; J96.21 Acute and chronic respiratory failure with hypoxia; Z99.81 Dependence on supplemental oxygen; J44.1 Chronic obstructive pulmonary disease with (acute) exacerbation; I27.20 Pulmonary hypertension, unspecified; J84.10 Pulmonary fibrosis, unspecified; I48.91 Unspecified atrial fibrillation; Z20.822 Contact with and (suspected) exposure to COVID-19; Z79.01 Long term (current) use of anticoagulants; Z79.899 Other long term (current) drug therapy; Z86.718 Personal history of other venous thrombosis and embolism; Z87.891 Personal history of nicotine dependence; Z98.890 Other specified postprocedural states
CPT/HCPCS: 36415; 36600; 71275; 80053; 80061; 82805; 83036; 83605; 83735; 83880; 84443; 84484; 85025; 85027; 85380; 85610; 85730; 87040; 87637; 93005; 93306; 94640; 96365; 96375; 96376; 97161; 97165; 97530; 97535; 99285; A9270; G0378; J0696; J1938; J2405; J2919; Q9967

== ENCOUNTER 2025-03-21 13:39 | Emergency (ER) | payer MEDICARE, SELFPAY ==
[2025-03-21] VITALS (18 sets, daily range): BP systolic 105–133; BP diastolic 1–82; PULSE 71–99; RESP 18–120; TEMP 36.5–36.8; O2SAT 94–100
--- NOTE | ~2025-03-21 | US_ITS ---
LEFT LOWER EXTREMITY VENOUS ULTRASOUND Ordering provider: Hector Galan MD History: . dvt/pain/swelling . Comparison: None. FINDINGS: --COMMON FEMORAL: Patent and free of thrombus. Normal compressibility, phasic flow and augmentation. --PROXIMAL SUPERFICIAL FEMORAL: Patent and free of thrombus. Normal compressibility, phasic flow and augmentation. --DISTAL SUPERFICIAL FEMORAL: Patent and free of thrombus. Normal compressibility, phasic flow and au gmentation. --POPLITEAL: Thrombosed. --POSTERIOR TIBIAL: Thrombosed. IMPRESSION: deep vein thrombosis. Physician: Hector Galan MD was notified with the result at 2:20 PM on March 21, 2025. Reviewed, dictated and finalized at location A.
--- NOTE | 2025-03-21 13:51 | ED_ITS ---
HPI - Extremity Injury (Lower) General Chief Complaint: Extremity Injury, Lower Stated Complaint: left leg pain Time Seen by Provider: 03/21/25 13:46 Source: patient Mode of arrival: ambulatory Limitations: no limitations History of Present Illness HPI Narrative: Patient is an 84-year-old female with a left lower extremity pain starting at the hip going down below the knee in the past few days. Early February the patient had a procedure to remove blood clots for DVTs in the left lower extremity. She was at [facility]. No injury. patient is on Eliquis. COPD with home oxygen. Type of Injury: other ( No injury) Place: home Severity: moderate Severity scale (1-10): 4 Relieving factors: nothing Exacerbating factors: nothing Context: other ( patient has left lower extremity pain over the past few days and here for concerns of DVT again in the same limb) Associated symptoms: ambulatory Other symptoms: none Treatments prior to arrival: other ( Eliquis) Related Data Home Medications ?Medication ?Instructions ?Recorded ?Confirmed ?Last Taken ?Type gabapentin 100 mg capsule 100 mg PO HS 03/14/25 03/14/25 Unknown History metoprolol succinate 25 mg 25 mg PO Q12H 03/14/25 03/14/25 03/14/25 06:30 History tablet,extended release 24 hr Allergies Allergy/AdvReac Type Severity Reaction Status Date / Time No Known Allergies Allergy Verified 03/21/25 13:50 Review of Systems 2 Review of Systems: All systems reviewed & are unremarkable except as noted in HPI and below Constitutional: Constitutional: Reports no additional constitutional complaints Eyes: Eyes: Reports no additional eye complaints ENT: Reports system reviewed and no additional complaints, except as documented Cardiovascular: Cardiovascular: Reports no additional cardiovascular complaints Respiratory: Respiratory: Reports no additional respiratory complaints Gastrointestinal: Gastrointestinal: Reports no additional gastrointestinal complaints Genitourinary: Genitourinary: Reports no additional female genitourinary complaints Musculoskeletal: Musculoskeletal: Reports no additional musculoskeletal complaints Integumentary/Breasts: Skin/Breast: Reports system reviewed and no additional complaints, except as docu Neurologic: Reports system reviewed and no additional complaints, except as documented Psychiatric: Psychiatric: Reports no additional psychiatric complaints Endocrine: Endocrine: Reports no additional endocrine complaints Hematologic/Lymphatic: Hematologic/Lymphatic: Reports no additional hematologic/lymphatic complaints Allergic/Immunologic: Allergic/Immunologic: Reports no additional allergic/immunologic complaints PMFSH Past Medical History Medical History Acute and chronic respiratory failure with hypoxia Hypertension Dvt femoral (deep venous thrombosis) Atrial fibrillation Surgical History Surgical History History of thrombectomy Family History Family History Father Congestive heart failure Social History Social History Years smoked: 0.5 Smoking status: Light tobacco smoker Tobacco type: cigarettes Smoking end date: 03/01/1963 Alcohol intake: former Substance use: never Do You Feel Safe in your Home?: Yes Lack of Transportation: No Lack of Food: Never True Current Housing: I Have Housing Concerned About Future Housing: No Difficulty Paying Gas/Electric Bills: No Difficulty Paying for Meds: No Currently Unemployed: No Education: Associate Degree Difficulty w/ Childcare or Family Care: No Spiritual care concerns: No Exam 2 Const: General: healthy appearing Nutritional Appearance: well nourished Orientation/consciousness: patient oriented x3 HENMT: Head: normal to inspection Ears: external ears normal F cassie/Nose/Sinus: Normal external nose present Eyes: Conjunctivae: conjunctivae normal Pupils: Equal, round and reactive pupils present EOM: EOMs intact bilaterally Neck: Neck: normal visual inspection Chest: Chest palpation & inspection: normal inspection of the chest Resp: Effort & Inspection: normal respiratory effort and not labored A uscultation: clear to auscultation bilaterally and no crackles Cardio: Rate: regular rate Rhythm: regular rhythm Heart sounds: no murmurs GI: Inspection: non-distended GI Palp: Yes Soft to palpation and No Tenderness to palpation present (GI) Auscultation: normal bowel sounds : General: Yes bladder normal to palpation Back/Spine/Pelvis: Back: no CVA tenderness Skin: General skin exam: normal color Rashes: no rashes Wounds: no wounds Neuro: General: patient oriented x3 Cranial nerves: Yes Nystagmus not present Speech: normal speech Gait exam (Neuro): Normal gait present Extrem: General: normal to inspection Psych: Mental Status: mental status grossly normal Affect: normal affect Attitude: cooperative Course Vital Signs Vital signs: Vital Signs Temperature 36.5 C 03/21/25 13:40 Pulse Rate 99 03/21/25 13:40 Respiratory Rate 20 03/21/25 13:40 Blood Pressure 117/73 03/21/25 13:40 Pulse Oximetry 99 03/21/25 13:40 Oxygen Delivery Nasal Cannula 03/21/25 13:40 Oxygen Flow Rate 3 03/21/25 13:40 Temperature 36.5 C 03/21/25 13:40 Pulse Rate 88 03/21/25 14:30 Respiratory Rate 20 03/21/25 14:30 Blood Pressure 133/1 L 03/21/25 14:30 Pulse Oximetry 94 03/21/25 14:30 Oxygen Delivery Nasal Cannula 03/21/25 14:30 Oxygen Flow Rate 3 03/21/25 14:30 MDM - Extremity Injury (Lower) MDM Narrative Medical decision making narrative: Patient is an 84-year-old female with left lower extremity pain over the past few days and concerns for DVT. She has recently had DVT removal in the left lower extremity. We will call vascular surgery at [facility] to discuss the case. Ultrasound left lower extremity today was positive for DVT x2. Vascular surgery said they would consult and hospitalist to admit for further anticoagulation planning. patient accepted to [facility]. Will start heparin drip. It is due for her 2nd dose of Eliquis which would be the start of a heparin drip appropriately. Lab Data Attestation: I reviewed the patient's lab results. 03/21/25 15:47 03/21/25 15:47 Labs: Lab Results 03/21/25 Range/Units 15:47 WBC 9.0 (4.8-10.8) K/mm3 RBC 3.49 L (4.20-5.40) M/mm3 Hgb 11.2 L (11.7-13.8) g/dL Hct 34.9 L (35.0-42.0) % MCV 100.0 (78.0-102.0) fL MCH 32.1 H (27.0-31.0) pg MCHC 32.1 (32-36) g/dL RDW 14.8 H (11.6-14.4) % Plt Count 376 (150-420) K/mm3 MPV 8.8 L (9.2-11.8) fl Immature Gran % (Auto) 0.6 H (0.0-0.0) % Neut % (Auto) 61.9 (50.0-70.0) % Lymph % (Auto) 20.1 (18.0-42.0) % Davidson % (Auto) 10.1 (2.0-11.0) % Eos % (Auto) 7.1 H (1.0-6.0) % Baso % (Auto) 0.2 (0.0-1.0) % Lymph # (Auto) 1.81 (1.10-4.50) K/mm3 Davidson # (Auto) 0.91 H (0.10-0.90) K/mm3 Eos # (Auto) 0.64 H (0.02-0.50) K/mm3 Baso # (Auto) 0.02 (0.00-0.10) K/mm3 Abs Immat Gran (auto) 0.05 H (0.00-0.00) K/mm3 Absolute Neuts (auto) 5.59 (1.70-7.20) K/mm3 Absolute Nucleated RBC 0.00 (0.00-0.00) K/mm3 Nucleated RBC % 0.0 (0-0.0) % PT 12.4 H (9.50-12.1) Seconds INR 1.1 APTT 25.7 (23.9-30.70) Sec Sodium 136 L (137-145) mmol/L Potassium 4.1 (3.4-5.0) mmol/L Chloride 97 L (98-107) mmol/L Carbon Dioxide 36 H (22-30) mmol/L Anion Gap 3 L (4-12) mmol/L BUN 29 H (7-17) mg/dL Creatinine 0.79 (0.7-1.0) mg/dL Estim Creat Clear Calc 34 ml/min Estimated GFR > 60 (59 - ) Glucose 123 H (65-110) mg/dL Calculated Osmolality 288 (285-295) mOsm/kg Calcium 8.3 L (8.4-10.2) mg/dL Total Bilirubin 0.6 (0.2-1.3) mg/dL AST 35 (14-36) U/L ALT 33 (6-35) U/L Alkaline Phosphatase 91 (38-126) U/L Total Protein 6.9 (6.3-8.2) g/dL Albumin 3.5 (3.5-5.1) g/dL Imaging Data Attestation: I personally reviewed and interpreted this imaging study as follows: Radiologist's impression: Venous ultrasound left lower extremity was positive for DVT x2 Discharge Plan Discharge Clinical Impression: DVT (deep venous thrombosis) Qualifiers: DVT location: lower extremity Affected thrombotic vein of extremity: u nspecified vein of extremity Chronicity: acute Laterality: left Qualified Code(s): I82.402 - Acute embolism and thrombosis of unspecified deep veins of left lower extremity Patient Disposition: Acute Care Hospital Condition: Stable Patient Language: Irish Prescriptions: No Action gabapentin 100 mg capsule 100 mg PO HS metoprolol succinate 25 mg tablet extended release 24 hr 25 mg PO Q12H azithromycin [Zithromax] 250 mg Tablet 500 mg PO DAILY Qty: 4 0RF benzonatate 100 mg Capsule 200 mg PO TID Qty: 30 0RF guaifenesin [Mucus Relief ER] 600 mg Tablet Extended Release 12hr 1,200 mg PO Q12HR Qty: 10 0RF furosemide [Lasix] 40 mg tablet 40 mg PO DAILY Qty: 30 0RF prednisone 20 mg tablet 40 mg PO DAILY Qty: 60 0RF Eliquis 5 mg tablet 5 mg PO BID Qty: 60 0RF ondansetron 4 mg tablet,disintegrating 4 mg PO Q8H PRN (Reason: nausea and vomiting) Qty: 30 0RF Follow-up/Referrals: Aly,AMADOU De La Fuente [Physician Donor Relations Officer] - Time of Disposition: 16:15
[2025-03-21 15:51] LABS: Hematocrit 34.9 % (35.0-42.0); Hemoglobin 11.2 g/dL (11.7-13.8); Immature Granulocyte Percent A 0.6 % (0.0-0.0); Lymphocytes Absolute Auto 1.81 K/mm3 (1.10-4.50); Mean Corpuscular HGB Conc 32.1 g/dL (32-36); Mean Corpuscular Hemoglobin 32.1 pg (27.0-31.0); Mean Corpuscular Volume 100.0 fL (78.0-102.0); Nucleated Red Blood Cells Absolute Auto 0.00 K/mm3 (0.00-0.00); Nucleated Red Blood Cells Perc 0.0 % (0-0.0); Platelet Count Result 376 K/mm3 (150-420); Red Blood Count 3.49 M/mm3 (4.20-5.40); White Blood Count 9.0 K/mm3 (4.8-10.8)
[2025-03-21 16:02] LABS: Alanine Aminotransferase 33 U/L (6-35); Albumin Level 3.5 g/dL (3.5-5.1); Alkaline Phosphatase 91 U/L (38-126); Anion Gap 3 mmol/L (4-12); Aspartate Amino Transferase 35 U/L (14-36); Bilirubin,Total 0.6 mg/dL (0.2-1.3); Blood Urea Nitrogen 29 mg/dL (7-17); Calcium 8.3 mg/dL (8.4-10.2); Carbon Dioxide 36 mmol/L (22-30); Chloride 97 mmol/L (98-107); Estimated CRCL calculation 34 ml/min; Estimated Glomerular Filt Rate > 60; Glucose 123 mg/dL (65-110); Osmolality Calculated 288 mOsm/kg (285-295); Potassium 4.1 mmol/L (3.4-5.0); Sodium 136 mmol/L (137-145); Total Protein 6.9 g/dL (6.3-8.2)
[2025-03-21 16:10] LABS: INR 1.1; Partial Thromboplastin Time 25.7 Sec (23.9-30.70); Prothrombin Time 12.4 Seconds (9.50-12.1)
[2025-03-21] MEDS: HEPARIN SOD/D5W 100 UNITS/ML 25,000 UNITS/250 ML BAG 9 UNITS IV CONT (16:42)
== END 2025-03-21 18:20 | disposition short-term general hospital (02) ==
PROVIDERS: Emergency Provider Emergency Medicine; PCP Family Medicine
DX: I82.402 Acute embolism and thrombosis of unspecified deep veins of left lower extremity (principal); J44.9 Chronic obstructive pulmonary disease, unspecified; I10 Essential (primary) hypertension; I48.91 Unspecified atrial fibrillation; F17.210 Nicotine dependence, cigarettes, uncomplicated; Z86.718 Personal history of other venous thrombosis and embolism; Z79.01 Long term (current) use of anticoagulants; Z99.81 Dependence on supplemental oxygen
CPT/HCPCS: 36415; 80053; 85025; 85610; 85730; 93971; 96365; 96366; 99285; J1644

== ENCOUNTER 2025-05-25 12:13 | Outpatient (CLI) | payer MEDICARE, SELFPAY ==
--- NOTE | ~2025-05-25 | XR_ITS ---
XR lumbar spine 2-3V Indication: Sacral Pain, Low back pain Comparison: None Findings: Levoconvex scoliosis. Moderate loss of vertebral height throughout. Grade 1 anterolisthesis of L4 on L5 grade 1 retrolisthesis of L1 on L2 and L2 on L3, no acute fracture. Moderate to severe loss of disc height throughout. Soft tissues unremarkable Impression: No acute abnormality. Reviewed, dictated and finalized at location A. Impression: No acute abnormality.
--- OUTSIDE RECORDS SUMMARY | 2025-05-25 12:19 | XMS_ITS | Encounter Summary ---
Author Organization [facility] Address [address] [place] [address] Care Team Providers Care Marketing Automation Analyst Name Role Phone Christ Coto MD Primary Care Provider Yesy Alonso MD Unavailable Sudhakar Lu Unavailable [phone] Anthony Rojas MD Unavailable [phone] Peggy Celeste PA-C Unavailable [phone] Encounter Details Date Type Department Care Team (Late st Contact Info) Description 02/14/2025 Hospital Follow-up Call [facility] Cardiovascular Care Unit [address] [place] [address] Alicia Salazar, RN Social History Tobacco Use Types Packs/Day Years Used Date Smoking Tobacco: Never Smokeless Tobacco: Never Alcohol Use Standard Drinks/Week Comments Yes 0 (1 standard drink = 0.6 oz pur e alcohol) 2 spiked 4% drinks/week/wine [facility] Utilities Answer Date Recorded In the past 12 months has e electric, gas, oil, or water [employer] threatened to shut off services in your [...] any time in the past 12 m [facility], were you homeless or living in a [facility] (including now)? No 02/01/2025 Comments No Sex [...] Care Team (Late st Contact Info) Description 06/14/2025 9:30 AM CDT Office Visit [facility] [place] [phone] Anthony Rojas MD [address] [place] [phone] Peggy Celeste PA-C [address] [place], [place] [phone] documented as of this encounter Visit Diagnoses Not on filedocumented in this encounter Care Teams Marketing Automation Analyst Relationship Specialty Start Date End Date Christ Coto MD [address] [place] [phone] PCP - General FAMILY PRACTICE 03/12/19 Yesy Alonso MD [address] [facility] [place] [address] Consulting Physician CARDIOVASCULAR DISEASE 05/19/24 Sudhakar Lu PA [address] [place] [phone] Physician Group [employer] PHYSICIAN PAINTER SPRAY 05/19/24 Anthony Rojas MD [address] [place] [address] Consulting Physician CLINICAL CARDIAC ELECTROPHYSIOLOGY 01/16/25 Peggy Celeste PA-C [address] [place] [address] Referring Physician PHYSICIAN PAINTER SPRAY 01/30/25 documented as of this encounter
--- OUTSIDE RECORDS SUMMARY | 2025-05-25 12:19 | XMS_ITS | Encounter Summary ---
Author Organization [facility] Address [address] [place] [address] Care Team Providers Care Critical Care Unit Manager Name Role Phone Christ Coto MD Primary Care Provider [phone] Yesy Alonso MD Unavailable Sudhakar Lu Unavailable [phone] Anthony Rojas MD Unavailable [phone] Peggy Celeste PA-C Unavailable [phone] Encounter Details Date Type Department Care Team (Late st Contact Info) Description 05/16/2024 Hospital Follow-up Call [facility] Cardiovascular Care Unit [address] [place] [address] Alicia Salazar, RN Social History Tobacco Use Types Packs/Day Years Used Date Smoking Tobacco: Never Smokeless Tobacco: Never Alcohol Use Standard Drinks/Week Comments Yes 0 (1 standard drink = 0.6 oz pur e alcohol) 2 spiked 4% drinks/week/wine [facility] Utilities Answer Date Recorded In the [...] in the past 12 m [facility], were you homeless or living in [...] Description 06/14/2025 9:30 AM CDT Office Visit [facility] [place] [phone] Anthony Rojas MD [address] [place] [phone] Peggy Celeste PA-C [address] [place], [place] [phone] documented as of this encounter Visit Diagnoses Not on filedocumented in this encounter Care Teams Critical Care Unit Manager Relationship Specialty Start Date End Date Christ Coto MD [address] [place] [phone] PCP - General FAMILY PRACTICE 03/12/19 [place] [address] [place] [address] [place] [address] Consulting Physician CARDIOVASCULAR DISEASE 05/19/24 Sudhakar Lu PA [address] [place] [phone] Physician Truck [employer] Motor Mechanic PHYSICIAN CHANNEL SALES MANAGER 05/19/24 Anthony Rojas MD [address] [place] [address] Consulting Physician CLINICAL CARDIAC ELECTROPHYSIOLOGY 01/16/25 Peggy Celeste PA-C [address] [place] [address] Referring Physician PHYSICIAN CHANNEL SALES MANAGER 01/30/25 documented as of this encounter
--- OUTSIDE RECORDS SUMMARY | 2025-05-25 12:19 | XMS_ITS | Encounter Summary ---
Author Organization [facility] Address [address] [place] [address] Care Team Providers Care Diaper Machine Tender Name Role Phone Christ Coto MD Primary Care Provider Yesy Alonso MD Unavailable Sudhakar Lu Unavailable [phone] Anthony Rojas MD Unavailable [phone] Peggy Celeste PA-C Unavailable [phone] Encounter Details Date Type Department Care Team (Late st Contact Info) Description 03/27/2025 Hospital Follow-up Call [facility] Cardiovascular Care Unit [address] [place] [address] Alicia Salazar, RN Social History Tobacco Use Types Packs/Day Years Used Date Smoking Tobacco: Never Smokeless Tobacco: Never Alcohol Use Standard Drinks/Week Comments Yes 0 (1 standard drink = 0.6 oz pur e alcohol) 2 spiked 4% drinks/week/wine [facility] Utilities Answer Date Recorded In the past 12 months has e electric, gas, oil, or water company threatened to shut off services in your home? No 03/22/2025 Humiliation, Afraid, Rape, and Kick questionnair e Answer Date Recorded Within the last year, have y ou been afraid of your partner or ex-partner? No 03/22/2025 Within the last year, have y ou been humiliated or emotionally abused in other ways by your partner or ex-partner? No Within the last year, have y ou been kicked, hit, slapped, or otherwise physically hurt by your partner or ex-partner? No 03/22/2025 Within the last year, have y ou been raped or forced to have any kind of sexual activity by your partner or ex-partner? No 03/22/2025 AUDIT-C Answer Date Recorded Frequency of Alcohol Consumption Never 03/12/2019 Average Number of Drinks Not on file 019 Frequency of Binge Drinking Not on file 02/2019 Overall Financial Resource Strain (CARDIA) Answe r Date Recorded How hard is it for you to pa y for the very basics like food, housing, medical care, and heating? Not very hard 03/22/2025 Hunger Vital Sign Answer Date Recorded Within the past 12 months, y ou worried that your food would run out before you got the money to buy more. Never true 03/22/20 25 Within the past 12 months, t he food you bought just didn't last and you didn't have money to get more. Never true 03/22/2025 PRAPARE - Transportation Answer Date Re corded In the past 12 months, has l ack of transportation kept you from medical appointments or from getting medications? No 03/07 In the past 12 months, has l ack of transportation kept you from meetings, work, or from getting things needed for daily living? No 03/22/2025 Housing Stability Vital Sign Answer Pepe e Recorded In the last 12 months, was t here a time when you were not able to pay the mortgage or rent on time? No 03/22/2025 In the past 12 months, how m any times have you moved where you were living? 0 03/22/2025 At any time in the past 12 m [facility], were you homeless or living in a [place] [facility] (including now)? No 03/22/2025 Comments No Sex and Gender Information Value Date Recorded Sex Assigned at Female 02/01/2025 5:16 AM CDT Legal Sex Female 8:38 PM CDT Gender Identity Not on file Sexual Orientation Not on file documented as of this encounter Functional Status * Are you deaf or do you have serious difficulty hearing Answer Date of Assessment Author Status Yes 03/22/2025 6:21 AM CDBeulah Melchor RN Active * Are you blind or do you have serious difficulty seeing, even when wearing glasses? Answer Date of Assessment Author Status No 03/22/2025 6:21 AM Beulah Huber RN Active * Do you have serious difficulty walking or climbing stairs? Answer Date of Assessment Author Status No 03/22/2025 6:21 AM Beulah Huber RN Active * Do you have difficulty dressing or bathing? Answer Date of Assessment Author Status No 03/22/2025 6:21 AM Beulah Huber RN Active * Because of a physical, mental, or emotional condition, do you have difficulty doing errands alone such as visiting a doctor's office or shopping? Answer Date of Assessment Author Status No 03/22/2025 6:21 AM Beulah Huber RN Active documented as of this encounter Mental Status * Because of a physical, mental, or emotional condition, do you have serious difficulty concentrating, remembering, or making decisions? Answer Entry Date Author Status No 03/22/2025 6:21 AM Beulah Huber RN Active documented in this encounter Plan of Treatment Upcoming Encounters Date Type Department Care Team (Late st Contact Info) Description 06/14/2025 9:30 AM CDT Office Visit [facility] [place] [phone] Anthony Rojas MD [address] [place] [phone] Peggy Celeste PA-C [address] [place] [address] documented as of this encounter Visit Diagnoses Not on filedocumented in this encounter Care Teams Diaper Machine Tender Relationship Specialty Start Date End Date Christ Coto MD [address] [place] [phone] PCP - General FAMILY PRACTICE 03/12/19 Yesy Alonso MD [address] [place] [address] Consulting Physician CARDIOVASCULAR DISEASE 05/19/24 Sudhakar Lu PA [address] [place] [phone] Physician Timber Treatment Plant Operator PHYSICIAN STATION SUPERVISOR 05/19/24 Anthony Rojas MD [address] [place] [address] Consulting Physician CLINICAL CARDIAC ELECTROPHYSIOLOGY 01/16/25 Peggy Celeste PA-C [address] [place] [address] Referring Physician PHYSICIAN STATION SUPERVISOR 01/30/25 documented as of this encounter
--- OUTSIDE RECORDS SUMMARY | 2025-05-25 12:19 | XMS_ITS | Clinical Summary ---
Author Organization [facility] Address [address] [place] [address] Care Team Providers Care Demand Manager Name Role Phone Christ Coto MD Primary Care Provider Yesy Alonso MD Unavailable Sudhakar Lu Unavailable [phone] Anthony Rojas MD Unavailable [phone] Peggy Celeste PA-C Unavailable [phone] Allergies No known active allergies Medications gabapentin (NEURONTIN) 100 MG capsule Take 1 capsule (100 mg total) by mouth daily. Active omeprazole (PRILOSEC) 40 MG capsule Take 1 capsule (40 mg total) by mouth daily. Active apixaban (ELIQUIS) 5 MG tabletIndicatio ns:Atrial Fibrillation,De ep Vein Thrombosis Take 1 tablet (5 mg total) by mouth 2 (two) times daily. Indications: Atrial Fibrillation , Blood Clot in a Deep Vein 60 tablet 2 03/24/2025 Active Active Problems Problem Noted Date Diagnosed Date DVT (deep venous thrombosis) ([facility]) 0 03/21/2025 Atrial thrombus 04/29/2024 Heart failure with reduced e jection fraction ([facility]) 04/28/2024 Assessment & Plan (05/03/2024 4:41 PM [...] the time of admission. Emphysema of lung ([facility]) 04/28/2024 Pulmonary fibrosis ([facility]) 04/28/2024 Assessment & Plan (04/29/2024 1:19 PM CDT): Patient with known diagnosis has been on oxygen supplemental therapy. Follows up with pulmonary. 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 02/13/2025 Encounters Date Type Department Care Team Description 04/19/2025 [facility]phone [facility] [address] [place] [address] Peggy Celeste PA-C Appointment Reminder 04/18/2025 Telephone [facility] [address] [place] [phone] Peggy Celeste PA-C Appointment Reminder 04/17/2025 Orders Only [facility] [address] [place] [address] Anthony Rojas MD 03/27/2025 Hospital Follow-up Call [facility] [address] [place] [address] Alicia Salazar RN 03/23/2025 Travel 03/22/2025 Travel 03/21/2025 7:49 PM CDT - 03/24/2025 4:23 PM CDT Hospital Encounter [facility] [address] [place] [address] Chloe Almeida MD Shackour, Salim, MD Minhas, Irfan Ul Haq, MD Discharge Disposition: Home or Self Care (Routine Discharge) from Last 3 Months Family History Medical [...] pur e alcohol) 2 spiked 4% drinks/week/wine [facility] Mosa Recordsities Answer Date Recorded In the past 12 months has e [employer], gas, oil, or water [employer] threatened to shut off services in your [...] time in the past [address] [facility], were you homeless or living in a [place] health care facility (including now)? No 03/22/2025 Comments No Sex and Gender Information Value Date Recorded Sex Assigned at Female 02/01/2025 5:16 AM CDT Legal Sex Female 8:38 PM CDT Gender Identity Not on file Sexual Orientation Not on file Last Filed Vital Signs Vital Sign Reading Time Taken Comments Blood Pressure 112/86 03/24/2025 12:16 PM CDT Pulse 73 03/24/2025 12:14 PM CDT Temperature 36.3 C (97.4 F) 03/24/2025 12:16 PM CDT Respiratory Rate 18 03/24/2025 12:16 PM CDT Oxygen Saturation 100% 03/24/2025 12:16 PM CDT Inhaled Oxygen Concentration - - Weight 52.4 kg (115 lb 8.3 oz) 03/24/2025 3:00 A M CDT Height 152 cm (4' 11.84) 03/22/2025 8:29 AM CDT Body Mass Index 22.68 03/22/2025 8:29 AM CDT Plan of Treatment Upcoming Encounters Date Type Department Care Team (Late st Contact Info) Description 06/14/2025 9:30 AM CDT Office Visit [facility] [place] [phone] Anthony Rojas MD [address] [place] [address] Peggy Celeste PA-C [address] [place] [address] Health Maintenance Due Date Last Done Comments ASCVD Statin 1940 DTaP, Tdap and Td Vaccines ( 1 - Tdap) 1960 Pneumococcal Vaccine: 50+ Ye ars (1 of 2 - PCV) 1960 Zoster Vaccines (1 of 2) 12/10/1991 Annual Medicare Wellness Visit 2006 Dexa Scan (General) 2006 RSV Immunization or 60+ Years (1 - 1-dose 75+ series) 2016 COVID-19 Vaccine (2023-2 5 season) 2025 Meningococcal B Vaccine Aged Out No l onger eligible based on patient's age to complete this topic Meningococcal Vaccine Aged Out No nata rhys eligible based on patient's age to complete this topic RSV Immunizations Under 20 Months Aged Out No longer eligible based on patient's age to complete this topic Medical Devices Implanted Type Area Raw Juice Weigher Device Identifier Shelf Expiration Date Model / Serial / Lot Agent Hemostatic Surgiflo 8 Ml Kit - [id number] Implanted:Qty: 1 on 02/03/2025 by Taryn Ruiz MD at [facility] [employer] [id number] 06/06/2026 [id number] / / [id number] Agent Hemostatic Surgiflo 8 Ml Kit - [id number] Implanted:Qty: 1 on 02/03/2025 by Jonnathan Galindo MD at [facility] [employer] [place] [id number] 06/06/2026 2994 / / [id number] Procedures Procedure Name Priority Date/Time Associated Diagnosis Comments MAGNESIUM Routine 03/24/2025 5:12 AM CDT BASIC METABOLIC PANEL Routine 03/24/2025 5:12 AM CDT CBC W/DIFF AUTOMATED Routine 03/24/2025 5:12 AM CDT USV EILEEN LTD RAJI Today 03/23/2025 1:47 PM CDT HEPARIN, ANTI XA, UFH TIMED 03/23/2025 12:47 PM CDT HEPARIN, ANTI XA, UFH TIMED 03/23/2025 8:40 AM CDT HEPARIN, ANTI XA, UFH TIMED 03/23/2025 1:31 AM CDT BASIC METABOLIC PANEL Routine 03/23/2025 1:31 AM CDT PROTHROMBIN TIME, VENOUS Routine 03/23/2025 1:31 AM CDT CBC W/DIFF AUTOMATED Routine 03/23/2025 1:31 AM CDT HEPARIN, ANTI XA, UFH TIMED 03/22/2025 11:47 PM CDT HEPARIN, ANTI XA, UFH TIMED 03/22/2025 4:43 PM CDT HEPARIN, ANTI XA, UFH TIMED 03/22/2025 1:40 PM CDT HEPARIN, ANTI XA, UFH TIMED 03/22/2025 11:14 AM CDT HEPARIN, ANTI XA, UFH TIMED 03/22/2025 4:18 AM CDT PARTIAL THROMBOPLASTIN TIME,PTT Routine 03/22/2025 4:18 AM CDT BASIC METABOLIC PANEL Routine 03/22/2025 4:18 AM CDT LIPID PANEL Routine 03/22/2025 4:18 AM CDT PROTHROMBIN TIME, VENOUS Routine 03/22/2025 4:18 AM CDT CBC W/DIFF AUTOMATED Routine 03/22/2025 4:18 AM CDT CTV ABD+PEL WWO CON STAT 03/22/2025 1 :44 AM CDT TYPE & SCREEN Routine 03/21/2025 9:58 PM CDT HEPARIN, ANTI XA, UFH STAT 03/21/2025 9:58 PM CDT PARTIAL THROMBOPLASTIN TIME,PTT STAT 03/21/2025 9:58 PM CDT PROTHROMBIN TIME, VENOUS STAT 03/21/2025 9:58 PM CDT LACTIC ACID STAT 03/21/2025 9:58 PM CDT PRO-BRAIN NATRIURETIC PEPTIDE STAT 03/21/2025 9:58 PM CDT MAGNESIUM STAT 03/21/2025 9:58 PM CDT COMPREHENSIVE METABOLIC PANEL STAT 03/21/2025 9:58 PM CDT CBC W/DIFF AUTOMATED STAT 03/21/2025 9:58 PM CDT ECG 12-LEAD Routine 03/21/2025 9:05 PM CDT from Last 3 Months Results * (ABNORMAL) BASIC METABOLIC PANEL (03/24/2025 5:12 AM CDT) Only the most recent of3 resultswithin the time period is included. SODIUM S/P/B 135(L) 136 - 145 MMOL/L 03/24/2025 6:18 AM T [facility] POTASSIUM S/P/B 4.5 3.5 - 5.1 MMOL/L 03/24/2025 6:18 AM T [facility] CHLORIDE S/P/B 105 97 - 115 MMOL/L 03/24/2025 6:18 AM T [facility] CO2 27.1 21.0 - 32.0 MMOL/L 03/24/2025 6:18 AM T [facility] GLUCOSE 98 74 - 106 MG/DL 03/24/2025 6:18 AM [facility] BUN 24(H) 7 - 18 MG/DL 03/24/2025 6:18 AM [facility] CREATININE S/P/B 0.70 0.55 - 1.02 MG/DL 03/24/2025 6:18 AM T [facility] CALCIUM S/P/B 8.6 8.5 - 10.1 MG/DL 03/24/2025 6:18 AM [facility] ANION GAP 2.9 2.0 - 10.0 MMOL/L 03/24/2025 6:18 AM [facility] OSMOLALITY (CALC) 284 MOSM/KG 025 6:18 AM [facility] Comment:REFERENCE RANGE NOT ESTABLISHED GFR ESTIMATE 86(L) >90 ML/MIN/1. 73 M2 03/24/2025 6:18 AM [facility] GFR NOTES GFR REFERENCE S: 03/24/2025 6:18 AM [facility] Comment: THE ESTIMATED GFR IS [...] ml/min/1.73 m2 G5,KIDNEY FAILURE: <15 ml/min/1.73 m2 03/24/2025 5:12 AM CDT us Irfan Ul Kang Bill MD LABORATORY Final Res ult [facility] [address] [place] [address], [id number] * (ABNORMAL) CBC W/DIFF AUTOMATED (03/24/2025 5:12 AM CDT) Only the most recent of4 resultswithin the time period is included. WBC 6.25 4.00 - 10.80 x10'3/uL 03/24/2025 5:42 AM CDT [facility] RBC 3.00(L) 4.10 - 5.40 x10'6/uL 03/24/2025 5:42 AM CDT [facility] HGB 9.5(L) 12.0 - 16.0 G/DL 03/24/2025 5:42 AM CDT [facility] HCT 30.2(L) 36.0 - 47.0 % 03/24/2025 5:42 AM CDT [facility] MCV 100.7(H) 78.0 - 100.0 FL 03/24/2025 5:42 AM CDT [facility] MCH 31.7(H) 27.0 - 31.0 PG 03/24/2025 5:42 AM CDT [facility] MCHC 31.5(L) 33.0 - 36.0 G/DL 03/24/2025 5:42 AM CDT [facility] RDW 14.9(H) 11.5 - 14.5 % 03/24/2025 5:42 AM CDT [facility] PLT 315 150 - 350 x10'3/uL 03/24/2025 5:42 AM CDT [facility] MPV 9.2 7.4 - 10.4 FL 03/24/2025 5:42 AM CDT [facility] DIFFERENTIAL TYPE AUTOMATED DIFFERENTIAL 03/24/2025 5:42 AM CDT [facility] SEG NEUTROPHILS 45.9 % 5:42 AM CDT [facility] LYMPHOCYTES 33.0 % 03/24/2025 5:42 AM CDT [facility] MONOCYTES 13.1 % 03/24/2025 5:42 AM CDT [facility] EOSINOPHILS 6.9 % 03/24/2025 5:42 AM CDT [facility] BASOPHILS 0.6 % 03/24/2025 5:42 AM CDT [facility] IMMATURE GRANS % 0.5 % 03/24/20 5:42 AM CDT [facility] ABS. NEUTROPHILS 2.87 1.60 - 8.30 x10'3/uL 03/24/2025 5:42 AM CDT [facility] ABS. LYMPHOCYTES 2.06 0.80 - 4.70 x10'3/uL 03/24/2025 5:42 AM CDT [facility] ABS. MONOCYTES 0.82 0.00 - 1.50 x10'3/uL 03/24/2025 5:42 AM CDT [facility] ABS. EOSINOPHILS 0.43(H) 0.00 - 0.40 x10'3/uL 03/24/2025 5:42 AM CDT [facility] ABS. BASOPHILS 0.04 0.00 - 0.20 x10'3/uL 03/24/2025 5:42 AM CDT [facility] ABS. IMMATURE GRANULOCYTES 0.03 0.00 - 0.03 x10'3/uL 03/24/2025 5:42 AM CDT [facility] ABS. NUCLEATED RBC'S 0.00 0.00 - 0.01 x10'3/uL 03/24/2025 5:42 AM CDT [facility] NRBC % 0.0 % 03/24/2025 5:42 AM CDT [facility] 03/24/2025 5:12 AM CDT Osito Bill MD LABORATORY Final Res ult Performing Organization Address City/[facility]/ZIP Co de Phone Number [facility] [address] [place] [address], [id number] * MAGNESIUM (03/24/2025 5:12 AM CDT) Only the most recent of2 resultswithin the time period is included. MAGNESIUM 2.2 1.6 - 2.6 MG/DL 03/24/2025 6:18 AM CDT [facility] 03/24/2025 5:12 AM CDT Osito Bill MD LABORATORY Final Res ult Performing Organization Address [facility] Co de Phone Number [facility] [address] [place] [address], [id number] * USV EILEEN LTD RAJI (03/23/2025 1:47 PM CDT) Anatomical Region Laterality Modality Extremity Ultrasound 03/23/2025 9:05 AM CDT Narrative 03/23/2025 2:35 PM CDT Vascular Report Pat.Name: KENA VELAZQUEZ Pat.ID: [id number] St.Date: 03/23/2025 Refer.MD: OSITO BILL Exam Time: 9:05:00 AM Study Type:PVI ART DOPPLER-EILEEN Height: 152 cm Age: 4 1940,84Y Sex: F Sonogrphr: Donovan Rader, T Pat. Stat.:Inpatient Room: 600 ICD - 9: I73.9 PVD (peripheral arterial/vascular disease) CPT - 4: 60075 EILEEN/WBI Reason for Study:PVD Race: W ++++++++++++++++++++++++++++++++++++ SUMMARY: ++++++++++++++++++++++++++++++++++++ EILEEN Rt: Pulse volume tracings suggest no peripheral arterial occlusive disease. EILEEN Rt: TBI is within normal range. EILEEN Lt: Pulse volume tracings suggest no peripheral arterial occlusive disease. EILEEN Lt: TBI is within normal range. ++++++++++++++++++++++++++++++++++++ FINDINGS: ++++++++++++++++++++++++++++++++++++ EILEEN Rt: The resting EILEEN is 1.33. The resting EILEEN is within normal range. Pulse volume tracings suggest no peripheral arterial occlusive disease. The toe pressure is 108 mmHg. The TBI is 0.84. TBI is within normal range. EILEEN Lt: The resting EILEEN is 0.95. This suggests borderline peripheral arterial disease. Pulse volume tracings suggest no peripheral arterial occlusive disease. The toe pressure is 109 mmHg. The TBI is 0.85. TBI is within normal range. ++++++++++++++++++++++++++++++++++++ MEASUREMENTS: ++++++++++++++++++++++++++++++++++++ PRESSURES Right Brachial Brach P 129 mmHg Right Ankle DP AnkleDP P 150 mmHg Right Ankle PT AnklePT P 171 mmHg Right Great Toe GreatToe P 108 mmHg Right EILEEN PT EILEEN PT 1.33 Right EILEEN DP EILEEN DP 1.16 Right TBI TBI 0.837 Left Brachial Brach P 129 mmHg Left Ankle DP AnkleDP P 119 mmHg Left Ankle PT AnklePT P 123 mmHg Left Great Toe GreatToe P 109 mmHg Left EILEEN PT EILEEN PT 0.953 Left EILEEN DP EILEEN DP 0.922 Left TBI TBI 0.845 <Electronic Signature> 03/23/2025 02:35 PM Ignacio Cain M.D. Procedure Note Ignacio Cain MD - 03/23/2025 Vascular Report Pat.Name: KENA VELAZQUEZ Pat.ID: [id number] .Date: 03/23/2025 Refer.MD: OSITO BILL KANG Exam Time: 9:05:00 AM Study Type:PVI ART DOPPLER-EILEEN Height: 152 cm Age: 4 1940,84Y Sex: F Sonogrphr: SLIM Pressley. Stat.:Inpatient Room: [facility] ICD - 9: I73.9 PVD (peripheral arterial/vascular disease) CPT - 4: 48048 EILEEN/WBI Reason for Study:PVD Race: W ++++++++++++++++++++++++++++++++++++ SUMMARY: ++++++++++++++++++++++++++++++++++++ EILEEN Rt: Pulse volume tracings suggest no peripheral arterial occlusive disease. EILEEN Rt: TBI is within normal range. EILEEN Lt: Pulse volume tracings suggest no peripheral arterial occlusive disease. EILEEN Lt: TBI is within normal range. ++++++++++++++++++++++++++++++++++++ FINDINGS: ++++++++++++++++++++++++++++++++++++ EILEEN Rt: The resting EILEEN is 1.33. The resting EILEEN is within normal range. Pulse volume tracings suggest no peripheral arterial occlusive disease. The toe pressure is 108 mmHg. The TBI is 0.84. TBI is within normal range. EILEEN Lt: The resting EILEEN is 0.95. This suggests borderline peripheral arterial disease. Pulse volume tracings suggest no peripheral arterial occlusive disease. The toe pressure is 109 mmHg. The TBI is 0.85. TBI is within normal range. ++++++++++++++++++++++++++++++++++++ MEASUREMENTS: ++++++++++++++++++++++++++++++++++++ PRESSURES Right Brachial Brach P 129 mmHg Right Ankle DP AnkleDP P 150 mmHg Right Ankle PT AnklePT P 171 mmHg Right Great Toe GreatToe P 108 mmHg Right EILEEN PT EILEEN PT 1.33 Right EILEEN DP EILEEN DP 1.16 Right TBI TBI 0.837 Left Brachial Brach P 129 mmHg Left Ankle DP AnkleDP P 119 mmHg Left Ankle PT AnklePT P 123 mmHg Left Great Toe GreatToe P 109 mmHg Left EILEEN PT EILEEN PT 0.953 Left EILEEN DP EILEEN DP 0.922 Left TBI TBI 0.845 <Electronic Signature> 03/23/2025 02:35 PM Ignacio Cain M.D. Osito Bill MD [facility] Final Res ult * HEPARIN, ANTI XA, UFH (03/23/2025 12:47 PM CDT) Only the most recent of9 resultswithin the time period is included. Pathologist [facility] HEPARIN ANTI XA UFH 0.50 0.30 - 0.70 IU/ML 03/23/2025 1:12 PM CDT [facility] Comment: UFH Therapeutic Anti Xa Ranges: Medical Therapeutic Range: 0.30 - 0.70 IU/mL Cardiac Therapeutic Range: 0.30 - 0.50 IU/mL Neuro Therapeutic Range: 0.20 - 0.40 IU/mL 03/23/2025 12:4 7 PM CDT Osito Bill MD LABORATORY Final Res ult [facility] [address] [place] [address], [id number] * (ABNORMAL) PROTIME/INR, VENOUS (03/23/2025 1:31 AM CDT) Only the most recent of3 resultswithin the time period is included. PROTIME 12.6(H) 9.4 - 12.5 SEC 03/23/2025 2:40 AM CDT [facility] INR 1.1 0.8 - 1.1 03/23/2025 2:40 AM CDT [facility] 03/23/2025 1:31 AM CDT Bradley Forrest MD LABORATORY Final Result Performing Organization Address [facility] de Phone Number [facility] [address] [place] [address], [phone] * (ABNORMAL) PARTIAL THROMBOPLASTIN TIME,PTT (03/22/2025 4:18 AM CDT) Only the most recent of2 resultswithin the time period is included. PTT 22.6(L) 25.1 - 36.5 SEC 03/22/2025 4:53 AM CDT [facility] 03/22/2025 4:18 AM CDT Jonnathan Galindo MD LABORATORY Final Result Performing Organization Address City/[facility] Co de Phone Number [facility] [address] [place] [address], [id number] * LIPID PANEL (03/22/2025 4:18 AM CDT) CHOLESTEROL 169 MG/DL 03/22/2025 5:03 AM CDT [facility] Comment:DESIRABLE: <200 TRIGLYCERIDES 83 MG/DL 03/22/2025 5:03 AM CDT [facility] Comment:<150 NORMAL HDL 69 >49 MG/DL 03/22/2025 5:03 AM CDT [facility] LDL (CALCULATED) 83 MG/DL 03/22/20 5:03 AM CDT [facility] Comment:<100 OPTIMAL VLDL CALCULATION 17 MG/DL 03/22/20 5:03 AM CDT [facility] Comment:REFERENCE RANGE NOT ESTABLISHED CHOL/HDL RATIO 2.4 03/22/2025 5:03 AM CDT [facility] Comment:REFERENCE RANGE NOT ESTABLISHED LDL/HDL 1.2 03/22/2025 5:03 AM CDT [facility] Comment:REFERENCE RANGE NOT ESTABLISHED NON HDL CHOLESTEROL 100 MG/DL 03/22/2025 5:03 AM CDT [facility] Comment:REFERENCE RANGE NOT ESTABLISHED 03/22/2025 4:18 AM CDT Bradley Forrest MD LABORATORY Final Result [facility] [address] [place] [address], [id number] * CTV ABD+PEL WWO CON (03/22/2025 1:44 AM CDT) Anatomical Region Laterality Modality NA Computed Tomogra phy 03/22/2025 1:53 AM CDT Impressions 03/22/2025 2:02 AM CDT Impression: 1. There is no definite thrombus noted in the IVC or common and external iliac veins. 2. Additional chronic findings as described. Referred By: MEL BETH Interpreted By: Chad Allen MD, 03/22/2025 1:53 AM Narrative 03/22/2025 2:02 AM CDT [facility] [address] [place] [address] Examination: CTV ABD+PEL WWO CON Exam time: 03/22/2025 1:44 AM Indication: Rule out ileal caval thrombus. Left thigh pain. Thrombus reported on recent ultrasound. Comparison:CT chest, abdomen, and pelvis 02/07/2025 Technique: IV contrast: 130 mL Isovue 370. Oral contrast: None Technical comments: Venogram technique. Dose reduction: This CT exam was performed using one or more of the following dose reduction techniques: Automated exposure control, adjustment of the mA and/or kV according to patient size, and/or use of iterative reconstruction technique. Findings: Nonvascular findings: Images of the lung bases demonstrate fibrotic changes. Cardiomegaly. There is a mildly lobular contour of the liver, nonspecific. Cholecystectomy. The spleen and pancreas are unremarkable. No adrenal mass. Left renal atrophy and left renal cysts are noted. There is no ureteral calculus. No calculus in the urinary bladder. Cysts are noted in the mesentery in the region of the adnexa which appear smaller when compared to the previous examination. Hysterectomy. There is diverticulosis of the sigmoid colon without evidence for diverticulitis. No bowel obstruction or free intraperitoneal air. No acute osseous abnormality. Vascular findings: There is no definite thrombus noted in the IVC or common and external iliac veins. There is atherosclerosis of the abdominal aorta without aneurysm. The celiac artery and superior mesenteric artery are patent. The inferior mesenteric artery is patent. There is severe calcification of the origin of the left renal artery which may be occluded. There is a patent single right renal artery. Procedure Note Chad Allen MD - 03/22/[address] [address] Examination: CTV ABD+PEL WWO CON Exam time: 03/22/2025 1:44 AM Indication: Rule out ileal caval thrombus. Left thigh pain. Thrombusreported on recent ultrasound. Comparison:CT chest, abdomen, and pelvis 02/07/2025 Technique: IV contrast: 130 mL Isovue 370. Oral contrast: None Technical comments: Venogram technique. Dose reduction: This CT exam was performed using one or more of thefollowing dose reduction techniques: Automated exposure control,adjustment of the mA and/or kV according to patient size, and/or use ofiterative reconstruction technique. Findings: Nonvascular findings: Images of the lung bases demonstrate fibroticchanges. Cardiomegaly. There is a mildly lobular contour of the liver,nonspecific. Cholecystectomy. The spleen and pancreas are unremarkable.No adrenal mass. Left renal atrophy and left renal cysts are noted.There is no ureteral calculus. No calculus in the urinary bladder. Cystsare noted in the mesentery in the region of the adnexa which appearsmaller when compared to the previous examination. Hysterectomy. Thereis diverticulosis of the sigmoid colon without evidence fordiverticulitis. No bowel obstruction or free intraperitoneal air. Noacute osseous abnormality. Vascular findings: There is no definite thrombus noted in the IVC orcommon and external iliac veins. There is atherosclerosis of theabdominal aorta without aneurysm. The celiac artery and superiormesenteric artery are patent. The inferior mesenteric artery is patent.There is severe calcification of the origin of the left renal artery whichmay be occluded. There is a patent single right renal artery. Impression: 1. There is no definite thrombus noted in the IVC or common and externaliliac veins. 2. Additional chronic findings as described. Referred By: MEL BETH Interpreted By: Chad Allen MD, 03/22/2025 1:53 AM Jonnathan Galindo MD CT Final Result * (ABNORMAL) PRO-BRAIN NATRIURETIC PEPTIDE (03/21/2025 9:58 PM CDT) PRO-B TYPE NATRIURETIC PEPTIDE 4,089(H) <450 PG/ML 03/21/2025 10:34 PM CDT [facility] Comment: AGE INDEPENDENT: <300 PG/ML [...] OF 89% AND 72% FOR ACUTE CHF. 03/21/2025 9:58 PM CDT Bradley Forrest MD LABORATORY Final Result Performing Organization Address [facility] Co de Phone Number [facility] [address] [place] [address], [id number] * TYPE & SCREEN (03/21/2025 9:58 PM CDT) UNITS ORDERED 2 03/21/2025 10:11 PM CDT [facility] ABO/RH A POSITIVE 03/21/2025 10:49 PM CDT [facility] ANTIBODY SCREEN NEGATIVE 03/21/2025 10:49 PM CDT [facility] SAMPLE EXPIRATION 03/24/2025,2 359 03/21/2025 10:11 PM CDT [facility] 03/21/2025 9:58 PM CDT Jonnathan Galindo MD BLOOD BANK TEST ORDERABLES Fin al Result Performing Organization Address [facility] Co de Phone Number [facility] [address] [place] [address], [phone] * (ABNORMAL) COMPREHENSIVE METABOLIC PANEL (03/21/2025 9:58 PM CDT) SODIUM S/P/B 136 136 - 145 MMOL/L 03/21/2025 10:34 PM CDT [facility] POTASSIUM S/P/B 4.1 3.5 - 5.1 MMOL/L 03/21/2025 10:34 PM CDT [facility] CHLORIDE S/P/B 100 97 - 115 MMOL/L 03/21/2025 10:34 PM CDT [facility] CO2 32.1(H) 21.0 - 32.0 MMOL/L 03/21/2025 10:34 PM CDT [facility] GLUCOSE 101 74 - 106 MG/DL 03/21/2025 10:34 PM CDT [facility] BUN 31(H) 7 - 18 MG/DL 03/21/2025 10:34 PM T [facility] CREATININE S/P/B 0.96 0.55 - 1.02 MG/DL 03/21/2025 10:34 PM [facility] CALCIUM S/P/B 8.9 8.5 - 10.1 MG/DL 03/21/2025 10:34 PM T [facility] BILIRUBIN TOTAL S/P/B 0.5 0.2 - 1.0 MG/DL 03/21/2025 10:34 PM T [facility] ALKALINE PHOSPHATASE S/P/B 85 55 - 142 U/L 03/21/2025 10:34 PM T [facility] AST 18 15 - 37 U/L 03/21/2025 10:34 PM [facility] ALT 35 13 - 56 U/L 03/21/2025 10:34 PM T [facility] TOTAL PROTEIN S/P/B 6.8 6.4 - 8.2 G/DL 03/21/2025 10:34 PM T [facility] ALBUMIN S/P/B 2.8(L) 3.4 - 5.0 G/DL 03/21/2025 10:34 PM [facility] ANION GAP 3.9 2.0 - 10.0 MMOL/L 03/21/2025 10:34 PM [facility] OSMOLALITY (CALC) 289 MOSM/KG 025 10:34 PM [facility] Comment:REFERENCE RANGE NOT ESTABLISHED GFR ESTIMATE 59(L) >90 ML/MIN/1. 73 M2 03/21/2025 10:34 PM [facility] GFR NOTES GFR REFERENCE S: 03/21/2025 10:34 PM [facility] Comment: THE ESTIMATED GFR IS [...] ml/min/1.73 m2 G5,KIDNEY FAILURE: <15 ml/min/1.73 m2 03/21/2025 9:58 PM CDT Bradley Forrest MD LABORATORY Final Result Performing Organization Address City/[facility]/ZIP Co de Phone Number [facility] [address] [place] [address], [phone] * LACTIC ACID (03/21/2025 9:58 PM CDT) LACTIC ACID VENOUS 0.8 0.4 - 2.0 MMOL/L 03/21/2025 10:32 PM CDT [facility] 03/21/2025 9:58 PM CDT Bradley Forrest MD LABORATORY Final Result Performing Organization Address [facility] Co de Phone Number [facility] [address] [place] [address], [phone] * ECG 12 lead (03/21/2025 9:05 PM CDT) 03/21/2025 9:05 PM CDT Narrative [facility] - 03/21/2025 10:30 PM CDT [facility] [address] [place] [address] Test Date: 2025-03-21 Pat Name: KENA VELAZQUEZ Department: 1 Room: [facility] Gender: Female Historical Archeologist: Taco : 1940 Requested By: BRADLEY FORREST Order Number: [id number] Reading : Carlos Cam Measurements Intervals [place] Rate: 88 P: 0 IN: 0 QRS: -10 QRSD: 91 T: 117 QT: 383 QTc: 465 Interpretive Statements ATRIAL FIBRILLATION WITH CONTROLLED VENTRICULAR RESPONSE Procedure Note Carlos Cam MD - 03/21/2025 [facility] [address] [place] [address] Test Date: 2025-03-21 Pat Name: KENA VELAZQUEZ Department: 1 Room: 600AA Gender: Female Historical Archeologist: Taco : 1940 Requested By: BRADLEY FORREST Order Number: [id number] Reading : Carlos Cam Measurements Intervals [place] Rate: 88 P: 0 IN: 0 QRS: -10 QRSD: 91 T: 117 QT: 383 QTc: 465 Interpretive Statements ATRIAL FIBRILLATION WITH CONTROLLED VENTRICULAR RESPONSE us Bradley Forrest MD ECG ORDERABLES Final Result [facility] from Last 3 Months Insurance [facility] [place] [address] Advance Directives * Full Code (Latest Code Status on File) Date Activated Date Inactivated Comments 03/21/2025 9:32 PM 03/24/2025 6:28 PM * Full Code Date Activated Date Inactivated Comments 02/03/2025 7:03 PM 02/13/2025 2:53 PM * Full Code Date Activated Date Inactivated Comments 02/01/2025 5:34 AM 02/03/2025 7:03 PM * Full Code Date Activated Date Inactivated Comments 04/27/2024 6:44 PM 05/12/2024 3:20 PM Care Teams Demand Manager Relationship Specialty Start Date End Date Christ Coto MD [address] [place] [phone] PCP - General FAMILY PRACTICE 03/12/19 Yesy Alonso MD [address] [place] [address] [place] [address] Consulting Physician CARDIOVASCULAR DISEASE 05/19/24 Sudhakar Lu PA [address] [place] [phone] Physician Senior Insight Manager [employer] PHYSICIAN MACERATOR OPERATOR 05/19/24 Anthony Rojas MD [address] [place] [address] Consulting Physician CLINICAL CARDIAC ELECTROPHYSIOLOGY 01/16/25 Peggy Celeste PA-C [address] [place] [address] Referring Physician PHYSICIAN MACERATOR OPERATOR 01/30/25
--- OUTSIDE RECORDS SUMMARY | 2025-05-25 12:19 | XMS_ITS | Encounter Summary ---
Author Organization [facility] Address [address] [place] [address] Care Team Providers Care Credit Analysis Manager Name Role Phone Christ Coto MD Primary Care Provider Yesy Alonso MD Unavailable Sudhakar Lu Unavailable [phone] Anthony Rojas MD Unavailable [phone] Peggy Celeste PA-C Unavailable [phone] Encounter Details Date Type Department Care Team (Late st Contact Info) Description 02/12/2019 Abstract [facility] CONVERSION [address] [place], [place] [id number] , Generic MD Jacqueline Social History Tobacco Use Types Packs/Day Years [...] Description 06/14/2025 9:30 AM CDT Office Visit [facility] [address] [place] [phone] Anthony Rojas MD [address] [place], [place] [phone] Peggy Celeste PA-C [address] [place] [address] documented as of this encounter Visit Diagnoses Not on filedocumented in this encounter Additional Health Concerns Infection Onset Date Last Indicated Resolved Time COVID-19 Rule Out 04/27/2024 04/27/2024 04/27/2024 9:42 PM CDT documented as of this encounter Care Teams Credit Analysis Manager Relationship Specialty Start Date End Date Christ Coto MD [address] [place] [phone] PCP - General FAMILY PRACTICE 03/12/19 Yesy Alonso MD [address] [place] [address] [place] [address] Consulting Physician CARDIOVASCULAR DISEASE 05/19/24 Sudhakar Lu PA [address] [place] [phone] Physician Inspector Soldering PHYSICIAN ESTIMATE CLERK 05/19/24 Anthony Rojas MD [address] [place] [phone] Consulting Physician CLINICAL CARDIAC ELECTROPHYSIOLOGY 01/16/25 Peggy Celeste PA-C [address] [place] [address] Referring Physician PHYSICIAN ESTIMATE CLERK 01/30/25 documented as of this encounter
== END 2025-05-25 12:14 | disposition home or self-care (01) ==
LOC: CHSIMG 12:16
PROVIDERS: PCP Family Medicine; Visit Provider Registered Nurse
DX: M53.3 Sacrococcygeal disorders, not elsewhere classified (principal); M54.50 Low back pain, unspecified
CPT/HCPCS: 72100

== ENCOUNTER 2025-06-05 16:57 | Observation (INO) | payer MEDICARE, SELFPAY ==
[2025-06-05] VITALS (17 sets, daily range): BP systolic 117–134; BP diastolic 80–110; PULSE 82–124; RESP 20–32; TEMP 36.4–36.7; O2SAT 87–100; BMI 21.2
--- NOTE | ~2025-06-05 | XR_ITS ---
EXAMINATION: XR chest 1V portable COMPARISON: No comparisons available. HISTORY: sob FINDINGS: Moderate pulmonary venous congestion superimposed on chronic changes. No pneumothorax. Moderate cardiomegaly. Mediastinal and hilar contours are within normal limits. Bony thorax no acute abnormality. Miscellaneous: None Impression: CHF Reviewed, dictated and finalized at location P. Impression: CHF
--- NOTE | 2025-06-05 17:01 | ECG_ITS ---
Test Date: 2025-06-05 17:09:03 Measurements Intervals [place] Rate: 98 P: 0 NM: 0 QRS: 43 QRSD: 95 T: 2 QT: 379 QTc: 485 Interpretive Statements ATRIAL FIBRILLATION INDETERMINATE AXIS INCOMPLETE RIGHT BUNDLE BRANCH BLOCK [90+ ms QRS DURATION, TERMINAL R IN V1/V2, 40+ ms S IN I/aVL/V4/V5/V6] MODERATE VOLTAGE CRITERIA FOR LVH, CONSIDER NORMAL VARIANT [MEETS CRITERIA IN ONE OF: R(aVL), S(V1), R(V5), R(V5/V6)+S(V1)] ABNORMAL RHYTHM ECG Electronically Signed On 06-05-2025 20:28:22 CDT by Jhonny Dawn M.D.
--- NOTE | 2025-06-05 17:03 | ED.SOB ---
HPI - SOB/Dyspnea General Chief Complaint: Shortness of Breath/Dyspnea Stated Complaint: SOB Time Seen by Provider: 06/05/25 17:01 Source: patient Mode of arrival: ambulatory Limitations: no limitations History of Present Illness HPI Narrative: Patient is an 84-year-old female with home oxygen 24 hours a day and she has been out of her oxygen for some time now. She has a home concentrator for that she has been using instead of her oxygen. She was found by EMS to be in the low 80s. She has shortness of breath. She has cough and phlegm. No fever or chills. She does not have COPD. No CHF. 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 MD elicited complaint: shortness of breath, cough and chest pain (From time to time but not at this time) Pertinent past history: other (Respiratory disease, atrial fibrillation with Eliquis, Lasix/edema, hypertension) Onset (ago): day(s) (3 for increased shortness of breath and not having any oxygen) Context: other (Patient is out of her home oxygen and she was found to be low oxygen values by EMS and hypoxia) Timing: constant Severity: moderate Exacerbating factors: exertion and movement Relieving factors: oxygen, bronchodilators and upright position Known history of: other (Hypertension, edema/Lasix, AFib with Eliquis) Associated symptoms: chest pain (In the evenings but not at this time), sputum production, orthopnea and chest congestion Treatment prior to arrival: oxygen (24 hours a day but she is out of this medicine) Related Data Home oxygen amount: 2 liters (Continuous) Home Medications ?Medication ?Instructions ?Recorded ?Confirmed ?Last Taken ?Type gabapentin 100 mg capsule 100 mg PO HS 03/14/25 03/14/25 Unknown History metoprolol succinate 25 mg 25 mg PO Q12H 03/14/25 03/14/25 03/14/25 06:30 History tablet,extended release 24 hr Allergies Allergy/AdvReac Type Severity Reaction Status Date / Time No Known Allergies Allergy Verified 06/05/25 17:03 Review of Systems Review of Systems: All systems reviewed & are unremarkable except as noted in HPI and below Constitutional: Constitutional: Reports no additional constitutional complaints Eyes: Eyes: Reports no additional eye complaints ENT: Reports system reviewed and no additional complaints, except as documented Cardiovascular: Cardiovascular: Reports no additional cardiovascular complaints Respiratory: Respiratory: Reports no additional respiratory complaints Gastrointestinal: Gastrointestinal: Reports no additional gastrointestinal complaints Genitourinary: Genitourinary: Reports no additional female genitourinary complaints Musculoskeletal: Musculoskeletal: Reports no additional musculoskeletal complaints Integumentary/Breasts: Skin/Breast: Reports system reviewed and no additional complaints, except as docu Neurologic: Reports system reviewed and no additional complaints, except as documented Psychiatric: Psychiatric: Reports no additional psychiatric complaints Endocrine: Endocrine: Reports no additional endocrine complaints Hematologic/Lymphatic: Hematologic/Lymphatic: Reports no additional hematologic/lymphatic complaints Allergic/Immunologic: Allergic/Immunologic: Reports no additional allergic/immunologic complaints [facility] Past Medical History Medical History Acute and chronic respiratory failure with hypoxia Hypertension Dvt femoral (deep venous thrombosis) Atrial fibrillation Surgical History Surgical History History of thrombectomy Family History Family History Father Congestive heart failure Social History Social History Years smoked: 0.5 Smoking status: Light tobacco smoker Tobacco type: cigarettes Smoking end date: 03/01/1962 Alcohol intake: former Substance use: never Do You Feel Safe in your Home?: Yes Lack of Transportation: No Lack of Food: Never True Current Housing: I Have Housing Concerned About Future Housing: No Difficulty Paying Gas/Electric Bills: No Difficulty Paying for Meds: No Currently Unemployed: No Education: Associate Degree Difficulty w/ Childcare or Family Care: No Spiritual care concerns: No Exam Const: General: healthy appearing Nutritional Appearance: well nourished Orientation/consciousness: patient oriented x3 Limitations: no limitations HENMT: Head: normal to inspection Ears: external ears normal Face/Nose/Sinus: Normal external nose present Eyes: Conjunctivae: conjunctivae normal Pupils: Equal, round and reactive pupils present EOM: EOMs intact bilaterally Neck: Neck: normal visual inspection Chest: Chest palpation & inspection: normal inspection of the chest Resp: Effort & Inspection: normal respiratory effort and not labored Auscultation: clear to auscultation bilaterally, crackles bilateral and diffuse, no rales, no rhonchi, no wheezes, breath sounds present and diminished lung sounds Cardio: Rate: regular rate, bradycardic and tachycardic GI: Inspection: distended GI Palp: No Soft to palpation, Yes Tenderness to palpation present (GI) (Diffuse abdomen), No Guarding due to palpation present (GI), No Rigid due to palpation, No Hernia present, No Palpable mass present and No Rebound tenderness present Auscultation: bowels sounds not normal and Hypoactive bowel sounds present : General: Yes bladder normal to palpation Back/Spine/Pelvis: Back: no CVA tenderness Skin: General skin exam: normal color Rashes: no rashes Wounds: no wounds Neuro: General: patient oriented x3 Cranial nerves: Yes Nystagmus not present Speech: normal speech Other: Fast exam negative, NIH is 0, GCS 15 Extrem: General: normal to inspection, no clubbing, cyanosis or edema and no pedal edema Psych: Mental Status: mental status grossly normal Affect: normal affect Attitude: cooperative Course Vital Signs Vital signs: Vital Signs Temperature 36.7 C 06/05/25 16:57 Pulse Rate 82 06/05/25 16:57 Respiratory Rate 21 H 06/05/25 16:57 Blood Pressure 124/93 H 06/05/25 16:57 Pulse Oximetry 100 06/05/25 16:57 Oxygen Delivery Nasal Cannula 06/05/25 16:57 Oxygen Flow Rate 4 06/05/25 16:57 Temperature 36.7 C 06/05/25 16:57 Pulse Rate 109 H 06/05/25 18:38 Respiratory Rate 24 H 06/05/25 18:38 Blood Pressure 121/110 H 06/05/25 18:38 Pulse Oximetry 97 06/05/25 18:38 Oxygen Delivery Nasal Cannula 06/05/25 18:01 Oxygen Flow Rate 2 06/05/25 18:01 MDM - SOB/Dyspnea MDM Narrative Medical decision making narrative: Patient is an 84-year-old female with lung disease but not COPD and she uses home oxygen 24 hours a day. Her home oxygen machine is out of oxygen for some time now. She uses a home concentrator otherwise. Check labs. Check a chest x-ray. EKG. Pulmonary cardiac workup at this time. Patient has a history of CHF per records. She has history of pulmonary fibrosis. He has history of hypoxia. All in all, the patient has acute on chronic situations and she could stay at this facility for further evaluation and treatment. We will admit to [facility]. ECHO up-to-date. Medical Records Attestation: I reviewed the patient's medical records. Medical records narrative: Echocardiogram done 2 months ago shows: Summary 1. Complete two-dimensional, color flow and Doppler transthoracic echocardiogram is performed. 2. Left ventricular chamber dimension is normal. 3. Left ventricular systolic function is normal, estimated at 55-60. 4. There is mild concentric increased left ventricular wall thickness. 5. The left ventricular diastolic function is indeterminate. 6. Atrial fibrillation. 7. Left atrial chamber dimension is moderately enlarged. 8. Right atrial chamber dimension is moderately enlarged. 9. The mitral valve has a mildly calcified annulus. 10. There is moderate mitral valve regurgitation. 11. There is moderate tricuspid valve regurgitation. 12. Severe pulmonary hypertension, estimated pulmonary arterial systolic pressure is 78 mmHg. 13. The aortic valve is not well visualized. Cannot determine number of aortic valve leaflets. 14. There is trace pulmonic regurgitation. 15. Dilated inferior vena cava with >50% collapse upon inspiration consistent with elevated right atrial pressure, 10 mmHg. 16. There is trivial pericardial effusion. Lab Data Attestation: I reviewed the patient's lab results. 06/05/25 17:37 06/05/25 17:37 Labs: Lab Results 06/05/25 06/05/25 Range/Units 17:23 17:37 WBC 4.8 (4.8-10.8) K/mm3 RBC 3.31 L (4.20-5.40) M/mm3 Hgb 10.4 L (11.7-13.8) g/dL Hct 32.2 L (35.0-42.0) % MCV 97.3 (78.0-102.0) fL MCH 31.4 H (27.0-31.0) pg MCHC 32.3 (32-36) g/dL RDW 15.5 H (11.6-14.4) % Plt Count 295 (150-420) K/mm3 MPV 9.2 (9.2-11.8) fl Immature Gran % (Auto) Not Reportable Neut % (Auto) Not Reportable Lymph % (Auto) Not Reportable [place] % (Auto) Not Reportable Eos % (Auto) Not Reportable Baso % (Auto) Not Reportable Lymph # (Auto) Not Reportable [place] # (Auto) Not Reportable Eos # (Auto) Not Reportable Baso # (Auto) Not Reportable Abs Immat Gran (auto) Not Reportable Absolute Neuts (auto) Not Reportable Absolute Nucleated RBC Not Reportable Total Counted 100 Neutrophils % (Manual) 60 (46-73) % Band Neutrophils % 0 (0-6) % Lymphocytes % (Manual) 27 (18-44) % Monocytes % (Manual) 10 H (3-9) % Eosinophils % (Manual) 3 (1-6) % Nucleated RBC % Not Reportable Abs Neuts (Manual) 2.88 (1.3-6.7) K/mm3 Abs Lymphs (Manual) 1.29 (1.1-4.5) K/mm3 Abs Monocytes (Manual) 0.48 (0.1-0.90) K/mm3 Absolute Eos (Manual) 0.14 (0.02-0.50) K/mm3 Nucleated RBCs 1 % Platelet Estimate Adequate (Adequate) Hypochromasia 1+ Poikilocytosis 1+ Anisocytosis 2+ Schistocytes None seen Sodium 140 (137-145) mmol/L Potassium 4.9 (3.4-5.0) mmol/L Chloride 102 (98-107) mmol/L Carbon Dioxide 27 (22-30) mmol/L Anion Gap 11 (4-12) mmol/L BUN 15 D (7-17) mg/dL Creatinine 0.87 (0.7-1.0) mg/dL Estim Creat Clear Calc 31 ml/min Estimated GFR > 60 (59 - ) Glucose 112 H (65-110) mg/dL Calculated Osmolality 291 (285-295) mOsm/kg Lactic Acid 1.4 (0.4-2.0) mmol/L Calcium 9.8 (8.4-10.2) mg/dL Total Bilirubin 1.3 (0.2-1.3) mg/dL AST 35 (14-36) U/L ALT 18 (6-35) U/L Alkaline Phosphatase 113 (38-126) U/L Troponin I 0.020 (0.000-0.034) ng/mL NT-Pro-B Natriuret Pep 5520 H (19.9-100) pg/mL Total Protein 9.8 H (6.3-8.2) g/dL Albumin 4.4 (3.5-5.1) g/dL Influenza A (RT-PCR) Negative (Negative) Influenza B (RT-PCR) Negative (Negative) RSV (RT-PCR) Negative (Negative) SARS-CoV-2 RNA (RT-PCR) Negative (Negative) Imaging Data Attestation: I personally reviewed and interpreted this imaging study as follows: Radiologist's impression: Chest x-ray shows pulmonary vascular congestion of CHF pattern ECG Data EKG #1: Attestation: I personally reviewed and interpreted this ECG as follows: ECG completion date: 06/05/25 ECG completion time: 17:15 EKG Interpretation: normal rate, atrial fibrillation (Known), PVCs, PACs, ST depression, normal QRS, RBBB (Incomplete), normal QT, left axis and NL axis Discharge Plan Discharge Clinical Impression: Acute and chronic respiratory failure with hypoxia, Pulmonary fibrosis Acute exacerbation of CHF (congestive heart failure) Qualifiers: Heart failure type: unspecified Qualified Code(s): I50.9 - Heart failure, unspecified Atrial fibrillation Qualifiers: Atrial fibrillation type: unspecified Qualified Code(s): I48.91 - Unspecified atrial fibrillation Patient Disposition: Acute Care Hospital [facility] Condition: Stable Patient Language: Slovak Prescriptions: No Action gabapentin 100 mg capsule 100 mg PO HS metoprolol succinate 25 mg tablet extended release 24 hr 25 mg PO Q12H benzonatate 100 mg Capsule 200 mg PO TID Qty: 30 0RF guaifenesin [Mucus Relief ER] 600 mg Tablet Extended Release 12hr 1,200 mg PO Q12HR Qty: 10 0RF furosemide [Lasix] 40 mg tablet 40 mg PO DAILY Qty: 30 0RF prednisone 20 mg tablet 40 mg PO DAILY Qty: 60 0RF Eliquis 5 mg tablet 5 mg PO BID Qty: 60 0RF ondansetron 4 mg tablet,disintegrating 4 mg PO Q8H PRN (Reason: nausea and vomiting) Qty: 30 0RF Follow-up/Referrals: Nnamdi,MD Christ [Primary Care Provider, Family Practice]
--- OUTSIDE RECORDS SUMMARY | 2025-06-05 17:11 | XMS_ITS | Encounter Summary ---
Author Organization [facility] Address [address] [place] [address] Care Team Providers Care Flagger Name Role Phone Christ Coto MD Primary Care Provider Yesy Alonso MD Unavailable Sudhakar Lu Unavailable [phone] Anthony Rojas MD Unavailable [phone] Peggy Celeste PA-C Unavailable [phone] Encounter Details Date Type Department Care Team (Late st Contact Info) Description 02/14/2025 Hospital Follow-up Call [facility] [address] [place] [address] Alicia Salazar, RN Social History Tobacco Use Types Packs/Day Years Used Date Smoking Tobacco: Never Smokeless Tobacco: Never Alcohol Use Standard Drinks/Week Comments Yes 0 (1 standard drink = 0.6 oz pur e alcohol) 2 spiked 4% drinks/week/wine [facility] Utilities Answer Date Recorded In the past 12 months has e electric, gas, oil, or water [employer] threatened to shut off services in your [...] time in the past [address] [facility], were you homeless or living in a intermediate (including now)? No 02/01/2025 Comments No Sex [...] Description 06/14/2025 9:30 AM CDT Office Visit [facility] [place] [phone] Anthony Rojas MD [address] [place] [phone] Peggy Celeste PA-C [address] [place], [place] [address] documented as of this encounter Visit Diagnoses Not on filedocumented in this encounter Care Teams Flagger Relationship Specialty Start Date End Date Christ Coto MD [address] [place] [phone] PCP - General FAMILY PRACTICE 03/12/19 Yesy Alonso MD [address] [facility] [place] [address] Consulting Physician CARDIOVASCULAR DISEASE 05/19/24 Sudhakar Lu PA [address] [place] [phone] Physician Care Transitions Nurse PHYSICIAN INTERFACE ANALYST 05/19/24 Anthony Rojas MD [address] [place] [address] Consulting Physician CLINICAL CARDIAC ELECTROPHYSIOLOGY 01/16/25 Peggy Celeste PA-C [address] [place] [address] Referring Physician PHYSICIAN INTERFACE ANALYST 01/30/25 documented as of this encounter
--- OUTSIDE RECORDS SUMMARY | 2025-06-05 17:11 | XMS_ITS | Clinical Summary ---
Author Organization [facility] Address [address] [place] [address] Care Team Providers Care Compressor Assembler Name Role Phone Christ Coto MD Primary Care Provider Yesy Alonso MD Unavailable Sudhakar Lu Unavailable [phone] Anthony Rojas MD Unavailable [phone] [...] Date Diagnosed Date DVT (deep venous thrombosis) ([facility]) 0 03/21/2025 Atrial thrombus 04/29/2024 Heart failure with reduced e jection fraction ([facility]) 04/28/2024 Assessment & Plan (05/03/2024 4:41 [...] the time of admission. Emphysema of lung ([facility]) 04/28/2024 Pulmonary fibrosis ([facility]) 04/28/2024 Assessment & Plan (04/29/2024 1:19 PM CDT): Patient with known diagnosis has been on oxygen supplemental therapy. Follows up with pulmonary. Atrial fibrillation (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 02/13/2025 Encounters Date Type Department Care Team Description 04/19/2025 Telephone [facility] [address] [place] [address] Peggy Celeste PA-C Appointment Reminder 04/18/2025 Telephone [facility] [address] [place] [phone] Peggy Celeste PA-C Appointment Reminder 04/17/2025 Orders Only [facility] [address] [place] [address] Anthony Rojas MD 03/27/2025 Hospital Follow-up Call [facility] [address] [place] [address] Alicia Salazar RN 03/23/2025 Travel 03/22/2025 Travel 03/21/2025 7:49 PM CDT - 03/24/2025 4:23 PM CDT Hospital Encounter [facility] [address] [place] [address] Chloe Almeida MD Shackour, Salim, MD Minhas, [...] pur e alcohol) 2 spiked 4% drinks/week/wine [facility] [employer] Answer Date Recorded In the past 12 months has e [employer] gas, oil, or water CX threatened to shut off services in your [...] in the past [address] [facility], were you homeless or living in a chcf (including now)? No 03/22/2025 Comments No Sex [...] Description 06/14/2025 9:30 AM CDT Office Visit [facility] [place] [phone] Anthony Rojas MD [address] [place] [address] Peggy Celeste PA-C [address] [place] [address] Health Maintenance Due Date Last [...] this topic Medical Devices Implanted Type Area Airport Operations Duty Manager Device Identifier Shelf Expiration Date Model / Serial / Lot Agent Hemostatic Surgiflo 8 Ml Kit - [id number] Implanted:Qty: 1 on 02/03/2025 by Taryn Ruiz MD at [facility] [employer] [id number] 06/06/2026 [id number] / / [id number] Agent Hemostatic Surgiflo 8 Ml Kit - [id number] Implanted:Qty: 1 on 02/03/2025 by Jonnathan Galindo MD at [facility] [employer] [place] [id number] 06/06/2026 [id number] / / [id number] Procedures Procedure Name Priority Date/Time Associated Diagnosis [...] - 145 MMOL/L 03/24/2025 6:18 AM T [facility] POTASSIUM S/P/B 4.5 3.5 - 5.1 MMOL/L 03/24/2025 6:18 AM T [facility] CHLORIDE S/P/B 105 97 - 115 MMOL/L 03/24/2025 6:18 AM T [facility] CO2 27.1 21.0 - 32.0 MMOL/L 03/24/2025 6:18 AM T [facility] GLUCOSE 98 74 - 106 MG/DL 03/24/2025 6:18 AM [facility] BUN 24(H) 7 - 18 MG/DL 03/24/2025 6:18 AM [facility] CREATININE S/P/B 0.70 0.55 - 1.02 MG/DL 03/24/2025 6:18 AM T [facility] CALCIUM S/P/B 8.6 8.5 - 10.1 MG/DL 03/24/2025 6:18 AM [facility] ANION GAP 2.9 2.0 - 10.0 MMOL/L 03/24/2025 6:18 AM [facility] OSMOLALITY (CALC) 284 MOSM/KG 025 6:18 AM [facility] Comment:REFERENCE RANGE NOT ESTABLISHED GFR ESTIMATE 86(L) >90 ML/MIN/1. 73 M2 03/24/2025 6:18 AM [facility] GFR NOTES GFR REFERENCE S: 03/24/2025 6:18 AM [facility] Comment: THE ESTIMATED GFR IS [...] Kang Bill MD LABORATORY Final Res ult [facility] [address] [place] [address], [phone] * (ABNORMAL) CBC W/DIFF AUTOMATED (03/24/2025 5:12 AM CDT) Only the most recent of4 resultswithin the time period is included. WBC 6.25 4.00 - 10.80 x10'3/uL 03/24/2025 5:42 AM CDT [facility] RBC 3.00(L) 4.10 - 5.40 x10'6/uL 03/24/2025 5:42 AM CDT [facility] HGB 9.5(L) 12.0 - 16.0 G/DL 03/24/2025 5:42 AM CDT [facility] HCT 30.2(L) 36.0 - 47.0 % 03/24/2025 5:42 AM CDT [facility] MCV 100.7(H) 78.0 - 100.0 FL 03/24/2025 5:42 AM CDT [facility] MCH 31.7(H) 27.0 - 31.0 PG 03/24/2025 5:42 AM CDT [facility] MCHC 31.5(L) 33.0 - 36.0 G/DL 03/24/2025 5:42 AM CDT [facility] RDW 14.9(H) 11.5 - 14.5 % 03/24/2025 5:42 AM CDT [facility] PLT 315 150 - 350 x10'3/uL 03/24/2025 5:42 AM CDT [facility] MPV 9.2 7.4 - 10.4 FL 03/24/2025 5:42 AM CDT [facility] DIFFERENTIAL TYPE AUTOMATED DIFFERENTIAL 03/24/2025 5:42 AM CDT [facility] SEG NEUTROPHILS 45.9 % 5:42 AM CDT [facility] LYMPHOCYTES 33.0 % 03/24/2025 5:42 AM CDT [facility] MONOCYTES 13.1 % 03/24/2025 5:42 AM CDT [facility] EOSINOPHILS 6.9 % 03/24/2025 5:42 AM CDT [facility] BASOPHILS 0.6 % 03/24/2025 5:42 AM CDT [facility] IMMATURE GRANS % 0.5 % 03/24/20 5:42 AM CDT [facility] ABS. NEUTROPHILS 2.87 1.60 - 8.30 x10'3/uL 03/24/2025 5:42 AM CDT [facility] ABS. LYMPHOCYTES 2.06 0.80 - 4.70 x10'3/uL 03/24/2025 5:42 AM CDT [facility] ABS. MONOCYTES 0.82 0.00 - 1.50 x10'3/uL 03/24/2025 5:42 AM CDT [facility] ABS. EOSINOPHILS 0.43(H) 0.00 - 0.40 x10'3/uL 03/24/2025 5:42 AM CDT [facility] ABS. BASOPHILS 0.04 0.00 - 0.20 x10'3/uL 03/24/2025 5:42 AM CDT [facility] ABS. IMMATURE GRANULOCYTES 0.03 0.00 - 0.03 x10'3/uL 03/24/2025 5:42 AM CDT [facility] ABS. NUCLEATED RBC'S 0.00 0.00 - 0.01 x10'3/uL 03/24/2025 5:42 AM CDT [facility] NRBC % 0.0 % 03/24/2025 5:42 AM CDT [facility] 03/24/2025 5:12 AM CDT Osito Bill MD LABORATORY Final Res ult Performing Organization Address City/[facility]/ZIP Co de Phone Number [facility] [address] [place] [address], [phone] * MAGNESIUM (03/24/2025 5:12 AM CDT) Only the most recent of2 resultswithin the time period is included. MAGNESIUM 2.2 1.6 - 2.6 MG/DL 03/24/2025 6:18 AM CDT [facility] 03/24/2025 5:12 AM CDT Osito Bill MD LABORATORY Final Res ult Performing Organization Address [facility] Co de Phone Number [facility] [address] [place] [address], [phone] * USV EILEEN LTD RAJI (03/23/2025 1:47 PM CDT) Anatomical Region Laterality Modality Extremity Ultrasound 03/23/2025 9:05 AM CDT Narrative 03/23/2025 2:35 PM CDT Vascular Report Pat.Name: KENA VELAZQUEZ Pat.ID: [id number] St.Date: 03/23/2025 Refer.MD: OSITO BILL Exam Time: 9:05:00 AM Study Type:PVI ART DOPPLER-EILEEN Height: 152 cm Age: 4 1940,84Y Sex: F Sonogrphr: Donovan Rader, T Pat. Stat.:Inpatient Room: 600 ICD - 9: I73.9 PVD (peripheral arterial/vascular disease) CPT - 4: 84776 EILEEN/WBI Reason for Study:PVD Race: W ++++++++++++++++++++++++++++++++++++ [...] 03/23/2025 Vascular Report Pat.Name: KENA VELAZQUEZ Pat.ID: [id number] .Date: 03/23/2025 Refer.MD: OSITO BILL KANG Exam Time: 9:05:00 AM Study Type:PVI ART DOPPLER-EILEEN Height: 152 cm Age: 4 1940,84Y Sex: F Sonogrphr: SLIM Pressley. Stat.:Inpatient Room: [facility] ICD - 9: I73.9 PVD (peripheral arterial/vascular disease) CPT - 4: 47681 EILEEN/WBI Reason for Study:PVD Race: W ++++++++++++++++++++++++++++++++++++ [...] PM Ignacio Cain M.D. Osito Bill MD [facility] Final Res ult * HEPARIN, ANTI XA, UFH (03/23/2025 12:47 PM CDT) Only the most recent of9 resultswithin the time period is included. Pathologist [facility] HEPARIN ANTI XA UFH 0.50 0.30 - 0.70 IU/ML 03/23/2025 1:12 PM CDT [facility] Comment: UFH Therapeutic Anti Xa Ranges: Medical Therapeutic Range: 0.30 - 0.70 IU/mL Cardiac Therapeutic Range: 0.30 - 0.50 IU/mL Neuro Therapeutic Range: 0.20 - 0.40 IU/mL 03/23/2025 12:4 7 PM CDT Osito Bill MD LABORATORY Final Res ult [facility] [address] [place] [address], [phone] * (ABNORMAL) PROTIME/INR, VENOUS (03/23/2025 1:31 AM CDT) Only the most recent of3 resultswithin the time period is included. PROTIME 12.6(H) 9.4 - 12.5 SEC 03/23/2025 2:40 AM CDT [facility] INR 1.1 0.8 - 1.1 03/23/2025 2:40 AM CDT [facility] 03/23/2025 1:31 AM CDT Bradley Forrest MD LABORATORY Final Result Performing Organization Address [facility] de Phone Number [facility] [address] [place] [address], [phone] * (ABNORMAL) PARTIAL THROMBOPLASTIN TIME,PTT (03/22/2025 4:18 AM CDT) Only the most recent of2 resultswithin the time period is included. PTT 22.6(L) 25.1 - 36.5 SEC 03/22/2025 4:53 AM CDT [facility] 03/22/2025 4:18 AM CDT Jonnathan Galindo MD LABORATORY Final Result Performing Organization Address City/[facility] Co de Phone Number [facility] [address] [place] [address], [phone] * LIPID PANEL (03/22/2025 4:18 AM CDT) CHOLESTEROL 169 MG/DL 03/22/2025 5:03 AM CDT [facility] Comment:DESIRABLE: <200 TRIGLYCERIDES 83 MG/DL 03/22/2025 5:03 AM CDT [facility] Comment:<150 NORMAL HDL 69 >49 MG/DL 03/22/2025 5:03 AM CDT [facility] LDL (CALCULATED) 83 MG/DL 03/22/20 5:03 AM CDT [facility] Comment:<100 OPTIMAL VLDL CALCULATION 17 MG/DL 03/22/20 5:03 AM CDT [facility] Comment:REFERENCE RANGE NOT ESTABLISHED CHOL/HDL RATIO 2.4 03/22/2025 5:03 AM CDT [facility] Comment:REFERENCE RANGE NOT ESTABLISHED LDL/HDL 1.2 03/22/2025 5:03 AM CDT [facility] Comment:REFERENCE RANGE NOT ESTABLISHED NON HDL CHOLESTEROL 100 MG/DL 03/22/2025 5:03 AM CDT [facility] Comment:REFERENCE RANGE NOT ESTABLISHED 03/22/2025 4:18 AM CDT Bradley Forrest MD LABORATORY Final Result [facility] [address] [place] [address], [id number] * CTV ABD+PEL WWO CON (03/22/2025 1:44 [...] 1:53 AM Narrative 03/22/2025 2:02 AM CDT [facility] [address] [address] Examination: CTV ABD+PEL WWO CON Exam time: [...] Procedure Note Chad Allen MD - 03/22/[address] [address] Examination: CTV ABD+PEL WWO CON Exam time: [...] 4,089(H) <450 PG/ML 03/21/2025 10:34 PM CDT [facility] Comment: AGE INDEPENDENT: <300 PG/ML HAS [...] Organization Address [facility] Co de Phone Number [facility] [address] [place] [address], [phone] * TYPE & SCREEN (03/21/2025 9:58 PM CDT) UNITS ORDERED 2 03/21/2025 10:11 PM CDT [facility] ABO/RH A POSITIVE 03/21/2025 10:49 PM CDT [facility] ANTIBODY SCREEN NEGATIVE 03/21/2025 10:49 PM CDT [facility] SAMPLE EXPIRATION 03/24/2025,2 359 03/21/2025 10:11 PM CDT [facility] 03/21/2025 9:58 PM CDT Jonnathan Galindo MD BLOOD BANK TEST ORDERABLES Fin al Result Performing Organization Address [facility] Co de Phone Number [facility] [address] [place] [address], [phone] * (ABNORMAL) COMPREHENSIVE METABOLIC PANEL (03/21/2025 9:58 PM CDT) SODIUM S/P/B 136 136 - 145 MMOL/L 03/21/2025 10:34 PM CDT [facility] POTASSIUM S/P/B 4.1 3.5 - 5.1 MMOL/L 03/21/2025 10:34 PM CDT [facility] CHLORIDE S/P/B 100 97 - 115 MMOL/L 03/21/2025 10:34 PM CDT [facility] CO2 32.1(H) 21.0 - 32.0 MMOL/L 03/21/2025 10:34 PM CDT [facility] GLUCOSE 101 74 - 106 MG/DL 03/21/2025 10:34 PM CDT [facility] BUN 31(H) 7 - 18 MG/DL 03/21/2025 10:34 PM T [facility] CREATININE S/P/B 0.96 0.55 - 1.02 MG/DL 03/21/2025 10:34 PM [facility] CALCIUM S/P/B 8.9 8.5 - 10.1 MG/DL 03/21/2025 10:34 PM T [facility] BILIRUBIN TOTAL S/P/B 0.5 0.2 - 1.0 MG/DL 03/21/2025 10:34 PM T [facility] ALKALINE PHOSPHATASE S/P/B 85 55 - 142 U/L 03/21/2025 10:34 PM T [facility] AST 18 15 - 37 U/L 03/21/2025 10:34 PM [facility] ALT 35 13 - 56 U/L 03/21/2025 10:34 PM T [facility] TOTAL PROTEIN S/P/B 6.8 6.4 - 8.2 G/DL 03/21/2025 10:34 PM T [facility] ALBUMIN S/P/B 2.8(L) 3.4 - 5.0 G/DL 03/21/2025 10:34 PM [facility] ANION GAP 3.9 2.0 - 10.0 MMOL/L 03/21/2025 10:34 PM [facility] OSMOLALITY (CALC) 289 MOSM/KG 025 10:34 PM [facility] Comment:REFERENCE RANGE NOT ESTABLISHED GFR ESTIMATE 59(L) >90 ML/MIN/1. 73 M2 03/21/2025 10:34 PM [facility] GFR NOTES GFR REFERENCE S: 03/21/2025 10:34 PM [facility] Comment: THE ESTIMATED GFR IS [...] MD LABORATORY Final Result Performing Organization Address City/[facility]/ZIP Co de Phone Number [facility] [address] [place] [address], [phone] * LACTIC ACID (03/21/2025 9:58 PM CDT) LACTIC ACID VENOUS 0.8 0.4 - 2.0 MMOL/L 03/21/2025 10:32 PM CDT [facility] 03/21/2025 9:58 PM CDT Bradley Forrest MD LABORATORY Final Result Performing Organization Address [facility] Co de Phone Number [facility] [address] [place] [address], [phone] * ECG 12 lead (03/21/2025 9:05 PM CDT) 03/21/2025 9:05 PM CDT Narrative [facility] - 03/21/2025 10:30 PM CDT [facility] [address] [place] [address] Test Date: 2025-03-21 Pat Name: KENA VELAZQUEZ Department: 1 Room: [facility] Gender: Female Dependency Counselor: Taco : 1940 Requested By: BRADLEY FORREST Order Number: [id number] Reading : Carlos Cam Measurements Intervals Gordon Rate: 88 P: 0 CO: 0 QRS: -10 QRSD: 91 T: 117 QT: 383 QTc: 465 Interpretive Statements ATRIAL FIBRILLATION WITH CONTROLLED VENTRICULAR RESPONSE Procedure Note Carlos Cam MD - 03/21/2025 [facility] [address] [place] [address] Test Date: 2025-03-21 Pat Name: KENA VELAZQUEZ Department: 1 Room: 600AA Gender: Female Dependency Counselor: Taco : 1940 Requested By: BRADLEY FORREST Order Number: [id number] Reading : Carlos Cam Measurements Intervals Gordon Rate: 88 P: 0 CO: 0 QRS: -10 QRSD: 91 T: 117 QT: 383 QTc: 465 Interpretive Statements ATRIAL FIBRILLATION WITH CONTROLLED VENTRICULAR RESPONSE us Bradley Forrest MD ECG ORDERABLES Final Result [facility] RAD from Last 3 Months Insurance [facility] Advance Directives * Full Code (Latest Code [...] 6:44 PM 05/12/2024 3:20 PM Care Teams Compressor Assembler Relationship Specialty Start Date End Date Christ Coto MD [address] [place] [phone] PCP - General FAMILY PRACTICE 03/12/19 Yesy Alonso MD [address] [place] [address] [place] [address] Consulting Physician CARDIOVASCULAR DISEASE 05/19/24 Sudhakar Lu PA [address] [place] [phone] Physician Buffet Manager PHYSICIAN MACHINE LONG GOODS HELPER 05/19/24 Anthony Rojas MD [address] [place] [address] Consulting Physician CLINICAL CARDIAC ELECTROPHYSIOLOGY 01/16/25 Peggy Celeste PA-C [address] [place] [address] Referring Physician PHYSICIAN MACHINE LONG GOODS HELPER 01/30/25
--- OUTSIDE RECORDS SUMMARY | 2025-06-05 17:11 | XMS_ITS | Encounter Summary ---
Author Organization [facility] Address [address] [place] [address] Care Team Providers Care Tutoring Clinician Name Role Phone Christ Coto MD Primary Care Provider Yesy Alonso MD Unavailable Sudhakar Lu Unavailable [phone] Anthony Rojas MD Unavailable [phone] Peggy Celsete PA-C Unavailable [phone] Encounter Details Date Type Department Care Team (Late st Contact Info) Description 05/16/2024 Hospital Follow-up Call [facility] [address] [place] [address] Alicia Salazar, RN Social History Tobacco Use Types Packs/Day Years Used Date Smoking Tobacco: Never Smokeless Tobacco: Never Alcohol Use Standard Drinks/Week Comments Yes 0 (1 standard drink = 0.6 oz pur e alcohol) 2 spiked 4% drinks/week/wine [facility] Utilities Answer Date Recorded In the past [...] any time in the past 12 m [facility], were you homeless or living in a usp (including now)? No 04/27/2024 Comments No Sex [...] Description 06/14/2025 9:30 AM CDT Office Visit [facility] [place] [phone] Anthony Rojas MD [address] [place] [phone] Peggy Celeste PA-C [address] [place], [place] [phone] documented as of this encounter Visit Diagnoses Not on filedocumented in this encounter Care Teams Tutoring Clinician Relationship Specialty Start Date End Date Christ Coto MD [address] [place] [phone] PCP - General FAMILY PRACTICE 03/12/19 [place] [address] [place] [address] [place] [address] Consulting Physician CARDIOVASCULAR DISEASE 05/19/24 Sudhakar Lu PA [address] [place] [phone] Physician Curve Saw Operator PHYSICIAN PASTA PRESS OPERATOR 05/19/24 Anthony Rojas MD [address] [place] [facility] [address] Consulting Physician CLINICAL CARDIAC ELECTROPHYSIOLOGY 01/16/25 Peggy Celeste PA-C [address] [place] [address] Referring Physician PHYSICIAN PASTA PRESS OPERATOR 01/30/25 documented as of this encounter
--- OUTSIDE RECORDS SUMMARY | 2025-06-05 17:11 | XMS_ITS | Encounter Summary ---
Author Organization [facility] Address [address] [place] [address] Care Team Providers Care Director Metabolism Name Role Phone Christ Coto MD Primary Care Provider [phone] Yesy Alonso MD Unavailable Sudhakar Lu Unavailable [phone] Anthony Rojas MD Unavailable [phone] Peggy Celeste PA-C Unavailable [phone] Encounter Details Date Type Department Care Team (Late st Contact Info) Description 03/27/2025 Hospital Follow-up Call [facility] [address] [place] [address] Alicia Salazar, RN Social History Tobacco Use Types Packs/Day Years Used Date Smoking Tobacco: Never Smokeless Tobacco: Never Alcohol Use Standard Drinks/Week Comments Yes 0 (1 standard drink = 0.6 oz pur e alcohol) 2 spiked 4% drinks/week/wine [facility] Utilities Answer Date Recorded In the past [...] any time in the past 12 m [facility], were you homeless or living in a intermediate (including now)? No 03/22/2025 Comments No Sex [...] Description 06/14/2025 9:30 AM CDT Office Visit [facility] [place] [phone] Anthony Rojas MD [address] [place] [phone] Peggy Celeste PA-C [address] [place] [address] documented as of this encounter Visit Diagnoses Not on filedocumented in this encounter Care Teams Director Metabolism Relationship Specialty Start Date End Date Christ Coto MD [address] [place] [phone] PCP - General FAMILY PRACTICE 03/12/19 Yesy Alonso MD [address] [facility] [place] [address] Consulting Physician CARDIOVASCULAR DISEASE 05/19/24 Sudhakar Lu PA [address] [place] [phone] Physician Boat Designer PHYSICIAN SENIOR SAS PROGRAMMER 05/19/24 Anthony Rojas MD [address] [place] [address] Consulting Physician CLINICAL CARDIAC ELECTROPHYSIOLOGY 01/16/25 Peggy Celeste PA-C [address] [place] [address] Referring Physician PHYSICIAN SENIOR SAS PROGRAMMER 01/30/25 documented as of this encounter
--- OUTSIDE RECORDS SUMMARY | 2025-06-05 17:11 | XMS_ITS | Encounter Summary ---
Author Organization [facility] Address [address] [place] [address] Care Team Providers Care Store Specialist Name Role Phone Christ Coto MD Primary Care Provider Yesy Alonso MD Unavailable Sudhakar Lu Unavailable [phone] Anthony Rojas MD Unavailable [phone] Peggy Celeste PA-C Unavailable [phone] Encounter Details Date Type Department Care Team (Late st Contact Info) Description 02/12/2019 Abstract [facility] [address] [place], [place] [phone] , Generic MD Jacqueline Social History Tobacco [...] Description 06/14/2025 9:30 AM CDT Office Visit [facility] [address] [place] [phone] Anthony Rojas MD [address] [place], [place] [address] Peggy Celeste PA-C [address] [place] [address] documented as of this encounter Visit Diagnoses Not on filedocumented in this encounter Additional Health Concerns Infection Onset Date Last Indicated Resolved Time COVID-19 Rule Out 04/27/2024 04/27/2024 04/27/2024 9:42 PM CDT documented as of this encounter Care Teams Store Specialist Relationship Specialty Start Date End Date Christ Coto MD [address] [place] [phone] PCP - General FAMILY PRACTICE 03/12/19 Yesy Alonso MD [address] [place] [address] [place] [address] Consulting Physician CARDIOVASCULAR DISEASE 05/19/24 Sudhakar Lu PA [address] [place] [phone] Physician Emergency Telecommunications Dispatcher PHYSICIAN IMPREGNATOR AND DRIER HELPER 05/19/24 Anthony Rojas MD [address] [place] [phone] Consulting Physician CLINICAL CARDIAC ELECTROPHYSIOLOGY 01/16/25 Peggy Celeste PA-C [address] [place] [phone] Referring Physician PHYSICIAN IMPREGNATOR AND DRIER HELPER 01/30/25 documented as of this encounter
[2025-06-05 17:46] LABS: Hematocrit 32.2 % (35.0-42.0); Hemoglobin 10.4 g/dL (11.7-13.8); Mean Corpuscular HGB Conc 32.3 g/dL (32-36); Mean Corpuscular Hemoglobin 31.4 pg (27.0-31.0); Mean Corpuscular Volume 97.3 fL (78.0-102.0); Platelet Count Result 295 K/mm3 (150-420); Red Blood Count 3.31 M/mm3 (4.20-5.40); White Blood Count 4.8 K/mm3 (4.8-10.8)
[2025-06-05] MEDS: FUROSEMIDE INJ 20 MG/2 ML VIAL 10 MG IV PUSH (17:50)
[2025-06-05 17:58] LABS: Alanine Aminotransferase 18 U/L (6-35); Albumin Level 4.4 g/dL (3.5-5.1); Alkaline Phosphatase 113 U/L (38-126); Anion Gap 11 mmol/L (4-12); Aspartate Amino Transferase 35 U/L (14-36); Bilirubin,Total 1.3 mg/dL (0.2-1.3); Blood Urea Nitrogen 15 mg/dL (7-17); Calcium 9.8 mg/dL (8.4-10.2); Carbon Dioxide 27 mmol/L (22-30); Chloride 102 mmol/L (98-107); Estimated CRCL calculation 31 ml/min; Estimated Glomerular Filt Rate > 60; Glucose 112 mg/dL (65-110); Osmolality Calculated 291 mOsm/kg (285-295); Potassium 4.9 mmol/L (3.4-5.0); Sodium 140 mmol/L (137-145); Total Protein 9.8 g/dL (6.3-8.2)
[2025-06-05 18:07] LABS: NT Pro B Type Natriuretic Pept 5520 pg/mL (19.9-100)
[2025-06-05 18:11] LABS: Troponin I 0.020 ng/mL (0.000-0.034)
[2025-06-05 18:16] LABS: Band Neutrophils Percent 0 % (0-6); Eosinophils Absolute Manual 0.14 K/mm3 (0.02-0.50); Eosinophils Percent Manual 3 % (1-6); Lymphocytes Absolute Manual 1.29 K/mm3 (1.1-4.5); Lymphocytes Percent Manual 27 % (18-44); Monocytes Absolute Manual 0.48 K/mm3 (0.1-0.90); Monocytes Percent Manual 10 % (3-9); Neutrophils Absolute Manual 2.88 K/mm3 (1.3-6.7); Neutrophils Percent Manual 60 % (46-73); Total Cells Counted 100
[2025-06-05 18:17] LABS: Anisocytosis 2+; Hypochromasia 1+; Poikilocytosis 1+; Schistocytes None Seen
--- NOTE | 2025-06-05 18:17 | PC.NURSE ---
Spoke w/ pt about transfer, pt states she will go to [place] if able, continuing to monitor, VSS at this time.
--- NOTE | 2025-06-05 18:29 | PC.NURSE ---
Pt assisted to BSC to urinate per help of tech, noted desat to 78% on O2, O2 increased to 4L NC briefly after putting pt back to bed and she rebounds back to 92%. Per ERP Dr Galan pt has noted hx of CHF after review of chart. POC will be to admit here for care. Call back made to [facility] to cancel transfer.
[2025-06-05 18:35] LABS: Influenza A QL RT-PCR Negative (Negative); Influenza B QL RT-PCR Negative (Negative); RSV RNA, RT-PCR Negative (Negative); SARS-CoV-2 RNA PCR Negative (Negative)
--- NOTE | 2025-06-05 18:38 | PC.NURSE ---
Call received from ED for placement, given rm # [id number], room ready and awaiting pt arrival
--- NOTE | 2025-06-05 18:42 | PC.NURSE ---
Call placed to floor, spoke to Sana rn Pt will go to Rm 206.
--- NOTE | 2025-06-05 19:22 | ADMGEN ---
This patient, Bernadette Kim Walker, was admitted to 2nd Floor Room 206-1. Patient oriented to hospital policies and general routines including ID bracelet, bed and alarms, visiting hours, pain management, procedures, bathroom and other care routines, personal items, smoking policy, room service/diet, and visiting hours. Information on how to activate the Rapid Response Team has been discussed. Patient are encouraged to report perceived risks to care and to ask questions if they do not understand what they are told or what they should do.
[2025-06-05] MEDS: GABAPENTIN 100 MG CAPSULE PO (20:51)
[2025-06-05] MEDS: BENZONATATE 100 MG CAPSULE 200 MG PO (20:51)
--- NOTE | 2025-06-05 20:54 | PC.NURSE ---
Patient states that she no longer takes Eliquis and Metoprolol BID, just in the AM, also that her Gabapentin at HS has been increased to 300mg @[facility]. Agrees to take the 100mg Gabapentin tonight, refuses other meds.
[2025-06-05 21:11] LABS: Add Urine Microscopic? YES; Appearance Urine Clear (Clear); Glucose Urine UA Negative (Negative); Leukocyte Esterase Ur Trace LEU/UL (Negative); Nitrate Urine Negative (Negative); Specific Grav Ur 1.010 (1.010-1.020)
[2025-06-05] MEDS: diazePAM (*CRX) 2.5 MG TABLET PO (23:11)
[2025-06-06] VITALS (8 sets, daily range): BP systolic 101–155; BP diastolic 50–91; PULSE 76–106; RESP 18–22; TEMP 36.1–36.6; O2SAT 94–97
--- NOTE | 2025-06-06 | CONSULT_PTH ---
PATIENT: Bernadette Velazquez LOC: [facility] U#:[id number] AGE/SX: 84/F ROOM: [facility] RE06/05/[address]: Donovan Nance MD : [id number] BED: 1 DIS: 06/07/2025 SPEC #: [id number] RECD: 06/06/25 08:22 STATUS: KATHERIN REQ #: [id number] JOHANA: 06/06/25 00:[address]: Jose G Nance DEPT: [facility] Consult RECD BY: Sandrine aLmar MLT, ([facility]) ENTERED: 06/06/25 08:22 SP TYPE: Consult OTHR DR: Christ Coto, Tissues: A - Peripheral Smear Procedures: Hematology Consult
[2025-06-06 05:43] LABS: Hematocrit 29.5 % (35.0-42.0); Hemoglobin 9.4 g/dL (11.7-13.8); Mean Corpuscular HGB Conc 31.9 g/dL (32-36); Mean Corpuscular Hemoglobin 30.8 pg (27.0-31.0); Mean Corpuscular Volume 96.7 fL (78.0-102.0); Platelet Count Result 261 K/mm3 (150-420); Red Blood Count 3.05 M/mm3 (4.20-5.40); White Blood Count 4.6 K/mm3 (4.8-10.8)
[2025-06-06 05:59] LABS: Band Neutrophils Percent 0 % (0-6); Basophils Absolute Manual 0.13 K/mm3 (0-0.1); Basophils Percent Manual 3 % (0-1); Eosinophils Absolute Manual 0.18 K/mm3 (0.02-0.50); Eosinophils Percent Manual 4 % (1-6); Lymphocytes Absolute Manual 1.38 K/mm3 (1.1-4.5); Lymphocytes Percent Manual 30 % (18-44); Monocytes Absolute Manual 0.46 K/mm3 (0.1-0.90); Monocytes Percent Manual 10 % (3-9); Neutrophils Absolute Manual 2.43 K/mm3 (1.3-6.7); Neutrophils Percent Manual 53 % (46-73)
[2025-06-06 06:02] LABS: Alanine Aminotransferase 14 U/L (6-35); Albumin Level 3.4 g/dL (3.5-5.1); Alkaline Phosphatase 96 U/L (38-126); Anion Gap 8 mmol/L (4-12); Aspartate Amino Transferase 28 U/L (14-36); Bilirubin,Total 1.3 mg/dL (0.2-1.3); Blood Urea Nitrogen 14 mg/dL (7-17); Calcium 9.6 mg/dL (8.4-10.2); Carbon Dioxide 29 mmol/L (22-30); Chloride 103 mmol/L (98-107); Estimated CRCL calculation 30 ml/min; Estimated Glomerular Filt Rate 59; Glucose 87 mg/dL (65-110); Osmolality Calculated 289 mOsm/kg (285-295); Potassium 4.1 mmol/L (3.4-5.0); Sodium 140 mmol/L (137-145); Total Protein 7.0 g/dL (6.3-8.2)
--- OUTSIDE RECORDS SUMMARY | 2025-06-06 07:09 | XMS_ITS | Encounter Summary ---
Author Organization [facility] Address [address] [place] [address] Care Team Providers Care Trick Rodeo Rider Name Role Phone Christ Coto MD Primary Care Provider Yesy Alonso MD Unavailable Sudhakar Lu Unavailable [phone] Anthony Rojas MD Unavailable [phone] Peggy Celeste PA-C Unavailable [phone] Encounter Details Date Type Department Care Team (Late st Contact Info) Description 02/12/2019 Abstract SFL CONVERSION [address] [place], [place] [id number] , Generic MD Jacqueline Social History Tobacco [...] Description 06/14/2025 9:30 AM CDT Office Visit [facility] [address] [place] [phone] Anthony Rojas MD [address] [place], [place] [phone] Peggy Celeste PA-C [address] [place] [address] documented as of this encounter Visit Diagnoses Not on filedocumented in this encounter Additional Health Concerns Infection Onset Date Last Indicated Resolved Time COVID-19 Rule Out 04/27/2024 04/27/2024 04/27/2024 9:42 PM CDT documented as of this encounter Care Teams Trick Rodeo Rider Relationship Specialty Start Date End Date Christ Coto MD [address] [place] [phone] PCP - General FAMILY PRACTICE 03/12/19 Yesy Alonso MD [address] [place] [address] [place] [address] Consulting Physician CARDIOVASCULAR DISEASE 05/19/24 Sudhakar Lu PA [address] [place] [phone] Physician Stave Hewer PHYSICIAN SPECIAL FORCES SENIOR SERGEANT 05/19/24 Anthony Rojas MD [address] [place] [phone] Consulting Physician CLINICAL CARDIAC ELECTROPHYSIOLOGY 01/16/25 Peggy Celeste PA-C [address] [place] [phone] Referring Physician PHYSICIAN SPECIAL FORCES SENIOR SERGEANT 01/30/25 documented as of this encounter
--- OUTSIDE RECORDS SUMMARY | 2025-06-06 07:09 | XMS_ITS | Encounter Summary ---
Author Organization [facility] Address [address] [place] [address] Care Team Providers Care Data Analytics Architect Name Role Phone Christ Coto MD Primary Care Provider Yesy Alonso MD Unavailable Sudhakar Lu Unavailable [phone] Anthony Rojas MD Unavailable [phone] Peggy Celeste PA-C Unavailable [phone] Encounter Details Date Type Department Care Team (Late st Contact Info) Description 05/16/2024 Hospital Follow-up Call [facility] Cardiovascular Care Unit [address] [place] [address] Alicia Salazar, RN Social History Tobacco Use Types Packs/Day Years Used Date Smoking Tobacco: Never Smokeless Tobacco: Never Alcohol Use Standard Drinks/Week Comments Yes 0 (1 standard drink = 0.6 oz pur e alcohol) 2 spiked 4% drinks/week/wine [facility] Utilities Answer Date Recorded In the [...] any time in the past 12 m [facility], were you homeless or living in a fpc (including now)? No 04/27/2024 Comments No Sex [...] Description 06/14/2025 9:30 AM CDT Office Visit [facility] [place] [phone] Anthony Rojas MD [address] [place] [address] Peggy Celeste PA-C [address] [place], [place] [phone] documented as of this encounter Visit Diagnoses Not on filedocumented in this encounter Care Teams Data Analytics Architect Relationship Specialty Start Date End Date Christ Coto MD [address] [place] [phone] PCP - General FAMILY PRACTICE 03/12/19 [place] [address] [place] [address] [place] [address] Consulting Physician CARDIOVASCULAR DISEASE 05/19/24 Sudhakar Lu PA [address] [place] [phone] Physician In Shop Service Technician PHYSICIAN TANNING WHEEL FILLER 05/19/24 Anthony Rojas MD [address] [place] [address] Consulting Physician CLINICAL CARDIAC ELECTROPHYSIOLOGY 01/16/25 Peggy Celeste PA-C [address] [place] [address] Referring Physician PHYSICIAN TANNING WHEEL FILLER 01/30/25 documented as of this encounter
--- OUTSIDE RECORDS SUMMARY | 2025-06-06 07:09 | XMS_ITS | Encounter Summary ---
Author Organization [facility] Address [address] [place] [address] Care Team Providers Care Hook Up Name Role Phone Christ Coto MD Primary Care Provider Yesy Alonso MD Unavailable Sudhakar Lu Unavailable [phone] Anthony Rojas MD Unavailable [phone] Peggy Celeste PA-C Unavailable [phone] Encounter Details Date Type Department Care Team (Late st Contact Info) Description 02/14/2025 Hospital Follow-up Call [facility] Cardiovascular Care Unit [address] [place] [address] Alicia Salazar, RN Social History Tobacco Use Types Packs/Day Years Used Date Smoking Tobacco: Never Smokeless Tobacco: Never Alcohol Use Standard Drinks/Week Comments Yes 0 (1 standard drink = 0.6 oz pur e alcohol) 2 spiked 4% drinks/week/wine [facility] Utilities Answer Date Recorded In the past 12 months has e electric, gas, oil, or water [employer] threatened to shut off services in your [...] any time in the past 12 m [facility], were you homeless or living in a residential (including now)? No 02/01/2025 Comments No Sex [...] Description 06/14/2025 9:30 AM CDT Office Visit [facility] [place] [phone] Anthony Rojas MD [address] [place] [phone] Peggy Celeste PA-C [address] [place], [place] [phone] documented as of this encounter Visit Diagnoses Not on filedocumented in this encounter Care Teams Hook Up Relationship Specialty Start Date End Date Christ Coto MD [address] [place] [phone] PCP - General FAMILY PRACTICE 03/12/19 Yesy Alonso MD [address] [place] [place] [address] Consulting Physician CARDIOVASCULAR DISEASE 05/19/24 Sudhakar Lu PA [address] [place] [phone] Physician Inventory And Pricing Associate PHYSICIAN TALENT AGENT 05/19/24 Anthony Rojas MD [address] [place] [address] Consulting Physician CLINICAL CARDIAC ELECTROPHYSIOLOGY 01/16/25 Peggy Celeste PA-C [address] [place] [address] Referring Physician PHYSICIAN TALENT AGENT 01/30/25 documented as of this encounter
--- OUTSIDE RECORDS SUMMARY | 2025-06-06 07:09 | XMS_ITS | Encounter Summary ---
Author Organization [facility] Address [address] [place] [address] Care Team Providers Care Forestry Biology Specialist Name Role Phone Christ Coto MD Primary Care Provider Yesy Alonso MD Unavailable Sudhakar Lu Unavailable [phone] Anthony Rojas MD Unavailable [phone] Peggy Celeste PA-C Unavailable [phone] Encounter Details Date Type Department Care Team (Late st Contact Info) Description 03/27/2025 Hospital Follow-up Call [facility] Cardiovascular Care Unit [address] [place] [address] Alicia Salazar, RN Social History Tobacco Use Types Packs/Day Years Used Date Smoking Tobacco: Never Smokeless Tobacco: Never Alcohol Use Standard Drinks/Week Comments Yes 0 (1 standard drink = 0.6 oz pur e alcohol) 2 spiked 4% drinks/week/wine [facility] Utilities Answer Date Recorded In [...] time in the past 12 m [facility], were you homeless or living in a custodial (including now)? No 03/22/2025 Comments No Sex [...] Description 06/14/2025 9:30 AM CDT Office Visit [facility] [place] [phone] Anthony Rojas MD [address] [place] [phone] Peggy Celeste PA-C [address] [place] [address] documented as of this encounter Visit Diagnoses Not on filedocumented in this encounter Care Teams Forestry Biology Specialist Relationship Specialty Start Date End Date Christ Coto MD [address] [place] [phone] PCP - General FAMILY PRACTICE 03/12/19 Yesy Alonso MD [address] [place] [address] Consulting Physician CARDIOVASCULAR DISEASE 05/19/24 Sudhakar Lu PA [address] [place] [phone] Physician Electric Blanket Packer PHYSICIAN PHYS THERAPIST 05/19/24 Anthony Rojas MD [address] [place] [address] Consulting Physician CLINICAL CARDIAC ELECTROPHYSIOLOGY 01/16/25 Peggy Celeste PA-C [address] [place] [address] Referring Physician PHYSICIAN PHYS THERAPIST 01/30/25 documented as of this encounter
--- OUTSIDE RECORDS SUMMARY | 2025-06-06 07:09 | XMS_ITS | Clinical Summary ---
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 Emphysema of lung ([facility]) 04/28/2024 Pulmonary fibrosis ([facility]) 04/28/2024 Assessment & Plan (04/29/2024 1:19 PM CDT): Patient with known diagnosis has been on oxygen supplemental therapy. Follows up with pulmonary. 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 02/13/2025 Encounters Date Type Department Care Team Description 04/19/2025 [facility] [address] [place] [address] Peggy Celeste PA-C Appointment Reminder 04/18/2025 Telephone [facility] [address] [place] [phone] Peggy Celeste PA-C Appointment Reminder 04/17/2025 Orders Only [facility] [address] [place] [address] Anthony Rojas MD 03/27/2025 Hospital Follow-up Call [facility] [address] [place] [address] Alicia Salazar RN 03/23/2025 Travel 03/22/2025 Travel 03/21/2025 7:49 PM CDT - 03/24/2025 4:23 PM CDT Hospital Encounter [facility] [address] [place] [address] Chloe Almeida MD Shackour, Salim, MD Minhas, [...] alcohol) 2 spiked 4% drinks/week/wine [facility] [employer] Answer Date Recorded In the past 12 months has e [employer], gas, oil, or water [facility] threatened to shut off services in your [...] any time in the past 12 m [facility], were you homeless or living in a group home (including now)? No 03/22/2025 Comments No Sex [...] Description 06/14/2025 9:30 AM CDT Office Visit [facility] [place] [phone] Anthony Rojas MD [address] [place] [phone] Peggy Celeste PA-C [address] [place] [address] Health Maintenance Due Date Last [...] this topic Medical Devices Implanted Type Area Motor Coach Driver Device Identifier Shelf Expiration Date Model / Serial / Lot Agent Hemostatic Surgiflo 8 Ml Kit - [id number] Implanted:Qty: 1 on 02/03/2025 by Taryn Ruiz MD at [facility] [employer] [place] [id number] 06/06/2026 [id number] / / [id number] Agent Hemostatic Surgiflo 8 Ml Kit - [id number] Implanted:Qty: 1 on 02/03/2025 by Jonntahan Galindo MD at [facility] [employer] [place] [id number] 06/06/2026 [id number] / / [id number] Procedures Procedure Name Priority Date/Time Associated Diagnosis [...] - 145 MMOL/L 03/24/2025 6:[address] [facility] POTASSIUM S/P/B 4.5 3.5 - 5.1 MMOL/L 03/24/2025 6:[address] [facility] CHLORIDE S/P/B 105 97 - 115 MMOL/L 03/24/2025 6:[address] [facility] CO2 27.1 21.0 - 32.0 MMOL/L 03/24/2025 6:[address] [facility] GLUCOSE 98 74 - 106 MG/DL 03/24/2025 6:18 AM [facility] BUN 24(H) 7 - 18 MG/DL 03/24/2025 6:18 AM [facility] CREATININE S/P/B 0.70 0.55 - 1.02 MG/DL 03/24/2025 6:[address] [facility] CALCIUM S/P/B 8.6 8.5 - 10.1 MG/DL 03/24/2025 6:18 AM [facility] ANION GAP 2.9 2.0 - 10.0 MMOL/L 03/24/2025 6:18 AM [facility] OSMOLALITY (CALC) 284 MOSM/KG 025 6:18 AM [facility] Comment:REFERENCE RANGE NOT ESTABLISHED GFR ESTIMATE 86(L) >90 ML/MIN/1. 73 M2 03/24/2025 6:18 AM [facility] GFR NOTES GFR REFERENCE S: 03/24/2025 6:18 AM [facility] Comment: THE ESTIMATED GFR [...] Kang Bill MD LABORATORY Final Res ult [facility] [address] [place] [address], [id number] * (ABNORMAL) CBC W/DIFF AUTOMATED (03/24/2025 5:12 AM CDT) Only the most recent of4 resultswithin the time period is included. WBC 6.25 4.00 - 10.80 x10'3/uL 03/24/2025 5:[address] [facility] RBC 3.00(L) 4.10 - 5.40 x10'6/uL 03/24/2025 5:[address] [facility] HGB 9.5(L) 12.0 - 16.0 G/DL 03/24/2025 5:[address] [facility] HCT 30.2(L) 36.0 - 47.0 % 03/24/2025 5:[address] [facility] MCV 100.7(H) 78.0 - 100.0 FL 03/24/2025 5:[address] [facility] MCH 31.7(H) 27.0 - 31.0 PG 03/24/2025 5:[address] [facility] MCHC 31.5(L) 33.0 - 36.0 G/DL 03/24/2025 5:[address] [facility] RDW 14.9(H) 11.5 - 14.5 % 03/24/2025 5:[address] [facility] PLT 315 150 - 350 x10'3/uL 03/24/2025 5:[address] [facility] MPV 9.2 7.4 - 10.4 FL 03/24/2025 5:[address] [facility] DIFFERENTIAL TYPE AUTOMATED DIFFERENTIAL 03/24/2025 5:[address] [facility] SEG NEUTROPHILS 45.9 % 5:[address] [facility] LYMPHOCYTES 33.0 % 03/24/2025 5:[address] [facility] MONOCYTES 13.1 % 03/24/2025 5:[address] [facility] EOSINOPHILS 6.9 % 03/24/2025 5:[address] [facility] BASOPHILS 0.6 % 03/24/2025 5:[address] [facility] IMMATURE GRANS % 0.5 % 03/24/20 5:[address] [facility] ABS. NEUTROPHILS 2.87 1.60 - 8.30 x10'3/uL 03/24/2025 5:[address] [facility] ABS. LYMPHOCYTES 2.06 0.80 - 4.70 x10'3/uL 03/24/2025 5:[address] [facility] ABS. MONOCYTES 0.82 0.00 - 1.50 x10'3/uL 03/24/2025 5:[address] [facility] ABS. EOSINOPHILS 0.43(H) 0.00 - 0.40 x10'3/uL 03/24/2025 5:[address] [facility] ABS. BASOPHILS 0.04 0.00 - 0.20 x10'3/uL 03/24/2025 5:[address] [facility] ABS. IMMATURE GRANULOCYTES 0.03 0.00 - 0.03 x10'3/uL 03/24/2025 5:[address] [facility] ABS. NUCLEATED RBC'S 0.00 0.00 - 0.01 x10'3/uL 03/24/2025 5:[address] [facility] NRBC % 0.0 % 03/24/2025 5:[address] [facility] 03/24/2025 5:12 AM CDT Osito Bill MD LABORATORY Final Res ult Performing Organization Address City/[facility]/ZIP Co de Phone Number [facility] [address] [place] [address], [phone] * MAGNESIUM (03/24/2025 5:12 AM CDT) Only the most recent of2 resultswithin the time period is included. MAGNESIUM 2.2 1.6 - 2.6 MG/DL 03/24/2025 6:[address] [facility] 03/24/2025 5:12 AM CDT Osito Bill MD LABORATORY Final Res ult Performing Organization Address [facility] Co de Phone Number [facility] [address] [place] [address], [phone] * USV EILEEN LTD RAJI (03/23/2025 1:47 PM CDT) Anatomical Region Laterality Modality Extremity Ultrasound 03/23/2025 9:05 AM CDT Narrative 03/23/2025 2:35 PM CDT Vascular Report Pat.Name: KENA VELAZQUEZ Pat.ID: [id number] St.Date: 03/23/2025 Refer.MD: OSITO BILL Exam Time: 9:05:00 AM Study Type:PVI ART DOPPLER-EILEEN Height: 152 cm Age: 4 1940,84Y Sex: F Sonogrphr: Donovan Rader, T Pat. Stat.:Inpatient Room: 600 ICD - 9: I73.9 PVD (peripheral arterial/vascular disease) CPT - 4: 96357 EILEEN/WBI Reason for Study:PVD Race: W ++++++++++++++++++++++++++++++++++++ [...] 03/23/2025 Vascular Report Pat.Name: KENA VELAZQUEZ Pat.ID: [id number] .Date: 03/23/2025 Refer.MD: OSITO BILL KANG Exam Time: 9:05:00 AM Study Type:PVI ART DOPPLER-EILEEN Height: 152 cm Age: 4 1940,84Y Sex: F Sonogrphr: SLIM Pressley. Stat.:Inpatient Room: [facility] ICD - 9: I73.9 PVD (peripheral arterial/vascular disease) CPT - 4: 48826 EILEEN/WBI Reason for Study:PVD Race: W ++++++++++++++++++++++++++++++++++++ [...] PM Ignacio Cain M.D. Osito Bill MD [facility] Final Res ult * HEPARIN, ANTI XA, UFH (03/23/2025 12:47 PM CDT) Only the most recent of9 resultswithin the time period is included. Pathologist [facility] HEPARIN ANTI XA UFH 0.50 0.30 - 0.70 IU/ML 03/23/2025 1:[address] [facility] Comment: UFH Therapeutic Anti Xa Ranges: Medical Therapeutic Range: 0.30 - 0.70 IU/mL Cardiac Therapeutic Range: 0.30 - 0.50 IU/mL Neuro Therapeutic Range: 0.20 - 0.40 IU/mL 03/23/2025 12:4 7 PM CDT Osito Bill MD LABORATORY Final Res ult [facility] [address] [place] [address], [id number] * (ABNORMAL) PROTIME/INR, VENOUS (03/23/2025 1:31 AM CDT) Only the most recent of3 resultswithin the time period is included. PROTIME 12.6(H) 9.4 - 12.5 SEC 03/23/2025 2:[address] [facility] INR 1.1 0.8 - 1.1 03/23/2025 2:[address] [facility] 03/23/2025 1:31 AM CDT Bradley Forrest MD LABORATORY Final Result Performing Organization Address [facility] de Phone Number [facility] [address] [place] [address], [phone] * (ABNORMAL) PARTIAL THROMBOPLASTIN TIME,PTT (03/22/2025 4:18 AM CDT) Only the most recent of2 resultswithin the time period is included. PTT 22.6(L) 25.1 - 36.5 SEC 03/22/2025 4:[address] [facility] 03/22/2025 4:18 AM CDT Jonnathan Galindo MD LABORATORY Final Result Performing Organization Address City/[facility] Co de Phone Number [facility] [address] [place] [address], [phone] * LIPID PANEL (03/22/2025 4:18 AM CDT) CHOLESTEROL 169 MG/DL 03/22/2025 5:[address] [facility] Comment:DESIRABLE: <200 TRIGLYCERIDES 83 MG/DL 03/22/2025 5:[address] [facility] Comment:<150 NORMAL HDL 69 >49 MG/DL 03/22/2025 5:[address] [facility] LDL (CALCULATED) 83 MG/DL 03/22/20 5:[address] [facility] Comment:<100 OPTIMAL VLDL CALCULATION 17 MG/DL 03/22/20 5:[address] [facility] Comment:REFERENCE RANGE NOT ESTABLISHED CHOL/HDL RATIO 2.4 03/22/2025 5:[address] [facility] Comment:REFERENCE RANGE NOT ESTABLISHED LDL/HDL 1.2 03/22/2025 5:[address] [facility] Comment:REFERENCE RANGE NOT ESTABLISHED NON HDL CHOLESTEROL 100 MG/DL 03/22/2025 5:[address] [facility] Comment:REFERENCE RANGE NOT ESTABLISHED 03/22/2025 4:18 AM CDT Bradley Forrest MD LABORATORY Final Result [facility] [address] [place] [address], [phone] * CTV ABD+PEL WWO CON (03/22/2025 1:44 [...] 1:53 AM Narrative 03/22/2025 2:02 AM CDT [facility] [address] [place] [address] Examination: CTV ABD+PEL WWO CON Exam time: [...] Procedure Note Chad Allen MD - 03/22/[address] [address] Examination: CTV ABD+PEL WWO CON Exam time: [...] 4,089(H) <450 PG/ML 03/21/2025 10:34 PM CDT [facility] Comment: AGE INDEPENDENT: <300 PG/ML [...] MD LABORATORY Final Result Performing Organization Address [facility] Co de Phone Number [facility] [address] [place] [address], [phone] * TYPE & SCREEN (03/21/2025 9:58 PM CDT) UNITS ORDERED 2 03/21/2025 10:[address] [facility] ABO/RH A POSITIVE 03/21/2025 10:[address] [facility] ANTIBODY SCREEN NEGATIVE 03/21/2025 10:[address] [facility] SAMPLE EXPIRATION 03/24/2025,2 359 03/21/2025 10:[address] [facility] 03/21/2025 9:58 PM CDT Jonnathan Galindo MD BLOOD BANK TEST ORDERABLES Fin al Result Performing Organization Address [facility] Co de Phone Number [facility] [address] [place] [address], [phone] * (ABNORMAL) COMPREHENSIVE METABOLIC PANEL (03/21/2025 9:58 PM CDT) SODIUM S/P/B 136 136 - 145 MMOL/L 03/21/2025 10:[address] [facility] POTASSIUM S/P/B 4.1 3.5 - 5.1 MMOL/L 03/21/2025 10:[address] [facility] CHLORIDE S/P/B 100 97 - 115 MMOL/L 03/21/2025 10:[address] [facility] CO2 32.1(H) 21.0 - 32.0 MMOL/L 03/21/2025 10:[address] [facility] GLUCOSE 101 74 - 106 MG/DL 03/21/2025 10:[address] [facility] BUN 31(H) 7 - 18 MG/DL 03/21/2025 10:[address] [facility] CREATININE S/P/B 0.96 0.55 - 1.02 MG/DL 03/21/2025 10:34 PM [facility] CALCIUM S/P/B 8.9 8.5 - 10.1 MG/DL 03/21/2025 10:[address] [facility] BILIRUBIN TOTAL S/P/B 0.5 0.2 - 1.0 MG/DL 03/21/2025 10:[address] [facility] ALKALINE PHOSPHATASE S/P/B 85 55 - 142 U/L 03/21/2025 10:[address] [facility] AST 18 15 - 37 U/L 03/21/2025 10:34 PM [facility] ALT 35 13 - 56 U/L 03/21/2025 10:[address] [facility] TOTAL PROTEIN S/P/B 6.8 6.4 - 8.2 G/DL 03/21/2025 10:[address] [facility] ALBUMIN S/P/B 2.8(L) 3.4 - 5.0 G/DL 03/21/2025 10:34 PM [facility] ANION GAP 3.9 2.0 - 10.0 MMOL/L 03/21/2025 10:34 PM [facility] OSMOLALITY (CALC) 289 MOSM/KG 025 10:34 PM [facility] Comment:REFERENCE RANGE NOT ESTABLISHED GFR ESTIMATE 59(L) >90 ML/MIN/1. 73 M2 03/21/2025 10:34 PM [facility] GFR NOTES GFR REFERENCE S: 03/21/2025 10:34 PM [facility] Comment: THE ESTIMATED GFR [...] MD LABORATORY Final Result Performing Organization Address City/[facility]/ZIP Co de Phone Number [facility] [address] [place] [address], [phone] * LACTIC ACID (03/21/2025 9:58 PM CDT) LACTIC ACID VENOUS 0.8 0.4 - 2.0 MMOL/L 03/21/2025 10:[address] [facility] 03/21/2025 9:58 PM CDT Bradley Forrest MD LABORATORY Final Result Performing Organization Address [facility] Co de Phone Number [facility] [address] [place] [address], [phone] * ECG 12 lead (03/21/2025 9:05 PM CDT) 03/21/2025 9:05 PM CDT Narrative [facility] - 03/21/2025 10:30 PM CDT [facility] [address] [place] [address] Test Date: 2025-03-21 Pat Name: KENA VELAZQUEZ Department: 1 Room: [facility] Gender: Female Pest Control Service Sales Agent: Taco : 1940 Requested By: BRADLEY FORREST Order Number: [id number] Reading : Carlos Cam Measurements Intervals [place] Rate: 88 P: 0 NV: 0 QRS: -10 QRSD: 91 T: 117 QT: 383 QTc: 465 Interpretive Statements ATRIAL FIBRILLATION WITH CONTROLLED VENTRICULAR RESPONSE Procedure Note Carlos Cam MD - 03/21/2025 [facility] [address] [place] [address] Test Date: 2025-03-21 Pat Name: KENA VELAZQUEZ Department: 1 Room: 600AA Gender: Female Pest Control Service Sales Agent: Taco : 1940 Requested By: BRADLEY FORREST Order Number: [id number] Reading : Carlos Cam Measurements Intervals [place] Rate: 88 P: 0 NV: 0 QRS: -10 QRSD: 91 T: 117 QT: 383 QTc: 465 Interpretive Statements ATRIAL FIBRILLATION WITH CONTROLLED VENTRICULAR RESPONSE us Bradley Forrest MD ECG ORDERABLES Final Result [facility] from Last 3 Months Insurance [facility] Advance Directives * Full Code (Latest Code [...] 6:44 PM 05/12/2024 3:20 PM Care Teams Desulfurizer Operator Relationship Specialty Start Date End Date Christ Coto MD [address] [place] [phone] PCP - General FAMILY PRACTICE 03/12/19 Yesy Alonso MD [address] [place] [address] [place] [address] Consulting Physician CARDIOVASCULAR DISEASE 05/19/24 Sudhakar Lu PA [address] [place] [phone] Physician Ornamental Bronze Worker PHYSICIAN INVENTORY AND PRICING ASSOCIATE 05/19/24 Anthoyn Rojas MD [address] [place] [address] Consulting Physician CLINICAL CARDIAC ELECTROPHYSIOLOGY 01/16/25 Peggy Celeste PA-C [address] [place] [address] Referring Physician PHYSICIAN INVENTORY AND PRICING ASSOCIATE 01/30/25
--- NOTE | 2025-06-06 08:03 | PC.NURSE ---
Dr Corona office contacted for medication list.
--- NOTE | 2025-06-06 09:25 | P.HP_ITS ---
H&P: HPI History of Present Illness Date/Time: 06/06/25 09:25 Chief Complaint: SOB Narrative: Patient is an 84-year-old female who presented to the emergency department due to complaints of worsening shortness of breath. Patient reports she called EMS due to difficulty breathing and worsening shortness a breath. patient states she is supposed to be on continuous oxygen has a concentrator at home however unable to wear her portable because it is too heavy and at times will remove her oxygen when traveling outside or to her boyfriend's house. Patient also reported she had been previously diagnosed atrial fibrillation but was unsure if she was ever diagnosed with congestive heart failure. Patient with history pulmonary fibrosis has chronic respiratory failure with hypoxia and recent DVT. Patient denied any chest pain, nausea, vomiting, abdominal pain, dizziness at time of assessment. patient reports she does follow with a biomedical photographer and was following with a test technician outpatient but has not followed up recently she had stopped using any of her nebulizers at home reported they did not help work as well as her inhalers previously prescribed. after speaking with patient she also stated that she had no refills for her Lasix which she was previously discharged on in March. Patient is not the best historian had a detailed discussion regarding patient's diagnosis of pulmonary fibrosis progression of disease in the need for continuous oxygen. In the ED: CXR was consistent with CHF and BNP elevated greater than 5000 but better than previous admission. per report patient was hypoxic when EMS arrived at around 80s oxygen saturation upon arrival to emergency department at 87 placed on her home oxygen of 3 L with improvement to greater than 92%. viral panel negative for influenza / RSV /COVID. patient was admitted to the medical unit for further evaluation and treatment of it on chronic respiratory failure multifocal from CHF exacerbation and pulmonary fibrosis noncompliance with oxygen. Review of Systems Review of Systems: All systems reviewed & are unremarkable except as noted in HPI and below PMFSH Past Medical History Medical History Congestive heart disease Pulmonary fibrosis Acute and chronic respiratory failure with hypoxia Hypertension Dvt femoral (deep venous thrombosis) Atrial fibrillation Surgical History Surgical History History of thrombectomy Family History Family History Father Congestive heart failure Social History Social History Years smoked: 0.5 Smoking status: Never smoker Tobacco type: cigarettes Smoking end date: 03/01/1963 Alcohol intake: never Substance use: never Substance use type: does not use Do You Feel Safe in your Home?: Yes Lack of Transportation: No Lack of Food: Never True Current Housing: I Have Housing Concerned About Future Housing: No Difficulty Paying Gas/Electric Bills: No Difficulty Paying for Meds: No Currently Unemployed: No Education: High School Diploma/GED Difficulty w/ Childcare or Family Care: No Spiritual care concerns: No Meds Home Medications and Allergies Home Medications ?Medication ?Instructions ?Recorded ?Confirmed ?Type gabapentin 100 mg capsule 100 mg PO HS 03/14/25 History metoprolol succinate 25 mg 25 mg PO Q12H 03/14/2505/10 History tablet,extended release 24 hr apixaban 5 mg tablet (Eliquis) 5 mg PO BID #60 tabs 06/05/25 Rx furosemide 40 mg tablet (Lasix) 40 mg PO DAILY #30 tab s 03/17/25 06/06/25 Rx gabapentin 300 mg capsule 300 mg PO HS 06/06/25 History hydrocodone 5 mg-acetaminophen 325 1 tablet PO BID PRN pain 06/06/25 06/06/25 History mg tablet metoprolol succinate 100 mg 100 mg PO DAILY 06/06/25 0 06/06/25 History tablet,extended release 24 hr omeprazole 40 mg capsule,delayed 40 mg PO DAILY 06/06/25 History release Allergies Allergy/AdvReac Type Severity Reaction Status Date / Time No Known Allergies Allergy Verified 06/05/25 17:03 Vital Signs Vital Signs - 24 hr 06/05/25 16:57 06/05/25 17:00 06/05/25 17:00 Temperature 98.0 F Pulse Rate 82 97 Respiratory Rate 21 H Blood Pressure 124/93 H Pulse Oximetry 100 97 Oxygen Delivery Nasal Cannula Nasal Cannula Oxygen Flow Rate 4 4 06/05/25 17:20 06/05/25 17:42 06/05/25 17:46 Temperature Pulse Rate 105 H 96 110 H Respiratory Rate 28 H 32 H 24 H Blood Pressure 125/97 H 126/91 H Pulse Oximetry 91 92 99 Oxygen Delivery Nasal Cannula Oxygen Flow Rate 4 06/05/25 17:55 06/05/25 18:00 06/05/25 18:01 Temperature Pulse Rate 104 H 108 H 101 H Respiratory Rate 22 H 23 H 22 H Blood Pressure 117/89 Pulse Oximetry 99 100 100 Oxygen Delivery Nasal Cannula Nasal Cannula Oxygen Flow Rate 2 2 06/05/25 18:16 06/05/25 18:25 06/05/25 18:36 Temperature Pulse Rate 101 H 124 H 117 H Respiratory Rate 22 H 22 H 21 H Blood Pressure 128/96 H 126/104 H 127/105 H Pulse Oximetry 99 87 L 100 Oxygen Delivery Oxygen Flow Rate 06/05/25 18:38 06/05/25 19:00 06/05/25 19:02 Temperature 97.9 F Pulse Rate 109 H 100 Respiratory Rate 24 H 24 H Blood Pressure 121/110 H 134/108 H Pulse Oximetry 97 99 97 Oxygen Delivery Nasal Cannula Oxygen Flow Rate 2 06/05/25 19:26 06/05/25 19:42 06/05/25 19:42 Temperature Pulse Rate 100 100 Respiratory Rate 20 Blood Pressure Pulse Oximetry 99 99 Oxygen Delivery Nasal Cannula Nasal Cannula Oxygen Flow Rate 4 4 06/05/25 19:42 06/05/25 20:52 06/06/25 00:00 Temperature 97.6 F Pulse Rate 100 94 106 H Respiratory Rate 20 Blood Pressure 124/80 Pulse Oximetry 99 Oxygen Delivery Nasal Cannula Oxygen Flow Rate 4 06/06/25 00:00 06/06/25 04:00 06/06/25 04:00 Temperature 97.1 F L Pulse Rate 106 H 76 Respiratory Rate 20 18 Blood Pressure 120/75 Pulse Oximetry 95 94 Oxygen Delivery Nasal Cannula Nasal Cannula Oxygen Flow Rate 3 2 Exam Const: General: comfortable, no acute distress and uncomfortable Other: Female looks stated age HENMT: Face/Nose/Sinus: Normal nares present Mouth: Yes moist mucous membranes Eyes: General: appearance normal, both eyes and all related structures Sclera: sclerae normal Pupils: Equal, round and reactive pupils present Neck: Neck: supple and no JVD Resp: Effort & Inspection: abnormal respiratory pattern, audible wheezes, Actively coughing productive, uses accessory muscles and symmetric chest movement Auscultation: crackles, rhonchi and wheezes Cardio: Rhythm: abnormal rhythm (AFIB rate 113 on monitor) irregularly irregular Other: regular irregular GI: GI Palp: Yes Soft to palpation and Yes Tenderness to palpation present (GI) (Due to constipation) Auscultation: normal bowel sounds Skin: General skin exam: normal color Wounds: no wounds Neuro: General: gait normal Speech: normal speech Motor exam (neuro): 5/5 motor strength present throughout Sensory Exam: normal sensation Extrem: General: normal to inspection Psych: Mental Status: mental status grossly normal Affect: Anxious affect present H&P: Results Labs Labs: Short CBC 06/05/25 06/06/25 Range/Units 17:37 05:31 WBC 4.8 4.6 L (4.8-10.8) K/mm3 Hgb 10.4 L 9.4 L (11.7-13.8) g/dL Hct 32.2 L 29.5 L (35.0-42.0) % Plt Count 295 261 (150-420) K/mm3 BMP 06/05/25 06/06/25 17:37 05:31 Sodium 140 140 Potassium 4.9 4.1 Chloride 102 103 Carbon Dioxide 27 29 BUN 15 D 14 Creatinine 0.87 0.91 Glucose 112 H 87 Calcium 9.8 9.6 Cardiac Enzymes 06/05/25 Range/Units 17:37 Troponin I 0.020 (0.000-0.034) ng/mL Liver Function 06/05/25 06/06/25 Range/Units 17:37 05:31 Total Bilirubin 1.3 1.3 (0.2-1.3) mg/dL AST 35 28 (14-36) U/L ALT 18 14 (6-35) U/L Alkaline Phosphatase 113 96 (38-126) U/L Albumin 4.4 3.4 L (3.5-5.1) g/dL Urine 06/05/25 Range/Units 18:28 Urine Color Light yellow (Yellow) Urine Appearance Clear (Clear) Urine pH 6.0 (5.0-8.0) Ur Specific [place] 1.010 (1.010-1.020) Urine Protein Negative (Negative) Urine Glucose (UA) Negative (Negative) Imaging CT scan - chest: Radiologist's impression: CTA chest PE protocol Ordering provider: Jim Dalal MD History: 84 years Female with . shortness of breath . Comparison: August 19, 2023 Technique: CT angiogram chest was performed following timed intravenous injection of contrast. Thin slice axial images and reformatted coronal images were obtained. Three dimensional reformatted images of the chest were also obtained using a [employer] workstation. . Automated exposure control and iterative reconstruction technique were employed. The dose-length product was 206.92 mGy-cm. 100 mL Omnipaque 350 was given IV. Findings: PULMONARY ARTERIES: No pulmonary embolus. VISUALIZED THORACIC INLET: Normal. MEDIASTINUM: Aorta/coronary arteries: Mild atheromatous disease. Heart/other: The heart is slightly enlarged. Right sided failure is noted with reflux of contrast in the inferior vena cava and in one of the vessels seen posterior to the septum between the left atrium and left ventricle. Lymph nodes: No mediastinal or hilar adenopathy. LUNGS: No pulmonary nodules or masses. No infiltrates or effusions. No pneumothorax. VISUALIZED UPPER ABDOMEN: Atrophic left kidney. Atrophic pancreas. Otherwise, the visualized upper abdomen is normal. MUSCULOSKELETAL: Soft tissues: The superficial soft tissues are normal. Bones: Age appropriate degenerative changes of the spine. IMPRESSION: 1. No pulmonary embolism. 2. Interstitial changes of the lungs with thickening of the septa which is suggestive of superimposed pulmonary edema. Clinical correlation and follow-up advised. 3. Cardiomegaly with right sided failure. 4. Atrophic left kidney. Assessment and Plan Assessment and plan (1) Acute and chronic respiratory failure with hypoxia: Code(s): J96.21 - Acute and chronic respiratory failure with hypoxia Status: Acute Assessment and Plan: patient chronically wears 2-3 L supplemental oxygen at home used to follow with biomedical photographer but has not been back recently care for acute on chronic PCP stated oxygen saturations low at her appointment likely multifocal due to pulmonary fibrosis and noncompliance with continuous oxygen and CHF exacerbation. * continue with supplemental oxygen wean as tolerated to home use * will need referral to biomedical photographer outpatient * patient will need further PFT testing outpatient (2) Congestive heart disease: Qualifiers: Heart failure chronicity: chronic Heart failure type: unspecified Qualified Code(s): I50.9 - Heart failure, unspecified Code(s): I50.9 - Heart failure, unspecified Status: Acute Assessment and Plan: patient with history systolic heart failure had stopped taking her Lasix home. CXR showing moderate pulmonary venous congestion suggestive of CHF with elevated BNP greater than 5000 * IV Lasix b.i.d. 40mg BID * monitor renal function during diuresis * continue metoprolol * 2 g sodium diet * Daily weight. * continuous cardiac monitoring (3) Pulmonary fibrosis: Code(s): J84.10 - Pulmonary fibrosis, unspecified Status: Acute Assessment and Plan: patient previously seen by biomedical photographer outpatient per medical chart history of pulmonary fibrosis is noncompliant with continuous oxygen or inhalers had detailed discussion about the need for continuous oxygen. patient reports she has a portable tank but it is too heavy at 5 lb and has requested a 2 lb portable oxygen tank but she does travel to her boyfriend's house and sometimes outside with not wearing any oxygen. * Levalbuterol PRN due to AFIB * incentive spirometry while awake. * prednisone 40 mg daily x5 days * mucolytics * supplemental oxygen therapy to maintain oxygen 92%/ Wears 2L chronically at home * patient educated on need for frequent rest periods she may increase her oxygen at times of activity exertion * encouraged her to follow up with biomedical photographer outpatient however she is somewhat resistant due to traveling there (4) Hypertension: Code(s): I10 - Essential (primary) hypertension Status: Acute Assessment and Plan: * BP stable * resume patient's metoprolol * monitor per unit protocol (5) Atrial fibrillation: Code(s): I48.91 - Unspecified atrial fibrillation Status: Acute Assessment and Plan: patient reports history of atrial fibrillation EKG showing atrial fibrillation * continue patient's metoprolol for rate control * initial Eliquis from home was 5 mg b.i.d. (6) Dvt femoral (deep venous thrombosis): Code(s): I82.419 - Acute embolism and thrombosis of unspecified femoral vein Status: Resolved Assessment and Plan: patient with recent DVT 03/2025 * continued patient's Eliquis 5 mg b.i.d. * Monitor for GIB * trend H&H Plan Code status: DNR DVT prophylaxis: Eliquis Stress ulcer prophylaxis: BELIA PT/OT notes: PT/OT evaluation pending Disposition: patient admitted to the medical unit for further evaluation and treatment of acute on chronic respiratory failure with hypoxia secondary to CHF exacerbation her noncompliant oxygen with chronic pulmonary fibrosis. patient currently has concentrate her at home is working on getting a portable oxygen tank at 2 lb because the 5 lb she has is too heavy for her. Quality VTE Prophylaxis VTE prophylaxis: pharmacologic ordered -Patient's previous records reviewed on admission -ER notes reviewed in detail on admission -discussed all findings and current treatment plan with patient -Consultations reviewed for recommendations -Patient's disposition for safe discharge discussed with correctional case records supervisor -radiology imaging, EKG and test results I have personally reviewed and interpreted unless otherwise specified Dictation performed by [employer] direct speech recognition software, therefore mineral economist variants and typographical errors may occur. Hospitalist MIPS Advance Care Plan I have confirmed that the patient's Advanced Care Plan is present, code status is documented, or surrogate decision maker is listed in patient medical record.: Yes Medication Reconciliation I have utilized all available resources to obtain, update and review the patients current medications (includes all prescriptions, OTC, herbals, cannabis, and nutritional supplements).: Yes The patient is not eligible for med reconciliation; the patient is in a emergent medical situation where delaying treatment would jeopardize the patients health.: No
[2025-06-06] MEDS: guaiFENesin 12 HR 600 MG TABCR 1200 MG PO ×2 (09:44→21:15)
[2025-06-06] MEDS: APIXABAN 2.5 MG TABLET 5 MG PO ×2 (09:44→21:15)
[2025-06-06] MEDS: METOPROLOL SUCCINATE EXT REL 50 MG TABCR 100 MG PO (09:44)
[2025-06-06] MEDS: BENZONATATE 100 MG CAPSULE 200 MG PO (09:44)
[2025-06-06] MEDS: FUROSEMIDE INJ 20 MG/2 ML VIAL 10 MG IV PUSH (09:45)
[2025-06-06 11:00] LABS: Magnesium 2.0 mg/dL (1.6-2.3)
[2025-06-06] MEDS: FUROSEMIDE INJ 40 MG/4 ML VIAL IV PUSH ×2 (11:15→16:38)
[2025-06-06] MEDS: LORATADINE 10 MG TABLET PO (21:15)
[2025-06-06] MEDS: GABAPENTIN 300 MG CAPSULE PO (21:15)
[2025-06-06] MEDS: ACETAMINOPHEN 325 MG TABLET 650 MG PO (21:15)
--- NOTE | 2025-06-06 21:15 | PC.NURSE ---
Patient refused Tylenol after it had been scanned and saved. Unable to undo.
[2025-06-07] VITALS: BP 101/50; PULSE 84; RESP 18; TEMP 36.6; O2SAT 94
[2025-06-07 04:00] VITALS: BP 103/57; PULSE 80; RESP 16; TEMP 36.7; O2SAT 95
[2025-06-07 05:30] VITALS: O2SAT 95
[2025-06-07 05:55] LABS: Hematocrit 31.4 % (35.0-42.0); Hemoglobin 10.2 g/dL (11.7-13.8); Mean Corpuscular HGB Conc 32.5 g/dL (32-36); Mean Corpuscular Hemoglobin 31.0 pg (27.0-31.0); Mean Corpuscular Volume 95.4 fL (78.0-102.0); Platelet Count Result 272 K/mm3 (150-420); Red Blood Count 3.29 M/mm3 (4.20-5.40); White Blood Count 6.8 K/mm3 (4.8-10.8)
[2025-06-07 06:07] LABS: Alanine Aminotransferase 15 U/L (6-35); Albumin Level 3.4 g/dL (3.5-5.1); Alkaline Phosphatase 94 U/L (38-126); Anion Gap 7 mmol/L (4-12); Aspartate Amino Transferase 25 U/L (14-36); Bilirubin,Total 0.8 mg/dL (0.2-1.3); Blood Urea Nitrogen 25 mg/dL (7-17); Calcium 9.3 mg/dL (8.4-10.2); Carbon Dioxide 33 mmol/L (22-30); Chloride 100 mmol/L (98-107); Estimated CRCL calculation 27 ml/min; Estimated Glomerular Filt Rate 53; Glucose 117 mg/dL (65-110); Magnesium 1.9 mg/dL (1.6-2.3); Osmolality Calculated 295 mOsm/kg (285-295); Potassium 4.0 mmol/L (3.4-5.0); Sodium 140 mmol/L (137-145); Total Protein 6.9 g/dL (6.3-8.2)
[2025-06-07 08:00] VITALS: BP 124/79; PULSE 102; RESP 20; TEMP 36.1; O2SAT 94
[2025-06-07] MEDS: APIXABAN 2.5 MG TABLET 5 MG PO (08:04)
[2025-06-07] MEDS: FUROSEMIDE INJ 40 MG/4 ML VIAL IV PUSH (10:03)
[2025-06-07] MEDS: guaiFENesin 12 HR 600 MG TABCR 1200 MG PO (10:03)
[2025-06-07 10:04] VITALS: PULSE 88
[2025-06-07] MEDS: METOPROLOL SUCCINATE EXT REL 50 MG TABCR 100 MG PO (10:04)
--- NOTE | 2025-06-07 10:11 | P.DS_ITS ---
DS: Admitting Diagnosis Discharge Date 06/07/2025 Admitting Diagnosis Acute on chronic respiratory failure with hypoxia DS: Discharge Diagnosis Discharge Diagnosis (1) Acute and chronic respiratory failure with hypoxia: Code(s): J96.21 - Acute and chronic respiratory failure with hypoxia Status: Acute Assessment and Plan: patient chronically wears 2-3 L supplemental oxygen at home used to follow with paper sorter and counter but has not been back recently care for acute on chronic PCP stated oxygen saturations low at her appointment likely multifocal due to pulmonary fibrosis and noncompliance with continuous oxygen and CHF exacerbation. * continue with supplemental oxygen wean as tolerated to home use * will need referral to paper sorter and counter outpatient * patient will need further PFT testing outpatient (2) Congestive heart disease: Qualifiers: Heart failure chronicity: chronic Heart failure type: unspecified Qualified Code(s): I50.9 - Heart failure, unspecified Code(s): I50.9 - Heart failure, unspecified Status: Acute Assessment and Plan: patient with history systolic heart failure had stopped taking her Lasix home. CXR showing moderate pulmonary venous congestion suggestive of CHF with elevated BNP greater than 5000 * IV Lasix b.i.d. 40mg BID, change to home PO lasix on dischrage * monitor renal function during diuresis * continue metoprolol * 2 g sodium diet * Daily weight. * continuous cardiac monitoring (3) Pulmonary fibrosis: Code(s): J84.10 - Pulmonary fibrosis, unspecified Status: Acute Assessment and Plan: patient previously seen by paper sorter and counter outpatient per medical chart history of pulmonary fibrosis is noncompliant with continuous oxygen or inhalers had detailed discussion about the need for continuous oxygen. patient reports she has a portable tank but it is too heavy at 5 lb and has requested a 2 lb portable oxygen tank but she does travel to her boyfriend's house and sometimes outside with not wearing any oxygen. * Levalbuterol PRN due to AFIB * incentive spirometry while awake. * prednisone 40 mg daily x5 days * mucolytics * supplemental oxygen therapy to maintain oxygen 92%/ Wears 3L chronically at home * patient educated on need for frequent rest periods she may increase her ox ygen at times of activity exertion * encouraged her to follow up with paper sorter and counter outpatient however she is somewhat resistant due to traveling there (4) Hypertension: Code(s): I10 - Essential (primary) hypertension Status: Acute Assessment and Plan: * BP stable * resume patient's metoprolol (5) Atrial fibrillation: Code(s): I48.91 - Unspecified atrial fibrillation Status: Acute Assessment and Plan: patient reports history of atrial fibrillation EKG showing atrial fibrillation * continue patient's metoprolol for rate control * Eliquis from home was 5 mg b.i.d. (6) Dvt femoral (deep venous thrombosis): Code(s): I82.419 - Acute embolism and thrombosis of unspecified femoral vein Status: Resolved Assessment and Plan: patient with recent DVT 03/2025 * continued patient's Eliquis 5 mg b.i.d. * Monitor for GIB DS: Summary Hospital Course Reason for hospitalization: hypoxia Hospital Course: patient is a 84-year-old female who presented to the emergency department initially due to complaints of worsening shortness of breath. Patient has a history of pulmonary fibrosis and has chronic respiratory failure with hypoxia and wear his oxygen at 2-3 L at home at all times. The patient reports that she does not wear her oxygen at all times because her to being is not long enough and it is dangerous to attach more tubing. She also reports that her portable oxygen tank is too heavy for her so therefore she does not use it. Patient's pneumonia was treated with IV antibiotics. Patient was treated with IV furosemide for CHF. Patient was improving. care coordination attempted to get discharge recommendations made. Patient was recommended to discharge home with [facility] Patient was discharged home on 40 mg po furosemide. Patient encourage to follow a low sodium diet. Time Spent with Patient Time attestation: Total time spent providing and/or coordinating discharge services: 35 Minutes Exam Const: General: comfortable and no acute distress Other: Female looks stated age HENMT: Face/Nose/Sinus: Normal nares present Mouth: Yes moist mucous membranes Eyes: General: appearance normal, both eyes and all related structures Sclera: sclerae normal Pupils: Equal, round and reactive pupils present Neck: Neck: supple and no JVD Resp: Effort & Inspection: abnormal respiratory pattern, Actively coughing productive, uses accessory muscles and symmetric chest movement Auscultation: crackles and rhonchi Cardio: Rhythm: abnormal rhythm (AFIB rate 113 on monitor) irregularly irregular GI: Auscultation: normal bowel sounds Skin: General skin exam: normal color Wounds: no wounds Neuro: General: gait normal Cranial nerves: Yes Equal, round and reactive pupils present Speech: normal speech Motor exam (neuro): 5/5 motor strength present throughout Sensory Exam: normal sensation Extrem: General: normal to inspection Psych: Mental Status: mental status grossly normal Affect: Anxious affect present DS: Data Data Completed and Pending Labs on day of discharge: Labs from last 24 hours 06/07/25 06/06/25 05:30 05:31 WBC 6.8 RBC 3.29 L Hgb 10.2 L Hct 31.4 L MCV 95.4 MCH 31.0 MCHC 32.5 RDW 15.2 H Plt Count 272 MPV 9.4 Sodium 140 Potassium 4.0 Chloride 100 Carbon Dioxide 33 H Anion Gap 7 BUN 25 H D Creatinine 1.00 Estim Creat Clear Calc 27 Estimated GFR 53 L Glucose 117 H Calculated Osmolality 295 Calcium 9.3 Magnesium 1.9 2.0 Total Bilirubin 0.8 AST 25 ALT 15 Alkaline Phosphatase 94 Total Protein 6.9 Albumin 3.4 L Discharge Plan Discharge Attending physician on discharge: Jose G Nance Consulting providers: Cheryle Melendez; Zahraa Kincaid; Jhonny Dawn; Jonnathan Lopez Discharging Clinician: Zahraa Kincaid Patient Disposition: Home Activity: as tolerated Diet: heart healthy and low sodium Patient Instructions: Antibiotic Form, Furosemide (By mouth), Prednisone (By mouth), Fall Prevention for Older Adults (DC), Using Oxygen at Home (DC), Hypoxia (GEN) Patient Language: Croatian Stand Alone Forms: General Discharge Information Follow-up/Referrals: Nnamdi,MD Christ [Primary Care Provider, [facility]] Referral Note: call for an appt to be seen within 1-2 weeks of discharge. Please have you PCP refill your furosemide prescription. Discharge Medications: New levalbuterol HCl 0.63 mg/3 mL Solution For Nebulization 0.63 mg inhalation Q6HRT PRN (Reason: Shortness Of Breath) Qty: 90 0RF prednisone 20 mg Tablet 40 mg PO DAILY@0800 3 Days Qty: 6 0RF guaifenesin [Mucus Relief ER] 600 mg Tablet Extended Release 12hr 1,200 mg PO Q12HR Qty: 30 0RF furosemide [Lasix] 40 mg tablet 40 mg PO DAILY Qty: 30 0RF Continued metoprolol succinate 100 mg tablet extended release 24 hr 100 mg PO DAILY omeprazole 40 mg capsule,delayed release(DR/EC) 40 mg PO DAILY hydrocodone-acetaminophen 5-325 mg tablet 1 tablet PO BID PRN (Reason: pain) gabapentin 300 mg capsule 300 mg PO HS gabapentin 100 mg capsule 100 mg PO HS metoprolol succinate 25 mg tablet extended release 24 hr 25 mg PO Q12H Eliquis 5 mg tablet 5 mg PO BID Qty: 60 0RF Discontinued furosemide [Lasix] 40 mg tablet 40 mg PO DAILY Qty: 30 0RF No Action Preparation H Rapid Rlf-Lidocn 5-0.25-14.4-15 % cream 1 applic topical TID Qty: 28 0RF Date of admission: 06/05/25 18:29 Primary Care Provider: LanceChrist Admitting Provider: Jose G Nance Attending physician on admission: Jose G Nance Condition: Stable Quality VTE Prophylaxis VTE prophylaxis: pharmacologic ordered
[2025-06-07 12:00] VITALS: BP 152/78; PULSE 88; RESP 20; TEMP 36.1; O2SAT 94
--- NOTE | 2025-06-07 15:26 | PC.NURSE ---
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
--- NOTE | 2025-06-13 10:44 | PC.NURSE ---
F/U phone call #1, left message to return call to [phone].
--- NOTE | 2025-06-19 10:04 | PC.NURSE ---
Unable to reach pt for f/u call. Pt instructed to f/u with Dr Coto upon d/c.
== END 2025-06-07 15:15 | disposition home or self-care (01) ==
LOC: CHSED 18:28 → CHS2ND 18:59
PROVIDERS: Nurse Practitioner Family; Admitting Provider Internal Medicine; Emergency Provider Emergency Medicine; PCP Family Medicine; Visit Provider Internal Medicine
DX: J96.21 Acute and chronic respiratory failure with hypoxia (principal); J84.10 Pulmonary fibrosis, unspecified; Z99.81 Dependence on supplemental oxygen; I25.10 Atherosclerotic heart disease of native coronary artery without angina pectoris; I82.419 Acute embolism and thrombosis of unspecified femoral vein; I50.22 Chronic systolic (congestive) heart failure; I11.0 Hypertensive heart disease with heart failure; Z91.148 Patient's other noncompliance with medication regimen for other reason; I48.91 Unspecified atrial fibrillation; Z79.01 Long term (current) use of anticoagulants; Z20.822 Contact with and (suspected) exposure to COVID-19; Z87.09 Personal history of other diseases of the respiratory system; N26.1 Atrophy of kidney (terminal); Z87.891 Personal history of nicotine dependence; Z82.49 Family history of ischemic heart disease and other diseases of the circulatory system; Z86.718 Personal history of other venous thrombosis and embolism
CPT/HCPCS: 36415; 71045; 80053; 81001; 83605; 83735; 83880; 84484; 85025; 85027; 87040; 87637; 93005; 96374; 96376; 99285; A9270; G0378; J1938; J7512

== ENCOUNTER 2025-06-25 12:46 | Emergency (ER) | payer MEDICARE, SELFPAY ==
[2025-06-25] VITALS (8 sets, daily range): BP systolic 98–119; BP diastolic 55–79; PULSE 58–114; RESP 16–18; TEMP 36.4; O2SAT 95–98
--- NOTE | ~2025-06-25 | CT_ITS ---
Bernadette Velazquez EXAMINATION: CT abdomen pelvis w con COMPARISON: None HISTORY: Onset this AM, perirectal pain and swelling TECHNIQUE: Axial images were obtained through the abdomen, pelvis post administration of IV contrast. Oral contrast was also administered. Coronal reconstruction images were obtained from the axial views. CT scan performed using dose optimization techniques including the following automated exposure control; adjustment of mA and/or kV; use of iterative reconstruction technique. Automatic exposure control was used to reduce radiation dose. Permanent radiation dose record is archived to PACS. FINDINGS: CT abdomen: LUNG BASES: The lung bases demonstrate chronic changes with pulmonary fibrotic changes noted. Moderate cardiomegaly. LIVER: Probable cirrhotic disease of the liver. Portal vein patent. No intrahepatic biliary duct dilatation. SPLEEN: Unremarkable. KIDNEYS: Right Kidney: Unremarkable. No calculi. No hydronephrosis. Left Kidney: Severe atrophy left kidney with subcentimeter probable renal cysts. ADRENAL GLANDS: Unremarkable. PANCREAS: Moderate atrophy of the pancreas. GALLBLADDER/BILIARY: Postcholecystectomy. STOMACH AND ESOPHAGUS: The stomach appears distended with hyperemia of the gastric mucosa. BOWEL/MESENTERY: Moderate fecal content, no colitis or diverticulitis. Mesentery normal. No thickened or dilated loops of small bowel. ADENOPATHY/RETROPERITONEUM: No lymphadenopathy. AORTA/VASCULATURE: Atherosclerotic changes of the aorta with ectasia but no aneurysm. FREE FLUID OR FREE AIR: No free fluid.. CT pelvis: SOLID ORGANS/REPRODUCTIVE: Post hysterectomy. No adnexal mass. Left ovary there is a cystic lesion measuring 4 x 5 cm incompletely evaluated in this postmenopausal patient. BLADDER: Within normal limits. OSSEOUS STRUCTURES: No acute osseous abnormality.No suspicious lesions. OVERLYING SOFT TISSUES: Unremarkable. IMPRESSION: 1. Probable severe gastritis 2. Cystic left ovarian lesion, pelvic ultrasound is recommended Reviewed, dictated and finalized at location P.
--- NOTE | 2025-06-25 13:01 | ED.GENADULT ---
HPI - General Adult General Chief complaint: Skin/Abscess/Foreign Body Stated complaint: lump near rectum Time Seen by Provider: 06/25/25 12:57 History of Present Illness HPI narrative: Bernadette is an 84F with a PMH of DVT, pulmonary fibrosis, Afib, CHF, HTN, and COPD that presented to the ED with a painful, tender swollen lesion on the left side of her anus. No fevers, drainage, constipation or diarrhea. No other complaints noted. Related Data Home Medications ?Medication ?Instructions ?Recorded ?Confirmed ?Last Taken ?Type gabapentin 100 mg capsule 100 mg PO HS 03/14/25 06/06/25 06/04/25 History metoprolol succinate 25 mg 25 mg PO Q12H 03/14/25 06/06/25 06/04/25 History tablet,extended release 24 hr gabapentin 300 mg capsule 300 mg PO HS 06/06/25 06/06/25 Unknown History hydrocodone 5 mg-acetaminophen 325 1 tablet PO BID PRN pain 06/06/25 06/06/25 Unknown History mg tablet metoprolol succinate 100 mg 100 mg PO DAILY 06/06/25 06/06/25 Unknown History tablet,extended release 24 hr omeprazole 40 mg capsule,delayed 40 mg PO DAILY 06/06/25 06/06/25 Unknown History release Allergies Allergy/AdvReac Type Severity Reaction Status Date / Time No Known Allergies Allergy Verified 06/25/25 14:27 Review of Systems Review of Systems: All systems reviewed & are unremarkable except as noted in HPI and below PMFSH Past Medical History Medical History Congestive heart disease Pulmonary fibrosis Acute and chronic respiratory failure with hypoxia Hypertension Dvt femoral (deep venous thrombosis) Atrial fibrillation Surgical History Surgical History History of thrombectomy Family History Family History Father Congestive heart failure Social History Social History Years smoked: 0.5 Smoking status: Never smoker Tobacco type: cigarettes Smoking end date: 03/01/1962 Alcohol intake: never Substance use: never Substance use type: does not use Do You Feel Safe in your Home?: Yes Lack of Transportation: No Lack of Food: Never True Current Housing: I Have Housing Concerned About Future Housing: No Difficulty Paying Gas/Electric Bills: No Difficulty Paying for Meds: No Currently Unemployed: No Education: High School Diploma/GED Difficulty w/ Childcare or Family Care: No Spiritual care concerns: No Exam Const: General: cooperative, healthy appearing, comfortable, no acute distress, well developed, alert, awake and Physically active Orientation/consciousness: oriented to person, oriented to place and oriented to time HENMT: Head: normal to inspection, normocephalic and atraumatic Ears: hearing grossly normal bilaterally and external ears normal Face/Nose/Sinus: Normal external nose present Eyes: General: appearance normal, both eyes and all related structures Periorbital: periorbital findings normal Sclera: sclerae normal Pupils: Equal, round and reactive pupils present Neck: Neck: normal visual inspection Chest: Chest palpation & inspection: normal inspection of the chest Resp: Effort & Inspection: normal respiratory effort, able to speak in complete sentences and no respiratory distress Cardio: Jugular venous distension: no JVD Rate: regular rate GI: Inspection: normal to inspection GI Palp: Yes Soft to palpation Auscultation: normal bowel sounds Other: large external hemorrhoid Skin: General skin exam: normal color and no rashes or lesions noted Neuro: General: oriented to person, oriented to place and oriented to time Cranial nerves: Yes Equal, round and reactive pupils present Extrem: General: normal to inspection Course Course Emergency Course: Ordered labs, CT, morphine and preparation H. Labs were largely unremarkable. EXAMINATION: CT abdomen pelvis w con COMPARISON: None HISTORY: Onset this AM, perirectal pain and swelling TECHNIQUE: Axial images were obtained through the abdomen, pelvis post administration of IV contrast. Oral contrast was also administered. Coronal reconstruction images were obtained from the axial views. CT scan performed using dose optimization techniques including the following automated exposure control; adjustment of mA and/or kV; use of iterative reconstruction technique. Automatic exposure control was used to reduce radiation dose. Permanent radiation dose record is archived to PACS. FINDINGS: CT abdomen: LUNG BASES: The lung bases demonstrate chronic changes with pulmonary fibrotic changes noted. Moderate cardiomegaly. LIVER: Probable cirrhotic disease of the liver. Portal vein patent. No intrahepatic biliary duct dilatation. SPLEEN: Unremarkable. KIDNEYS: Right Kidney: Unremarkable. No calculi. No hydronephrosis. Left Kidney: Severe atrophy left kidney with subcentimeter probable renal cysts. ADRENAL GLANDS: Unremarkable. PANCREAS: Moderate atrophy of the pancreas. GALLBLADDER/BILIARY: Postcholecystectomy. STOMACH AND ESOPHAGUS: The stomach appears distended with hyperemia of the gastric mucosa. BOWEL/MESENTERY: Moderate fecal content, no colitis or diverticulitis. Mesentery normal. No thickened or dilated loops of small bowel. ADENOPATHY/RETROPERITONEUM: No lymphadenopathy. AORTA/VASCULATURE: Atherosclerotic changes of the aorta with ectasia but no aneurysm. FREE FLUID OR FREE AIR: No free fluid.. CT pelvis: SOLID ORGANS/REPRODUCTIVE: Post hysterectomy. No adnexal mass. Left ovary there is a cystic lesion measuring 4 x 5 cm incompletely evaluated in this postmenopausal patient. BLADDER: Within normal limits. OSSEOUS STRUCTURES: No acute osseous abnormality.No suspicious lesions. OVERLYING SOFT TISSUES: Unremarkable. IMPRESSION: 1. Probable severe gastritis 2. Cystic left ovarian lesion, pelvic ultrasound is recommended Given low CRP and no leukocytosis rectal abscess is unlikely. External hemorrhoid is present but will not peggy given patient is on Apixaban and may have taken NSAIDs. Vital Signs Vital signs: Vital Signs Temperature 97.5 F L 06/25/25 12:46 Pulse Rate 114 H 06/25/25 12:46 Respiratory Rate 18 06/25/25 12:46 Pulse Oximetry 95 06/25/25 12:46 Oxygen Delivery Room Air 06/25/25 12:46 Temperature 97.5 F L 06/25/25 15:02 Pulse Rate 81 06/25/25 14:54 Respiratory Rate 16 06/25/25 14:54 Blood Pressure 116/79 06/25/25 14:54 Pulse Oximetry 97 06/25/25 14:54 Oxygen Delivery Room Air 06/25/25 14:54 Medical Decision Making Vital Signs Vital Signs: Vital Signs Temperature 97.5 F L 06/25/25 12:46 Pulse Rate 114 H 06/25/25 12:46 Respiratory Rate 18 06/25/25 12:46 Pulse Oximetry 95 06/25/25 12:46 Oxygen Delivery Room Air 06/25/25 12:46 Temperature 97.5 F L 06/25/25 15:02 Pulse Rate 81 06/25/25 14:54 Respiratory Rate 16 06/25/25 14:54 Blood Pressure 116/79 06/25/25 14:54 Pulse Oximetry 97 06/25/25 14:54 Oxygen Delivery Room Air 06/25/25 14:54 Lab Data 06/25/25 13:14 06/25/25 13:14 Labs: Lab Results 06/25/25 Range/Units 13:14 WBC 8.2 (4.8-10.8) K/mm3 RBC 3.56 L (4.20-5.40) M/mm3 Hgb 11.2 L (11.7-13.8) g/dL Hct 33.4 L (35.0-42.0) % MCV 93.8 (78.0-102.0) fL MCH 31.5 H (27.0-31.0) pg MCHC 33.5 (32-36) g/dL RDW 15.6 H (11.6-14.4) % Plt Count 321 (150-420) K/mm3 MPV 8.9 L (9.2-11.8) fl Immature Gran % (Auto) 0.2 H (0.0-0.0) % Neut % (Auto) 72.9 H (50.0-70.0) % Lymph % (Auto) 13.7 L (18.0-42.0) % [place] % (Auto) 9.0 (2.0-11.0) % Eos % (Auto) 3.2 (1.0-6.0) % Baso % (Auto) 1.0 (0.0-1.0) % Lymph # (Auto) 1.12 (1.10-4.50) K/mm3 [place] # (Auto) 0.74 (0.10-0.90) K/mm3 Eos # (Auto) 0.26 (0.02-0.50) K/mm3 Baso # (Auto) 0.08 (0.00-0.10) K/mm3 Abs Immat Gran (auto) 0.02 H (0.00-0.00) K/mm3 Absolute Neuts (auto) 5.96 (1.70-7.20) K/mm3 Absolute Nucleated RBC 0.00 (0.00-0.00) K/mm3 Nucleated RBC % 0.0 (0-0.0) % Sodium 138 (137-145) mmol/L Potassium 4.3 (3.4-5.0) mmol/L Chloride 109 H (98-107) mmol/L Carbon Dioxide 21 L (22-30) mmol/L Anion Gap 8 (4-12) mmol/L BUN 19 H (7-17) mg/dL Creatinine 0.90 (0.7-1.0) mg/dL Estim Creat Clear Calc 30 ml/min Estimated GFR 60 (59 - ) Glucose 132 H (65-110) mg/dL Calculated Osmolality 290 (285-295) mOsm/kg Calcium 9.4 (8.4-10.2) mg/dL Total Bilirubin 1.2 (0.2-1.3) mg/dL AST 36 (14-36) U/L ALT 22 (6-35) U/L Alkaline Phosphatase 123 (38-126) U/L C-Reactive Protein 1.1 (<1.0) mg/dL Total Protein 8.2 (6.3-8.2) g/dL Albumin 3.8 (3.5-5.1) g/dL Discharge Plan Discharge Clinical Impression: External hemorrhoids with complication Patient Disposition: Home Condition: Stable Instructions: Hemorrhoids (ED) Additional Instructions: Please call your primary or a general surgery office for follow up. [facility] has a surgery group in [place], [place]. Please contact them at ([phone]). Patient Language: Ecuadorean Prescriptions: New Preparation H Rapid Rlf-Lidocn 5-0.25-14.4-15 % cream 1 applic topical TID Qty: 28 0RF No Action metoprolol succinate 100 mg tablet extended release 24 hr 100 mg PO DAILY omeprazole 40 mg capsule,delayed release(DR/EC) 40 mg PO DAILY hydrocodone-acetaminophen 5-325 mg tablet 1 tablet PO BID PRN (Reason: pain) gabapentin 300 mg capsule 300 mg PO HS levalbuterol HCl 0.63 mg/3 mL Solution For Nebulization 0.63 mg inhalation Q6HRT PRN (Reason: Shortness Of Breath) Qty: 90 0RF prednisone 20 mg Tablet 40 mg PO DAILY@0800 3 Days Qty: 6 0RF guaifenesin [Mucus Relief ER] 600 mg Tablet Extended Release 12hr 1,200 mg PO Q12HR Qty: 30 0RF furosemide [Lasix] 40 mg tablet 40 mg PO DAILY Qty: 30 0RF gabapentin 100 mg capsule 100 mg PO HS metoprolol succinate 25 mg tablet extended release 24 hr 25 mg PO Q12H Eliquis 5 mg tablet 5 mg PO BID Qty: 60 0RF Follow-up/Referrals: Nnamdi,MD Christ [Primary Care Provider, Family Practice]
[2025-06-25 13:19] LABS: Hematocrit 33.4 % (35.0-42.0); Hemoglobin 11.2 g/dL (11.7-13.8); Immature Granulocyte Percent A 0.2 % (0.0-0.0); Lymphocytes Absolute Auto 1.12 K/mm3 (1.10-4.50); Mean Corpuscular HGB Conc 33.5 g/dL (32-36); Mean Corpuscular Hemoglobin 31.5 pg (27.0-31.0); Mean Corpuscular Volume 93.8 fL (78.0-102.0); Nucleated Red Blood Cells Absolute Auto 0.00 K/mm3 (0.00-0.00); Nucleated Red Blood Cells Perc 0.0 % (0-0.0); Platelet Count Result 321 K/mm3 (150-420); Red Blood Count 3.56 M/mm3 (4.20-5.40); White Blood Count 8.2 K/mm3 (4.8-10.8)
[2025-06-25] MEDS: MORPHINE SULFATE (*CRX) 2 MG/ML INJ IV PUSH (13:19)
--- OUTSIDE RECORDS SUMMARY | 2025-06-25 13:25 | XMS_ITS | Encounter Summary ---
Author Organization [facility] Address [address] [place] [address] Care Team Providers Care Plater Supervisor Name Role Phone Christ Coto MD Primary Care Provider Yesy Alonso MD Unavailable Sudhakar Lu Unavailable [phone] Anthony Rojas MD Unavailable [phone] Peggy Celeste PA-C Unavailable [phone] Encounter Details Date Type Department Care Team (Late st Contact Info) Description 03/27/2025 Hospital Follow-up Call [facility] Unit [address] [place] [address] Alicia Salazar, RN Social History Tobacco Use Types Packs/Day Years Used Date Smoking Tobacco: Never Smokeless Tobacco: Never Alcohol Use Standard Drinks/Week Comments Yes 0 (1 standard drink = 0.6 oz pur e alcohol) 2 spiked 4% drinks/week/wine [facility] Utilities Answer Date Recorded In the [...] any time in the past 12 m [facility], were you homeless or living [...] Care Team (Late st Contact Info) Description 06/27/2025 10:30 AM CDT Telephone [facility] ld [address] [place] [phone] Anthony Rojas MD [address] [place], [place] [phone] documented as of this encounter Visit Diagnoses Not on filedocumented in this encounter Care Teams Plater Supervisor Relationship Specialty Start Date End Date Christ Coto MD [address] [place] [phone] PCP - General FAMILY PRACTICE 03/12/19 Yesy Alonso MD [address] [place] [address] Consulting Physician CARDIOVASCULAR DISEASE 05/19/24 Sudhakar Lu PA [address] [place] [phone] Physician Epic Application Coordinator PHYSICIAN STITCH BONDING MACHINE OPERATOR 05/19/24 Anthony Rojas MD [address] [place] [address] Consulting Physician CLINICAL CARDIAC ELECTROPHYSIOLOGY 01/16/25 Peggy Celeste PA-C [address] [place] [address] Referring Physician PHYSICIAN STITCH BONDING MACHINE OPERATOR 01/30/25 documented as of this encounter
--- OUTSIDE RECORDS SUMMARY | 2025-06-25 13:25 | XMS_ITS | Encounter Summary ---
Author Organization [facility] Address [address] [place] [address] Care Team Providers Care Household Appliance Installer Name Role Phone Christ Coto MD Primary Care Provider Yesy Alonso MD Unavailable Sudhakar Lu Unavailable [phone] Anthony Rojas MD Unavailable [phone] Peggy Celeste PA-C Unavailable [phone] Encounter Details Date Type Department Care Team (Late st Contact Info) Description 02/14/2025 Hospital Follow-up Call [facility] Care Unit [address] [place] [address] Alicia Salazar, RN Social History Tobacco Use Types Packs/Day Years Used Date Smoking Tobacco: Never Smokeless Tobacco: Never Alcohol Use Standard Drinks/Week Comments Yes 0 (1 standard drink = 0.6 oz pur e alcohol) 2 spiked 4% drinks/week/wine [facility] Utilities Answer Date Recorded In the past 12 months has e electric, gas, oil, or water [employer] threatened to shut off services in your [...] any time in the past 12 m [facility], were you homeless or living in a detention (including now)? No 02/01/2025 Comments No Sex [...] Info) Description 06/27/2025 10:[address] [facility] ld [address] [place] [address] Anthony Rojas MD [address] [place] [address] documented as of this encounter Visit Diagnoses Not on filedocumented in this encounter Care Teams Household Appliance Installer Relationship Specialty Start Date End Date Christ Coto MD [address] [place] [phone] PCP - General FAMILY PRACTICE 03/12/19 Yesy Alonso MD [address] [facility] [facility] [place] [address] Consulting Physician CARDIOVASCULAR DISEASE 05/19/24 Sudhakar Lu PA [address] [place] [phone] Physician Volunteer Firefighter PHYSICIAN GRINDER CHIPPER 05/19/24 Anthony Rojas MD [address] [place] [address] Consulting Physician CLINICAL CARDIAC ELECTROPHYSIOLOGY 01/16/25 Peggy Celeste PA-C [address] [place] [address] Referring Physician PHYSICIAN GRINDER CHIPPER 01/30/25 documented as of this encounter
--- OUTSIDE RECORDS SUMMARY | 2025-06-25 13:25 | XMS_ITS | Encounter Summary ---
Author Organization [facility] Address [address] [place] [address] Care Team Providers Care Tag Clerk Name Role Phone Christ Coto MD Primary Care Provider Yesy Alonso MD Unavailable Sudhakar Lu Unavailable [phone] Anthony Rojas MD Unavailable [phone] Peggy Celeste PA-C Unavailable [phone] Encounter Details Date Type Department Care Team (Late st Contact Info) Description 02/12/2019 Abstract SFL CONVERSION [address] [place] [address] , Generic ConversionMD Social History Tobacco Use [...] Info) Description 06/27/2025 10:30 AM CDT Telephone [facility] [address] [place] [phone] Anthony Rojas MD [address] [place], [place] [phone] documented as of this encounter Visit Diagnoses Not on filedocumented in this encounter Additional Health Concerns Infection Onset Date Last Indicated Resolved Time COVID-19 Rule Out 04/27/2024 04/27/2024 04/27/2024 9:42 PM CDT documented as of this encounter Care Teams Tag Clerk Relationship Specialty Start Date End Date Christ Coto MD [address] [place] [phone] PCP - General FAMILY PRACTICE 03/12/19 Yesy Alonso MD [address] [address] Consulting Physician CARDIOVASCULAR DISEASE 05/19/24 Sudhakar Lu PA [address] [place] [phone] Physician Global Transportation Manager PHYSICIAN CANAL DRIVER 05/19/24 Anthony Rojas MD [address] [place] [address] Consulting Physician CLINICAL CARDIAC ELECTROPHYSIOLOGY 01/16/25 Peggy Celeste PA-C [address] [place], [place] [address] Referring Physician PHYSICIAN CANAL DRIVER 01/30/25 documented as of this encounter
--- OUTSIDE RECORDS SUMMARY | 2025-06-25 13:25 | XMS_ITS | Clinical Summary ---
Author Organization [facility] Address [address] [place] [address] Care Team Providers Care Web Content Producer Name Role Phone Christ Coto MD Primary Care Provider Yesy Alonso MD Unavailable Sudhakar Lu Unavailable [phone] Anthony Rojas MD Unavailable [phone] Peggy Celeste PA-C Unavailable [phone] Allergies No known active allergies Medications gabapentin (NEURONTIN) 100 MG capsule Take 1 capsule (100 mg total) by mouth daily. Active omeprazole (PRILOSEC) 40 MG capsule Take 1 capsule (40 mg total) by mouth daily. Active furosemide (LASIX) 40 MG tablet DAILY 06/07/2025 Active metoprolol succinate ER (TOPROL-XL) 100 MG 24 hr tablet Take 1 tablet (100 mg total) by mouth daily. 06/06/2025 Active apixaban (ELIQUIS) 5 MG tabletIndicatio ns:Atrial Fibrillation,De ep Vein Thrombosis Take 1 tablet (5 mg total) by mouth 2 (two) times daily. Indications: Atrial Fibrillation , Blood Clot in a Deep Vein 60 tablet 2 03/24/2025 06/22/20 Active Problems Problem Noted Date Diagnosed Date Anticoagulated 06/14/2025 DVT (deep venous thrombosis) 03/21/2025 Atrial thrombus 04/29/2024 Heart failure with reduced ejection fraction Assessment & Plan (05/03/2024 4:41 PM CDT): [...] the time of admission. Emphysema of lung 04/28/2024 Pulmonary fibrosis 04/28/2024 Assessment & Plan (04/29/2024 1:19 PM CDT): Patient with known diagnosis has been on oxygen supplemental therapy. Follows up with pulmonary. Atrial fibrillation 04/27/2024 Assessment & Plan (05/02/2024 9:57 PM [...] Diagnosed Date Resolved Date Femoral artery thrombosis, left 02/01/2025 02/13/2025 Encounters Date Type Department Care Team Description 06/15/[address] [facility] eld [address] [place] [address] Anthony Rojas MD Holter Monitor 06/15/[address] [facility] [address] [place] [phone] Ignacio Cain MD Appointment Request 06/14/2025 9:30 AM CDT Office Visit [facility] [place] [address] Anthony Rojas MD Gryczewski, Alison, PA-C Follow Up 06/14/2025 9:15 AM CDT - 06/14/2025 11:59 PM CDT Hospital Encounter [facility] [address] [place], [place] [address] [place] [address] Peggy Celeste PA-C Discharge Disposition: Home or Self Care (Routine Discharge) 06/14/2025 Telephone [facility] [address] [place] [address] Peggy Celeste PA-C Information 06/14/2025 Travel 06/13/2025 Telephone [facility] [address] [place] [address] Peggy Celeste PA-C Appointment Reminder 06/12/2025 Orders Only [facility] [place] [address] Anthony Rojas MD 04/19/2025 Telephone [facility] [address] [place] [address] Peggy Celeste PA-C Appointment Reminder 04/18/2025 Telephone [facility] [place] [address] [place] [address] Peggy Celeste PA-C Appointment Reminder 04/17/2025 Orders Only [facility] [place] [address] Anthony Rojas MD 03/27/2025 Hospital Follow-up Call [facility] Unit [address] [place] [address] Alicia Salazar RN from Last 3 Months Family History Medical [...] pur e alcohol) 2 spiked 4% drinks/week/wine [facility] Utilities Answer Date Recorded In the past 12 months has th e [employer], gas, oil, or water company threatened to [...] any time in the past 12 m [facility], were you homeless or living in a chcf (including now)? No 03/22/2025 Comments No Sex and Gender Information Value Date Recorded Sex Assigned at Female 02/01/2025 5:16 AM CDT Legal Sex Female 8:38 PM CDT Gender Identity Not on file Sexual Orientation Not on file Last Filed Vital Signs Vital Sign Reading Time Taken Comments Blood Pressure 102/80 06/14/2025 9:36 AM CDT Pulse 100 06/14/2025 9:36 AM CDT Temperature 36.3 C (97.4 F) 03/24/2025 12:16 PM CDT Respiratory Rate 18 06/14/2025 9:36 AM CDT Oxygen Saturation 96% 06/14/2025 9:36 AM CDT Inhaled Oxygen Concentration - - Weight 47.2 kg (104 lb) 06/14/2025 9:36 AM CDT Height 152.4 cm (5') 06/14/2025 9:36 AM CDT Body Mass Index 20.31 06/14/2025 9:36 AM CDT Plan of Treatment Upcoming Encounters Date Type Department Care Team (Late st Contact Info) Description 06/27/2025 10:30 AM CDT Telephone [facility] [address] [place] [address] Anthony Rojas MD [address] [place], [place] [phone] Health Maintenance Due Date Last Done Comments ASCVD Statin 1941 DTaP, Tdap and Td Vaccines (1 - Tdap) 1960 Pneumococcal Vaccine: 50+ Years (1 of 2 - PCV) 1960 Zoster Vaccines (1 of 2) 12/10/1991 Annual Medicare Wellness Visit 2006 Dexa Scan (General) 2006 RSV Immunization or 60+ Years (1 - 1-dose 75+ series) 2016 COVID-19 Vaccine ( season) 2025 Influenza Adult (#1) 2025 06/28/2024, 06/17/2022, 06/04/2021, Additional history exists Hepatitis A Vaccines Aged Out No long er eligible based on patient's age to complete this topic Meningococcal B Vaccine Aged Out No l onger eligible based on patient's age to complete this topic Meningococcal Vaccine Aged Out No nata rhys eligible based on patient's age to complete this topic RSV Immunizations Under 20 Months Aged Out No longer eligible based on patient's age to complete this topic Medical Devices Implanted Type Area Taker Off Hemp Fiber Device Identifier Shelf Expiration Date Model / Serial / Lot Agent Hemostatic Surgiflo 8 Ml Kit - [id number] Implanted:Qty: 1 on 02/03/2025 by Taryn Ruiz MD at [facility] [employer] [id number] 06/06/2026 [id number] / / [id number] Agent Hemostatic Surgiflo 8 Ml Kit - [id number] Implanted:Qty: 1 on 02/03/2025 by Jonnathan Galindo MD at [facility] [employer] [id number] 06/06/2026 [id number] / / [id number] Insurance [facility] MEDIC[facility] Advance Directives * Full Code (Latest Code [...] 6:44 PM 05/12/2024 3:20 PM Care Teams Web Content Producer Relationship Specialty Start Date End Date Christ Coto MD [address] [place] [phone] PCP - General FAMILY PRACTICE 03/12/19 Yesy Alonso MD [address] [place] [address] Consulting Physician CARDIOVASCULAR DISEASE 05/19/24 Sudhakar Lu PA [address] [place] [phone] Physician Clerk Analyst PHYSICIAN RESIDENTIAL CASE MANAGER 05/19/24 Anthony Rojas MD [address] [place] [address] Consulting Physician CLINICAL CARDIAC ELECTROPHYSIOLOGY 01/16/25 Peggy Celeste PA-C [address] [place] [address] Referring Physician PHYSICIAN RESIDENTIAL CASE MANAGER 01/30/25
[2025-06-25] MEDS: PHENYLEPH/SHARK OIL/MO/PETROL CREAM 26 GM 1 APPLIC RECTAL (13:29)
[2025-06-25 13:30] LABS: Alanine Aminotransferase 22 U/L (6-35); Albumin Level 3.8 g/dL (3.5-5.1); Alkaline Phosphatase 123 U/L (38-126); Anion Gap 8 mmol/L (4-12); Aspartate Amino Transferase 36 U/L (14-36); Bilirubin,Total 1.2 mg/dL (0.2-1.3); Blood Urea Nitrogen 19 mg/dL (7-17); Calcium 9.4 mg/dL (8.4-10.2); Carbon Dioxide 21 mmol/L (22-30); Chloride 109 mmol/L (98-107); Estimated CRCL calculation 30 ml/min; Estimated Glomerular Filt Rate 60; Glucose 132 mg/dL (65-110); Osmolality Calculated 290 mOsm/kg (285-295); Sodium 138 mmol/L (137-145); Total Protein 8.2 g/dL (6.3-8.2)
[2025-06-25 13:31] LABS: Potassium 4.3 mmol/L (3.4-5.0)
[2025-06-25 13:33] LABS: CRP 1.1 mg/dL (<1.0)
== END 2025-06-25 15:02 | disposition home or self-care (01) ==
PROVIDERS: Emergency Provider Family Medicine; PCP Family Medicine
DX: K64.4 Residual hemorrhoidal skin tags (principal); I48.91 Unspecified atrial fibrillation; I11.0 Hypertensive heart disease with heart failure; I50.9 Heart failure, unspecified; J44.9 Chronic obstructive pulmonary disease, unspecified; F17.210 Nicotine dependence, cigarettes, uncomplicated
CPT/HCPCS: 36415; 74177; 80053; 85025; 86140; 96374; 99284; A9270; J2270; Q9967

== ENCOUNTER 2025-06-30 13:28 | Outpatient (CLI) | payer MEDICARE, SELFPAY ==
--- NOTE | ~2025-06-30 | US_ITS ---
EXAMINATION: US pelvic complete INDICATION: Cystic lesion left ovary prior CT Comparison:CT dated 06/25/2025 TECHNIQUE: Multiple transabdominal and endovaginal sonographic images of the pelvis performed. FINDINGS: The uterus and right ovary are not visualized, likely surgically absent. In the left adnexa there is a 4.7 x 4.3 x 2.4 cm anechoic, thin-walled, unilocular cyst. No mural nodules or internal vascularity. There is no free fluid in the pelvis. There are no abnormal masses seen on either side. IMPRESSION: 1. Simple cyst left adnexa measuring 4.7 cm. Differential diagnosis includes physiologic ovarian cysts, paraovarian cysts, benign serous cystadenoma, peritoneal inclusion cyst and hydrosalpinx. Given the patient is postmenopausal follow-up pelvic ultrasound in 6-12 months recommended to assess for interval change. Consider serum CEA 125 level evaluation if there are risk factors for malignancy. Reviewed, dictated and finalized at location O. IMPRESSION: 1. Simple cyst left adnexa measuring 4.7 cm. Differential diagnosis includes ph ysiologic ovarian cysts, paraovarian cysts, benign serous cystadenoma, peritone al inclusion cyst and hydrosalpinx. Given the patient is postmenopausal follow- up pelvic ultrasound in 6-12 months recommended to assess for interval change. Consider serum CEA 125 level evaluation if there are risk factors for malignanc y.
== END 2025-06-30 13:29 | disposition home or self-care (01) ==
PROVIDERS: PCP Family Medicine; Visit Provider Family Medicine
DX: N83.202 Unspecified ovarian cyst, left side (principal)
CPT/HCPCS: 76856

== ENCOUNTER 2025-07-05 20:50 | Emergency (ER) | payer MEDICARE, SELFPAY ==
[2025-07-05] VITALS (13 sets, daily range): BP systolic 117–135; BP diastolic 74–96; PULSE 84–109; RESP 16–33; TEMP 36.1–36.5; O2SAT 90–98
--- NOTE | ~2025-07-05 | XR_ITS ---
XR chest 1V portable INDICATION:Shortness of breath . REFERENCE: None FINDINGS: A single AP of the chest demonstrates normal heart size. Bilateral lower lobe infiltrates. Perihilar opacities are present. There is no evidence of pneumothorax or pleural effusion. IMPRESSION: Perihilar and bilateral lower lobe infiltrates are noted. Reviewed, dictated and finalized at location S.
--- OUTSIDE RECORDS SUMMARY | 2025-07-05 20:53 | XMS_ITS | Encounter Summary ---
Author Organization [facility] Address [address] [place] [address] Care Team Providers Care Pump Station Operator Name Role Phone Christ Coto MD Primary Care Provider Yesy Alonso MD Unavailable Sudhakar Lu Unavailable [phone] Anthony Rojas MD Unavailable [phone] Peggy Celeste PA-C Unavailable [phone] Encounter Details Date Type Department Care Team (Late st Contact Info) Description 02/14/2025 Hospital Follow-up Call [facility] [address] [place] [address] Alicia Salazar, RN Social History Tobacco Use Types Packs/Day Years Used Date Smoking Tobacco: Never Smokeless Tobacco: Never Alcohol Use Standard Drinks/Week Comments Yes 0 (1 standard drink = 0.6 oz pur e alcohol) 2 spiked 4% drinks/week/wine [facility] Utilities Answer Date Recorded In the past 12 months has e electric, gas, oil, or water [employer] threatened to shut off services in your [...] any time in the past 12 m [facility], were you homeless or living in a half-way (including now)? No 02/01/2025 Comments No Sex [...] documented in this encounter Plan of Treatment Not on file documented as of this encounter Visit Diagnoses Not on filedocumented in this encounter Care Teams Pump Station Operator Relationship Specialty Start Date End Date Christ Coto MD [address] [place] [phone] PCP - General FAMILY PRACTICE 03/12/19 Yesy Alonso MD [address] [place] [address] [place] [address] Consulting Physician CARDIOVASCULAR DISEASE 05/19/24 Sudhakar Lu PA [address] [place] [phone] Physician Blank Driller PHYSICIAN PHOTOGRAPHER STILL 05/19/24 Anthony Rojas MD [address] [place] [address] Consulting Physician CLINICAL CARDIAC ELECTROPHYSIOLOGY 01/16/25 Peggy Celeste PA-C [address] [place] [address] Referring Physician PHYSICIAN PHOTOGRAPHER STILL 01/30/25 documented as of this encounter
--- OUTSIDE RECORDS SUMMARY | 2025-07-05 20:53 | XMS_ITS | Encounter Summary ---
Author Organization [facility] Address [facility] [place] [address] Care Team Providers Care Ferryboat Operator Name Role Phone Christ Coto MD Primary Care Provider Yesy Alonso MD Unavailable Sudhakar Lu Unavailable [phone] Anthony Rojas MD Unavailable [phone] Peggy Celeste PA-C Unavailable [phone] Encounter Details Date Type Department Care Team (Late st Contact Info) Description 02/12/2019 Abstract [facility] [address] [place] [address] , Generic MD Jacqueline Social History Tobacco Use Types Packs/Day Years Used Date Smoking Tobacco: Never Comments Unknown Sex and Gender Information Value Date Recorded Sex Assigned at Female 02/01/2025 5:16 AM CDT Legal Sex Female 8:38 PM CDT Gender Identity Not on file Sexual Orientation Not on file documented as of this encounter Plan of Treatment Not on file documented as of this encounter Visit Diagnoses Not on filedocumented in this encounter Additional Health Concerns Infection Onset Date Last Indicated Resolved Time COVID-19 Rule Out 04/27/2024 04/27/2024 04/27/2024 9:42 PM CDT documented as of this encounter Care Teams Ferryboat Operator Relationship Specialty Start Date End Date Christ Coto MD [address] [place] [phone] PCP - General FAMILY PRACTICE 03/12/19 [place] [address] [place] [address] [place] [address] Consulting Physician CARDIOVASCULAR DISEASE 05/19/24 Sudhakar Lu PA [address] [place] [phone] Physician Deicer Element Winder Machine PHYSICIAN INFORMATION TECHNOLOGY COORDINATOR 05/19/24 Anthony Rojas MD [address] [place] [address] Consulting Physician CLINICAL CARDIAC ELECTROPHYSIOLOGY 01/16/25 Peggy Celeste PA-C [address] [place] [address] Referring Physician PHYSICIAN INFORMATION TECHNOLOGY COORDINATOR 01/30/25 documented as of this encounter
--- OUTSIDE RECORDS SUMMARY | 2025-07-05 20:53 | XMS_ITS | Clinical Summary ---
Author Organization [facility] Address [address] [place] [address] Care Team Providers Care Service Greeter Name Role Phone Christ Coto MD Primary Care Provider Yesy Alonso MD Unavailable Sudhakar Lu Unavailable [phone] Anthony Rojas MD Unavailable [phone] [...] Encounters Date Type Department Care Team Description 06/27/2025 10:30 AM CDT Telephone [facility] [address] [place] [address] Anthony Rojas MD Holter Monitor 06/15/2025 Telephone [facility] [address] [place] [address] Anthony Rojas MD Holter Monitor 06/15/2025 Telephone [facility] [address] [place] [address] Ignacio Cain MD Appointment Request 06/14/2025 9:30 AM T Office Visit [facility] [address] [place] [address] Anthony Rojas MD Gryczewski, Alison, PA-C Follow Up 06/14/2025 9:15 AM CDT - 06/14/2025 11:59 PM CDT Hospital Encounter [facility] [address] [place] [address] Peggy Celeste PA-C Discharge Disposition: Home or Self Care (Routine Discharge) 06/14/2025 Telephone [facility] [address] [place] [address] Peggy Celeste PA-C Information 06/14/2025 Travel 06/13/2025 Telephone [facility] [place] [id number] [place] [address] Peggy Celeste PA-C Appointment Reminder 06/12/2025 Orders Only [facility] [address] [place] [address] Anthony Rojas MD 06/05/2025 Scan [facility] [address] [place] [address] Scanned, Doc Pccl ECG (SCAN) 04/19/2025 Telephone [facility] [address] [place] [address] Peggy Celeste PA-C Appointment Reminder 04/18/2025 Telephone [facility] [address] [place] [address] Peggy Celeste PA-C Appointment Reminder 04/17/2025 Orders Only [facility] [address] [place] [address] Anthony Rojas MD from Last 3 Months Family History Medical [...] 4% drinks/week/wine [facility] Utilities Answer Date Recorded In the past 12 months has e [employer], gas, oil, or water [employer] threatened to shut off services in your [...] any time in the past 12 m [facility], were you homeless or living in a retirement (including now)? No 03/22/2025 Comments No Sex [...] 06/14/2025 9:36 AM CDT Plan of Treatment Health Maintenance Due Date Last Done Comments ASCVD Statin 1941 DTaP, Tdap and Td Vaccines (1 - Tdap) 1960 Pneumococcal Vaccine: 50+ Years (1 of 2 - PCV) 1960 Zoster Vaccines (1 of 2) 12/10/1991 Annual Medicare Wellness Visit 2006 Dexa Scan (General) 2006 RSV Immunization or 60+ Years (1 - 1-dose 75+ series) 2016 COVID-19 Vaccine ( - season) 2025 Influenza Adult (#1) 2025 06/28/2024, [...] this topic Medical Devices Implanted Type Area Spray Machine Loader Device Identifier Shelf Expiration Date Model / Serial / Lot Agent Hemostatic Surgiflo 8 Ml Kit - [id number] Implanted:Qty: 1 on 02/03/2025 by Taryn Ruiz MD at [facility] [employer] [id number] 06/06/2026 [id number] / / [id number] Agent Hemostatic Surgiflo 8 Ml Kit - [id number] Implanted:Qty: 1 on 02/03/2025 by Jonnathan Galindo MD at [facility] [employer] [id number] 06/06/2026 [id number] / / [id number] Procedures Procedure Name Priority Date/Time Associated Diagnosis Comments ECG GENERIC (SCAN ORDER) Routine 06/05/2025 12:00 AM CDT from Last 3 Months Results * ECG (06/05/2025 12:00 AM CDT) 06/05/2025 us Doc Pccl Scanned SCANNING Final Result [facility] from Last 3 Months Insurance [facility] MEDICARE Advance Directives * Full Code (Latest [...] 6:44 PM 05/12/2024 3:20 PM Care Teams Service Greeter Relationship Specialty Start Date End Date Christ Coto MD [address] [place] [phone] PCP - General FAMILY PRACTICE 03/12/19 Yesy Alonso MD [address] [place] [address] [place] [address] Consulting Physician CARDIOVASCULAR DISEASE 05/19/24 Sudhakar Lu PA [address] [place] [phone] Physician Carousel Attendant PHYSICIAN VICE PRESIDENT [employer] 05/19/24 Anthony Rojas MD [address] [place] [address] Consulting Physician CLINICAL CARDIAC ELECTROPHYSIOLOGY 01/16/25 Peggy Celeste PA-C [address] [place] [address] Referring Physician PHYSICIAN VICE PRESIDENT [employer] 01/30/25
--- OUTSIDE RECORDS SUMMARY | 2025-07-05 20:53 | XMS_ITS | Encounter Summary ---
Author Organization [facility] Address [address] [place] [address] Care Team Providers Care Cup Trimming Machine Operator Name Role Phone Christ Coto MD Primary Care Provider Yesy Alonso MD Unavailable Sudhakar Lu Unavailable [phone] Anthony Rojas MD Unavailable [phone] Peggy Celeste PA-C Unavailable [phone] Encounter Details Date Type Department Care Team (Late st Contact Info) Description 03/27/2025 Hospital Follow-up Call [facility] Unit [address] [place] [address] Alicia Salazar, RN Social History Tobacco Use Types Packs/Day Years Used Date Smoking Tobacco: Never Smokeless Tobacco: Never Alcohol Use Standard Drinks/Week Comments Yes 0 (1 standard drink = 0.6 oz pur e alcohol) 2 spiked 4% drinks/week/wine [facility] Utilities Answer Date Recorded In the [...] any time in the past [address] [facility], were you homeless or living in a [...] on filedocumented in this encounter Care Teams Cup Trimming Machine Operator Relationship Specialty Start Date End Date Christ Coto MD [address] [place] [phone] PCP - General FAMILY PRACTICE 03/12/19 Yesy Alonso MD [address] [place] [address] [place] [address] Consulting Physician CARDIOVASCULAR DISEASE 05/19/24 Sudhakar Lu PA [address] [place] [phone] Physician Underbaster PHYSICIAN QUILL WORKER 05/19/24 Anthony Rojas MD [address] [place] [address] Consulting Physician CLINICAL CARDIAC ELECTROPHYSIOLOGY 01/16/25 Peggy Celeste PA-C [address] [place] [address] Referring Physician PHYSICIAN QUILL WORKER 01/30/25 documented as of this encounter
--- OUTSIDE RECORDS SUMMARY | 2025-07-05 20:53 | XMS_ITS | Encounter Summary ---
Author Organization [facility] Address [address] [place] [address] Care Team Providers Care Char House Supervisor Name Role Phone Christ Coto MD Primary Care Provider Yesy Alonso MD Unavailable Sudhakar Lu Unavailable [phone] Anthony Rojas MD Unavailable [phone] Peggy Celeste PA-C Unavailable [phone] Reason for Visit * Reason Comments ECG (SCAN) Encounter Details Date Type Department Care Team (Late st Contact Info) Description 06/05/2025 Scan [facility] [address] [place] [phone] Scanned, Doc Pccl ECG (SCAN) Social History Tobacco Use Types Packs/Day Years Used Date Smoking Tobacco: Never Smokeless Tobacco: Never Alcohol Use Standard Drinks/Week Comments Yes 0 (1 standard drink = 0.6 oz pur e alcohol) 2 spiked 4% drinks/week/wine [facility] Utilities Answer Date Recorded In the past 12 months has [employer] electric, gas, oil, or water company threatened [...] any time in the past 12 m [facility], were you homeless or living in a long-term (including now)? No 03/22/2025 Comments No Sex [...] Assessment Author Status Yes 03/22/2025 6:21 AM CDT Beulah Noel RN Active * Are you blind or [...] Assessment Author Status No 03/22/2025 6:21 AM JAMART Beulah Noel RN Active * Because of a physical, [...] Date Author Status No 03/22/2025 6:21 AM Beualh Huber RN Active documented in this encounter Plan of Treatment Not on file documented as of this encounter Procedures Procedure Name Priority Date/Time Associated Diagnosis Comments ECG GENERIC (SCAN ORDER) Routine 06/05/2025 12:00 AM CDT documented in this encounter Results * ECG (06/05/2025 12:00 AM CDT) 06/05/2025 us Doc Pccl Scanned SCANNING Final Result [facility] documented in this encounter Visit Diagnoses Not on filedocumented in this encounter Care Teams Char House Supervisor Relationship Specialty Start Date End Date Christ Coto MD [address] [place] [phone] PCP - General FAMILY PRACTICE 03/12/19 Yesy Alonso MD [address] [place] [address] [place] [address] Consulting Physician CARDIOVASCULAR DISEASE 05/19/24 Sudhakar Lu PA [address] [place] [phone] Physician Research Animal Facility Supervisor PHYSICIAN NETWORK PROFESSIONAL 05/19/24 Anthony Rojas MD [address] [place] [address] Consulting Physician CLINICAL CARDIAC ELECTROPHYSIOLOGY 01/16/25 Peggy Celeste PA-C [address] [place] [address] Referring Physician PHYSICIAN NETWORK PROFESSIONAL 01/30/25 documented as of this encounter
--- OUTSIDE RECORDS SUMMARY | 2025-07-05 20:53 | XMS_ITS | Encounter Summary ---
Author Organization [facility] Address [address] [place] [address] Care Team Providers Care Crop Adjuster Name Role Phone Christ Coto MD Primary Care Provider Yesy Alonso MD Unavailable Sudhakar Lu Unavailable [phone] Anthony Rojas MD Unavailable [phone] Peggy Celeste PA-C Unavailable [phone] Encounter Details Date Type Department Care Team (Late st Contact Info) Description 05/16/2024 Hospital Follow-up Call [facility] [address] [place] [address] Alicia Salazar, RN Social History Tobacco Use Types Packs/Day Years Used Date Smoking Tobacco: Never Smokeless Tobacco: Never Alcohol Use Standard Drinks/Week Comments Yes 0 (1 standard drink = 0.6 oz pur e alcohol) 2 spiked 4% drinks/week/wine [facility] Utilities Answer Date Recorded In [...] any time in the past 12 m [facility], were you homeless or [...] Author Status No 04/27/2024 6:13 PM CDT Homero, Dulce L, R N Active * Are you blind [...] on filedocumented in this encounter Care Teams Crop Adjuster Relationship Specialty Start Date End Date Christ Coto MD [address] [place] [phone] PCP - General FAMILY PRACTICE 03/12/19 Yesy Alonso MD [address] [place] [address] [place] [address] Consulting Physician CARDIOVASCULAR DISEASE 05/19/24 Sudhakar Lu PA [address] [place] [phone] Physician Penology Professor PHYSICIAN TEST PREPARATION TUTOR 05/19/24 Anthony Rojas MD [address] [place] [address] Consulting Physician CLINICAL CARDIAC ELECTROPHYSIOLOGY 01/16/25 Peggy Celeste PA-C [address] [place] [address] Referring Physician PHYSICIAN TEST PREPARATION TUTOR 01/30/25 documented as of this encounter
--- NOTE | 2025-07-05 21:02 | ECG_ITS ---
Test Date: 2025-07-05 21:33:03 Measurements Intervals [place] Rate: 77 P: 0 IL: 0 QRS: -20 QRSD: 102 T: -67 QT: 397 QTc: 450 Interpretive Statements ATRIAL FIBRILLATION WITH VENTRICULAR PREMATURE COMPLEXES INCOMPLETE RIGHT BUNDLE BRANCH BLOCK VOLTAGE CRITERIA FOR LVH BORDERLINE T WAVE ABNORMALITY- ANTEROLAT/INF LEADS BASELINE ARTIFACT- I, II, AVR, AVL, AVF, V1-V6 ABNORMAL ECG Compared to ECG 06/05/2025 17:09:03 Ventricular premature complex(es) now present Electronically Signed On 07-06-2025 06:13:10 CDT by Meliton Ellison D.O.
--- NOTE | 2025-07-05 21:16 | PC.NURSE ---
hotel manager at bedside obtaining blood work and swabs. urine sample at bedside.
--- NOTE | 2025-07-05 21:24 | ED.SOB ---
HPI - SOB/Dyspnea General Chief Complaint: Shortness of Breath/Dyspnea Stated Complaint: shortness of breath Time Seen by Provider: 07/05/25 20:59 Source: patient and EMS Limitations: no limitations History of Present Illness HPI Narrative: 84-year-old female with a history of hypertension, atrial fibrillation, CHF, EF was 60%, pulmonary fibrosis with restrictive lung disease, chronic respiratory failure on 3 L, DVT, chronic back pain with a recent admission from 05/28 to 06/125 and 03/14/2025 to 03/17/2025 for acute on chronic respiratory failure secondary to CHF and restrictive lung disease. The patient presents to the ED with --chronic shortness of breath. No recent exacerbation of shortness of breath. No fever or chills. Has nonproductive cough. No chest pain --her right lower sacroiliac pain. No recent trauma. MD elicited complaint: shortness of breath and cough Pertinent past history: congestive heart failure and other (Restrictive lung disease/pulmonary fibrosis) Onset (ago): week(s) Timing: constant Severity: moderate Exacerbating factors: exertion Relieving factors: oxygen and rest Known history of: congestive heart failure and other (Pulmonary fibrosis/restrictive lung disease) Associated symptoms: denies other symptoms Treatment prior to arrival: none Related Data Home oxygen amount: 2 liters Home Medications ?Medication ?Instructions ?Recorded ?Confirmed ?Last Taken ?Type gabapentin 100 mg capsule 100 mg PO HS 03/14/25 06/06/25 06/04/25 History metoprolol succinate 25 mg 25 mg PO Q12H 03/14/25 06/06/25 06/04/25 History tablet,extended release 24 hr gabapentin 300 mg capsule 300 mg PO HS 06/06/25 06/06/25 Unknown History hydrocodone 5 mg-acetaminophen 325 1 tablet PO BID PRN pain 06/06/25 06/06/25 Unknown History mg tablet metoprolol succinate 100 mg 100 mg PO DAILY 06/06/25 06/06/25 Unknown History tablet,extended release 24 hr omeprazole 40 mg capsule,delayed 40 mg PO DAILY 06/06/25 06/06/25 Unknown History release Allergies Allergy/AdvReac Type Severity Reaction Status Date / Time No Known Allergies Allergy Verified 07/05/25 21:47 Review of Systems Constitutional: Constitutional: Reports as per HPI, Reports no additional constitutional complaints and Reports weakness Eyes: Eyes: Reports as per HPI and Reports no additional eye complaints ENT: Reports system reviewed and no additional complaints, except as documented and Reports as per HPI Cardiovascular: Cardiovascular: Reports as per HPI and Reports no additional cardiovascular complaints Respiratory: Respiratory: Reports as per HPI, Reports no additional respiratory complaints, Reports chest congestion, Reports cough and Reports dyspnea Gastrointestinal: Gastrointestinal: Reports as per HPI and Reports no additional gastrointestinal complaints Genitourinary: Genitourinary: Reports no additional female genitourinary complaints and Reports as per HPI Musculoskeletal: Musculoskeletal: Reports no additional musculoskeletal complaints, Reports as per HPI and Reports back pain Comments: Pain in the right sacroiliac joint Integumentary/Breasts: Skin/Breast: Reports system reviewed and no additional complaints, except as docu and Reports as per HPI Neurologic: Reports system reviewed and no additional complaints, except as documented and Reports as per HPI Psychiatric: Psychiatric: Reports no additional psychiatric complaints and Reports as per HPI Endocrine: Endocrine: Reports no additional endocrine complaints and Reports as per HPI Hematologic/Lymphatic: Hematologic/Lymphatic: Reports no additional hematologic/lymphatic complaints and Reports as per HPI Allergic/Immunologic: Allergic/Immunologic: Reports no additional allergic/immunologic complaints and Reports as per HPI [facility] Past Medical History Medical History Congestive heart disease Pulmonary fibrosis Acute and chronic respiratory failure with hypoxia Hypertension Dvt femoral (deep venous thrombosis) Atrial fibrillation Surgical History Surgical History History of thrombectomy Family History Family History Father Congestive heart failure Social History Social History Years smoked: 0.5 Smoking status: Never smoker Tobacco type: cigarettes Smoking end date: 03/01/1962 Alcohol intake: never Substance use: never Substance use type: does not use Do You Feel Safe in your Home?: Yes Lack of Transportation: No Lack of Food: Never True Current Housing: I Have Housing Concerned About Future Housing: No Difficulty Paying Gas/Electric Bills: No Difficulty Paying for Meds: No Currently Unemployed: No Education: High School Diploma/GED Difficulty w/ Childcare or Family Care: No Spiritual care concerns: No Exam Narrative: Oxygen saturation of 98% on room air. Pulse of 104. Blood pressure 129/84 Const: Nutritional Appearance: thin Orientation/consciousness: patient oriented x3 Limitations: no limitations HENMT: Head: normal to inspection Ears: external ears normal Face/Nose/Sinus: Normal external nose present Face and sinus: normal facial exam Mouth: Yes Normal oral and palatal mucosa present Throat: posterior oropharynx normal Eyes: Conjunctivae: conjunctivae normal Pupils: Equal, round and reactive pupils present EOM: EOMs intact bilaterally Direct Ophthalmoscopy: no photophobia Neck: Neck: normal visual inspection, no lymphadenopathy and no meningeal signs Chest: Chest palpation & inspection: normal inspection of the chest Resp: Effort & Inspection: tachypneic and uses accessory muscles Other: Bilateral crackles all over the lungs Cardio: Rate: regular rate Rhythm: abnormal rhythm GI: GI Palp: Yes Soft to palpation Auscultation: normal bowel sounds Other: No tenderness/rigidity/rebound : General: Yes no CVA tenderness Back/Spine/Pelvis: Back: no CVA tenderness Other: Tenderness over the right sacroiliac joint Skin: General skin exam: normal color Rashes: no rashes Neuro: General: patient oriented x3, moves all extremities, no meningeal signs, no focal motor deficits and CN's II-XI intact bilaterally Speech: normal speech Extrem: General: normal to inspection and edema Psych: Mental Status: mental status grossly normal Affect: normal affect Course Course Emergency Course: Shortness of breath secondary to restrictive lung disease/pulmonary fibrosis and chronic CHF. Patient did not have any acute worsening of shortness of breath. Patient is in no respiratory distress. Oxygen saturation is 98% on room air. Chest x-ray revealed bilateral perihilar bibasilar lung infiltrates which appears to be chronic. Patient has a proBNP of 6310 with a normal troponin. The patient is noted to have atrial fibrillation with a controlled ventricular rate. Her blood work is unremarkable including a normal white cell count. Patient has a lactate of 2.1. Would not give IV fluids in view of her chronic CHF. Will discharge the patient home and have her continue home medications. Right lower back pain/sacroiliac pain.--patient had an unremarkable UA. Vital Signs Vital signs: Vital Signs Temperature 36.1 C L 07/05/25 20:56 Pulse Rate 104 H 07/05/25 20:56 Respiratory Rate 16 07/05/25 20:56 Blood Pressure 129/84 07/05/25 20:56 Pulse Oximetry 98 07/05/25 20:56 Oxygen Delivery Room Air 07/05/25 20:56 Temperature 36.1 C L 07/05/25 20:56 Pulse Rate 104 H 07/05/25 20:56 Respiratory Rate 16 07/05/25 20:56 Blood Pressure 129/84 07/05/25 20:56 Pulse Oximetry 98 07/05/25 20:56 Oxygen Delivery Room Air 07/05/25 20:56 MDM - SOB/Dyspnea MDM Narrative Medical decision making narrative: Back pain Chronic shortness of breath/CHF/pulmonary fibrosis Differential Diagnosis Differential diagnosis: Likely acute exacerbation of chronic obstructive airways disease and community acquired pneumonia Medical Records Attestation: I reviewed the patient's medical records. Lab Data Attestation: I reviewed the patient's lab results. 07/05/25 21:27 07/05/25 21:27 Labs: Lab Results 07/05/25 07/05/25 07/05/25 Range/Units 21:12 21:14 21:27 WBC 5.2 (4.8-10.8) K/mm3 RBC 3.81 L (4.20-5.40) M/mm3 Hgb 11.8 (11.7-13.8) g/dL Hct 36.7 (35.0-42.0) % MCV 96.3 (78.0-102.0) fL MCH 31.0 (27.0-31.0) pg MCHC 32.2 (32-36) g/dL RDW 16.3 H (11.6-14.4) % Plt Count 396 (150-420) K/mm3 MPV 9.1 L (9.2-11.8) fl Immature Gran % (Auto) 0.2 H (0.0-0.0) % Neut % (Auto) 40.4 L (50.0-70.0) % Lymph % (Auto) 38.0 (18.0-42.0) % [place] % (Auto) 13.6 H (2.0-11.0) % Eos % (Auto) 6.3 H (1.0-6.0) % Baso % (Auto) 1.5 H (0.0-1.0) % Lymph # (Auto) 1.98 (1.10-4.50) K/mm3 [place] # (Auto) 0.71 (0.10-0.90) K/mm3 Eos # (Auto) 0.33 (0.02-0.50) K/mm3 Baso # (Auto) 0.08 (0.00-0.10) K/mm3 Abs Immat Gran (auto) 0.01 H (0.00-0.00) K/mm3 Absolute Neuts (auto) 2.10 (1.70-7.20) K/mm3 Absolute Nucleated RBC 0.00 (0.00-0.00) K/mm3 Nucleated RBC % 0.0 (0-0.0) % Sodium 141 (137-145) mmol/L Potassium 4.7 (3.4-5.0) mmol/L Chloride 104 (98-107) mmol/L Carbon Dioxide 24 (22-30) mmol/L Anion Gap 13 H (4-12) mmol/L BUN 18 H (7-17) mg/dL Creatinine 1.01 H (0.7-1.0) mg/dL Estim Creat Clear Calc 28 ml/min Estimated GFR 52 L (59 - ) Glucose 107 (65-110) mg/dL Calculated Osmolality 293 (285-295) mOsm/kg Lactic Acid 2.1 H (0.4-2.0) mmol/L Calcium 9.7 (8.4-10.2) mg/dL Magnesium 2.2 (1.6-2.3) mg/dL Total Bilirubin 1.2 (0.2-1.3) mg/dL AST 42 H (14-36) U/L ALT 22 (6-35) U/L Alkaline Phosphatase 124 (38-126) U/L Troponin I 0.019 (0.000-0.034) ng/mL NT-Pro-B Natriuret Pep 6310 H (19.9-100) pg/mL Total Protein 8.3 H (6.3-8.2) g/dL Albumin 4.6 (3.5-5.1) g/dL Lipase 166 (23-300) U/L Urine Color Light yellow (Yellow) Urine Appearance Clear (Clear) Urine pH 5.5 (5.0-8.0) Ur Specific [place] 1.010 (1.010-1.020) Urine Protein Negative (Negative) Urine Glucose (UA) Negative (Negative) Urine Ketones Negative (Negative) Ur Blood (Man) Negative (Negative) Urine Nitrate Negative (Negative) Urine Bilirubin Negative (Negative) Urine Urobilinogen 0.2 (0.2-1.0) mg/dL Leukocyte Esterase Rfl Negative (Negative) ASIA/UL Influenza A (RT-PCR) Negative (Negative) Influenza B (RT-PCR) Negative (Negative) RSV (RT-PCR) Negative (Negative) SARS-CoV-2 RNA (RT-PCR) Negative (Negative) ECG Data EKG #1: ECG completion date: 07/05/25 ECG completion time: 21:33 Interpretation: Atrial fibrillation with a ventricular rate of 77. Left axis deviation. No ST elevation noted. T inversion in inferior and lateral leads. Discharge Plan Discharge Clinical Impression: Pulmonary fibrosis, Congestive heart disease, Chronic respiratory failure, Atrial fibrillation Patient Disposition: Home Condition: Stable Instructions: Antibiotic Form, Heart Failure (ED), Chronic Respiratory Failure (DC) Patient Language: Telugu Prescriptions: No Action metoprolol succinate 100 mg tablet extended release 24 hr 100 mg PO DAILY omeprazole 40 mg capsule,delayed release(DR/EC) 40 mg PO DAILY hydrocodone-acetaminophen 5-325 mg tablet 1 tablet PO BID PRN (Reason: pain) gabapentin 300 mg capsule 300 mg PO HS levalbuterol HCl 0.63 mg/3 mL Solution For Nebulization 0.63 mg inhalation Q6HRT PRN (Reason: Shortness Of Breath) Qty: 90 0RF prednisone 20 mg Tablet 40 mg PO DAILY@0800 3 Days Qty: 6 0RF guaifenesin [Mucus Relief ER] 600 mg Tablet Extended Release 12hr 1,200 mg PO Q12HR Qty: 30 0RF furosemide [Lasix] 40 mg tablet 40 mg PO DAILY Qty: 30 0RF Preparation H Rapid Rlf-Lidocn 5-0.25-14.4-15 % cream 1 applic topical TID Qty: 28 0RF gabapentin 100 mg capsule 100 mg PO HS metoprolol succinate 25 mg tablet extended release 24 hr 25 mg PO Q12H Eliquis 5 mg tablet 5 mg PO BID Qty: 60 0RF Follow-up/Referrals: Nnamdi,MD Christ [Primary Care Provider, [facility]] Time of Disposition: 22:54
--- NOTE | 2025-07-05 21:49 | PC.NURSE ---
ct technologist at bedside again to assist pt up to BSC.
[2025-07-05 22:01] LABS: Hematocrit 36.7 % (35.0-42.0); Hemoglobin 11.8 g/dL (11.7-13.8); Immature Granulocyte Percent A 0.2 % (0.0-0.0); Lymphocytes Absolute Auto 1.98 K/mm3 (1.10-4.50); Mean Corpuscular HGB Conc 32.2 g/dL (32-36); Mean Corpuscular Hemoglobin 31.0 pg (27.0-31.0); Mean Corpuscular Volume 96.3 fL (78.0-102.0); Nucleated Red Blood Cells Absolute Auto 0.00 K/mm3 (0.00-0.00); Nucleated Red Blood Cells Perc 0.0 % (0-0.0); Platelet Count Result 396 K/mm3 (150-420); Red Blood Count 3.81 M/mm3 (4.20-5.40); White Blood Count 5.2 K/mm3 (4.8-10.8)
[2025-07-05 22:05] LABS: Add Urine Microscopic? NO; Appearance Urine Clear (Clear); Glucose Urine UA Negative (Negative); Leukocyte Esterase Ur Negative LEU/UL (Negative); Nitrate Urine Negative (Negative); Specific Grav Ur 1.010 (1.010-1.020)
[2025-07-05 22:33] LABS: Alanine Aminotransferase 22 U/L (6-35); Albumin Level 4.6 g/dL (3.5-5.1); Alkaline Phosphatase 124 U/L (38-126); Anion Gap 13 mmol/L (4-12); Aspartate Amino Transferase 42 U/L (14-36); Bilirubin,Total 1.2 mg/dL (0.2-1.3); Blood Urea Nitrogen 18 mg/dL (7-17); Calcium 9.7 mg/dL (8.4-10.2); Carbon Dioxide 24 mmol/L (22-30); Chloride 104 mmol/L (98-107); Estimated CRCL calculation 28 ml/min; Estimated Glomerular Filt Rate 52; Glucose 107 mg/dL (65-110); Lipase 166 U/L (23-300); Magnesium 2.2 mg/dL (1.6-2.3); Osmolality Calculated 293 mOsm/kg (285-295); Potassium 4.7 mmol/L (3.4-5.0); Sodium 141 mmol/L (137-145); Total Protein 8.3 g/dL (6.3-8.2)
--- NOTE | 2025-07-05 22:43 | PC.NURSE ---
Pt up to BSC again at this time with sound engineering technician assist. Per ED pt O2 sat's decreased with activity. ERP aware. Pt reports not using home O2 despite being told she should wear 2-3 lpm continuously.
[2025-07-05 22:44] LABS: NT Pro B Type Natriuretic Pept 6310 pg/mL (19.9-100); Troponin I 0.019 ng/mL (0.000-0.034)
[2025-07-05 22:47] LABS: Influenza A QL RT-PCR Negative (Negative); Influenza B QL RT-PCR Negative (Negative); RSV RNA, RT-PCR Negative (Negative); SARS-CoV-2 RNA PCR Negative (Negative)
--- NOTE | 2025-07-05 22:55 | PC.NURSE ---
ERP Dr. Baltazar speaking with pt regarding results and plan of care.
== END 2025-07-05 23:56 | disposition home or self-care (01) ==
PROVIDERS: Emergency Provider Internal Medicine Critical Care Medicine; PCP Family Medicine
DX: J84.10 Pulmonary fibrosis, unspecified (principal); I11.0 Hypertensive heart disease with heart failure; I50.9 Heart failure, unspecified; J96.10 Chronic respiratory failure, unspecified whether with hypoxia or hypercapnia; I48.91 Unspecified atrial fibrillation; Z20.822 Contact with and (suspected) exposure to COVID-19
CPT/HCPCS: 36415; 71045; 80053; 81003; 83605; 83690; 83735; 83880; 84484; 85025; 87637; 93005; 99284

== ENCOUNTER 2025-07-13 11:27 | Outpatient (CLI) | payer MEDICARE, SELFPAY ==
--- NOTE | ~2025-07-13 | XR_ITS ---
XR lumbar spine 2-3V Indication: LOW BACK PAIN Comparison: None Findings: Levoconvex scoliosis. Moderate loss of vertebral height. No acute fracture. Grade 1 anterolisthesis of L4 on L5. Moderate to severe loss of disc height throughout. Soft tissues unremarkable Impression: No acute abnormality. Reviewed, dictated and finalized at location P. [facility] [employer] Impression: No acute abnormality.
--- OUTSIDE RECORDS SUMMARY | 2025-07-13 19:13 | XMS_ITS | Clinical Summary ---
Author Organization [facility] Address [address] [place] [address] Care Team Providers Care Big Data Software Engineer Name Role Phone Christ Coto MD Primary Care Provider Yesy Alonso MD Unavailable Sudhakar Lu Unavailable [phone] Anthony Rojas MD Unavailable [phone] [...] Team Description 06/27/2025 10:30 AM CDT Telephone [facility] [address] [place] [address] Anthony Rojas MD Holter Monitor 06/15/2025 Telephone [employer] [facility] [address] [place] [address] Anthony Rojas MD Holter Monitor 06/15/2025 [facility] [address] [place] [address] Ignacio Cain MD Appointment Request 06/14/2025 9:30 AM T Office Visit [facility] [address] [place] [address] Anthony Rojas MD Gryczewski, Alison, PA-C Follow Up 06/14/2025 9:15 AM CDT - 06/14/2025 11:59 PM CDT Hospital Encounter [facility] [address] [place] [address] Peggy Celeste PA-C Discharge Disposition: Home or Self Care (Routine Discharge) 06/14/2025 Telephone [facility] [address] [place] [address] Peggy Celeste PA-C Information 06/14/2025 Travel 06/13/2025 Telephone [facility] [place] [id number] [place] [address] Peggy Celeste PA-C Appointment Reminder 06/12/2025 Orders Only [facility] [address] [place] [address] Anthony Rojas MD 06/05/2025 Scan [facility] [address] [place] [address] Scanned, Doc Pccl ECG (SCAN) 04/19/2025 Telephone [facility] [address] [place] [address] Peggy Celeste PA-C Appointment Reminder 04/18/2025 Telephone [facility] [address] [place] [address] Peggy Celeste PA-C Appointment Reminder 04/17/2025 Orders Only [facility] [address] [place] [address] Anthony Rojas MD from Last 3 Months [...] pur e alcohol) 2 spiked 4% drinks/week/wine [facility] Utilities Answer Date Recorded In the past 12 months has e [employer], gas, oil, or water [employer] threatened to shut off services in your [...] were you homeless or living in a mcc (including now)? No 03/22/2025 Comments No Sex [...] this topic Medical Devices Implanted Type Area Courtesy Bus Driver Device Identifier Shelf Expiration Date Model / Serial / Lot Agent Hemostatic Surgiflo 8 Ml Kit - [id number] Implanted:Qty: 1 on 02/03/2025 by Taryn Ruiz MD at [facility] [employer] [id number] 06/06/2026 [id number] / / [id number] Agent Hemostatic Surgiflo 8 Ml Kit - [id number] Implanted:Qty: 1 on 02/03/2025 by Jonnathan Galindo MD at [facility] [employer] [id number] 06/06/2026 [id number] / / [id number] Procedures Procedure Name Priority Date/Time Associated Diagnosis Comments ECG GENERIC (SCAN ORDER) Routine 06/05/2025 12:00 AM CDT from Last 3 Months Results * ECG (06/05/2025 12:00 AM CDT) 06/05/2025 us Doc Pccl Scanned SCANNING Final Result [facility] from Last 3 Months Insurance [facility] MEDICARE Advance Directives * Full [...] 6:44 PM 05/12/2024 3:20 PM Care Teams Big Data Software Engineer Relationship Specialty Start Date End Date Christ Coto MD [address] [place] [phone] PCP - General FAMILY PRACTICE 03/12/19 Yesy Alonso MD [address] [place] [address] [place] [address] Consulting Physician CARDIOVASCULAR DISEASE 05/19/24 Sudhakar Lu PA [address] [place] [phone] Physician Disintegrator Operator PHYSICIAN HELP DESK ASSISTANT 05/19/24 Anthony Rojas MD [address] [place] [address] Consulting Physician CLINICAL CARDIAC ELECTROPHYSIOLOGY 01/16/25 Peggy Celeste PA-C [address] [place] [address] Referring Physician PHYSICIAN HELP DESK ASSISTANT 01/30/25
--- OUTSIDE RECORDS SUMMARY | 2025-07-13 19:13 | XMS_ITS | Encounter Summary ---
Author Organization [facility] Address [facility] [place] [address] Care Team Providers Care Manager Fine Dining Name Role Phone Christ Coto MD Primary Care Provider [phone] Yesy Alonso MD Unavailable Sudhakar Lu Unavailable [phone] Anthony Rojas MD Unavailable [phone] Peggy Celeste PA-C Unavailable [phone] Encounter Details Date Type Department Care Team (Late st Contact Info) Description 02/12/2019 Abstract [facility] [address] [place] [address] , Generic MD Jacqueline Social [...] documented as of this encounter Care Teams Manager Fine Dining Relationship Specialty Start Date End Date Christ Coto MD [address] [place] [phone] PCP - General FAMILY PRACTICE 03/12/19 [place] [address] [place] [address] [place] [address] Consulting Physician CARDIOVASCULAR DISEASE 05/19/24 Sudhakar Lu PA [address] [place] [phone] Physician Microbiological Lab Technician PHYSICIAN WAFER POLISHER 05/19/24 Anthony Rojas MD [address] [place] [address] Consulting Physician CLINICAL CARDIAC ELECTROPHYSIOLOGY 01/16/25 Peggy Celeste PA-C [address] [place] [address] Referring Physician PHYSICIAN WAFER POLISHER 01/30/25 documented as of this encounter
--- OUTSIDE RECORDS SUMMARY | 2025-07-13 19:13 | XMS_ITS | Encounter Summary ---
Author Organization [facility] Address [address] [place] [address] Care Team Providers Care Land Examiner Name Role Phone Christ Coto MD Primary Care Provider Yesy Alonso MD Unavailable Sudhakar Lu Unavailable [phone] Anthony Rojas MD Unavailable [phone] Peggy Celeste PA-C Unavailable [phone] Encounter Details Date Type Department Care Team (Late st Contact Info) Description 02/14/2025 Hospital Follow-up Call [facility] [address] [place] [address] Alicia Salazar, RN Social History Tobacco Use Types Packs/Day Years Used Date Smoking Tobacco: Never Smokeless Tobacco: Never Alcohol Use Standard Drinks/Week Comments Yes 0 (1 standard drink = 0.6 oz pur e alcohol) 2 spiked 4% drinks/week/wine [facility] Utilities Answer Date Recorded In the past 12 months has e electric, gas, oil, or water [employer] threatened to shut off services in your [...] in the past 12 m [facility], were you homeless or living [...] on filedocumented in this encounter Care Teams Land Examiner Relationship Specialty Start Date End Date Christ Coto MD [address] [place] [phone] PCP - General FAMILY PRACTICE 03/12/19 Yesy Alonso MD [address] [place] [address] [place] [address] Consulting Physician CARDIOVASCULAR DISEASE 05/19/24 Sudhakar Lu PA [address] [place] [phone] Physician Casing Crew PHYSICIAN KILN MAINTENANCE 05/19/24 Anthony Rojas MD [address] [place] [address] Consulting Physician CLINICAL CARDIAC ELECTROPHYSIOLOGY 01/16/25 Peggy Celeste PA-C [address] [place] [address] Referring Physician PHYSICIAN KILN MAINTENANCE 01/30/25 documented as of this encounter
--- OUTSIDE RECORDS SUMMARY | 2025-07-13 19:13 | XMS_ITS | Encounter Summary ---
Author Organization [facility] Address [address] [place] [address] Care Team Providers Care Wool Supplier Name Role Phone Christ Coto MD Primary Care Provider Yesy Alonso MD Unavailable Sudhakar Lu Unavailable [phone] Anthony Rojas MD Unavailable [phone] Peggy Celeste PA-C Unavailable [phone] Encounter Details Date Type Department Care Team (Late st Contact Info) Description 05/16/2024 Hospital Follow-up Call [facility] [address] [place] [address] Alicia Salazar, RN Social History Tobacco Use Types Packs/Day Years Used Date Smoking Tobacco: Never Smokeless Tobacco: Never Alcohol Use Standard Drinks/Week Comments Yes 0 (1 standard drink = 0.6 oz pur e alcohol) 2 spiked 4% drinks/week/wine [facility] Utilities Answer Date Recorded In the [...] in the past 12 m [facility], were you homeless or living in a custodial (including now)? No 04/27/2024 Comments No Sex [...] on filedocumented in this encounter Care Teams Wool Supplier Relationship Specialty Start Date End Date Christ Coto MD [address] [place] [phone] PCP - General FAMILY PRACTICE 03/12/19 Yesy Alonso MD [address] [place] [address] [place] [address] Consulting Physician CARDIOVASCULAR DISEASE 05/19/24 Sudhakar Lu PA [address] [place] [phone] Physician Test Director PHYSICIAN NAVAL ENGINEER 05/19/24 Anthony Rojas MD [address] [place] [phone] Consulting Physician CLINICAL CARDIAC ELECTROPHYSIOLOGY 01/16/25 Peggy Celeste PA-C [address] [place] [address] Referring Physician PHYSICIAN NAVAL ENGINEER 01/30/25 documented as of this encounter
--- OUTSIDE RECORDS SUMMARY | 2025-07-13 19:13 | XMS_ITS | Encounter Summary ---
Author Organization [facility] Address [address] [place] [address] Care Team Providers Care Grease Refiner Operator Name Role Phone Christ Coto MD Primary Care Provider Yesy Alonso MD Unavailable Sudhakar Lu Unavailable [phone] Anthony Rojas MD Unavailable [phone] Peggy Celeste PA-C Unavailable [phone] Encounter Details Date Type Department Care Team (Late st Contact Info) Description 03/27/2025 Hospital Follow-up Call [facility] [address] [place] [address] Alicia Salazar, RN Social [...] any time in the past 12 m [facility], were you homeless or living in a [...] on filedocumented in this encounter Care Teams Grease Refiner Operator Relationship Specialty Start Date End Date Christ Coto MD [address] [place] [phone] PCP - General FAMILY PRACTICE 03/12/19 Yesy Alonso MD [address] [place] [address] [place] [address] Consulting Physician CARDIOVASCULAR DISEASE 05/19/24 Sudhakar Lu PA [address] [place] [phone] Physician Food Assembler Commissary Kitchen PHYSICIAN DRUM STENCILER 05/19/24 Anthony Rojas MD [address] [place] [phone] Consulting Physician CLINICAL CARDIAC ELECTROPHYSIOLOGY 01/16/25 Peggy Celeste PA-C [address] [place] [address] Referring Physician PHYSICIAN DRUM STENCILER 01/30/25 documented as of this encounter
== END 2025-07-13 11:28 | disposition home or self-care (01) ==
LOC: CHSLAB 11:30
PROVIDERS: PCP Family Medicine; Visit Provider Family Medicine
DX: N94.89 Other specified conditions associated with female genital organs and menstrual cycle (principal); M54.50 Low back pain, unspecified; R19.09 Other intra-abdominal and pelvic swelling, mass and lump
CPT/HCPCS: 72100; 86304

== ENCOUNTER 2025-08-01 08:59 | Outpatient (CLI) | payer MEDICARE, SELFPAY ==
[2025-08-01 09:24] LABS: Hematocrit 35.5 % (35.0-42.0); Hemoglobin 11.1 g/dL (11.7-13.8); Immature Granulocyte Percent A 0.2 % (0.0-0.0); Lymphocytes Absolute Auto 1.21 K/mm3 (1.10-4.50); Mean Corpuscular HGB Conc 31.3 g/dL (32-36); Mean Corpuscular Hemoglobin 31.2 pg (27.0-31.0); Mean Corpuscular Volume 99.7 fL (78.0-102.0); Nucleated Red Blood Cells Absolute Auto 0.09 K/mm3 (0.00-0.00); Nucleated Red Blood Cells Perc 2.2 % (0-0.0); Platelet Count Result 286 K/mm3 (150-420); Red Blood Count 3.56 M/mm3 (4.20-5.40); White Blood Count 4.1 K/mm3 (4.8-10.8)
[2025-08-01 10:02] LABS: Iron 106 ug/dL (37-170)
[2025-08-01 10:15] LABS: Percent Iron Saturation 28 % (20-50)
[2025-08-01 11:00] LABS: Thyroid Stimulating Hormone 5.250 uIU/mL (0.465-4.680)
[2025-08-01 11:04] LABS: Anion Gap 12 mmol/L (4-12); Blood Urea Nitrogen 16 mg/dL (7-17); Carbon Dioxide 22 mmol/L (22-30); Chloride 105 mmol/L (98-107); Potassium 4.3 mmol/L (3.4-5.0); Sodium 139 mmol/L (137-145)
[2025-08-01 11:05] LABS: Alanine Aminotransferase 20 U/L (6-35); Albumin Level 3.8 g/dL (3.5-5.1); Aspartate Amino Transferase 38 U/L (14-36); Bilirubin,Total 1.2 mg/dL (0.2-1.3); Calcium 9.5 mg/dL (8.4-10.2); Estimated Glomerular Filt Rate 58; Glucose 96 mg/dL (65-110); Osmolality Calculated 289 mOsm/kg (285-295); Total Protein 7.0 g/dL (6.3-8.2)
[2025-08-01 11:06] LABS: Alkaline Phosphatase 114 U/L (38-126); Cholesterol 216 mg/dL (0-200); HDL Direct 81 mg/dL; Triglycerides 96 mg/dL (<150)
== END 2025-08-01 09:00 | disposition home or self-care (01) ==
LOC: CHSLAB 09:04
PROVIDERS: PCP Family Medicine; Visit Provider Physician Assistant
DX: E78.00 Pure hypercholesterolemia, unspecified (principal); E55.9 Vitamin D deficiency, unspecified; Z86.2 Personal history of diseases of the blood and blood-forming organs and certain disorders involving the immune mechanism; R79.89 Other specified abnormal findings of blood chemistry
CPT/HCPCS: 36415; 80053; 80061; 82306; 83540; 83550; 84443; 85025